=== PATIENT | female | born 1945 | race Caucasian/White ===

== ENCOUNTER 2018-11-07 10:12 | Inpatient (IN) | payer MEDICARE, OTHER ==
[2018-11-07] VITALS (15 sets, daily range): BP systolic 116–142; BP diastolic 62–87; PULSE 75–100; RESP 11–18; Ht 172.7 cm; Wt 95.1 kg
[~2018-11-07] VITALS: Ht 172.7 cm; Wt 95.1 kg
[2018-11-07] MEDS ORDERED: ALBU2SYR3 PO (17:18)
[2018-11-07] MEDS ORDERED: MONT10TA21 PO (17:18)
[2018-11-07] MEDS ORDERED: FLUT1BLS INHALATION (17:18)
[2018-11-07] MEDS ORDERED: LOSA25TA2 PO (17:18)
[2018-11-07] MEDS ORDERED: UDLOM GTB (17:18)
[2018-11-07] MEDS ORDERED: LYR75 PO (17:18)
[2018-11-07] MEDS ORDERED: MAGN400T28 PO (17:18)
[2018-11-07] MEDS ORDERED: ASPI-903 PO (17:18)
[2018-11-07] MEDS ORDERED: ALBU18HF INHALATION (17:18)
[2018-11-07] MEDS ORDERED: OMEP20CA16 PO (17:18)
[2018-11-07] MEDS ORDERED: FER325 PO (17:18)
[2018-11-07] MEDS ORDERED: LEVO125T7 PO (17:18)
[2018-11-07] MEDS ORDERED: AMLO-218 PO (17:18)
[2018-11-07] MEDS ORDERED: ACET1TAB40 PO (17:18)
[2018-11-07] MEDS ORDERED: CHOL100062 PO (17:18)
--- NOTE | 2018-11-07 17:39 | PREAC ---
Date/Time of Note Date/Time of Note DATE: 11/07/18 TIME: 17:37 Anesthesia Eval and Record Evaluation Time Pre-Procedure Interview DATE: 11/07/18 TIME: 17:37 Age 73 Sex female NPO: 8 hrs Preoperative diagnosis PVD osteomyelitis right leg Planned procedure right BKA Past Medical History Past Medical History: Includes Cardio: HTN, Other (Afib) Pulm: COPD GI: GERD Surgery & Anesthesia Issues No known issue Meds Anticoagulation: No Beta Judi within 24 hr: No Reason Beta Judi not given: Pt. not on B-Judi Reported Medications Albuterol Sulfate* (Ventolin HFA*) 18 Gm Hfa.aer.ad, 2 PUFF INHALATION Q6H, #1 INHALER 11/07/18 Diphenoxylate Hcl-Atropine* (Lomotil*) 5 Ml Soln, 5 ML GTB Q6H PRN for DIARRHEA, ML 11/07/18 Albuterol Sulfate* (Albuterol Sulfate* Liq) 2 Mg/5 Ml Syrup, 2 MG PO TID, #240 ML 11/07/18 Acetaminophen with Codeine (Acetaminophen-Cod #3 Tablet) 1 Each Tablet, 1 TAB PO Q6H, #7 TAB 11/07/18 Pregabalin* (Lyrica*) 75 Mg Capsule, 75 MG PO DAILY, CAP 11/07/18 Fluticasone/Vilanterol (Breo Ellipta 200-25 Mcg INH) 1 Each Blst.w.dev, 1 PUFF INHALATION DAILY, #1 INHALER 11/07/18 Ferrous Sulfate* (Ferrous Sulfate*) 325 Mg Tabec, 65 MG PO DAILY, TAB 11/07/18 Magnesium Oxide* (Magnesium Oxide*) 400 Mg Tablet, 400 MG PO DAILY, TAB 11/07/18 Cholecalciferol* (Vitamin D3*) 1,000 Unit Tablet, 2000 UNIT PO DAILY, TAB 11/07/18 Montelukast Sodium* (Singulair*) 10 Mg Tablet, 10 MG PO QHS, #30 TAB 11/07/18 Aspirin* (Aspirin* Chew) 81 Mg Tab.chew, 81 MG PO DAILY, TAB.CHEW 11/07/18 Omeprazole* (Omeprazole*) 20 Mg Capsule.dr, 20 MG PO DAILY, #30 CAP 11/07/18 Amlodipine Besylate* (Norvasc*) 10 Mg Tablet, 10 MG PO DAILY, TAB 11/07/18 Levothyroxine Sodium* (Levothyroxine Sodium*) 125 Mcg Tablet, 125 MCG PO BEFORE BREAKFAST, #30 TAB 11/07/18 Losartan Potassium* (Cozaar*) 25 Mg Tablet, 25 MG PO DAILY, #30 TAB 11/07/18 Meds reviewed: Yes Allergies Coded Allergies: Iodine and Iodide Containing Produc (Verified Allergy, Severe, RASH, ANAPHYLAXIS, 11/07/18) amoxicillin (Verified Allergy, Severe, RASH, 11/07/18) ciprofloxacin (Verified Allergy, Severe, RASH, 11/07/18) clavulanic acid (Verified Allergy, Severe, RASH, 11/07/18) hydromorphone (Verified Allergy, Severe, ANAPHYLAXIS, 11/07/18) ibuprofen (Verified Allergy, Severe, ANAPHYLAXIS, 11/07/18) aztreonam (Verified Allergy, Unknown, 11/07/18) cefepime (Verified Allergy, Unknown, 11/07/18) vancomycin (Verified Allergy, Unknown, 11/07/18) meperidine (Verified Adverse Reaction, Severe, N/V, 11/07/18) morphine (Verified Adverse Reaction, Severe, n/v, 11/07/18) Allergies Reviewed: Yes Labs/Studies Labs Reviewed: Reviewed by anesthesiologist test: N/A Studies: ECG (AF), CXR (nl) Pre-procedure Exam Last vitals Vital Signs Date Temp Pulse Resp B/P (MAP) Pulse Ox O2 O2 Flow FiO2 Time Delivery Rate 11/07/18 98.2 81 18 131/80 97 Room Air 16:48 (97) Airway: Adequate mouth opening Mallampati: Mallampati I Teeth: Normal Lung: Normal Heart: Normal ASA Physical Status ASA physical status: 2 Emergency: None Planned Anesthetic General/MAC: LMA Neuraxial: Spinal Nerve block: Femoral (right), Sciatic (right) Planned Pain Management Single shot nerve block, Parenteral pain med Pre-operative Attestations Prior to commencing anesthesia and surgery, the patient was re-evaluated, there was verification of: *The patient's identity *The results of appropriate recent lab work and preoperative vital signs *The above evaluation not changing prior to induction *Anesthetic plan, risk benefits, alternative and complications discussed with patient/family; questions answered; patient/family understands, accepts and wishes to proceed. BILLY GRANT MD Nov 07, 2018 17:39
[2018-11-07] MEDS ORDERED: ROPIVACAINE 0.2% 20 ML VIAL ONE (17:43)
[2018-11-07] MEDS ORDERED: ONDANSETRON 4 MG INJ ONE (17:43)
[2018-11-07] MEDS ORDERED: MIDAZOLAM 1 MG/ML 2 ML INJ ONE ×2 (17:43→18:12)
[2018-11-07] MEDS ORDERED: PROPOFOL 20 ML ONE (17:43)
[2018-11-07] MEDS ORDERED: ROPIVACAINE 0.5 % 30 ML VIAL ONE (17:43)
[2018-11-07] MEDS ORDERED: METOCLOPRAMIDE 10 MG INJ ONE (17:44)
[2018-11-07] MEDS ORDERED: HYDROmorphONE 1 MG/5 ML IV SYRINGE IV PRN ×3 (18:00)
[2018-11-07] MEDS ORDERED: DIPHENHYDRAMINE 50 MG INJ IV PRN (18:00)
[2018-11-07] MEDS ORDERED: ONDANSETRON 4 MG INJ IV PRN (18:00)
[2018-11-07] MEDS ORDERED: MEPERIDINE 25 MG INJ IV PRN (18:00)
--- NOTE | 2018-11-07 18:15 | HPN ---
Date/Time of Note Date/Time of Note DATE: 11/07/18 TIME: 18:15 Interval H&P Admission Note Pt. seen H&P reviewed: No system changes NICOLE DILLARD MD Nov 07, 2018 18:15
[2018-11-07] MEDS ORDERED: FENTAnyl 50 MCG/ML VIAL ONE (18:27)
--- NOTE | 2018-11-07 18:30 | HPN ---
Date/Time of Note Date/Time of Note DATE: 11/07/18 TIME: 18:29 Interval H&P Admission Note Pt. seen H&P reviewed: No system changes SAE BETH MD Nov 07, 2018 18:30
[2018-11-07] MEDS ORDERED: PIPER-TAZO 3.375 GM IV (PMX) 100 ML ONE (18:36)
[2018-11-07] MEDS ORDERED: CEFAZOLIN 1 GM INJ ONE (18:53)
[2018-11-07] MEDS ORDERED: DIPHENHYDRAMINE 25 MG CAP PO PRN (19:00)
[2018-11-07] MEDS ORDERED: CEFAZOLIN 1 GM INJ IV SCH (19:00)
[2018-11-07] MEDS ORDERED: BACITRACIN/POLYMYXIN 28.35 GM OINT TOP ONE (20:24)
[2018-11-07] MEDS ORDERED: KETOROLAC 30 MG INJ ONE (20:24)
--- NOTE | 2018-11-07 20:36 | NUR ---
RECEIVED ASLEEP WITH OXYGEN MASK ON AND ORAL AIRWAY IN PLACE. BREATHING WITH EASE. DRESSING ON RIGHT LEG IN PLACE WITH LEG IMMOBILIZER ON. OA REMOVED SOON SHE WOKE UP.
--- NOTE | 2018-11-07 20:46 | SIPON ---
Date/Time of Note Date/Time of Note DATE: 11/07/18 TIME: 20:43 Operative Report Preoperative Diagnosis RLE EXTREMITY ATHEROSCLEROSIS AND NONHEALING ULCER, OSTEOMYELITIS AND CHARCOT Postoperative Diagnosis SAME Operation/Procedure Performed RIGHT BKA RIGHT MUSCULOCUTANEOUS FLAP CLOSURE Surgeon DR. NICOLE BETH activity assistant NONE Anesthesia: MAC, moderate sedation, other (BLOCK) Estimated blood loss: 100 - 150 ml's Transfusion Required none Specimen BONE MARROW CULTURE Grafts/Implants none Complications none SAE BETH MD Nov 07, 2018 20:45
--- NOTE | 2018-11-07 20:48 | OPR ---
Date/Time of Note Date/Time of Note DATE: 11/07/18 TIME: 20:46 Operative Report Preoperative Diagnosis RLE EXTREMITY ATHEROSCLEROSIS AND NONHEALING ULCER, OSTEOMYELITIS AND CHARCOT Postoperative Diagnosis SAME Operation/Procedure Performed RIGHT Below KNEE AMPUTATION RIGHT MUSCULOCUTANEOUS FLAP CLOSURE Surgeon SURGEONS: CO-DR. SAE BETH CO-DR. NICOLE GRIFFIN Tariff Compiler none Anesthesia Type: moderate sedation, other (block) Estimated Blood Loss: 100 - 150 ml's Transfusion none Specimen NECROTIC FOOT, BONE MARROW CULTURE Grafts/Implants none Complications none Pt Condition Post Procedure: stable Disposition: PACU Procedure Description DATE OF OPERATION: 11/07/2018 SURGEON: Sae Beth MD CO-SURGEON: Dr. Nicole Griffin MD PREOPERATIVE DIAGNOSIS: Right Lower Extremity atherosclerosis & nonhealing ulcer, osteomyelitis and Charcot POSTOPERATIVE DIAGNOSIS: same ANESTHESIA: general BLOOD LOSS: 150 COMPLICATIONS: None. PROCEDURE: 1. Left below knee amputation 2. Right myocutaneous flap closure Indications: The patient is a 73-year-old female with chronic nonhealing foot wound and osteomyelitis for four years with non-reconstructible ankle and foot. She has become nonambulatory and uses a scooter device for transport and ambulation. This has completely limited her life and she would like to move forward as there is no other intervention that can be provided from orthopedic standpoint. She has also undergone arterial studies that identified adequate perfusion to the infrapopliteal segment.The risks of surgical intervention were discussed with the patient. Risks including but not limited to bleeding, myocardial infarction, , infection, and patient has agreed to proceed. Description of procedure: The patient was placed supine. The lower extremity was prepped and draped in the usual sterile fashion. The preoperative antibiotics were given. General anesthesia was induced and patient tolerated well. An occlusive dressing was applied to the foot up to the level of the ankle. Anterior and posterior skin incisions were outlined with a marking pen. The anterior skin incision was made 12 cm below the tibial tuberosity and extended medially and laterally toward the edges of the gastrocnemius muscle. The skin incision was then extended distally on either side parallel to the tibia for 12 15 cm, creating a posterior flap. The skin and subcutaneous tissues were incised down to the fascia. The greater and short saphenous veins on the medial and posterior aspects of the leg, respectively, were ligated and divided. The fascia and the muscles were then divided with the electrocautery at the same level of the anterior skin incision. The muscles in the anterior and lateral compartment were divided, exposing the anterior tibial vessels, which were ligated and divided. The interosseous membrane was then incised. The tibial periosteum was incised circumferentially with the electrocautery at the same level of the skin and muscle division. Using a periosteal elevator, the tibial periosteum was stripped proximally for 2 cm. The tibia was then transected with an electric saw 2 cm proximal to the skin incision with an anterior bevel. The fibula was then exposed, dissected circumferentially, and transected with a bone cutter 2 cm proximal to the tibial division. The amputation was then completed with an amputation knife, transecting the soleus muscle obliquely and the gastrocnemius muscle at the same level as the posterior flap. Bleeding soleal veins and posterior tibial and peroneal vessels were clamped and oversewn with 2-0 silk sutures. Sharp bony edges were then filed, eliminating any bony prominences over the anterior aspect of the tibia. At this point on the medial and lateral aspect of the tibia we drilled anchoring points in order to create a musculocutaneous flap to cover the tibia as the patient would like to be very ambulatory with her prosthesis. The fascia of the anterior and posterior muscle flaps were then approximated with interrupted absorbable sutures 1-0 and 2-0 in two layers. This was performed in order to have the rotated flap from the proximal calf to close the defect that would have been there given the limited muscle that would've been available. The dermal layer was approximated with interrupted 3-0 Vicryl sutures and skin stephanie were applied. The stump was dressed with 4 4 gauze, Kerlix, and an Nilo bandage. The patient tolerated the procedure well and was taken to the postanesthesia care unit in stable condition. All instruments, sponges, and needles were correct x 2. SAE BETH MD Nov 07, 2018 20:48
[2018-11-07] MEDS ORDERED: FENTAnyl 50 MCG/ML VIAL IV PRN ×6 (21:00→21:30)
--- NOTE | 2018-11-07 21:08 | QN ---
Documentation Job number: [id number] NICOLE DILLARD MD Nov 07, 2018 21:08
--- NOTE | 2018-11-07 21:11 | SIPON ---
Date/Time of Note Date/Time of Note DATE: 11/07/18 TIME: 21:08 Operative Report Preoperative Diagnosis Right foot osteomyelitis, Charcot foot, arthrosclerosis Postoperative Diagnosis Right foot osteomyelitis, Charcot foot, arthrosclerosis Operation/Procedure Performed Right leg below knee amputation Surgeon CO-SURGEON: NICOLE DILLARD MD CO-SURGEON: SAE BETH MD miller head assistant wet process none Anesthesia: general, other (sciatic and femoral) Estimated blood loss: 100 - 150 ml's Transfusion Required none Specimen right BKA, cultures from post amp soft tissue and tibial canal Grafts/Implants none Complications none NICOLE DILLARD MD Nov 07, 2018 21:11
--- NOTE | 2018-11-07 21:13 | PAC ---
Date/Time of Note Date/Time of Note DATE: 11/07/18 TIME: 21:13 Post-Anesthesia Notes Post-Anesthesia Note Last documented vital signs Vital Signs Date Temp Pulse Resp B/P (MAP) Pulse Ox O2 O2 Flow FiO2 Time Delivery Rate 11/07/18 98.2 100 17 134/74 94 Mask 8.0 20:47 (94) 11/07/18 98.2 20:36 Activity: WNL Respiratory function: WNL Cardiovascular function: WNL Mental status: Baseline Pain reasonably controlled: Yes Hydration appropriate: Yes Nausea/Vomiting absent: No BILLY GRANT MD Nov 07, 2018 21:13
--- NOTE | 2018-11-07 21:14 | NUR ---
DR DILLARD SPOKE TO HOSPITALIST DR CHRISTOPHER GRISSOM FOR CONSULT. AWAKE AND ALERT.
--- NOTE | 2018-11-07 21:24 | NUR ---
LEFT MESSAGE WITH DR SAMPSON'S EXCHANGE FOR CONSULT. ENDORSED TO GAGAN RIVERA RN.
--- NOTE | 2018-11-07 21:47 | NUR ---
PACU: Transferred patient back to the room via gurney AAOX4 vss breathing with ease w/ 3LNC HOB @ 45 deg. denies pain, dressing dry & intact, yung intact , scd on the left leg, report given to JESSICA French
[2018-11-07] MEDS ORDERED: PIPER-TAZO 2.25 GM (PMX) 50 ML IVPB SCH (22:00)
[2018-11-07] MEDS: oxyCODONE (CR) 10 MG TAB [oxyCONTIN] PO SCH (23:08)
[2018-11-07] MEDS: GABAPENTIN 300 MG CAP PO SCH (23:08)
[2018-11-08] VITALS (14 sets, daily range): BP systolic 126–139; BP diastolic 61–76; PULSE 38–96; RESP 17–20
[2018-11-08] MEDS: PANTOPRAZOLE (EC) 40 MG TAB PO SCH (06:18)
[2018-11-08] MEDS: PIPER-TAZO 2.25 GM (PMX) 50 ML IVPB SCH ×3 (06:18→21:37)
[2018-11-08] MEDS: LEVOTHYROXINE 125 MCG TAB PO SCH (06:18)
--- NOTE | 2018-11-08 07:38 | CONS ---
Date/Time of Note Date/Time of Note DATE: 11/08/18 TIME: 07:37 Assessment/Plan Assessment/Plan Assessment/Plan Post op med consult dictated. Pt with known chronic a fib, copd, gerd, without DM or known coronary artery disease, meds and allergies rev, will follow. Result Diagram: 11/08/18 0503 11/08/18 0503 Results 24hrs Laboratory Tests Test 11/07/18 21:29 11/08/18 05:03 Hemoglobin 11.6 L 11.1 L Hematocrit 36.1 L 35.8 L White Blood Count 8.9 Red Blood Count 3.98 L Mean Corpuscular Volume 89.9 Mean Corpuscular Hemoglobin 27.9 L Mean Corpuscular Hemoglobin Concent 31.0 L Red Cell Distribution Width 14.5 Platelet Count 220 Mean Platelet Volume 10.3 Immature Granulocytes % 0.300 Neutrophils % 75.5 Lymphocytes % 13.9 L Monocytes % 8.5 Eosinophils % 1.2 Basophils % 0.6 Nucleated Red Blood Cells % 0.0 Immature Granulocytes # 0.030 Neutrophils # 6.7 Lymphocytes # 1.2 Monocytes # 0.8 Eosinophils # 0.1 Basophils # 0.1 Nucleated Red Blood Cells # 0.0 Sodium Level 141 Potassium Level 4.6 Chloride Level 103 Carbon Dioxide Level 29 Anion Gap 9 Blood Urea Nitrogen 16 Creatinine 0.65 Est Glomerular Filtrat Rate mL/min Glucose Level 105 Calcium Level 8.9 Phosphorus Level 5.3 H Magnesium Level 2.2 Consultation Date/Type/Reason Admit Date/Time Nov 07, 2018 at 15:37 Past Medical History Medications Current Medications Ondansetron HCl (Zofran Inj) 4 mg Q4H PRN IV NAUSEA AND/OR VOMITING; Start 11/07/18 at 19:00 Diphenhydramine HCl (Benadryl) 25 mg Q4H PRN PO ITCHING; Start 11/07/18 at 19:00 Rivaroxaban (Xarelto) 10 mg WITH DINNER PO ; Start 11/08/18 at 18:00 Gabapentin (Neurontin) 300 mg TID PO Last administered on 11/07/18at 23:08; Admin Dose 300 MG; Start 11/07/18 at 21:00 Oxycodone HCl (Oxycontin) 5 mg BID PO Last administered on 11/07/18at 23:08; Admin Dose 5 MG; Start 11/07/18 at 21:00 Oxycodone HCl (Roxicodone) 5 mg Q4H PRN PO MODERATE PAIN LEVEL 4-6; Start 11/07/18 at 19:00 Multivitamins Therapeutic (Theragran) 1 tab DAILY PO ; Start 11/08/18 at 09:00 Amlodipine Besylate (Norvasc) 10 mg DAILY PO ; Start 11/08/18 at 09:00 Cholecalciferol (Vitamin D) 2,000 unit DAILY PO ; Start 11/08/18 at 09:00 Fluticasone/ Vilanterol (Breo Ellipta 200-25 Mcg Inh) 1 inh DAILY INH ; Start 11/08/18 at 09:00 Levothyroxine Sodium (Synthroid) 125 mcg BEFORE BREAKFAST PO Last administered on 11/08/18at 06:18; Admin Dose 125 MCG; Start 11/08/18 at 07:00 Losartan Potassium (Cozaar) 25 mg DAILY PO ; Start 11/08/18 at 09:00 Magnesium Oxide (Mag-Ox 400) 400 mg DAILY PO ; Start 11/08/18 at 09:00 Montelukast Sodium (Singulair) 10 mg QHS PO ; Start 11/08/18 at 21:00 Pregabalin (Lyrica) 75 mg DAILY PO ; Start 11/08/18 at 09:00 Pantoprazole (Protonix Tab) 40 mg DAILY@06 PO Last administered on 11/08/18at 06:18; Admin Dose 40 MG; Start 11/08/18 at 06:00 Piperacillin Sod/ Tazobactam Sod 50 ml @ 100 mls/hr Q8 IVPB Last administered on 11/08/18at 06:18; Admin Dose 100 MLS/HR; Start 11/08/18 at 06:00; Stop 11/08/18 at 22:29 Allergies: Coded Allergies: Iodine and Iodide Containing Produc (Verified Allergy, Severe, RASH, ANAPHYLAXIS, 11/07/18) amoxicillin (Verified Allergy, Severe, RASH, 11/07/18) ciprofloxacin (Verified Allergy, Severe, RASH, 11/07/18) clavulanic acid (Verified Allergy, Severe, RASH, 11/07/18) hydromorphone (Verified Allergy, Severe, ANAPHYLAXIS, 11/07/18) ibuprofen (Verified Allergy, Severe, ANAPHYLAXIS, 11/07/18) aztreonam (Verified Allergy, Unknown, 11/07/18) cefepime (Verified Allergy, Unknown, 11/07/18) vancomycin (Verified Allergy, Unknown, 11/07/18) meperidine (Verified Adverse Reaction, Severe, N/V, 11/07/18) morphine (Verified Adverse Reaction, Severe, n/v, 11/07/18) Social History Smoking Status: Former smoker Exam/Review of Systems Vital Signs Vitals Vital Signs Date Temp Pulse Resp B/P (MAP) Pulse Ox O2 O2 Flow FiO2 Time Delivery Rate 11/08/18 97.6 76 20 135/71 98 07:29 (92) 11/08/18 Nasal 04:09 Cannula 11/08/18 2.0 28 02:28 Intake and Output 11/07/18 11/07/18 11/08/18 1515:00 23:00 07:00 IntakeIntake Total 1400 ml 50 ml OutputOutput Total 150 ml BalanceBalance 1250 ml 50 ml Medications Medications Current Medications Ondansetron HCl (Zofran Inj) 4 mg Q4H PRN IV NAUSEA AND/OR VOMITING; Start 11/07/18 at 19:00 Diphenhydramine HCl (Benadryl) 25 mg Q4H PRN PO ITCHING; Start 11/07/18 at 19:00 Rivaroxaban (Xarelto) 10 mg WITH DINNER PO ; Start 11/08/18 at 18:00 Gabapentin (Neurontin) 300 mg TID PO Last administered on 11/07/18at 23:08; Admin Dose 300 MG; Start 11/07/18 at 21:00 Oxycodone HCl (Oxycontin) 5 mg BID PO Last administered on 11/07/18at 23:08; Ad min Dose 5 MG; Start 11/07/18 at 21:00 Oxycodone HCl (Roxicodone) 5 mg Q4H PRN PO MODERATE PAIN LEVEL 4-6; Start 11/07/18 at 19:00 Multivitamins Therapeutic (Theragran) 1 tab DAILY PO ; Start 11/08/18 at 09:00 Amlodipine Besylate (Norvasc) 10 mg DAILY PO ; Start 11/08/18 at 09:00 Cholecalciferol (Vitamin D) 2,000 unit DAILY PO ; Start 11/08/18 at 09:00 Fluticasone/ Vilanterol (Breo Ellipta 200-25 Mcg Inh) 1 inh DAILY INH ; Start 11/08/18 at 09:00 Levothyroxine Sodium (Synthroid) 125 mcg BEFORE BREAKFAST PO Last administered on 11/08/18at 06:18; Admin Dose 125 MCG; Start 11/08/18 at 07:00 Losartan Potassium (Cozaar) 25 mg DAILY PO ; Start 11/08/18 at 09:00 Magnesium Oxide (Mag-Ox 400) 400 mg DAILY PO ; Start 11/08/18 at 09:00 Montelukast Sodium (Singulair) 10 mg QHS PO ; Start 11/08/18 at 21:00 Pregabalin (Lyrica) 75 mg DAILY PO ; Start 11/08/18 at 09:00 Pantoprazole (Protonix Tab) 40 mg DAILY@06 PO Last administered on 11/08/18at 06:18; Admin Dose 40 MG; Start 11/08/18 at 06:00 Piperacillin Sod/ Tazobactam Sod 50 ml @ 100 mls/hr Q8 IVPB Last administered on 11/08/18at 06:18; Admin Dose 100 MLS/HR; Start 11/08/18 at 06:00; Stop 11/08/18 at 22:29 ELISE SAMPSON MD Nov 08, 2018 07:38
--- NOTE | 2018-11-08 07:40 | NUR ---
end of shift: patient is alert and oriented, atrial fib controlled, s/p right BKA, SCD on the left leg; overhead trapeze in place; needs attended, will endorse to dayshift nurse
--- NOTE | 2018-11-08 08:10 | CONS ---
DATE OF ADMISSION: 11/07/2018 DATE OF CONSULTATION: TYPE OF CONSULTATION: POST-OP MEDICAL CONSULTATIVE NOTE Dr. Nicole Dillard: Thank you very much for allowing me to evaluate this 73-year-old female who underwent right lower ext remity amputation for nonhealing ulcer yesterday. Medical consultation requested to manage her known hypertension, chronic obstructive pulmonary disease as well as atrial fibrillation. HISTORICAL EVENTS: The above patient has had a longstanding history of a nonhealing ulcer of the rig ht lower extremity. She had seen both vascular as well as infectious disease physicians in the past and despite aggressive search for a remedy, resulted in a continued drainage, bleeding and osteomyeli tis and it was felt amputation appropriate. Postoperatively, she is comfortable without cough, wheez ing, shortness of breath, nausea, vomiting, abdominal or chest pain. PAST MEDICAL HISTORY: 1. Chronic atrial fibrillation, having been only treated with anticoagulants for a short time, this resulted in bleeding from the right lower extremity and this was discontinued having to remain on asp irin alone. 2. By history undergoing a treadmill test in excess of 5 years ago and she states this was normal [facility] history of coronary artery disease. 3. History of hypertension. 4. History of anemia having remained on iron and having undergone both upper GI endoscopy and colono scopy as well as a capsule study without finding a "bleeding site." 5. Chronic obstructive pulmonary disease, having smoked in the past. 6. No history of diabetes. Prior cholecystectomy. ALLERGIES OR INTOLERANCES: Include: 1. MORPHINE. 2. DEMEROL. 3. DILAUDID. 4. IBUPROFEN. 5. IODINE. 6. VANCOMYCIN. 7. CIPRO. 8. AUGMENTIN. 9. CEFEPIME. 10. AZTREONAM. SOCIAL HISTORY: . Worked in the medical profession as an aide. MEDICATIONS: 1. Cozaar 25 mg. 2. Synthroid 125 mcg per day. 3. Norvasc 10 mg. 4. Prilosec 20 mg. 5. Singulair 10 mg. 6. Vitamin D3 2000 mg per day. 7. Magnesium 400 mg per day. 8. Iron 65 mg per day. 9. Breo. 10. Lyrica 75 mg p.r.n. 11. Albuterol nebulizer. 12. Tylenol with Codeine. PHYSICAL EXAMINATION: GENERAL: [place] female in no acute distress. VITAL SIGNS: BP 126/78, pulse 72, respirations were 18. She was afebrile. EYES: Extraocular muscles were full. NOSE, MOUTH, AND THROAT: Normal. NECK: Supple. There was no jugular venous distention, thyroid enlargement or adenopathy. Carotids 2+. LUNGS: Clear. HEART: Rhythm irregularly irregular. No murmur. No third sound. ABDOMEN: Liver and spleen not palpable. No tenderness. EXTREMITIES the right lower extremity was amputated, bandage was in place. Left lower extremity, no calf tenderness and no edema. NEUROLOGIC: No lateralizing motor weakness. IMPRESSION: 1. Postop right below the knee amputation for treatment of a nonhealing ulcer/osteo. 2. History of hypertension. Will monitor BP and continue BP meds. 3. Vitamin D deficiency. Continue Vitamin D3. 4. History of gastroesophageal reflux disease. Proton pump inhibitor will be continued. We will f devinlow with you. Dictated By: ELISE PEÑALOZA/MAGDI Conf#: [id number] DID#: [id number] CC: NICOLE DILLARD MD;*EndCC*
[2018-11-08] MEDS: AMLODIPINE 10 MG TAB PO SCH (08:41)
[2018-11-08] MEDS: FLUTICASONE/VILANTEROL 200-25 INH DEVICE INH SCH (08:41)
[2018-11-08] MEDS: MAGNESIUM OXIDE 400 MG TAB PO SCH (08:41)
[2018-11-08] MEDS: CHOLECALCIFEROL 2,000 UNIT CAP PO SCH (08:41)
[2018-11-08] MEDS: oxyCODONE 5 MG TAB PO PRN ×3 (08:42→21:03)
[2018-11-08] MEDS: MULTIVITAMINS THERAPEUTIC TAB PO SCH (08:42)
[2018-11-08] MEDS: LOSARTAN 25 MG TAB PO SCH (08:42)
[2018-11-08] MEDS: GABAPENTIN 300 MG CAP PO SCH ×3 (08:42→20:15)
[2018-11-08] MEDS ORDERED: PREGABALIN 75 MG CAP PO SCH (09:00)
[2018-11-08] MEDS: oxyCODONE (CR) 10 MG TAB [oxyCONTIN] PO SCH ×2 (09:16→20:15)
--- NOTE | 2018-11-08 09:30 | NUR ---
PT evaluation Therapy day number 1 Evaluation Start Time 09:30 Evaluation End Time 10:30 Evaluation Total Time 60 min Subjective Current complaint of pain Pain Scale NUMERIC Pain Intensity 7 (0-10) Patient Stated Goal for Pain Relief 0 (0-10) Pain Level Comment patient premedicated, states "much better than previously" Pre Treatment Vital Signs Stable Yes Transfer Training Start Time 10:30 Supine to Sit Minimum Assist Transfer Sit to Stand Ability Moderate Assist Bed Mobility Sit to Supine Minimum Assist Bed Transfer Ability Minimum Assist Chair Transfer Ability Minimum Assist Additional Mobility Comments transfer with use of FWW SPT, limited by nausea Transfer Training End Time 11:00 Total Transfer Training Time 30 min (8-127) Gait Assist Levels Minimum Assist Assistive Devices Front Wheel Walker Additional Gait Comments hopping in place with tricep dips for UE strengthening Weight Bearing Assessment Label Right Lower Extremity Weight Bearing Status Non Weight Bearing Static Sitting Balance Good Dynamic Sitting Balance Good Standing Static Balance Fair Dynamic Standing Balance Fair Additional Balance Assessments Comments with use of FWW Safety Judgement Fair Activity Tolerance Fair Equipment Present A pump Donis Catheter IV pump Post Treatment Pain Intensity 7 0-10 Quality Indicators Dizziness Additional Post Treatment Comment See note Total Treament Time 30 min (8-127) Total Minutes 90 Total Units 6 PT Technical Record Comment 73 yo female presents s/p RLE BKA secondary to nonhealing ulcer on 11/07/18. PMH: chronic a fib, copd, gerd, without DM or known coronary artery disease Precautions: fall risk, NWB RLE PLOF: patient lives in [facility] with 1 step to enter, patient previous used knee scooter mod I. Owns tub bench, has Home health services. S: Pt in bed, agreeable to PT evaluation. pt cleared for activity per RN. Daughter (Masha) present at bedside. O: PT evaluation completed, pt returned back to bed following therapy intervention with call light within reach and bed alarm activated. Spoke to RN regarding pt response to activity and PT plan of care. Vitals stable throughout however pt reported nausea and dizziness with change in position. knee immobilizer on patient at all times. Spoke to CM regarding PT recommendations. Educated patient and family at length regarding recovery and potential PT discharge recommendations A: Patient presents with fair mobility throughout limited secondary to nausea and dizziness. Patient strongly receptive to physical therapy and motivated to participate in care. Patient presents with good safety awareness and has good LE strength and trunk control to assist with weight shifting. Patient fatigues quickly dues to UE endurance but overall continually striving for increasing mobility and functional independence. Additionally pt could benefit from OT evaluation for recommendations to assist in ADLs and management. Patient could benefit from skilled inpatient PT to improve endurance, strength, and functional mobility P: Provide HEP and promote improved functional mobility Recommendation: Recommend FWW for transfers and short ambulation, may benefit from wc for distance. Patient could benefit from OT evaluation, recommend ARU for continued high intensity therapy prior to discharge home when medically cleared by
--- NOTE | 2018-11-08 11:29 | NUR ---
Nutrition consult Recent amputation - Will be sending Jaylon BID for faster healing. Pt requested for soft food that are easier to chew and digest. Thank you
[2018-11-08] MEDS: ONDANSETRON 4 MG INJ IV PRN (11:51)
--- NOTE | 2018-11-08 13:15 | NUR ---
PT note Therapy day number 1 Subjective Denies pain Pain Scale NUMERIC Pain Intensity 6 (0-10) Patient Stated Goal for Pain Relief 0 (0-10) Pain Level Comment pt agreeable to PT Pre Treatment Vital Signs Stable Yes Exercise Assessment Label Bilat Lower Extremity Exercise Type Active ROM Additional Exercise Comments provided HEP, SL briding, hip abd, SLR, isometric glutes, w/ stretching Exercise Start Time 13:15 Exercise End Time 14:00 Total Exercise Time 45 min (8-127) Equipment Present A pump Donis Catheter IV pump Post Treatment Pain Intensity 6 0-10 Additional Post Treatment Comment See note Total Treament Time 45 min (8-127) Total Minutes 45 Total Units 3 PT Technical Record Comment S: Pt in bed, agreeable to PT intervention, reports continued dizziness and nausea. Patient cleared for activity per RN O: PT intervention completed, performed ther-ex and provided HEP. Patient performed ther-ex indicated and performed hamstring, soleus, and gastoc stretching of LLE. Pt back in bed, all needs met, spoke to RN regarding pt response to activity and PT plan of care. A: Patient receptive to PT education and demonstrates good strength in BLE. Patient understanding of movement limitations, concernsed with previous L THR precautions due to multiple prior dislocations. Patient reports THR was 2009 with no recent dislocations. Patient continued to be motivated to participate in therapy and understanding of progression of mobility. P: Progress OOB tolerance, transfers and FWW management with mobility
--- NOTE | 2018-11-08 16:48 | NUR ---
CM NOTE ORDER RECEIVED FOR SNF PLACEMENT, CM MET WITH PT AND DAUGHTER, THEY WOULD LIKE TO FOLLOW THE RECOMMENDATION OF PHYSICAL THERAPY FOR ARU, AND DAUGHTER STATED THAT SHE DISCUSSED ARU WITH MD DILLARD, CM ALSO SENT [facility] [employer] [phone] FAXED AND WILL FOLLOW UP LATER, INFORMATION TO [facility] PROVIDED TO THE DAUGHTER WELL, CM WILL CONTINUE TO FOLLOW UP.
[2018-11-08] MEDS: RIVAROXABAN 10 MG TABLET PO SCH (17:58)
--- NOTE | 2018-11-08 18:34 | NUR ---
pt able to turn and move self in bed with trapeze family at bedside pt med prn with po oxycodone with good relief per pt pt afib on tele , o2 increased to 5lt nc as pt desats when sleeping r dressing cdi, in imobilizer,
[2018-11-08] MEDS: MONTELUKAST 10 MG TAB PO SCH (20:15)
--- NOTE | 2018-11-08 20:43 | PN ---
Date/Time of Note Date/Time of Note DATE: 11/08/18 TIME: 20:38 Assessment/Plan Lines/Catheters IV Catheter Type (from Nrsg): Mid Line Assessment/Plan Chief Complaint/Hosp Course -Right LE atherosclerosis, osteomyelitis, nonhealing chronic ulcer & Charcot: S/P Right BKA-with musculocutaneous flap -LLE: no current ulcers . will continue with our vascular surveillance -Pain control -PT/OT OOB to chair and FWB of the LLE, RLE with knee immobilizer and fall precautions -Incentive spirometer -DVT ppx -Will plan to remove dressing on Tuesday -Keep RLE elevate on two pillows Subjective 24 Hr Interval Summary no new vascular events overnight Exam/Review of Systems Vital Signs Vitals Vital Signs Date Temp Pulse Resp B/P (MAP) Pulse Ox O2 O2 Flow FiO2 Time Delivery Rate 11/09/18 98.1 89 18 122/69 95 07:59 (86) 11/09/18 Simple 6.0 01:28 Mask 11/08/18 28 02:28 Intake and Output 11/08/18 11/08/18 11/09/18 1414:59 22:59 06:59 IntakeIntake Total 400 ml 600 ml 600 ml OutputOutput Total 600 ml 1200 ml 1250 ml BalanceBalance -200 ml -600 ml -650 ml Exam Free Text/Dictation A&Ox3 CTAB S1S2 soft NTND BS+, truncal obesity RLE: Palpable femoral pulse, motor/sensory intact, BKA-stump with dressing intact LLE: Palpable femoral pulse, faint pedal pulse motor/sensory intact, cap refill 3 seconds, no ulcers Results Result Diagram: 11/09/18 0536 11/09/18 0536 SAE BETH MD Nov 08, 2018 20:43
[2018-11-09] VITALS (10 sets, daily range): BP systolic 122–144; BP diastolic 65–75; PULSE 72–94; RESP 18–20
[2018-11-09] MEDS: oxyCODONE 5 MG TAB PO PRN ×5 (00:36→22:51)
--- NOTE | 2018-11-09 01:18 | NUR ---
patient on O2 5L/NC, had desaturation 80s when sleeping, noted patient breathing through the mouth, instructed on IS when awake; RT notified, patient shifted to simple mask 6L O2 while sleeping, O2 sat 96%; will continue to monitor patient
[2018-11-09] MEDS: GABAPENTIN 300 MG CAP PO SCH ×3 (06:13→20:39)
[2018-11-09] MEDS: PANTOPRAZOLE (EC) 40 MG TAB PO SCH (06:14)
[2018-11-09] MEDS: LEVOTHYROXINE 125 MCG TAB PO SCH (06:14)
--- NOTE | 2018-11-09 06:42 | NUR ---
end of shift: patient is alert and oriented, atrial fibrillation controlled on monitor; continues to experience pain on the right leg, given pain medication with partial relief; seen by Dr. Singleton during the night, with instruction to move the right LE up and down and elevate on pillow; notified [facility] (tel [phone]) for the request for [facility] - will endorse to follow-up in AM; patient had desaturation to 80s despite 5L O2 support while asleep, shifted to simple mask while asleep and was placed back to nasal cannula in AM; needs attended; will endorse to dayshift nurse
[2018-11-09] MEDS: ONDANSETRON 4 MG INJ IV PRN (06:44)
--- NOTE | 2018-11-09 07:56 | PN ---
Date/Time of Note Date/Time of Note DATE: 11/09/18 TIME: 07:54 Assessment/Plan Lines/Catheters IV Catheter Type (from Nrsg): Mid Line Assessment/Plan Chief Complaint/Hosp Course -Right LE atherosclerosis, osteomyelitis, nonhealing chronic ulcer & Charcot: S/P Right BKA-with musculocutaneous flap -Pain control -PT/OT OOB to chair and FWB of the LLE, RLE with knee immobilizer and fall precautions -Incentive spirometer -Some phantom pain - Continue with Neurontin -DVT ppx -Will plan to remove dressing on Tuesday -Keep RLE elevate on two pillows -Will remove Donis tomorrow in order to avoid any contamination to the dressings -Thank you for allowing us to partake in the care of your patients, please call with any questions Subjective 24 Hr Interval Summary no new vascular events overnight Exam/Review of Systems Vital Signs Vitals Vital Signs Date Temp Pulse Resp B/P (MAP) Pulse Ox O2 O2 Flow FiO2 Time Delivery Rate 11/09/18 87 04:00 11/09/18 Simple 6.0 01:28 Mask 11/09/18 97.4 20 133/75 95 00:37 (94) 11/08/18 28 02:28 Intake and Output 11/08/18 11/08/18 11/09/18 1515:00 23:00 07:00 IntakeIntake Total 400 ml 600 ml 600 ml OutputOutput Total 600 ml 1200 ml 1250 ml BalanceBalance -200 ml -600 ml -650 ml Exam Free Text/Dictation A&Ox3 CTAB S1S2 soft NTND BS+, truncal obesity RLE: Palpable femoral pulse, motor/sensory, BKA-stump with dressing intact Results Result Diagram: 11/09/18 0536 11/09/18 0536 SAE BETH MD Nov 09, 2018 07:56
--- NOTE | 2018-11-09 08:39 | PN ---
Date/Time of Note Date/Time of Note DATE: 11/09/18 TIME: 08:37 Assessment/Plan VTE Prophylaxis Risk score (from Ns)>0 risk: 6 SCD applied (from Ns): Yes Pharmacological prophylaxis: rivaroxaban Lines/Catheters IV Catheter Type (from [facility]): Mid Line Assessment/Plan Assessment/Plan 1. Post op right leg amputation 2. Hyponatremia, w/u in progress, fluid restrict, Adelaida ordered, and isotonic fluids 3. Atrial fib, now on xarelto Result Diagram: 11/09/18 0536 11/09/18 0536 Results 24hrs Laboratory Tests Test 11/09/18 05:36 White Blood Count 14.2 #H Red Blood Count 3.82 L Hemoglobin 10.9 L Hematocrit 32.8 L Mean Corpuscular Volume 85.9 Mean Corpuscular Hemoglobin 28.5 L Mean Corpuscular Hemoglobin Concent 33.2 Red Cell Distribution Width 14.2 Platelet Count 198 Mean Platelet Volume 10.7 H Immature Granulocytes % 0.300 Neutrophils % 85.6 H Lymphocytes % 4.7 L Monocytes % 9.0 Eosinophils % 0.1 Basophils % 0.3 Nucleated Red Blood Cells % 0.0 Immature Granulocytes # 0.040 H Neutrophils # 12.1 H Lymphocytes # 0.7 L Monocytes # 1.3 H Eosinophils # 0.0 Basophils # 0.0 Nucleated Red Blood Cells # 0.0 Sodium Level 125 #L Potassium Level 4.3 Chloride Level 88 #L Carbon Dioxide Level 28 Anion Gap 9 Blood Urea Nitrogen 11 Creatinine 0.54 Est Glomerular Filtrat Rate mL/min Glucose Level 157 Calcium Level 8.5 Phosphorus Level 3.8 Magnesium Level 1.9 Subjective 24 Hr Interval Summary Cardiovascular: No chest pain, No lightheadedness Gastrointestinal: no complaints Genitourinary: no complaints, other (yung in place) Neurologic: other (discomfort right lower extrem) Exam/Review of Systems Vital Signs Vitals Vital Signs Date Temp Pulse Resp B/P (MAP) Pulse Ox O2 O2 Flow FiO2 Time Delivery Rate 11/09/18 98.1 89 18 122/69 95 07:59 (86) 11/09/18 Simple 6.0 01:28 Mask 11/08/18 28 02:28 Intake and Output 11/08/18 11/08/18 11/09/18 1515:00 23:00 07:00 IntakeIntake Total 400 ml 600 ml 600 ml OutputOutput Total 600 ml 1200 ml 1250 ml BalanceBalance -200 ml -600 ml -650 ml Exam Neck: No jvd Respiratory: clear to auscultation Cardiovascular: regular rate and rhythm; No irregular rhythm Gastrointestinal: soft Extremities: No edema Medications Medications Current Medications Ondansetron HCl (Zofran Inj) 4 mg Q4H PRN IV NAUSEA AND/OR VOMITING Last administered on 11/09/18 06:44; Admin Dose 4 MG; Start 11/07/18 at 19:00 Diphenhydramine HCl (Benadryl) 25 mg Q4H PRN PO ITCHING; Start 11/07/18 at 19:00 Rivaroxaban (Xarelto) 10 mg WITH DINNER PO Last administered on 11/08/18 17:58; Admin Dose 10 MG; Start 11/08/18 at 18:00 Gabapentin (Neurontin) 300 mg TID PO Last administered on 11/09/18 06:13; Admin Dose 300 MG; Start 11/07/18 at 21:00 Oxycodone HCl (Oxycontin) 5 mg BID PO Last administered on 11/08/18at 20:15; Admin Dose 5 MG; Start 11/07/18 at 21:00 Oxycodone HCl (Roxicodone) 5 mg Q4H PRN PO MODERATE PAIN LEVEL 4-6 Last administered on 11/09/18 04:59; Admin Dose 5 MG; Start 11/07/18 at 19:00 Multivitamins Therapeutic (Theragran) 1 tab DAILY PO Last administered on 11/08/18 08:42; Admin Dose 1 TAB; Start 11/08/18 at 09:00 Amlodipine Besylate (Norvasc) 10 mg DAILY PO Last administered on 11/08/18 08:41; Admin Dose 10 MG; Start 11/08/18 at 09:00 Cholecalciferol (Vitamin D) 2,000 unit DAILY PO Last administered on 11/08/18 08:41; Admin Dose 2,000 UNIT; Start 11/08/18 at 09:00 Fluticasone/ Vilanterol (Breo Ellipta 200-25 Mcg Inh) 1 inh DAILY INH Last administered on 11/08/18 08:41; Admin Dose 1 INH; Start 1/16/19 at 09:00 Levothyroxine Sodium (Synthroid) 125 mcg BEFORE BREAKFAST PO Last administered on 11/09/18 06:14; Admin Dose 125 MCG; Start 11/08/18 at 07:00 Losartan Potassium (Cozaar) 25 mg DAILY PO Last administered on 11/08/18 08:42; Admin Dose 25 MG; Start 11/08/18 at 09:00 Magnesium Oxide (Mag-Ox 400) 400 mg DAILY PO Last administered on 11/08/18 08:41; Admin Dose 400 MG; Start 11/08/18 at 09:00 Montelukast Sodium (Singulair) 10 mg QHS PO Last administered on 11/08/18 20:15; Admin Dose 10 MG; Start 11/08/18 at 21:00 Pregabalin (Lyrica) 75 mg DAILY PO Last administered on 11/08/18 08:42; Admin Dose 75 MG; Start 11/08/18 at 09:00; Status Hold Pantoprazole (Protonix Tab) 40 mg DAILY@06 PO Last administered on 11/09/18 06:14; Admin Dose 40 MG; Start 11/08/18 at 06:00 ELISE SAMPSON MD Nov 09, 2018 08:39
--- NOTE | 2018-11-09 09:09 | CONS ---
Date/Time of Note Date/Time of Note DATE: 11/09/18 TIME: 09:05 Assessment/Plan Assessment/Plan Assessment/Plan 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 Patient currently somnolent History of chronic atrial fibrillation Treatment per Dr. Noel COPD patient is not a smoker any longer Status post cholecystectomy Suggest continue current pain control medications no change at this time. She is somnolent she does not be having pain out of control and high risk of devel oping aspiration by increasing her opioid pain control medications. I have assured patient's daughter that we will control her pain in the event that she has severe breakthrough on current pain control medications but we will be careful and conservative. Both patient and her daughter agree with current treatment plan. Result Diagram: 11/09/18 0536 11/09/18 0536 Results 24hrs Laboratory Tests Test 11/09/18 05:36 White Blood Count 14.2 #H Red Blood Count 3.82 L Hemoglobin 10.9 L Hematocrit 32.8 L Mean Corpuscular Volume 85.9 Mean Corpuscular Hemoglobin 28.5 L Mean Corpuscular Hemoglobin Concent 33.2 Red Cell Distribution Width 14.2 Platelet Count 198 Mean Platelet Volume 10.7 H Immature Granulocytes % 0.300 Neutrophils % 85.6 H Lymphocytes % 4.7 L Monocytes % 9.0 Eosinophils % 0.1 Basophils % 0.3 Nucleated Red Blood Cells % 0.0 Immature Granulocytes # 0.040 H Neutrophils # 12.1 H Lymphocytes # 0.7 L Monocytes # 1.3 H Eosinophils # 0.0 Basophils # 0.0 Nucleated Red Blood Cells # 0.0 Sodium Level 125 #L Potassium Level 4.3 Chloride Level 88 #L Carbon Dioxide Level 28 Anion Gap 9 Blood Urea Nitrogen 11 Creatinine 0.54 Est Glomerular Filtrat Rate mL/min Glucose Level 157 Calcium Level 8.5 Phosphorus Level 3.8 Magnesium Level 1.9 Consultation Date/Type/Reason Admit Date/Time Nov 07, 2018 at 15:37 Asked to see this 73-year-old very pleasant female in pain management consultation. Information is taken from patient's medical records daughter at the bedside and lastly from patient who is very sleepy at this time after having recently been medicated for pain control. According to formation ascertained from chart and patient's daughter she has a long-standing history of 10 years of nonhealing ulcer of her left lower extremity. According medical record she is been seen by multiple different consultants in the past and is undergoing just conservative treatment. There has not been a definitive diagnosis for the etiology of her left lower extremity pathology. According to daughter patient's open ulcer required another consultation after appropriate studies were done and she was told that there was no procedure was can save her left lower extremity and she was recommended to have a an amputation. Other comorbid medical problems include a history of COPD atrial fibrillation on and off anticoagulated in the past and history of hypertension moderate obesity. There is no diagnosed history of vascular connective tissue or factious etiology for her presenting complaints. Postoperatively patient is sleepy at this time and cannot give me good story herself. However her daughter tells me she is been taken Tylenol with codeine as an outpatient which seemed to have controlled her pain over the stent appeared time prior to this hospitalization. At this time with proceeding very low-dose of OxyContin and OxyIR patient is awake arousable but sleepy. States that she is nauseous but she is always been also this when she every she takes any pain control medication. This symptom is not new. Currently denies abdominal discomfort chest pain shortness of breath cough dizziness diplopia disorientation pruritus constipation. She states all pain control medications have an untoward side effect of lethargy and somnolence even in low dose. P atient exhibits no sign of drug seeking behavior. She in fact prefers not to take opioids if at all possible. There is no history to indicate the patient is using pain control medication response to situational stressors she is a non drinker. Patient is status post BKA November 07, 2018 Constitutional: no complaints, improved Eyes: no complaints ENT: no complaints Respiratory: no complaints Cardiovascular: no complaints, other (History of atrial fibrillation on and off anticoagulated not anticoagulated when patient was actively bleeding in the left lower extreme) Gastrointestinal: no complaints Musculoskeletal: other (Refer to history of present illness) Neurologic: no complaints Psychological: no complaints, nl mood/affect Immunologic: no complaints Past Medical History Medical History: GERD, high cholesterol, hypertension, pancreatitis Medications Current Medications Ondansetron HCl (Zofran Inj) 4 mg Q4H PRN IV NAUSEA AND/OR VOMITING Last administered on 11/09/18 06:44; Admin Dose 4 MG; Start 11/07/18 at 19:00 Diphenhydramine HCl (Benadryl) 25 mg Q4H PRN PO ITCHING; Start 11/07/18 at 19:00 Rivaroxaban (Xarelto) 10 mg WITH DINNER PO Last administered on 11/08/18 17:58; Admin Dose 10 MG; Start 11/08/18 at 18:00 Gabapentin (Neurontin) 300 mg TID PO Last administered on 11/09/18 06:13; Admin Dose 300 MG; Start 11/07/18 at 21:00 Oxycodone HCl (Oxycontin) 5 mg BID PO Last administered on 11/08/18 20:15; Admin Dose 5 MG; Start 11/07/18 at 21:00 Oxycodone HCl (Roxicodone) 5 mg Q4H PRN PO MODERATE PAIN LEVEL 4-6 Last administered on 11/09/18 04:59; Admin Dose 5 MG; Start 11/07/18 at 19:00 Multivitamins Therapeutic (Theragran) 1 tab DAILY PO Last administered on 08:42; Admin Dose 1 TAB; Start 11/08/18 at 09:00 Amlodipine Besylate (Norvasc) 10 mg DAILY PO Last administered on 11/08/18 08:41; Admin Dose 10 MG; Start 11/08/18 at 09:00 Cholecalciferol (Vitamin D) 2,000 unit DAILY PO Last administered on 11/08/18 08:41; Admin Dose 2,000 UNIT; Start 11/08/18 at 09:00 Fluticasone/ Vilanterol (Breo Ellipta 200-25 Mcg Inh) 1 inh DAILY INH Last administered on 11/08/18 08:41; Admin Dose 1 INH; Start 11/08/18 at 09:00 Levothyroxine Sodium (Synthroid) 125 mcg BEFORE BREAKFAST PO Last administered on 11/09/18 06:14; Admin Dose 125 MCG; Start 11/08/18 at 07:00 Losartan Potassium (Cozaar) 25 mg DAILY PO Last administered on 11/08/18at 08:42; Admin Dose 25 MG; Start 11/08/18 at 09:00 Magnesium Oxide (Mag-Ox 400) 400 mg DAILY PO Last administered on 11/08/18at 08:41; Admin Dose 400 MG; Start 11/08/18 at 09:00 Montelukast Sodium (Singulair) 10 mg QHS PO Last administered on 11/08/18at 20:15; Admin Dose 10 MG; Start 11/08/18 at 21:00 Pantoprazole (Protonix Tab) 40 mg DAILY@06 PO Last administered on 11/09/18at 06:14; Admin Dose 40 MG; Start 11/08/18 at 06:00 Sodium Chloride 1,000 ml @ 75 mls/hr [id number] IV ; Start 11/09/18 at 09:00 Allergies: Coded Allergies: Iodine and Iodide Containing Produc (Verified Allergy, Severe, RASH, ANAPHYLAXIS, 11/07/18) amoxicillin (Verified Allergy, Severe, RASH, 11/07/18) ciprofloxacin (Verified Allergy, Severe, RASH, 11/07/18) clavulanic acid (Verified Allergy, Severe, RASH, 11/07/18) hydromorphone (Verified Allergy, Severe, ANAPHYLAXIS, 11/07/18) ibuprofen (Verified Allergy, Severe, ANAPHYLAXIS, 11/07/18) aztreonam (Verified Allergy, Unknown, 11/07/18) cefepime (Verified Allergy, Unknown, 11/07/18) vancomycin (Verified Allergy, Unknown, 11/07/18) meperidine (Verified Adverse Reaction, Severe, N/V, 11/07/18) morphine (Verified Adverse Reaction, Severe, n/v, 11/07/18) Past Surgical History Past Surgical Hx: other (Sphincterotomy, multiple surgical procedures left hip last 10 years ago for left hip repair) Family History Significant Family History: COPD, hypertension Social History Alcohol Use: none Smoking Status: Former smoker Drug Use: none Exam/Review of Systems Vital Signs Vitals Vital Signs Date Temp Pulse Resp B/P (MAP) Pulse Ox O2 O2 Flow FiO2 Time Delivery Rate 11/09/18 98.1 89 18 122/69 95 07:59 (86) 11/09/18 Simple 6.0 01:28 Mask 11/08/18 28 02:28 Intake and Output 11/08/18 11/08/18 11/09/18 1515:00 23:00 07:00 IntakeIntake Total 400 ml 600 ml 600 ml OutputOutput Total 600 ml 1200 ml 1250 ml BalanceBalance -200 ml -600 ml -650 ml Exam Constitutional: alert, oriented, well developed Psych: no complaints, nl mood/affect Head: normocephalic, atraumatic ENMT: nl external ears & nose, nl lips & teeth, nl nasal mucosa & septum Respiratory: clear to auscultation, normal air movement Cardiovascular: regular rate and rhythm, nl pulses Gastrointestinal: soft, nl liver, spleen, non-tender Musculoskeletal: other (Left lower extremity bandaged below the knee) Neurological: [employer]IPLE VALVE [employer]CH[employer]IC II-XII intact, nl mental status, nl speech, nl strength Medications Medications Current Medications Ondansetron HCl (Zofran Inj) 4 mg Q4H PRN IV NAUSEA AND/OR VOMITING Last administered on 11/09/18 06:44; Admin Dose 4 MG; Start 11/07/18 at 19:00 Diphenhydramine HCl (Benadryl) 25 mg Q4H PRN PO ITCHING; Start 11/07/18 at 19:00 Rivaroxaban (Xarelto) 10 mg WITH DINNER PO Last administered on 11/08/18at 17:58; Admin Dose 10 MG; Start 11/08/18 at 18:00 Gabapentin (Neurontin) 300 mg TID PO Last administered on 11/09/18 06:13; Admin Dose 300 MG; Start 11/07/18 at 21:00 Oxycodone HCl (Oxycontin) 5 mg BID PO Last administered on 11/08/18at 20:15; Admin Dose 5 MG; Start 11/07/18 at 21:00 Oxycodone HCl (Roxicodone) 5 mg Q4H PRN PO MODERATE PAIN LEVEL 4-6 Last administered on 11/09/18 04:59; Admin Dose 5 MG; Start 11/07/18 at 19:00 Multivitamins Therapeutic (Theragran) 1 tab DAILY PO Last administered on 11/08/18 08:42; Admin Dose 1 TAB; Start 11/08/18 at 09:00 Amlodipine Besylate (Norvasc) 10 mg DAILY PO Last administered on 11/08/18 08:41; Admin Dose 10 MG; Start 11/08/18 at 09:00 Cholecalciferol (Vitamin D) 2,000 unit DAILY PO Last administered on 11/08/18 08:41; Admin Dose 2,000 UNIT; Start 11/08/18 at 09:00 Fluticasone/ Vilanterol (Breo Ellipta 200-25 Mcg Inh) 1 inh DAILY INH Last administered on 11/08/18 08:41; Admin Dose 1 INH; Start 11/08/18 at 09:00 Levothyroxine Sodium (Synthroid) 125 mcg BEFORE BREAKFAST PO Last administered on 11/09/18 06:14; Admin Dose 125 MCG; Start 11/08/18 at 07:00 Losartan Potassium (Cozaar) 25 mg DAILY PO Last administered on 11/08/18 08:42; Admin Dose 25 MG; Start 11/08/18 at 09:00 Magnesium Oxide (Mag-Ox 400) 400 mg DAILY PO Last administered on 11/08/18 08:41; Admin Dose 400 MG; Start 11/08/18 at 09:00 Montelukast Sodium (Singulair) 10 mg QHS PO Last administered on 11/08/18 20:15; Admin Dose 10 MG; Start 11/08/18 at 21:00 Pantoprazole (Protonix Tab) 40 mg DAILY@06 PO Last administered on 11/09/18 06:14; Admin Dose 40 MG; Start 11/08/18 at 06:00 Sodium Chloride 1,000 ml @ 75 mls/hr [id number] IV ; Start 11/09/18 at 09:00 EMMA MACDONALD Nov 09, 2018 09:09
[2018-11-09] MEDS: SOD CHLORIDE 0.9% 1,000 ML IV SCH ×2 (09:17→22:20)
[2018-11-09] MEDS: MULTIVITAMINS THERAPEUTIC TAB PO SCH (09:18)
[2018-11-09] MEDS: CHOLECALCIFEROL 2,000 UNIT CAP PO SCH (09:18)
[2018-11-09] MEDS: oxyCODONE (CR) 10 MG TAB [oxyCONTIN] PO SCH ×2 (09:18→20:40)
[2018-11-09] MEDS: MAGNESIUM OXIDE 400 MG TAB PO SCH (09:18)
[2018-11-09] MEDS: LOSARTAN 25 MG TAB PO SCH (09:19)
[2018-11-09] MEDS: AMLODIPINE 10 MG TAB PO SCH (09:19)
[2018-11-09] MEDS: FLUTICASONE/VILANTEROL 200-25 INH DEVICE INH SCH (11:00)
--- NOTE | 2018-11-09 11:15 | NUR ---
PT NOTE [facility] Patient: Karla Chavarria : 1945 Age/Sex: 73/F Unit#: [id number] Room/Bed: 9/A User: Genevieve Khan PTA Date: 11/09/18 10:45 Type: PT Technical Record Therapy day number 2 Subjective Current complaint of pain Pain Scale NUMERIC Pain Intensity 7 (0-10) Patient Stated Goal for Pain Relief 0 (0-10) Pain Level Comment R LE; premedicated Pre Treatment Vital Signs Stable Yes - 119/66 mmHg, 81 bpm, 95% O2 sat on 4L/min Exercise Assessment Label Bilat Lower Extremity Exercise Type Active ROM Additional Exercise Comments seated L LE HRs, SAQs; supine B SLR, hip abd/add Exercise Start Time 11:01 Exercise End Time 11:15 Total Exercise Time 14 min (8-127) Transfer Training Start Time 10:45 Supine to Sit Minimum Assist Bed Mobility Sit to Supine Minimum Assist Additional Mobility Comments 2PA for safety; unable to perform STS d/t continuous dizziness Transfer Training End Time 11:00 Total Transfer Training Time 15 min (8-127) Weight Bearing Assessment Label Right Lower Extremity Weight Bearing Status Non Weight Bearing Static Sitting Balance Good Dynamic Sitting Balance Fair plus Safety Judgement Fair Activity Tolerance Fair Equipment Present A pump Donis Catheter IV pump Additional Equipment Present 4L/min via NC Post Treatment Pain Intensity 7 0-10 Quality Indicators Dizziness Additional Post Treatment Comment see PT note Total Treament Time 29 min (8-127) Total Minutes 29 Total Units 2 PT Technical Record Comment PT NOTE S: "I'm feeling a little loopy but I'll do what I can." Agreed to skilled PT. Cleared and premedicated by JESSICA Whitman. O: Received awake in supine with son at bedside. Pre tx vitals: 119/66 mmHg, 81 bpm, 95% O2 sat on 4L/min via NC. See tech record for assist levles. VCs on hand placement and sequencing to EOB; utilized trapeze. B UE assist for static sitting. Pt reported dizziness upon sitting; VCs on deep breathgin technique emphasizing breathing through nose. Sitting vitals: 117/56 mmHg, 94 bpm, 94%. No change in dizziness. Performed L LE seated therex with VCs on deep breathing. Noted desat to 88%. Pt reported no improvement in dizziness and c/o nausea; pt requested to return to supine. Min VCs on hand/foot placement and sequencing to reposition to HOB; pt demo'd good understanding/return. Positioned in semi-jones. Performed supine B LE therex. Continuous dizziness. Post tx vitals: 133/75 mmHg, 92 bpm, 96% O2 sat. SCDs on, call light and all necessities within reach, family at bedside. Informed RN. A: Pt felicity tx fairly. 4L/min via NC throughout tx. Monitored vitals: O2 desat during therex but stable during transfers. Pt requires VCs to breath through nose vs mouth. Pt pleasant throughout. Dizziness and min/mod nausea. P: Continue with POC.
--- NOTE | 2018-11-09 11:47 | PN ---
Date/Time of Note Date/Time of Note DATE: 11/08/18 TIME: 21:44 Assessment/Plan Lines/Catheters IV Catheter Type (from Nrsg): midline Assessment/Plan Assessment/Plan POD#1 s/p Right LE BKA - NWB to the RLE - PT to GT - Prosthesis to fit patient with ambushield - to Acute Rehab - appreciate medical co follow and recs - xarelto for dvt prophx Maggy Dillard MD 11/08/18 Subjective 24 Hr Interval Summary Doing well. Pain is still quite high Pain Control: mild Exam/Review of Systems Vital Signs Vitals Vital Signs Date Temp Pulse Resp B/P (MAP) Pulse Ox O2 O2 Flow FiO2 Time Delivery Rate 11/09/18 98.3 83 19 144/71 92 11:38 (95) 11/09/18 Nasal 2.0 07:55 Cannula 11/08/18 28 02:28 Intake and Output 11/08/18 11/08/18 11/09/18 1515:00 23:00 07:00 IntakeIntake Total 400 ml 600 ml 600 ml OutputOutput Total 600 ml 1200 ml 1250 ml BalanceBalance -200 ml -600 ml -650 ml Exam Extremities: other (RLE/ Dressing at stump c/d/i) Results Result Diagram: 11/09/18 0536 11/09/18 0536 NICOLE DILLARD MD Nov 09, 2018 11:47
--- NOTE | 2018-11-09 15:45 | NUR ---
PT NOTE [facility] Patient: Karla Chavarria : 1945 Age/Sex: 73/F Unit#: [id number] Room/Bed: 629/A User: Genevieve Khan PTA Date: 11/09/18 15:20 Type: PT Technical Record Therapy day number 2 Subjective Current complaint of pain Pain Scale NUMERIC Pain Intensity 10 (0-10) Patient Stated Goal for Pain Relief 0 (0-10) Pain Level Comment R LE; phantom limb pain; premedicated Transfer Training Start Time 15:20 Supine to Sit Minimum Assist Transfer Sit to Stand Ability Moderate Assist Bed Mobility Sit to Supine Contact Guard Assist Additional Mobility Comments STS x1 with 2PA for safety; used trapeze Transfer Training End Time 15:45 Total Transfer Training Time 25 min (8-127) Weight Bearing Assessment Label Right Lower Extremity Weight Bearing Status Non Weight Bearing Static Sitting Balance Good Dynamic Sitting Balance Fair plus Standing Static Balance Fair Additional Balance Assessments Comments static/dynamic sitting balance Safety Judgement Good Activity Tolerance Fair Equipment Present A pump Donis Catheter IV pump Additional Equipment Present 4L/min via NC; R LE orthotic Post Treatment Pain Intensity 10 0-10 Quality Indicators Dizziness Additional Post Treatment Comment see PT note Total Treament Time 25 min (8-127) Total Minutes 25 Total Units 2 PT Technical Record Comment PT NOTE S: "My R leg hurts a lot but I will try my best." Agreed to skilled PT. Cleared by JESSICA Whitman. RN aware of high pain level. O: Received awake in supine with R LE orthotic donned, family at bedside. See tech record for assist levels. VCs on hand placement and sequencing. EOB sitting. Pt reported dizziness. Deep breathing exercises; no reports of improvement but verbalized desire to continue. Performed static sitting balance without UE support; no lat/ant/post swaying noted. Dynamic sitting balance; no LOB. Pt verbalized increased dizziness with visual changes (looking up or down) but denied changes in dizziness with neutral gaze and dynamic reaching. STS with FWW and 2PA for safety. VCs on hand placement and sequencing. No lat/ant/post swaying during static standing although pt verbalized continuous dizziness. Pt requested to return back to bed as a result of L LE fatigue. Returned to EOB with control. Returned to supine per pt request. Positioned in supine, SCD on, call light and all necessities within reach, family at bedside. Informed RN. A: Pt felicity tx well but continues to be limited in transfer training as a result of dizziness. Increased dizziness with visual changes but tolerated dynamic sitting balance well. 2PA for safety. P: Continue with POC as appropriate.
--- NOTE | 2018-11-09 16:45 | NUR ---
CM NOTE ACCEPTED AT [facility] AND PLAN FOR DISCHARGE IS FOR TUESDAY PER MD BETH.
[2018-11-09] MEDS: RIVAROXABAN 10 MG TABLET PO SCH (17:41)
--- NOTE | 2018-11-09 19:00 | NUR ---
EOSS: Pt is stable, VS are stable, pain management is under control. family is at the bedside. will endorse the care to nightman nurse.
[2018-11-09] MEDS: MONTELUKAST 10 MG TAB PO SCH (20:39)
[2018-11-10] VITALS (11 sets, daily range): BP systolic 98–135; BP diastolic 55–73; PULSE 75–102; RESP 17–20
[2018-11-10] MEDS ORDERED: LORAZEPAM 2 MG INJ IV PRN
[2018-11-10] MEDS: LEVOTHYROXINE 125 MCG TAB PO SCH (06:28)
[2018-11-10] MEDS: PANTOPRAZOLE (EC) 40 MG TAB PO SCH (06:28)
--- NOTE | 2018-11-10 06:50 | NUR ---
EOSS: Pt on tele monitor. Hourly rounding completed, call light within reach, daughter at bedside. Pt. complained of severe pain during my shift, I notified and called Dr. Anderson, per Dr. we don't have many options for pain medications for pts pain due to her allergies. Pt given 0.5mg Ativan. Pt. turned Q2H. Skin kept clean, dry, and intact. Will endorse continuity of care to day shift.
--- NOTE | 2018-11-10 07:21 | PN ---
Date/Time of Note Date/Time of Note DATE: 11/10/18 TIME: 07:19 Assessment/Plan Lines/Catheters IV Catheter Type (from Nrsg): Mid Line Assessment/Plan Chief Complaint/Hosp Course -Right LE atherosclerosis, osteomyelitis, nonhealing chronic ulcer & Charcot: S/P Right BKA-with musculocutaneous flap -LLE: no current ulcers . will continue with our vascular surveillance -Pain control -PT/OT OOB to chair and FWB of the LLE, RLE with ambushield and fall precautions -Incentive spirometer -DVT ppx -D/C Donis -Changed dressing with betadine paint to staple line, gauze, kerlex and attila wrap followed by director of patient financial services. To be changed daily -Keep RLE elevate on two pillows Subjective 24 Hr Interval Summary no new vascular events overnight, some pain reported Constitutional: no complaints Exam/Review of Systems Vital Signs Vitals Vital Signs Date Temp Pulse Resp B/P (MAP) Pulse Ox O2 O2 Flow FiO2 Time Delivery Rate 11/10/18 98.0 88 20 135/70 96 04:00 (91) 11/09/18 3.0 23:46 11/09/18 Nasal 20:00 Cannula 11/08/18 28 02:28 Intake and Output 11/09/18 11/09/18 11/10/18 1515:00 23:00 07:00 IntakeIntake Total 600 ml OutputOutput Total 1000 ml BalanceBalance -400 ml Exam Free Text/Dictation A&Ox3 CTAB S1S2 soft NTND BS+, truncal obesity RLE: Palpable femoral pulse, motor/sensory, BKA-stump with dressing intact - removed, stephanie intact and clean, incisional tenderness LLE: palpable femoral pulse, faint pedal pulse, motor/sensory intact, cap refill 3 seconds, no ulcers Results Result Diagram: 11/10/1851711/10/1818 SAE BETH MD Nov 10, 2018 07:21
[2018-11-10] MEDS: GABAPENTIN 300 MG CAP PO SCH ×3 (08:14→20:20)
[2018-11-10] MEDS: CHOLECALCIFEROL 2,000 UNIT CAP PO SCH (08:14)
[2018-11-10] MEDS: MULTIVITAMINS THERAPEUTIC TAB PO SCH (08:14)
[2018-11-10] MEDS: MAGNESIUM OXIDE 400 MG TAB PO SCH (08:14)
[2018-11-10] MEDS: oxyCODONE (CR) 10 MG TAB [oxyCONTIN] PO SCH ×2 (08:15→09:00)
[2018-11-10] MEDS: AMLODIPINE 10 MG TAB PO SCH (08:16)
[2018-11-10] MEDS: LOSARTAN 25 MG TAB PO SCH (08:16)
[2018-11-10] MEDS: FLUTICASONE/VILANTEROL 200-25 INH DEVICE INH SCH (08:17)
[2018-11-10] MEDS ORDERED: NACL 3% 500 ML IV SCH ×2 (09:00→10:30)
--- NOTE | 2018-11-10 09:06 | CONS ---
Date/Time of Note Date/Time of Note DATE: 11/10/18 TIME: 09:03 Assessment/Plan Assessment/Plan Assessment/Plan 1. Hyponatremia persists sec to siadh (pain), iv changed to 3% saline, to cont fluid restriction and will recheck Na this pm 2. Hypothyroidism-Euthyroid 3. Post op right leg amputation for osteo 4. Confusion and agitation, per family, inc with Ativan which I stopped and await follow up rec from pain management. Result Diagram: 11/10/1818 11/10/1818 Results 24hrs Laboratory Tests Test 11/09/18 09:40 11/10/18 05:07 11/10/18 05:18 Urine Random Sodium 192 H Thyroid Stimulating Hormone (TSH) 1.520 White Blood Count 11.5 H Red Blood Count 3.88 L Hemoglobin 11.0 L Hematocrit 32.3 L Mean Corpuscular Volume 83.2 Mean Corpuscular Hemoglobin 28.4 L Mean Corpuscular Hemoglobin Concent 34.1 Red Cell Distribution Width 13.9 Platelet Count 197 Mean Platelet Volume 10.9 H Immature Granulocytes % 0.300 Neutrophils % 80.8 H Lymphocytes % 6.7 L Monocytes % 11.4 H Eosinophils % 0.5 Basophils % 0.3 Nucleated Red Blood Cells % 0.0 Immature Granulocytes # 0.040 H Neutrophils # 9.3 H Lymphocytes # 0.8 Monocytes # 1.3 H Eosinophils # 0.1 Basophils # 0.0 Nucleated Red Blood Cells # 0.0 Sodium Level 125 L Potassium Level 4.3 Chloride Level 85 L Carbon Dioxide Level 31 Anion Gap 9 Blood Urea Nitrogen 9 Creatinine 0.52 Est Glomerular Filtrat Rate mL/min Glucose Level 104 # Calcium Level 8.7 Phosphorus Level 3.4 Magnesium Level 1.9 Consultation Date/Type/Reason Admit Date/Time Nov 07, 2018 at 15:37 Initial Consult Date Detailed Summary Respiratory: No cough, No shortness of breath Cardiovascular: No chest pain Gastrointestinal: no complaints Genitourinary: no complaints Musculoskeletal: other (right leg pain) Exam/Review of Systems Vital Signs Vitals Vital Signs Date Temp Pulse Resp B/P (MAP) Pulse Ox O2 O2 Flow FiO2 Time Delivery Rate 11/10/18 98.2 78 17 134/71 98 08:05 (92) 11/10/18 Nasal 4.0 07:52 Cannula 11/08/18 28 02:28 Intake and Output 11/09/18 11/09/18 11/10/18 1515:00 23:00 07:00 IntakeIntake Total 600 ml OutputOutput Total 1000 ml BalanceBalance -400 ml Exam Neck: No jvd Respiratory: clear to auscultation Cardiovascular: regular rate and rhythm Gastrointestinal: soft Extremities: No edema Medications Medications Current Medications Ondansetron HCl (Zofran Inj) 4 mg Q4H PRN IV NAUSEA AND/OR VOMITING Last administered on 11/09/18 06:44; Admin Dose 4 MG; Start 11/07/18 at 19:00 Diphenhydramine HCl (Benadryl) 25 mg Q4H PRN PO ITCHING; Start 11/07/18 at 19:00 Rivaroxaban (Xarelto) 10 mg WITH DINNER PO Last administered on 11/09/18at 17 :41; Admin Dose 10 MG; Start 11/08/18 at 18:00 Gabapentin (Neurontin) 300 mg TID PO Last administered on 11/10/18at 08:14; Admin Dose 300 MG; Start 11/07/18 at 21:00 Oxycodone HCl (Oxycontin) 5 mg BID PO Last administered on 11/09/18at 20:40; Admin Dose 5 MG; Start 11/07/18 at 21:00 Oxycodone HCl (Roxicodone) 5 mg Q4H PRN PO MODERATE PAIN LEVEL 4-6 Last administered on 11/09/18at 22:51; Admin Dose 5 MG; Start 11/07/18 at 19:00 Multivitamins Therapeutic (Theragran) 1 tab DAILY PO Last administered on 11/10/18at 08:14; Admin Dose 1 TAB; Start 11/08/18 at 09:00 Amlodipine Besylate (Norvasc) 10 mg DAILY PO Last administered on 11/10/18 08:16; Admin Dose 10 MG; Start 11/08/18 at 09:00 Cholecalciferol (Vitamin D) 2,000 unit DAILY PO Last administered on 11/10/18at 08:14; Admin Dose 2,000 UNIT; Start 11/08/18 at 09:00 Fluticasone/ Vilanterol (Breo Ellipta 200-25 Mcg Inh) 1 inh DAILY INH Last administered on 11/10/18 08:17; Admin Dose 1 INH; Start 11/08/18 at 09:00 Levothyroxine Sodium (Synthroid) 125 mcg BEFORE BREAKFAST PO Last administered on 11/10/18 06:28; Admin Dose 125 MCG; Start 11/08/18 at 07:00 Losartan Potassium (Cozaar) 25 mg DAILY PO Last administered on 11/10/18 08:1 6; Admin Dose 25 MG; Start 11/08/18 at 09:00 Magnesium Oxide (Mag-Ox 400) 400 mg DAILY PO Last administered on 11/10/18 08:14; Admin Dose 400 MG; Start 11/08/18 at 09:00 Montelukast Sodium (Singulair) 10 mg QHS PO Last administered on 11/09/18 20:39; Admin Dose 10 MG; Start 11/08/18 at 21:00 Pantoprazole (Protonix Tab) 40 mg DAILY@06 PO Last administered on 11/10/18 06:28; Admin Dose 40 MG; Start 11/08/18 at 06:00 Sodium Chloride 1,000 ml @ 75 mls/hr [id number] IV Last administered on 11/09/18 22:20; Admin Dose 75 MLS/HR; Start 11/09/18 at 09:00 Lorazepam (Ativan) 0.5 mg Q6H PRN IV PAIN Last administered on 11/10/18 00:27; Admin Dose 0.5 MG; Start 11/10/18 at 00:00 ELISE SAMPSON MD Nov 10, 2018 09:06
--- NOTE | 2018-11-10 12:06 | NUR ---
PT NOTE [facility] Patient: Karla Chavarria : 1945 Age/Sex: 73/F Unit#: [id number] Room/Bed: 9/A User: Mary Sainz PTA Date: 11/10/18 12:06 Type: PT Technical Record Therapy day number 3 Subjective Current complaint of pain Pain Scale NUMERIC Pain Intensity 2 (0-10) Patient Stated Goal for Pain Relief 0 (0-10) Pain Level Comment RLE; phantom limb pain Exercise Assessment Label Bilat Lower Extremity Exercise Type Active ROM Additional Exercise Comments LLE; APs, LAQ Transfer Training Start Time 11:24 Supine to Sit Contact Guard Assist Transfer Sit to Stand Ability Moderate Assist Bed Mobility Sit to Supine Minimum Assist Bed Transfer Ability Moderate Assist Chair Transfer Ability Moderate Assist Additional Mobility Comments STS x2; squat pivot transfer Transfer Training End Time 12:06 Total Transfer Training Time 42 min (8-127) Weight Bearing Assessment Label Right Lower Extremity Weight Bearing Status Non Weight Bearing Static Sitting Balance Good Dynamic Sitting Balance Good Standing Static Balance Fair Dynamic Standing Balance Fair Additional Balance Assessments Comments FWW Safety Judgement Fair Activity Tolerance Fair Equipment Present A pump Donis Catheter IV pump Additional Equipment Present 4L O2 via NC Post Treatment Pain Intensity 2 0-10 Quality Indicators Dizziness Total Treament Time 42 min (8-127) Total Minutes 42 Total Units 3 PT Technical Record Comment S: RN Antonette cleared pt for PT. Pt c/o RLE phantom limb pain. Agreeable to tx O: Received pt in bed w/ HOB elevated and daughter present in room. Pretx VS; 105/60 86bpm 96% on 4L O2 via NC. See above for assist levels. Performed STS x2; standing tolerance ~15 secs. Returned pt back to EOB d/t pain. Performed squat pivot transfer EOB to/from bedside chair w/ VC/TC for hand placement and sequencing. While sitting on bedside chair pt c/o dizziness; BP 94/50. Returned pt back to bed. Positioned pt to comfort in semifowler. Call light/phone within reach. Bed alarm on. RLE elevated on pillow. Needs met. Left pt w/ daughter and RN present in room A: Fair tolerance to tx. ModA for transfers. P: Continue w/ POC and progress as tolerated
--- NOTE | 2018-11-10 12:36 | NUR ---
PT worked with the pt and confirmed that pt is not stable to use the bedside commode at this time. Pt is dizzy to stand up and slightly confused. Dr Noel was paged, and communicated the information, per the yung cath should not be removed till pt is stable to stand up with assist. will monitor.
[2018-11-10] MEDS ORDERED: LACTULOSE 30ML CUP PO ONE (13:00)
[2018-11-10] MEDS: DOCUSATE SODIUM 100 MG CAP PO SCH (13:10)
--- NOTE | 2018-11-10 13:30 | CONS ---
Date/Time of Note Date/Time of Note DATE: 11/10/18 TIME: 13:21 Assessment/Plan Assessment/Plan Assessment/Plan That is post left [id number] amputation Postop delirium Discontinue long-acting opioids though I agree with initial use at this time may cause more neurological side effects. Encourage use of short acting roxicodone Result Diagram: 11/10/18 0518 11/10/18 0518 Results 24hrs Laboratory Tests Test 11/10/18 05:07 11/10/18 05:18 Thyroid Stimulating Hormone (TSH) 1.520 White Blood Count 11.5 H Red Blood Count 3.88 L Hemoglobin 11.0 L Hematocrit 32.3 L Mean Corpuscular Volume 83.2 Mean Corpuscular Hemoglobin 28.4 L Mean Corpuscular Hemoglobin Concent 34.1 Red Cell Distribution Width 13.9 Platelet Count 197 Mean Platelet Volume 10.9 H Immature Granulocytes % 0.300 Neutrophils % 80.8 H Lymphocytes % 6.7 L Monocytes % 11.4 H Eosinophils % 0.5 Basophils % 0.3 Nucleated Red Blood Cells % 0.0 Immature Granulocytes # 0.040 H Neutrophils # 9.3 H Lymphocytes # 0.8 Monocytes # 1.3 H Eosinophils # 0.1 Basophils # 0.0 Nucleated Red Blood Cells # 0.0 Sodium Level 125 L Potassium Level 4.3 Chloride Level 85 L Carbon Dioxide Level 31 Anion Gap 9 Blood Urea Nitrogen 9 Creatinine 0.52 Est Glomerular Filtrat Rate mL/min Glucose Level 104 # Calcium Level 8.7 Phosphorus Level 3.4 Magnesium Level 1.9 Consultation Date/Type/Reason Admit Date/Time Nov 07, 2018 at 15:37 Hx of Present Illness 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 Patient currently somnolent History of chronic atrial fibrillation Treatment per Dr. Noel COPD patient is not a smoker any longer Status post cholecystectomy She is confused but does not appear to be in any acute distress, she is refusing OxyContin and Roxicodone. Patient is unable to take Dilaudid, meperidine, morphine The only other options are to know which cannot be used on a medical floor and methadone which would have potential of exacerbating her diffusional state. Seizure medications and neuroleptics may cause neurological side effects also. The asked the daughter to encourage patient to use at least the Roxicodone when her pain is out of control we will discontinue the OxyContin as patient may have deteriorating cognitive status with long-acting opioids even though there highly indicated at this point. The other alternatives would be selective blocks optimally if pain is out of control or TENS unit which would probably not be adequate for her degree of pain. Past Medical History Medical History: GERD, high cholesterol, hypertension, pancreatitis Medications Current Medications Ondansetron HCl (Zofran Inj) 4 mg Q4H PRN IV NAUSEA AND/OR VOMITING Last administered on 11/09/18at 06:44; Admin Dose 4 MG; Start 11/07/18 at 19:00 Diphenhydramine HCl (Benadryl) 25 mg Q4H PRN PO ITCHING; Start 11/07/18 at 19:00 Rivaroxaban (Xarelto) 10 mg WITH DINNER PO Last administered on 11/09/18at 17:41; Admin Dose 10 MG; Start 11/08/18 at 18:00 Gabapentin (Neurontin) 300 mg TID PO Last administered on 11/10/18at 08:14; Admin Dose 300 MG; Start 11/07/18 at 21:00 Oxycodone HCl (Oxycontin) 5 mg BID PO Last administered on 11/09/18at 20:40; Admin Dose 5 MG; Start 11/07/18 at 21:00 Oxycodone HCl (Roxicodone) 5 mg Q4H PRN PO MODERATE PAIN LEVEL 4-6 Last administered on 11/09/18at 22:51; Admin Dose 5 MG; Start 11/07/18 at 19:00 Multivitamins Therapeutic (Theragran) 1 tab DAILY PO Last administered on 11/10/18at 08:14; Admin Dose 1 TAB; Start 11/08/18 at 09:00 Amlodipine Besylate (Norvasc) 10 mg DAILY PO Last administered on 11/10/18at 08:16; Admin Dose 10 MG; Start 11/08/18 at 09:00 Cholecalciferol (Vitamin D) 2,000 unit DAILY PO Last administered on 11/10/18 08:14; Admin Dose 2,000 UNIT; Start 11/08/18 at 09:00 Fluticasone/ Vilanterol (Breo Ellipta 200-25 Mcg Inh) 1 inh DAILY INH Last administered on 11/10/18 08:17; Admin Dose 1 INH; Start 11/08/18 at 09:00 Levothyroxine Sodium (Synthroid) 125 mcg BEFORE BREAKFAST PO Last administered on 11/10/18 06:28; Admin Dose 125 MCG; Start 11/08/18 at 07:00 Losartan Potassium (Cozaar) 25 mg DAILY PO Last administered on 11/10/18 08:16; Admin Dose 25 MG; Start 11/08/18 at 09:00 Magnesium Oxide (Mag-Ox 400) 400 mg DAILY PO Last administered on 11/10/18 08:14; Admin Dose 400 MG; Start 11/08/18 at 09:00 Montelukast Sodium (Singulair) 10 mg QHS PO Last administered on 11/09/18 20:39; Admin Dose 10 MG; Start 11/08/18 at 21:00 Pantoprazole (Protonix Tab) 40 mg DAILY@06 PO Last administered on 11/10/18 06:28; Admin Dose 40 MG; Start 11/08/18 at 06:00 Sodium Chloride 500 ml @ 15 mls/hr Q24H IV Last administered on 11/10/18at 10:39; Admin Dose 15 MLS/HR; Start 11/10/18 at 10:30 Docusate Sodium (Colace) 200 mg DAILY PO ; Start 11/10/18 at 13:00 Allergies: Coded Allergies: Iodine and Iodide Containing Produc (Verified Allergy, Severe, RASH, ANAPHYLAXIS, 11/07/18) amoxicillin (Verified Allergy, Severe, RASH, 11/07/18) ciprofloxacin (Verified Allergy, Severe, RASH, 11/07/18) clavulanic acid (Verified Allergy, Severe, RASH, 11/07/18) hydromorphone (Verified Allergy, Severe, ANAPHYLAXIS, 11/07/18) ibuprofen (Verified Allergy, Severe, ANAPHYLAXIS, 11/07/18) aztreonam (Verified Allergy, Unknown, 11/07/18) cefepime (Verified Allergy, Unknown, 11/07/18) vancomycin (Verified Allergy, Unknown, 11/07/18) meperidine (Verified Adverse Reaction, Severe, N/V, 11/07/18) morphine (Verified Adverse Reaction, Severe, n/v, 11/07/18) Past Surgical History Past Surgical Hx: other (Sphincterotomy, multiple surgical procedures left hip last 10 years ago for left hip repair) Social History Alcohol Use: none Smoking Status: Former smoker Drug Use: none Exam/Review of Systems Vital Signs Vitals Vital Signs Date Temp Pulse Resp B/P (MAP) Pulse Ox O2 O2 Flow FiO2 Time Delivery Rate 11/10/18 78 12:00 11/10/18 98.6 17 132/73 98 11:35 (92) 11/10/18 4.0 08:50 11/10/18 Nasal 07:52 Cannula 11/08/18 28 02:28 Intake and Output 11/09/18 11/09/18 11/10/18 1515:00 23:00 07:00 IntakeIntake Total 600 ml OutputOutput Total 1000 ml BalanceBalance -400 ml Exam Neurological: INSPECTOR HOT FORGINGS II-XII intact, nl mental status, nl speech, nl strength, other (Oriented with encouragement, motor sensory findings grossly intact) Medications Medications Current Medications Ondansetron HCl (Zofran Inj) 4 mg Q4H PRN IV NAUSEA AND/OR VOMITING Last administered on 11/09/18at 06:44; Admin Dose 4 MG; Start 11/07/18 at 19:00 Diphenhydramine HCl (Benadryl) 25 mg Q4H PRN PO ITCHING; Start 11/07/18 at 1 9:00 Rivaroxaban (Xarelto) 10 mg WITH DINNER PO Last administered on 11/09/18at 17:41; Admin Dose 10 MG; Start 11/08/18 at 18:00 Gabapentin (Neurontin) 300 mg TID PO Last administered on 11/10/18at 08:14; Admin Dose 300 MG; Start 11/07/18 at 21:00 Oxycodone HCl (Oxycontin) 5 mg BID PO Last administered on 11/09/18at 20:40; Admin Dose 5 MG; Start 11/07/18 at 21:00 Oxycodone HCl (Roxicodone) 5 mg Q4H PRN PO MODERATE PAIN LEVEL 4-6 Last administered on 11/09/18 22:51; Admin Dose 5 MG; Start 11/07/18 at 19:00 Multivitamins Therapeutic (Theragran) 1 tab DAILY PO Last administered on 11/10/18 08:14; Admin Dose 1 TAB; Start 11/08/18 at 09:00 Amlodipine Besylate (Norvasc) 10 mg DAILY PO Last administered on 11/10/18 08:16; Admin Dose 10 MG; Start 11/08/18 at 09:00 Cholecalciferol (Vitamin D) 2,000 unit DAILY PO Last administered on 11/10/18 08:14; Admin Dose 2,000 UNIT; Start 11/08/18 at 09:00 Fluticasone/ Vilanterol (Breo Ellipta 200-25 Mcg Inh) 1 inh DAILY INH Last administered on 11/10/18 08:17; Admin Dose 1 INH; Start 11/08/18 at 09:00 Levothyroxine Sodium (Synthroid) 125 mcg BEFORE BREAKFAST PO Last administered on 11/10/18 06:28; Admin Dose 125 MCG; Start 11/08/18 at 07:00 Losartan Potassium (Cozaar) 25 mg DAILY PO Last administered on 11/10/18 08:16; Admin Dose 25 MG; Start 11/08/18 at 09:00 Magnesium Oxide (Mag-Ox 400) 400 mg DAILY PO Last administered on 11/10/18 08:14; Admin Dose 400 MG; Start 11/08/18 at 09:00 Montelukast Sodium (Singulair) 10 mg QHS PO Last administered on 11/09/18 20:39; Admin Dose 10 MG; Start 11/08/18 at 21:00 Pantoprazole (Protonix Tab) 40 mg DAILY@06 PO Last administered on 11/10/18 06:28; Admin Dose 40 MG; Start 11/08/18 at 06:00 Sodium Chloride 500 ml @ 15 mls/hr Q24H IV Last administered on 11/10/18 10:39; Admin Dose 15 MLS/HR; Start 11/10/18 at 10:30 Docusate Sodium (Colace) 200 mg DAILY PO ; Start 11/10/18 at 13:00 EMMA MACDONALD Nov 10, 2018 13:30
[2018-11-10] MEDS: oxyCODONE 5 MG TAB PO PRN ×2 (15:39→23:32)
--- NOTE | 2018-11-10 15:40 | NUR ---
PT NOTE [facility] Patient: Karla Chavarria : 1945 Age/Sex: 73/F Unit#: [id number] Room/Bed: 9/A User: Mary Sainz PTA Date: 11/10/18 15:40 Type: PT Technical Record Therapy day number 3 Subjective Current complaint of pain Pain Scale NUMERIC Pain Intensity 7 (0-10) Patient Stated Goal for Pain Relief 0 (0-10) Pain Level Comment RLE; phantom limb pain Transfer Training Start Time 14:57 Supine to Sit Contact Guard Assist Transfer Sit to Stand Ability Moderate Assist Bed Mobility Sit to Supine Minimum Assist Bed Transfer Ability Moderate Assist Chair Transfer Ability Moderate Assist Additional Mobility Comments STS x3 Transfer Training End Time 15:30 Total Transfer Training Time 33 min (8-127) Gait Training Start Time 15:30 Gait Assist Levels Moderate Assist Assistive Devices Front Wheel Walker Additional Gait Comments hopping in place and 2 hops forward Gait Training End Time 15:40 Total Gait Training Treatment Time 10 min (8-127) Weight Bearing Assessment Label Right Lower Extremity Weight Bearing Status Non Weight Bearing Static Sitting Balance Good Dynamic Sitting Balance Good Standing Static Balance Fair Dynamic Standing Balance Fair Additional Balance Assessments Comments FWW Safety Judgement Fair Activity Tolerance Fair Equipment Present A pump Donis Catheter IV pump Additional Equipment Present 4LO2 via NC Post Treatment Pain Intensity 5 0-10 Quality Indicators Dizziness Total Treament Time 43 min (8-127) Total Minutes 43 Total Units 3 PT Technical Record Comment S: RN Antonette cleared pt for PT. Pt c/o 7/10 RLE phantom limb pain, however agreeable to tx O: Received pt in bed w/ HOB elevated and daughter present in room. See above for assist levels. Gait training x hopping in place and 2 hops forward. Pt began to feel fatigued and assisted to bedside chair. Attempted to return pt back to bed via stand pivot transfer w/ FWW however pt unable to hop d/t fatigue. Returned pt back to bed via squat pivot transfer. Positioned pt to comfort in semifowler. RLE elevated on pillow. Call light/phone within reach. Bed alarm on. Needs met. Left pt w/ RN and daughter present in room A: Fair tolerance to tx. Pt able to hop however fatigues easily. 2PA for OOB. Pt NOT cleared for bedside commode w/ nursing staff. P: Continue w/ POC and progress as tolerated. Practice transfers.
[2018-11-10] MEDS: RIVAROXABAN 10 MG TABLET PO SCH (17:44)
--- NOTE | 2018-11-10 18:39 | NUR ---
EOSS: Pt is stable, VS are WNL. pain management is successful, Pt is comfortable, in the bed. Pt was slightly confused, and disoriented since morning, however is getting alert now. Pt worked with PT 2x today. per PT pt is not cleared to get out of the bed with assist for now. Donis cath is not removed Per Dr Noel order. Hypertonic NS will be Discontinued at 11Pm, will endorse it to occupational therapist home based nurse. Family is at the bedside all the time. will endorse the caer to occupational therapist home based nures. care to occupational therapist home based nurse.
[2018-11-10] MEDS: MONTELUKAST 10 MG TAB PO SCH (20:20)
[2018-11-11] VITALS (12 sets, daily range): BP systolic 92–116; BP diastolic 54–59; PULSE 55–99; RESP 17–20
[2018-11-11] MEDS: oxyCODONE 5 MG TAB PO PRN ×3 (05:06→13:49)
[2018-11-11] MEDS: PANTOPRAZOLE (EC) 40 MG TAB PO SCH (06:05)
[2018-11-11] MEDS: LEVOTHYROXINE 125 MCG TAB PO SCH (06:05)
--- NOTE | 2018-11-11 06:22 | NUR ---
EOSS: Pt. a/o x3. All vital signs WNL. Pain medication given, with pain goal met. Pt turned Q2H. Bed in lowest position, call light within reach, son at bedside. Pt. pending to be transferred to [facility]. Will endorse continuity of care to day shift.
--- NOTE | 2018-11-11 09:00 | NUR ---
PT note Therapy day number 4 Subjective Current complaint of pain Pain Scale NUMERIC Pain Intensity 10 (0-10) Patient Stated Goal for Pain Relief 0 (0-10) Pain Level Comment RLE pain, R low back, patient premedicated Transfer Training Start Time 09:00 Supine to Sit Minimum Assist Bed Mobility Sit to Supine Minimum Assist Additional Mobility Comments min A for scooting, not transfer to chair performed Transfer Training End Time 09:40 Total Transfer Training Time 40 min (8-127) Weight Bearing Assessment Label Right Lower Extremity Weight Bearing Status Non Weight Bearing Static Sitting Balance Fair Dynamic Sitting Balance Fair Additional Balance Assessments Comments no standing performed at this time Safety Judgement Fair Activity Tolerance Fair Equipment Present A pump Donis Catheter IV pump Additional Equipment Present 4L O2 Post Treatment Pain Intensity 10 0-10 Quality Indicators Dizziness Additional Post Treatment Comment See note Total Treament Time 40 min (8-127) Total Minutes 40 Total Units 3 PT Technical Record Comment S: Patient in bed, appears more confused than initial evaluation. Son present at bedside, pt agreeable to PT intervention, pt cleared for activity per RN O: PT intervention completed, pt returned back to bed following therapy intervention with call light within reach and bed alarm activated. Spoke to RN regarding patient response to activity and PT plan of care. Reports of pain throughout, dizziness with change in position, vitals stable, no shortness of breath. RN and son present for duration of PT intervention A: Patient presents with limited mobility secondary to mentation and dizziness, Patient understanding of limitations for therapy but receptive to plan of care. patient activity tolerance guarded, but improves quickly and despite reported pain, demonstrates good strength in R hip to assist with bed mobility P: Progress chair transfer, Squat pivot
[2018-11-11] MEDS: DOCUSATE SODIUM 100 MG CAP PO SCH (09:10)
[2018-11-11] MEDS: GABAPENTIN 300 MG CAP PO SCH ×3 (09:11→21:18)
[2018-11-11] MEDS: MULTIVITAMINS THERAPEUTIC TAB PO SCH (09:11)
[2018-11-11] MEDS: LOSARTAN 25 MG TAB PO SCH (09:11)
[2018-11-11] MEDS: AMLODIPINE 10 MG TAB PO SCH (09:11)
[2018-11-11] MEDS: MAGNESIUM OXIDE 400 MG TAB PO SCH (09:12)
[2018-11-11] MEDS: FLUTICASONE/VILANTEROL 200-25 INH DEVICE INH SCH (09:12)
[2018-11-11] MEDS: CHOLECALCIFEROL 2,000 UNIT CAP PO SCH (09:18)
--- NOTE | 2018-11-11 13:30 | NUR ---
PT note Therapy day number 4 Subjective Current complaint of pain Pain Scale NUMERIC Pain Intensity 7 (0-10) Patient Stated Goal for Pain Relief 0 (0-10) Pain Level Comment RLE pain, pt premedicated per RN Pre Treatment Vital Signs Stable Yes Transfer Training Start Time 13:30 Supine to Sit Stand by Assist Transfer Sit to Stand Ability Moderate Assist Bed Mobility Sit to Supine Stand by Assist Bed Transfer Ability Moderate Assist Chair Transfer Ability Moderate Assist Sitting Tolerance 45 min Additional Mobility Comments stand pivot transfer BUSINESS LEADER Transfer Training End Time 14:30 Total Transfer Training Time 60 min (8-127) Wheelchair Propulsion Ability Minimum Assist Wheelchair Propulsion Distance 25 feet Weight Bearing Assessment Label Right Lower Extremity Weight Bearing Status Non Weight Bearing Static Sitting Balance Good Dynamic Sitting Balance Good Standing Static Balance Fair Dynamic Standing Balance Poor Additional Balance Assessments Comments requires cues for transfer, limited somatosensory input Safety Judgement Good Activity Tolerance Fair Equipment Present A pump Donis Catheter IV pump Additional Equipment Present 4L O2 Post Treatment Pain Intensity 7 0-10 Additional Post Treatment Comment See note Total Treament Time 60 min (8-127) Total Minutes 60 Total Units 4 PT Technical Record Comment S: Pt in bed, agreeable to PT intervention. pt cleared for activity per RN. Family present at bedside O: PT intervention completed, performed in 2 bouts, [id number] and [id number]. Patient returned back to bed following therapy intervention with call light within reach and bed alarm activated with family at bedside and RN to follow up. No reports of increased pain, or onset of dizziness or shortness of breath with activity. Spoke to RN regarding pt response to activity and PT plan of care. Family present to assist as needed. A: Pt presents with improved mentation this PM compared to AM however had difficulty staying alert. Patient receptive to PT education but required cues for transfering for hand placement likely secondary to limited somatosensory input which affects balance. Patient able to use UE to assist in wc propulsion and tolerated activity well without increased symptoms. Continue to recommend ARU post hospitalization prior to discharge home once medically cleared. Additionally requesting OT evaluation to follow up on ADLs and recommendations. P: Progress wc mobility and OOB tolerance
--- NOTE | 2018-11-11 16:23 | PN ---
Date/Time of Note Date/Time of Note DATE: 11/11/18 TIME: 16:23 Assessment/Plan Lines/Catheters IV Catheter Type (from Nrsg): Mid Line Assessment/Plan Assessment/Plan POD#4 s/p Right LE BKA - NWB to the RLE - PT to GT - Prosthesis to fit patient with ambushield - to Acute Rehab vs SNF - appreciate medical co follow and recs - xarelto for dvt prophx - minimize narcotics to [place] PRN and gabapentin and to continue Mirror Therapy for phantom limb pain - DC yung tomorrow if possible - per Railroad Surveyor - Jaylon ALLISON Dillard MD Subjective 24 Hr Interval Summary Doing much better today. More lucid and pain is well controlled. Constitutional: improved Feeding: advancing diet Pain Control: well controlled Exam/Review of Systems Vital Signs Vitals Vital Signs Date Temp Pulse Resp B/P (MAP) Pulse Ox O2 O2 Flow FiO2 Time Delivery Rate 11/11/18 4.0 16:25 11/11/18 97.6 82 19 106/54 100 15:38 (71) 11/11/18 Nasal 08:00 Cannula 11/08/18 28 02:28 Intake and Output 11/10/18 11/10/18 11/11/18 1515:00 23:00 07:00 IntakeIntake Total 800 ml 480 ml 100 ml OutputOutput Total 3300 ml 800 ml 1800 ml BalanceBalance -2500 ml -320 ml -1700 ml Exam Constitutional: alert, oriented, well developed Musculoskeletal: other (RLE/ stump is clean and dry, no erythema or drainage) Results Result Diagram: 11/11/18 0512 11/11/18 0512 NICOLE DILLARD MD Nov 11, 2018 16:23
--- NOTE | 2018-11-11 18:00 | NUR ---
pt is a/o x3, forgetful at time, O2 3 L . she worked with PT 2 times today , moved to wheelchair and sat for 2 hours. dressing changed , she is able to move in bed but not reposition by herself. no complain at time, family is always at the bedside. resting in bed now.
[2018-11-11] MEDS: RIVAROXABAN 10 MG TABLET PO SCH (18:25)
--- NOTE | 2018-11-11 18:55 | CONS ---
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 S/p HTS, continue free water restriction, serial BMP. If Na stable tomorrow, clear for discharge medically presuming no change in clinical status 2. Hypothyroidism-Euthyroid 3. Post op right leg amputation for osteo - care per surgery 4. AMS improving, ativan d/c'd 5. Dispo planning Result Diagram: 11/11/18 0512 11/11/18 0512 Results 24hrs Laboratory Tests Test 11/11/18 05:12 White Blood Count 11.3 H Red Blood Count 3.92 L Hemoglobin 11.0 L Hematocrit 34.3 L Mean Corpuscular Volume 87.5 Mean Corpuscular Hemoglobin 28.1 L Mean Corpuscular Hemoglobin Concent 32.1 Red Cell Distribution Width 14.4 Platelet Count 186 Mean Platelet Volume 11.9 H Immature Granulocytes % 0.400 Neutrophils % 79.8 H Lymphocytes % 7.1 L Monocytes % 11.5 H Eosinophils % 0.8 Basophils % 0.4 Nucleated Red Blood Cells % 0.0 Immature Granulocytes # 0.050 H Neutrophils # 9.0 H Lymphocytes # 0.8 Monocytes # 1.3 H Eosinophils # 0.1 Basophils # 0.0 Nucleated Red Blood Cells # 0.0 Sodium Level 134 L Potassium Level 4.3 Chloride Level 93 L Carbon Dioxide Level 33 H Anion Gap 8 Blood Urea Nitrogen 14 Creatinine 0.58 Est Glomerular Filtrat Rate mL/min Glucose Level 105 Calcium Level 8.9 Phosphorus Level 3.6 Magnesium Level 2.3 Consultation Date/Type/Reason Admit Date/Time Nov 07, 2018 at 15:37 Initial Consult Date Type of Consult internal medicine Reason for Consultation hyponatremia Requesting Provider: NICOLE GRIFFIN MD 24 HR Interval Summary Free Text/Dictation Sodium continuing to improve with fluid restriction, correcting at appropriate (slow) rate. 134 today. Good UOP. Renal fx stable. Pain better controlled. Mental status improved. Care discussed with Dr. Griffin. Possible discharge in 1-2 days. Constitutional: no complaints Detailed Summary Respiratory: no complaints Cardiovascular: no complaints Genitourinary: no complaints Exam/Review of Systems Vital Signs Vitals Vital Signs Date Temp Pulse Resp B/P (MAP) Pulse Ox O2 O2 Flow FiO2 Time Delivery Rate 11/11/18 4.0 16:25 11/11/18 95 16:00 11/11/18 97.6 19 106/54 100 15:38 (71) 11/11/18 Nasal 08:00 Cannula 11/08/18 28 02:28 Intake and Output 11/10/18 11/10/18 11/11/18 1515:00 23:00 07:00 IntakeIntake Total 800 ml 480 ml 100 ml OutputOutput Total 3300 ml 800 ml 1800 ml BalanceBalance -2500 ml -320 ml -1700 ml Exam Constitutional: alert, oriented Head: normocephalic Respiratory: clear to auscultation Cardiovascular: regular rate and rhythm Musculoskeletal: other (s/p R BKA) Extremities: other (no edema) Neurological: other (grossly intact ) Medications Medications Current Medications Ondansetron HCl (Zofran Inj) 4 mg Q4H PRN IV NAUSEA AND/OR VOMITING Last administered on 11/09/18at 06:44; Admin Dose 4 MG; Start 11/07/18 at 19:00 Diphenhydramine HCl (Benadryl) 25 mg Q4H PRN PO ITCHING; Start 11/07/18 at 19:00 Rivaroxaban (Xarelto) 10 mg WITH DINNER PO Last administered on 11/11/18at 18:25; Admin Dose 10 MG; Start 11/08/18 at 18:00 Gabapentin (Neurontin) 300 mg TID PO Last administered on 11/11/18at 12:49; Admin Dose 300 MG; Start 11/07/18 at 21:00 Multivitamins Therapeutic (Theragran) 1 tab DAILY PO Last administered on 11/11/18 09:11; Admin Dose 1 TAB; Start 11/08/18 at 09:00 Amlodipine Besylate (Norvasc) 10 mg DAILY PO Last administered on 11/11/18 09:11; Admin Dose 10 MG; Start 11/08/18 at 09:00 Cholecalciferol (Vitamin D) 2,000 unit DAILY PO Last administered on 11/11/18 09:18; Admin Dose 2,000 UNIT; Start 11/08/18 at 09:00 Fluticasone/ Vilanterol (Breo Ellipta 200-25 Mcg Inh) 1 inh DAILY INH Last administered on 11/11/18 09:12; Admin Dose 1 INH; Start 11/08/18 at 09:00 Levothyroxine Sodium (Synthroid) 125 mcg BEFORE BREAKFAST PO Last administered on 11/11/18 06:05; Admin Dose 125 MCG; Start 11/08/18 at 07:00 Losartan Potassium (Cozaar) 25 mg DAILY PO Last administered on 11/11/18 09:11; Admin Dose 25 MG; Start 11/08/18 at 09:00 Magnesium Oxide (Mag-Ox 400) 400 mg DAILY PO Last administered on 11/11/18 09:12; Admin Dose 400 MG; Start 11/08/18 at 09:00 Montelukast Sodium (Singulair) 10 mg QHS PO Last administered on 11/10/18at 20:20; Admin Dose 10 MG; Start 11/08/18 at 21:00 Pantoprazole (Protonix Tab) 40 mg DAILY@06 PO Last administered on 11/11/18at 06:05; Admin Dose 40 MG; Start 11/08/18 at 06:00 Docusate Sodium (Colace) 200 mg DAILY PO Last administered on 11/11/18 09:10; Admin Dose 200 MG; Start 11/10/18 at 13:00 Acetaminophen/ Hydrocodone Bitart ([place] (5/325)) 1 tab Q6H PRN PO PAIN LEVEL 7-10; Start 11/11/18 at 16:30 KACY LIU MD Nov 11, 2018 18:55
[2018-11-11] MEDS: MONTELUKAST 10 MG TAB PO SCH (21:18)
[2018-11-12] VITALS (12 sets, daily range): BP systolic 98–119; BP diastolic 50–69; PULSE 67–104; RESP 18–19
[2018-11-12] MEDS: HYDROCODONE/APAP (5/325) TAB PO PRN ×3 (00:35→20:26)
[2018-11-12] MEDS: PANTOPRAZOLE (EC) 40 MG TAB PO SCH (05:25)
[2018-11-12] MEDS: LEVOTHYROXINE 125 MCG TAB PO SCH (07:01)
[2018-11-12] MEDS: MAGNESIUM OXIDE 400 MG TAB PO SCH (08:32)
[2018-11-12] MEDS: DOCUSATE SODIUM 100 MG CAP PO SCH (08:32)
[2018-11-12] MEDS: MULTIVITAMINS THERAPEUTIC TAB PO SCH (08:32)
[2018-11-12] MEDS: GABAPENTIN 300 MG CAP PO SCH ×3 (08:33→20:26)
[2018-11-12] MEDS: LOSARTAN 25 MG TAB PO SCH (08:33)
[2018-11-12] MEDS: CHOLECALCIFEROL 2,000 UNIT CAP PO SCH (08:33)
[2018-11-12] MEDS: FLUTICASONE/VILANTEROL 200-25 INH DEVICE INH SCH (08:34)
[2018-11-12] MEDS: AMLODIPINE 10 MG TAB PO SCH (08:34)
--- NOTE | 2018-11-12 11:12 | NUR ---
CM Follow up note. Write spoke with Bedside nurse Antonette, will not be discharge today per Please follow up tuesday. Addendum: 11/12/18 at 1211 by SHANTE JOSEPH RN, CM 12:00 Dilia Reyes was notified, pt will not be discharge today.
--- NOTE | 2018-11-12 12:12 | CONS ---
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 S/p HTS, continue free water restriction. If sodium improved today, can liberalize free water to 1500cc 2. Hypothyroidism-Euthyroid 3. Post op right leg amputation for osteo - care per surgery 4. AMS resolved 5. Constipation - added senna and miralax daily. Dulcolax prn 6. Nystatin to pannus 7. Dispo planning Result Diagram: 11/11/1851111/11/18511 Consultation Date/Type/Reason Admit Date/Time Nov 07, 2018 at 15:37 Initial Consult Date Type of Consult internal medicine Requesting Provider: NICOLE DILLARD MD 24 HR Interval Summary Free Text/Dictation doing well. Awaiting today's sodium. Constipated. Increasing bowel regimen. Pain controlled. Constitutional: no complaints Detailed Summary Respiratory: no complaints Cardiovascular: no complaints Gastrointestinal: constipation Exam/Review of Systems Vital Signs Vitals Vital Signs Date Temp Pulse Resp B/P (MAP) Pulse Ox O2 O2 Flow FiO2 Time Delivery Rate 11/12/18 97.5 67 18 102/50 97 11:58 (67) 11/12/18 Nasal 3.0 08:00 Cannula Intake and Output 11/11/18 11/11/18 11/12/18 1515:00 23:00 07:00 IntakeIntake Total 300 ml 300 ml OutputOutput Total 700 ml 450 ml BalanceBalance -400 ml -150 ml Exam Constitutional: alert, oriented Psych: no complaints Head: normocephalic Respiratory: clear to auscultation Cardiovascular: regular rate and rhythm Gastrointestinal: soft Musculoskeletal: other (s/p R BKE) Neurological: .NET ARCHITECT II-XII intact Medications Medications Current Medications Ondansetron HCl (Zofran Inj) 4 mg Q4H PRN IV NAUSEA AND/OR VOMITING Last administered on 11/09/18at 06:44; Admin Dose 4 MG; Start 11/07/18 at 19:00 Diphenhydramine HCl (Benadryl) 25 mg Q4H PRN PO ITCHING; Start 11/07/18 at 19:00 Rivaroxaban (Xarelto) 10 mg WITH DINNER PO Last administered on 11/11/18 18:25; Admin Dose 10 MG; Start 11/08/18 at 18:00 Gabapentin (Neurontin) 300 mg TID PO Last administered on 11/12/18 08:33; Admin Dose 300 MG; Start 11/07/18 at 21:00 Multivitamins Therapeutic (Theragran) 1 tab DAILY PO Last administered on 11/12/18 08:32; Admin Dose 1 TAB; Start 11/08/18 at 09:00 Amlodipine Besylate (Norvasc) 10 mg DAILY PO Last administered on 11/11/18 09:11; Admin Dose 10 MG; Start 11/08/18 at 09:00 Cholecalciferol (Vitamin D) 2,000 unit DAILY PO Last administered on 11/12/18 08:33; Admin Dose 2,000 UNIT; Start 11/08/18 at 09:00 Fluticasone/ Vilanterol (Breo Ellipta 200-25 Mcg Inh) 1 inh DAILY INH Last administered on 11/12/18 08:34; Admin Dose 1 INH; Start 11/08/18 at 09:00 Levothyroxine Sodium (Synthroid) 125 mcg BEFORE BREAKFAST PO Last administered on 11/12/18 07:01; Admin Dose 125 MCG; Start 11/08/18 at 07:00 Losartan Potassium (Cozaar) 25 mg DAILY PO Last administered on 11/11/18 09:11; Admin Dose 25 MG; Start 11/08/18 at 09:00 Magnesium Oxide (Mag-Ox 400) 400 mg DAILY PO Last administered on 11/12/18 08:32; Admin Dose 400 MG; Start 11/08/18 at 09:00 Montelukast Sodium (Singulair) 10 mg QHS PO Last administered on 11/11/18 21:18; Admin Dose 10 MG; Start 11/08/18 at 21:00 Pantoprazole (Protonix Tab) 40 mg DAILY@06 PO Last administered on 11/12/18 05:25; Admin Dose 40 MG; Start 11/08/18 at 06:00 Docusate Sodium (Colace) 200 mg DAILY PO Last administered on 11/12/18 08:32; Admin Dose 200 MG; Start 11/10/18 at 13:00 Acetaminophen/ Hydrocodone Bitart ([place] (5/325)) 1 tab Q6H PRN PO PAIN LEVEL 7-10 Last administered on 11/12/18at 00:35; Admin Dose 1 TAB; Start 11/11/18 at 16:30 Senna (Senokot) 1 tab DAILY PO ; Start 11/12/18 at 12:30; Status UNV Polyethylene Glycol (Miralax) 17 gm DAILY GTB ; Start 11/12/18 at 12:30; Status UNV Bisacodyl (Dulcolax Supp) 10 mg DAILY PRN IN CONSTIPATION; Start 11/12/18 at 12:30; Status UNV Nystatin (Nystatin Powder) 1 applic BID TOP ; Start 11/12/18 at 12:30; Status UNV KACY LIU MD Nov 12, 2018 12:12
[2018-11-12] MEDS ORDERED: BISACODYL 10 MG SUPP PR PRN (12:30)
[2018-11-12] MEDS: SENNA TAB PO SCH (12:52)
[2018-11-12] MEDS: NYSTATIN 30 GM POWDER BTL TOP SCH ×2 (12:52→20:26)
[2018-11-12] MEDS: POLYETHYLENE GLYCOL 17 GM PACKET GTB SCH (12:55)
--- NOTE | 2018-11-12 14:23 | NUR ---
PT NOTE [facility] Patient: Karla Chavarria : 1945 Age/Sex: 73/F Unit#: [id number] Room/Bed: 9/A User: Nahun Marshall PT Date: 11/12/18 13:30 Type: PT Technical Record Therapy day number 5 Subjective Current complaint of pain Pain Scale NUMERIC Pain Intensity 5 (0-10) Patient Stated Goal for Pain Relief 0 (0-10) Pain Level Comment R MIRA Pre Treatment Vital Signs Stable Yes Exercise Assessment Label Bilat Lower Extremity Exercise Type Active ROM Additional Exercise Comments LLE SLR, heel slides, glute sets; R LE quad sets Exercise Start Time 13:30 Exercise End Time 13:40 Total Exercise Time 10 min (8-127) Transfer Training Start Time 13:40 Supine to Sit Supervised Transfer Sit to Stand Ability Moderate Assist Bed Mobility Sit to Supine Supervised Bed Transfer Ability Contact Guard Assist Chair Transfer Ability Contact Guard Assist Sitting Tolerance 35 min Additional Mobility Comments stand pivot transfer x 1, squat pivot transfer x 3 Transfer Training End Time 14:23 Total Transfer Training Time 43 min (8-127) Wheelchair Propulsion Ability Supervised Wheelchair Propulsion Distance 55 feet Weight Bearing Assessment Label Right Lower Extremity Weight Bearing Status Non Weight Bearing Static Sitting Balance Good Dynamic Sitting Balance Good Standing Static Balance Fair Dynamic Standing Balance Fair Additional Balance Assessments Comments with FWW Safety Judgement Good Activity Tolerance Fair Equipment Present A pump Additional Equipment Present R LE brace, 3LO2 via NC Post Treatment Pain Intensity 8 0-10 Additional Post Treatment Comment SEE NOTE Total Treament Time 53 min (8-127) Total Minutes 53 Total Units 4 PT Technical Record Comment S: Pt agreeable to PT, stated she is feeling better today O: JESSICA Whitman cleared pt for PT session. Pt received semi-supine in bed on 3LO2, O2 sats assessed at 92%, dtr at bedside. Pt educated in therapeutic exercise, performed with good return. Pt participated in interventions above including squat pivot transfer x 3, stand pivot transfer x 1, and wheelchair mobility propelling w/c 55' with SPV, VC for wheelchair use. Pt returned to bed, all needs in reach, no signs of distress, R knee immobilizer reapplied, bed alarm activated. RN notified of pt's status. A: Pt continues to demonstrate increasing independence with bed mobility and transfer tasks. Greater ease in performing squat pivot transfer than with stand pivot transfer due to decreased balance when in standing. Improved mentation today able to follow commands for safety. Continue to recommend ARU post hospitalization prior to discharge home once medically cleared. P: COntinue c PT POC; continue transfer training and wheelchair training
--- NOTE | 2018-11-12 14:26 | NUR ---
ARU CONSULT: Order received and verified . Spoke with Patient with daughter and son present regarding ARU. Patient and family are agreeable and fully understand regarding transfer to ARU. Patient's case reviewed with Preflight Mechanic. Patient would be a good candidate for ARU. Will speak with CM tomorrow, Tuesday11/13/2018 regarding transfer to ARU.
[2018-11-12] MEDS: RIVAROXABAN 10 MG TABLET PO SCH (17:02)
--- NOTE | 2018-11-12 17:33 | NUR ---
PT got out of the bed with PT today, used wheelchair, per CO pt will be able to transport herself from the bed to bedside commode. Per MD order Donis was removed, pt tolerated the procedure well. will monitor.
--- NOTE | 2018-11-12 17:38 | PN ---
Date/Time of Note Date/Time of Note DATE: 11/12/18 TIME: 17:38 Assessment/Plan Lines/Catheters IV Catheter Type (from Nrsg): Mid Line Assessment/Plan Assessment/Plan POD#5 s/p Right LE BKA - NWB to the RLE - PT to GT - Prosthesis to fit patient with ambushield - to Acute Rehab vs SNF - appreciate medical co follow and recs - xarelto for dvt prophx - minimize narcotics to [place] PRN and gabapentin and to continue Mirror Therapy for phantom limb pain - DC dilshad alexandra - per Drop Wire Operator - Jaylon COOPER - Maggy Dillard MD Subjective 24 Hr Interval Summary Doing much better. Pain is better controlled. Exam/Review of Systems Vital Signs Vitals Vital Signs Date Temp Pulse Resp B/P (MAP) Pulse Ox O2 O2 Flow FiO2 Time Delivery Rate 11/13/18 89 12:00 11/13/18 98.1 20 123/68 98 11:34 (86) 11/13/18 Nasal 3.0 07:50 Cannula Intake and Output 11/12/18 11/12/18 11/13/18 1515:00 23:00 07:00 IntakeIntake Total 600 ml 200 ml OutputOutput Total 800 ml BalanceBalance -200 ml 200 ml Exam Constitutional: alert, oriented, well developed Musculoskeletal: other (RLE/ Stump c/d/i) Results Result Diagram: 11/11/18 0512 11/13/18 0534 NICOLE DILLARD MD Nov 12, 2018 17:38
[2018-11-12] MEDS: ASCORBIC ACID 500 MG TAB PO SCH (18:08)
--- NOTE | 2018-11-12 18:18 | NUR ---
EOSS: Pt is stable, VS are WNL. Pt worked with PT today, transferred from bed to wheelchair with assist, used wheelchair. Pain management is successful. Wound care was done, wound looked clean, dry NO s/s of infection noted. Donis cath was out. educated the pt to call for assistant pressman if needs to urinate. family is at the bedside all the time. Will endorse the care to shift production associate nurse.
[2018-11-12] MEDS: MONTELUKAST 10 MG TAB PO SCH (20:26)
[2018-11-13] VITALS (12 sets, daily range): BP systolic 100–129; BP diastolic 57–76; PULSE 70–98; RESP 18–20
[2018-11-13] MEDS: PANTOPRAZOLE (EC) 40 MG TAB PO SCH (06:21)
[2018-11-13] MEDS: LEVOTHYROXINE 125 MCG TAB PO SCH (06:21)
--- NOTE | 2018-11-13 06:53 | NUR ---
Pt a/a/ox2, with episode confusion. Vs stable , afebrile, denied pain, appeared comfortable no sign distress noted. Continue care plan.
--- NOTE | 2018-11-13 07:40 | PN ---
Date/Time of Note Date/Time of Note DATE: 11/13/18 TIME: 07:40 Assessment/Plan Lines/Catheters IV Catheter Type (from Nrsg): Mid Line Assessment/Plan Assessment/Plan POD#6 s/p Right LE BKA - NWB to the RLE - PT to GT - Prosthesis fit patient with ambushield - to Acute Rehab at [facility] tonight when clear with Primary Med Team - appreciate medical co follow and recs - xarelto for dvt prophx - minimize narcotics to [place] PRN and gabapentin and to continue Mirror Therapy for phantom limb pain - per Emergency Preparedness Manager - Jaylon Dillard MD Subjective 24 Hr Interval Summary Patient feeling much better and eating well. In good spirits Feeding: advancing diet Pain Control: well controlled Exam/Review of Systems Vital Signs Vitals Vital Signs Date Temp Pulse Resp B/P (MAP) Pulse Ox O2 O2 Flow FiO2 Time Delivery Rate 11/13/18 89 12:00 11/13/18 98.1 20 123/68 98 11:34 (86) 11/13/18 Nasal 3.0 07:50 Cannula Intake and Output 11/12/18 11/12/18 11/13/18 1515:00 23:00 07:00 IntakeIntake Total 600 ml 200 ml OutputOutput Total 800 ml BalanceBalance -200 ml 200 ml Exam Constitutional: alert, oriented, well developed Musculoskeletal: other (RLE/ Stump c/d/i with ambushield in place) Results Result Diagram: 11/11/18 0512 11/13/18 0534 NICOLE DILLARD MD Nov 13, 2018 07:40
--- NOTE | 2018-11-13 08:03 | OPR ---
DATE OF OPERATION: 11/07/2018 PREOPERATIVE DIAGNOSES: Right foot and ankle osteomyelitis, Charcot foot with a nonhealing ulcer and right lower extremity atherosclerosis. POSTOPERATIVE DIAGNOSES: Right foot and ankle osteomyelitis, Charcot foot with a nonhealing ulcer and right lower extremity atherosclerosis. OPERATION PERFORMED: Right below knee amputation. SURGEON: Nicole Griffin MD CO-SURGEON: Sae Beth MD, vascular surgery. ANESTHESIA: General with a femoral and sciatic block. ANESTHESIOLOGIST: Stella Covington MD TOURNIQUET TIME: None. ESTIMATED BLOOD LOSS: 150 mL TRANSFUSION: None. SPECIMENS: Right below knee amputation as well as culture taken from the right tibia, intramedullary canal, status post amputation. IMPLANTS: None. TUBES: None. DRAINS: None. COMPLICATIONS: None. CONDITION UPON PROCEDURE: Stable to PACU. INDICATIONS: Ms. Chavarria is a 73-year-old female with greater than 5 years of a right foot nonhealing ulcer with significant osteomyelitis of her right mid foot that has been resistant to multiple wound care treatments and multiple rounds of IV antibiotics. Given her ongoing pathology and lack of improvement with increasing creeping cellulitis as well as concurrent atherosclerosis, the patient was indicated for right below knee amputation. The patient did wish to proceed with the surgery after great consultation with the patient's family and patient given that she would be better off with a below knee amputation prosthesis going forward. Thus, the patient wished to proceed with surgery. Risk Note: Patient was explained the risks and benefits of surgery and the patient's viejas language including not limited to infection, bleeding, injury to blood vessels, nerves, ligaments or tendons. Risks of anesthesia, deep vein thrombosis and need for reduce future surgery. Patient acknowledged these risk by signing the surgical consent form. DESCRIPTION OF PROCEDURE: The patient was met in the preoperative holding area, and the correct operative extremity was marked and confirmed with both patient and consent. The patient was brought to the operative theater, placed supine on the operative table, and given preoperative Ancef and Zosyn. The patient was then prepped and draped in normal sterile fashion. Time-out was taken. All parties in the room agreed it was the correct patient, extremity and procedure. The flaps were then drawn out appropriately with the skin cut approximately 1 cm distal to the bone cut and then the lateral medial cuts marked out. The skin incision was then made, continue all the way through, going through fascia and the muscle with care to maintain hemostasis throughout. The neurovascular bundles were identified and tied off and bovied, and then the nerve, both the peroneal nerve, deep and superficial were identified and tied off and pulled to its great length, and then had been sutured into the adventitia and the surrounding musculature. The fibula was then identified. Periosteum was identified proximally and elevated proximal to the tibia and the fibula. The fibula was then cut with the saw followed by the tibia cut with the saw after the periosteum was carefully elevated. The tibia was then further cleaned off and rasped to create a nice slope at the top of the anterior portion of the tibia, and then the fibula was then further removed proximally with a bone cutter. Once the bone hook was then placed into the fibula and the tibia, the guillotine knife was then used to cut the gastroc and soleus along the posterior portion downward. The Bovie was then used to cut any extraperitoneal musculature. The popliteal artery was found and then tied off. The saphenous was then identified and then tied off as well. The wound was then irrigated thoroughly with approximately 3 liters of polymyxin, bacitracin mixed with saline, and then the tibia was then chamfered down with a power rasp to have a smooth anterior and medial and lateral portion of the tibia. The wound was further irrigated. The closure was then tested. Cultures were then taken with the final wound in both the soft tissue in the medullary canal, and then 2 drill holes were then made into the tibia to perform the myodesis portion, which was led by Dr. Sae Beth. This was performed with a 0 suture and a #1 suture in a [id number] like fashion from outside to outside, fascia to fascia, then outside to inside, fascia to periosteum. This was followed by a 0 suture followed by 2-0 suture followed by skin closure with a 2-0 Vicryl, followed by stephanie for the skin. A bulky dressing was then placed with a compression Nilo wrap dressing and then into a knee immobilizer to maintain knee extension. At the end of the case, all sponge and needle counts were correct, and the patient was brought to PACU in stable condition. Dictated By: NICOLE GARCIA/MAGDI Conf#: [id number] [facility]#: [id number] CC: SAE BETH MD;*EndCC* MTDD
[2018-11-13] MEDS: FLUTICASONE/VILANTEROL 200-25 INH DEVICE INH SCH (08:50)
[2018-11-13] MEDS: DOCUSATE SODIUM 100 MG CAP PO SCH (08:50)
[2018-11-13] MEDS: POLYETHYLENE GLYCOL 17 GM PACKET GTB SCH (08:50)
[2018-11-13] MEDS: LOSARTAN 25 MG TAB PO SCH (08:51)
[2018-11-13] MEDS: GABAPENTIN 300 MG CAP PO SCH ×3 (08:51→19:59)
[2018-11-13] MEDS: ASCORBIC ACID 500 MG TAB PO SCH (08:51)
[2018-11-13] MEDS: MULTIVITAMINS THERAPEUTIC TAB PO SCH (08:51)
[2018-11-13] MEDS: AMLODIPINE 10 MG TAB PO SCH (08:51)
[2018-11-13] MEDS: SENNA TAB PO SCH (08:51)
[2018-11-13] MEDS: MAGNESIUM OXIDE 400 MG TAB PO SCH (08:51)
[2018-11-13] MEDS: NYSTATIN 30 GM POWDER BTL TOP SCH ×2 (08:52→19:59)
[2018-11-13] MEDS: CHOLECALCIFEROL 2,000 UNIT CAP PO SCH (08:52)
--- NOTE | 2018-11-13 11:45 | NUR ---
PT [facility] Patient: Karla Chavarria : 1945 Age/Sex: 73/F Unit#: [id number] Room/Bed: 629/A User: Mary Sainz PTA Date: 11/13/18 11:45 Type: PT Technical Record Therapy day number 6 Subjective Current complaint of pain Pain Scale NUMERIC Pain Intensity 2 (0-10) Patient Stated Goal for Pain Relief 0 (0-10) Pain Level Comment RLE Transfer Training Start Time 11:02 Supine to Sit Independent Transfer Sit to Stand Ability Minimum Assist Bed Mobility Sit to Supine Independent Bed Transfer Ability Minimum Assist Chair Transfer Ability Minimum Assist Toileting Ability Stand by Assist Additional Mobility Comments squat pivot transfer x 4 Transfer Training End Time 11:45 Total Transfer Training Time 43 min (8-127) Wheelchair Propulsion Ability Supervised Wheelchair Propulsion Distance 80 feet Weight Bearing Assessment Label Right Lower Extremity Weight Bearing Status Non Weight Bearing Static Sitting Balance Good Dynamic Sitting Balance Good Standing Static Balance Fair Dynamic Standing Balance Fair Additional Balance Assessments Comments FWW Safety Judgement Good Activity Tolerance Good Equipment Present A pump Additional Equipment Present RLE brace, 3LO2 Post Treatment Pain Intensity 2 0-10 Total Treament Time 43 min (8-127) Total Minutes 43 Total Units 3 PT Technical Record Comment S: JESSICA Doherty cleared pt for PT. Pt c/o 2/10 RLE pain, however agreeable to tx O: Received pt in semifowler w/ daughter present in room. See above for assist levels. Transferred to bedside commode/wheelchair via squat pivot transfer and required VC/TC for hand placement and sequencing. Assisted w/ pt hygiene after use of bedside commode. Supervised wheelchair mobility x 80'. Required instruction on propel sequencing. Returned pt back to room/bed. Positioned pt to comfort in semifowler. Call light/phone within reach. Bed alarm on. Needs met. RN informed of pt status and PT activities A: Good tolerance to tx. Sherrie for transfers and made significant improvement for mobility. P: Continue w/ POC and progress as tolerated.
--- NOTE | 2018-11-13 16:44 | CONS ---
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 S/p HTS, can liberalize free water restriction to 1500cc now eunatremic 2. Hypothyroidism-Euthyroid 3. Post op right leg amputation for osteo - care per surgery 4. AMS resolved 5. Constipation - senna and miralax daily. Dulcolax prn 6. Nystatin to pannus 7. Discharge to ARU, discussed with RN and surgery Result Diagram: 11/11/18 0512 11/13/18 0534 Results 24hrs Laboratory Tests Test 11/13/18 05:34 Sodium Level 137 Potassium Level 4.3 Chloride Level 96 L Carbon Dioxide Level 34 H Anion Gap 7 Blood Urea Nitrogen 29 H Creatinine 0.55 Est Glomerular Filtrat Rate mL/min Glucose Level 111 Calcium Level 9.2 Consultation Date/Type/Reason Admit Date/Time Nov 07, 2018 at 15:37 Initial Consult Date Type of Consult internal medicine Requesting Provider: NICOLE GRIFFIN MD 24 HR Interval Summary Free Text/Dictation Sodium normalized. Dr. Griffin has cleared pt to ARU. Medically cleared from my perspective. I have reconciled medications with assistance of RN. Pt aware of transfer/discharge plan. No new issues. Constitutional: no complaints Detailed Summary Respiratory: no complaints Cardiovascular: no complaints Musculoskeletal: no complaints Exam/Review of Systems Vital Signs Vitals Vital Signs Date Temp Pulse Resp B/P (MAP) Pulse Ox O2 O2 Flow FiO2 Time Delivery Rate 11/13/18 98.5 86 19 109/57 97 15:20 (74) 11/13/18 Nasal 3.0 07:50 Cannula Intake and Output 11/12/18 11/12/18 11/13/18 1515:00 23:00 07:00 IntakeIntake Total 600 ml 200 ml OutputOutput Total 800 ml BalanceBalance -200 ml 200 ml Exam Constitutional: alert, oriented Head: normocephalic Respiratory: clear to auscultation Cardiovascular: regular rate and rhythm Gastrointestinal: soft Extremities: other (s/p R BKA) Medications Medications Current Medications Ondansetron HCl (Zofran Inj) 4 mg Q4H PRN IV NAUSEA AND/OR VOMITING Last administered on 11/09/18 06:44; Admin Dose 4 MG; Start 11/07/18 at 19:00 Diphenhydramine HCl (Benadryl) 25 mg Q4H PRN PO ITCHING; Start 11/07/18 at 19:00 Rivaroxaban (Xarelto) 10 mg WITH DINNER PO Last administered on 11/12/18 17:02; Admin Dose 10 MG; Start 11/08/18 at 18:00 Gabapentin (Neurontin) 300 mg TID PO Last administered on 11/13/18 13:06; Admin Dose 300 MG; Start 11/07/18 at 21:00 Multivitamins Therapeutic (Theragran) 1 tab DAILY PO Last administered on 11/13/18 08:51; Admin Dose 1 TAB; Start 11/08/18 at 09:00 Amlodipine Besylate (Norvasc) 10 mg DAILY PO Last administered on 11/13/18 08:51; Admin Dose 10 MG; Start 11/08/18 at 09:00 Cholecalciferol (Vitamin D) 2,000 unit DAILY PO Last administered on 11/13/18 08:52; Admin Dose 2,000 UNIT; Start 11/08/18 at 09:00 Fluticasone/ Vilanterol (Breo Ellipta 200-25 Mcg Inh) 1 inh DAILY INH Last ad ministered on 11/13/18 08:50; Admin Dose 1 INH; Start 11/08/18 at 09:00 Levothyroxine Sodium (Synthroid) 125 mcg BEFORE BREAKFAST PO Last administered on 11/13/18 06:21; Admin Dose 125 MCG; Start 11/08/18 at 07:00 Losartan Potassium (Cozaar) 25 mg DAILY PO Last administered on 11/13/18 08:51; Admin Dose 25 MG; Start 11/08/18 at 09:00 Magnesium Oxide (Mag-Ox 400) 400 mg DAILY PO Last administered on 11/13/18 08:51; Admin Dose 400 MG; Start 11/08/18 at 09:00 Montelukast Sodium (Singulair) 10 mg QHS PO Last administered on 11/12/18 20:26; Admin Dose 10 MG; Start 11/08/18 at 21:00 Pantoprazole (Protonix Tab) 40 mg DAILY@06 PO Last administered on 11/13/18 06:21; Admin Dose 40 MG; Start 11/08/18 at 06:00 Docusate Sodium (Colace) 200 mg DAILY PO Last administered on 11/13/18 08:50; Admin Dose 200 MG; Start 11/10/18 at 13:00 Acetaminophen/ Hydrocodone Bitart ([place] (5/325)) 1 tab Q6H PRN PO PAIN LEVEL 7-10 Last administered on 11/12/18 20:26; Admin Dose 1 TAB; Start 11/11/18 at 16:30 Senna (Senokot) 1 tab DAILY PO Last administered on 11/13/18 08:51; Admin Dose 1 TAB; Start 11/12/18 at 12:30 Polyethylene Glycol (Miralax) 17 gm DAILY GTB Last administered on 11/13/18 08 :50; Admin Dose 17 GM; Start 11/12/18 at 12:30 Bisacodyl (Dulcolax Supp) 10 mg DAILY PRN [place] CONSTIPATION Last administered on 11/12/18 17:02; Admin Dose 10 MG; Start 11/12/18 at 12:30 Nystatin (Nystatin Powder) 1 applic BID TOP Last administered on 11/13/18 08:52; Admin Dose 1 APPLIC; Start 11/12/18 at 12:30 Ascorbic Acid (Vitamin C) 1,000 mg DAILY PO Last administered on 11/13/18 08:51; Admin Dose 1,000 MG; Start 11/12/18 at 18:00 KACY LIU MD Nov 13, 2018 16:44
--- NOTE | 2018-11-13 16:55 | NUR ---
PT [facility] Patient: Karla Chavarria : 1945 Age/Sex: 73/F Unit#: [id number] Room/Bed: 629/A User: Mary Sainz PTA Date: 11/13/18 16:55 Type: PT Technical Record Therapy day number 6 Subjective Denies pain Pain Scale NUMERIC Pain Intensity 0 (0-10) Patient Stated Goal for Pain Relief 0 (0-10) Pain Level Comment denied pain Transfer Training Start Time 16:00 Supine to Sit Independent Transfer Sit to Stand Ability Minimum Assist Bed Mobility Sit to Supine Independent Bed Transfer Ability Minimum Assist Chair Transfer Ability Minimum Assist Toileting Ability Supervised Additional Mobility Comments squat pivot transfer x4 Transfer Training End Time 16:55 Total Transfer Training Time 55 min (8-127) Wheelchair Propulsion Ability Modified Independent Wheelchair Propulsion Distance 100 feet Weight Bearing Assessment Label Right Lower Extremity Weight Bearing Status Non Weight Bearing Static Sitting Balance Good Dynamic Sitting Balance Good Standing Static Balance Fair Dynamic Standing Balance Fair Additional Balance Assessments Comments squat pivot transfer Safety Judgement Good Activity Tolerance Good Equipment Present A pump Additional Equipment Present RLE brace Post Treatment Pain Intensity 0 0-10 Total Treament Time 55 min (8-127) Total Minutes 55 Total Units 4 PT Technical Record Comment S: JESSICA Doherty cleared pt for PT. Pt denied pain and agreeable to tx O: Received pt in semifowler w/ RN, daughter, and son present in room. See above for assist level. Transferred pt EOB from/to bed side commode/wheelchair via squat pivot transfer x4. Assisted RN w/ pt hygiene after toilet use. Pt able to proper w/c x 100' and once fatigued, this therapist assisted pt back to room. Positioned pt to comfort in semifowler. RLE elevated on pillow. Call light/phone within reach. Needs met. Left pt w/ daughter present in room. RN informed of pt status and PT activities. Per RN, pt will be going to ARU at end of shift A: Good tolerance to tx. Min/CGA for transfers. Independent bed mobility P: Continue w/ POC and progress as tolerated
[2018-11-13] MEDS: RIVAROXABAN 10 MG TABLET PO SCH (17:54)
[2018-11-13] MEDS: HYDROCODONE/APAP (5/325) TAB PO PRN (18:47)
[2018-11-13] MEDS: MONTELUKAST 10 MG TAB PO SCH (19:59)
--- NOTE | 2018-11-13 20:01 | NUR ---
DISCHARGE- Pt going to Acute rehab room 4420, Called and gave report to Caitlyn LOPEZ. Pt A/Ox4, on RA, no distress noted. Family bedside, son and daughter. 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
--- NOTE | 2018-11-13 21:21 | NUR ---
0H Pt discharged to ARU by bed accompanied by the transporter and family. Report given by NARGIS Doherty to Caitlyn LOPEZ. All belongings accounted for and given to the family.
--- NOTE | 2018-11-30 09:19 | DS ---
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 S/p HTS, can liberalize free water restriction to 1500cc now eunatremic 2. Hypothyroidism-Euthyroid 3. Post op right leg amputation for osteo - care per surgery 4. AMS resolved 5. Constipation - senna and miralax daily. Dulcolax prn 6. Nystatin to pannus 7. Discharge to ARU, discussed with RN and surgery Home Meds Reported Medications Albuterol Sulfate* (Ventolin HFA*) 18 Gm Hfa.aer.ad, 2 PUFF INHALATION Q6H, #1 INHALER 11/07/18 Diphenoxylate Hcl-Atropine* (Lomotil*) 5 Ml Soln, 5 ML GTB Q6H PRN for DIARRHEA, ML 11/07/18 Albuterol Sulfate* (Albuterol Sulfate* Liq) 2 Mg/5 Ml Syrup, 2 MG PO TID, #240 ML 11/07/18 Acetaminophen with Codeine (Acetaminophen-Cod #3 Tablet) 1 Each Tablet, 1 TAB PO Q6H, #7 TAB 11/07/18 Pregabalin* (Lyrica*) 75 Mg Capsule, 75 MG PO DAILY, CAP 11/07/18 Fluticasone/Vilanterol (Breo Ellipta 200-25 Mcg INH) 1 Each Blst.w.dev, 1 PUFF INHALATION DAILY, #1 INHALER 11/07/18 Ferrous Sulfate* (Ferrous Sulfate*) 325 Mg Tabec, 65 MG PO DAILY, TAB 11/07/18 Magnesium Oxide* (Magnesium Oxide*) 400 Mg Tablet, 400 MG PO DAILY, TAB 11/07/18 Cholecalciferol* (Vitamin D3*) 1,000 Unit Tablet, 2000 UNIT PO DAILY, TAB 11/07/18 Montelukast Sodium* (Singulair*) 10 Mg Tablet, 10 MG PO QHS, #30 TAB 11/07/18 Aspirin* (Aspirin* Chew) 81 Mg Tab.chew, 81 MG PO DAILY, TAB.CHEW 11/07/18 Omeprazole* (Omeprazole*) 20 Mg Capsule.dr, 20 MG PO DAILY, #30 CAP 11/07/18 Amlodipine Besylate* (Norvasc*) 10 Mg Tablet, 10 MG PO DAILY, TAB 11/07/18 Levothyroxine Sodium* (Levothyroxine Sodium*) 125 Mcg Tablet, 125 MCG PO BEFORE BREAKFAST, #30 TAB 11/07/18 Losartan Potassium* (Cozaar*) 25 Mg Tablet, 25 MG PO DAILY, #30 TAB 11/07/18 Primary Care Provider Not On Staff Doctor Time spent on discharge: > 30 minutes KACY LIU MD Nov 30, 2018 09:18
== END 2018-11-13 21:10 | DRG 240 ==
LOC: REC 15:37 → EDSTATUS 17:30 → 6WM 21:50
PROVIDERS: ADMIT Orthopaedic Surgery; ATTEND Orthopaedic Surgery
PROC: 0Y6H0Z1 Detachment at Right Lower Leg, High, Open Approach (ICD-10-PCS; principal; 2018-11-07 17:30)
DX: I70.235 Atherosclerosis of native arteries of right leg with ulceration of other part of foot (principal); M86.671 Other chronic osteomyelitis, right ankle and foot; E22.2 Syndrome of inappropriate secretion of antidiuretic hormone; F05 Delirium due to known physiological condition; L97.519 Non-pressure chronic ulcer of other part of right foot with unspecified severity; E55.9 Vitamin D deficiency, unspecified; J44.9 Chronic obstructive pulmonary disease, unspecified; K21.9 Gastro-esophageal reflux disease without esophagitis; I10 Essential (primary) hypertension; I48.2 Chronic atrial fibrillation; E03.9 Hypothyroidism, unspecified; M14.671 Charcot's joint, right ankle and foot; K59.00 Constipation, unspecified; R40.0 Somnolence; G89.29 Other chronic pain; E78.00 Pure hypercholesterolemia, unspecified; Z98.1 Arthrodesis status; Z96.642 Presence of left artificial hip joint; Z90.49 Acquired absence of other specified parts of digestive tract; Z87.891 Personal history of nicotine dependence; Z79.82 Long term (current) use of aspirin
CPT/HCPCS: 80048; 82306; 83735; 84100; 84295; 84300; 84443; 85014; 85018; 85025; 87070; 87075; 87086; 87102; 87116; 88307; 88311; 97110; 97116; 97162; 97530; J0690; J1885; J2060; J2250; J2405; J2543; J2765; J2795; J3010; J7030; L5400; L5684; L5690; L5910; L8400; L8440

== ENCOUNTER 2018-11-13 17:23 | Inpatient (IN) | payer MEDICARE, OTHER ==
[~2018-11-13] VITALS: Ht 172.7 cm; Wt 92.0 kg
[~2018-11-13 17:23] MED LIST: ACET1TAB40 PO; ALBU18HF INHALATION; ALBU2SYR3 PO; AMLO-218 PO; ASPI-903 PO; CHOL100062 PO; FER325 PO; FLUT1BLS INHALATION; LEVO125T7 PO; LOSA25TA2 PO; LYR75 PO; MAGN400T28 PO; MONT10TA21 PO; OMEP20CA16 PO; UDLOM GTB
[2018-11-13 21:30] VITALS: BP 124/58; PULSE 85; RESP 18; Ht 172.7 cm; Wt 92.0 kg
[2018-11-13] MEDS ORDERED: BISACODYL 10 MG SUPP PR PRN (22:53)
[2018-11-13] MEDS ORDERED: ONDANSETRON 4 MG INJ IV PRN (23:18)
[2018-11-14] MEDS ORDERED: PENDING SANTYL ORDER FOR WOUND CARE XX PRN (00:30)
[2018-11-14 01:52] VITALS: BP 116/68; PULSE 86; RESP 18
[2018-11-14] MEDS: LEVOTHYROXINE 125 MCG TAB PO SCH (06:09)
[2018-11-14] MEDS: PANTOPRAZOLE (EC) 40 MG TAB PO SCH (06:09)
[2018-11-14 07:30] VITALS: BP 112/69; PULSE 98; RESP 18
[2018-11-14] MEDS: FLUTICASONE/VILANTEROL 200-25 INH DEVICE INH SCH (08:12)
[2018-11-14] MEDS: POLYETHYLENE GLYCOL 17 GM PACKET GTB SCH (08:12)
[2018-11-14] MEDS: NYSTATIN 30 GM POWDER BTL TOP SCH ×2 (08:12→21:37)
[2018-11-14] MEDS: DOCUSATE SODIUM 100 MG CAP PO SCH (08:13)
[2018-11-14] MEDS: ASCORBIC ACID 500 MG TAB PO SCH (08:13)
[2018-11-14] MEDS: MAGNESIUM OXIDE 400 MG TAB PO SCH (08:13)
[2018-11-14] MEDS: MULTIVITAMINS THERAPEUTIC TAB PO SCH (08:13)
[2018-11-14] MEDS: GABAPENTIN 300 MG CAP PO SCH ×3 (08:13→20:37)
[2018-11-14] MEDS: LOSARTAN 25 MG TAB PO SCH (08:14)
[2018-11-14] MEDS: AMLODIPINE 10 MG TAB PO SCH (08:15)
[2018-11-14] MEDS: CHOLECALCIFEROL 2,000 UNIT CAP PO SCH (08:16)
[2018-11-14] MEDS: SENNA TAB PO SCH (08:16)
--- NOTE | 2018-11-14 08:48 | CONS ---
Date/Time of Note Date/Time of Note DATE: 11/14/18 TIME: 08:45 Assessment/Plan Assessment/Plan Assessment/Plan 1. S/P amputation right lower extrem sec to osteo 2. HBP, controlled 3. Hx sleep apnea, having not tolerated cpap, will allow oxygen as needed 4. COPD, stable 5. Hx atrial fibrillation, now on xarelto 6. Prior cholecystectomy 7. Confusion resolved 8. Labs ordered for the am Results 24hrs Laboratory Tests Test 11/13/18 22:40 Urine Color YELLOW Urine Clarity CLEAR Urine pH 6.0 Urine Specific [place] 1.019 Urine Ketones NEGATIVE Urine Nitrite NEGATIVE Urine Bilirubin NEGATIVE Urine Urobilinogen NEGATIVE Urine Leukocyte Esterase 2+ H Urine Microscopic RBC 1 Urine Microscopic WBC 12 H Urine Squamous Epithelial Cells FEW Urine Bacteria FEW A Urine Hemoglobin NEGATIVE Urine Glucose NEGATIVE Urine Total Protein NEGATIVE Consultation Date/Type/Reason Admit Date/Time Nov 13, 2018 at 21:15 Initial Consult Date Detailed Summary Respiratory: No cough, No shortness of breath Cardiovascular: No chest pain Gastrointestinal: no complaints Genitourinary: no complaints Neurologic: No headache Exam/Review of Systems Vital Signs Vitals Vital Signs Date Temp Pulse Resp B/P (MAP) Pulse Ox O2 O2 Flow FiO2 Time Delivery Rate 11/14/18 97.8 86 18 116/68 97 Nasal 2.0 01:52 (84) Cannula Intake and Output 11/13/18 11/13/18 11/14/18 1515:00 23:00 07:00 IntakeIntake Total 200 ml OutputOutput Total 350 ml BalanceBalance -150 ml Exam Neck: No jvd Respiratory: clear to auscultation Cardiovascular: regular rate and rhythm Gastrointestinal: soft Musculoskeletal: other (right lower extrem amputation) Medications Medications Current Medications Diphenhydramine HCl (Benadryl) 25 mg Q4H PRN PO ITCHING; Start 11/13/18 at 22:53 Rivaroxaban (Xarelto) 10 mg WITH DINNER PO ; Start 11/13/18 at 22:53 Gabapentin (Neurontin) 300 mg TID PO Last administered on 11/14/18at 08:13; Admin Dose 300 MG; Start 11/13/18 at 22:53 Amlodipine Besylate (Norvasc) 10 mg DAILY PO Last administered on 11/14/18at 08:15; Admin Dose 10 MG; Start 11/13/18 at 22:53 Cholecalciferol (Vitamin D) 2,000 unit DAILY PO Last administered on 11/14/18 08:16; Admin Dose 2,000 UNIT; Start 11/13/18 at 22:53 Fluticasone/ Vilanterol (Breo Ellipta 200-25 Mcg Inh) 1 inh DAILY INH Last administered on 11/14/18 08:12; Admin Dose 1 INH; Start 11/13/18 at 22:53 Docusate Sodium (Colace) 200 mg DAILY PO Last administered on 11/14/18 08:13; Admin Dose 200 MG; Start 11/13/18 at 22:53 Acetaminophen/ Hydrocodone Bitart ([place] (5/325)) 1 tab Q6H PRN PO PAIN LEVEL 7-10; Start 11/13/18 at 22:53 Polyethylene Glycol (Miralax) 17 gm DAILY GTB Last administered on 11/14/18 08:12; Admin Dose 17 GM; Start 11/13/18 at 22:53 Bisacodyl (Dulcolax Supp) 10 mg DAILY PRN [place] CONSTIPATION; Start 11/13/18 at 22:53 Ascorbic Acid (Vitamin C) 1,000 mg DAILY PO Last administered on 11/14/18 08:13; Admin Dose 1,000 MG; Start 11/13/18 at 22:53 Ondansetron HCl (Zofran Inj) 4 mg Q4H PRN IV NAUSEA AND/OR VOMITING; Start 11/13/18 at 23:18 Multivitamins Therapeutic (Theragran) 1 tab DAILY PO Last administered on 11/14/18 08:13; Admin Dose 1 TAB; Start 11/13/18 at 23:18 Levothyroxine Sodium (Synthroid) 125 mcg BEFORE BREAKFAST PO Last administered on 11/14/18 06:09; Admin Dose 125 MCG; Start 11/13/18 at 23:18 Losartan Potassium (Cozaar) 25 mg DAILY PO Last administered on 11/14/18 08:14; Admin Dose 25 MG; Start 11/13/18 at 23:18 Magnesium Oxide (Mag-Ox 400) 400 mg DAILY PO Last administered on 11/14/18 08:13; Admin Dose 400 MG; Start 11/13/18 at 23:18 Montelukast Sodium (Singulair) 10 mg QHS PO ; Start 11/13/18 at 23:18 Pantoprazole (Protonix Tab) 40 mg DAILY@06 PO Last administered on 11/14/18at 06:09; Admin Dose 40 MG; Start 11/13/18 at 23:18 Senna (Senokot) 1 tab DAILY PO Last administered on 11/14/18at 08:16; Admin Dose 1 TAB; Start 11/13/18 at 23:18 Nystatin (Nystatin Powder) 1 applic BID TOP Last administered on 11/14/18at 08:12; Admin Dose 1 APPLIC; Start 11/13/18 at 23:18 Miscellaneous Information (Pending [facility] Order For Wound Care) This patient carter... PRN PRN XX NOTE; Start 11/14/18 at 00:30 ELISE SAMPSNO MD Nov 14, 2018 08:48
[2018-11-14 14:00] VITALS: BP 106/68; PULSE 98; RESP 18
--- NOTE | 2018-11-14 14:36 | CONS ---
DATE OF ADMISSION: 11/13/2018 DATE OF CONSULTATION: 11/14/2018 TYPE OF CONSULTATION: Rehabilitation post-admission physician evaluation. REHABILITATION IMPAIRMENT CATEGORY: 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 ACTIVE COMORBIDITIES: 1. Toxic metabolic encephalopathy. 2. Chronic atrial fibrillation. 3. Gastroesophageal reflux disease. 4. COPD. 5. Acute and neuropathic pain. 6. Hypothyroidism. 7. Impairments in self-care, mobility and cognition. 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 Her hospital course has been notable for significant pain, postoperative confusion and significant impairments in self-care and mobility as compared to baseline. The patient has been cleared to transfer to the rehabilitation unit for comprehensive interdisciplinary rehab care. FUNCTIONAL HISTORY: Prior to recent events, she was independent in self-care tasks and mobility. Currently, she requires maximal assist for self-care and mobility tasks. I have reviewed the preadmission screen and patient's current functional status is consistent with the preadmission screen. FAMILY AND SOCIAL HISTORY: The patient reportedly lives at home. She has very supportive family who reports they will be able to assist her upon discharge. PAST MEDICAL HISTORY: 1. Right lower extremity ulceration and chronic refractory osteomyelitis. 2. Hypothyroidism. 3. Hypertension. 4. COPD. 5. Chronic atrial fibrillation. CURRENT MEDICATIONS: 1. Norvasc 10 mg p.o. daily. 2. Vitamin C 1000 mg p.o. daily. 3. Vitamin D 2000 mg p.o. daily. 4. Colace 200 mg p.o. daily. 5. Breo Ellipta inhaler daily. 6. Neurontin 300 mg p.o. t.i.d. 7. Effie 1 tab p.o. q.6 hours p.r.n. 8. Synthroid 125 mcg p.o. q.a.m. 9. Cozaar 25 mg p.o. daily. 10. Magnesium oxide 400 mg p.o. daily. 11. Singulair 10 mg p.o. daily. 12. Theragran 1 tab p.o. daily. 13. Protonix 40 mg p.o. daily. 14. Xarelto 10 mg p.o. at bedtime. ALLERGIES: 1. IODINE. 2. IBUPROFEN. 3. AZTREONAM. 4. AUGMENTIN. 5. CIPRO. 6. AMOXICILLIN. 7. HYDROMORPHONE. 8. VANCOMYCIN. 9. CEFEPIME. PHYSICAL EXAMINATION: VITAL SIGNS: The patient is currently afebrile with stable vital signs. HEENT: Extraocular motions are intact. Oropharynx is clear. NECK: Supple. LUNGS: Clear anterior. ABDOMEN: Soft, nontender, positive bowel sounds. NEUROLOGIC: She is awake and alert. She will follow simple 1-step commands. She has impaired short-term memory. She demonstrates antigravity strength in bilateral upper extremity and left lower extremity and good hip flexor strength. The incision is with stephanie in place, currently no drainage. PLAN: The patient has been admitted for comprehensive interdisciplinary acute rehab and is anticipated to tolerate 3 hours of daily therapy in divided doses for at least 5/7 days a week. The treatment plan will include: 1. Physical therapy to focus on bed mobility, transfers, wheelchair mobility and assisted ambulation with the goal of having the patient reach a standby assist at the wheelchair level and then to standby with the use of a front-wheel walker. 2. Occupational therapy to focus on hygiene, grooming, dressing, bathing and toileting activities with goal of having patient reach a standby assist level. 3. The patient would benefit from full cognitive interdisciplinary treatment with the goal of having the patient return to baseline cognition. Physical therapy and occupational therapy will focus on functional carryover of cognition. Neuro-psychologist will oversee cognitive activities and perform full cognitive evaluation. Speech therapy if available for cognitive and dysphagia evaluation, as she was noted to have confusion in addition to being on a soft diet. ESTIMATED LENGTH OF STAY: 14 days. DISPOSITION GOAL: Home. REHABILITATION BARRIER: Pain. INTERVENTION FOR BARRIER: Interdisciplinary approach. I acknowledge that I performed a full physical examination on this patient within 24 hours of admission to the rehabilitation unit. I believe the patient is a good candidate for comprehensive interdisciplinary rehab care and is anticipated to make reasonable goals in a reasonable period of time as outlined above. Dictated By: NISHI HUTCHINSON/NTS Conf#: [id number] DID#: [id number] CC: NICOLE DILLARD MD;*EndCC* MTDD
[2018-11-14] MEDS: RIVAROXABAN 10 MG TABLET PO SCH (17:48)
[2018-11-14] MEDS: HYDROCODONE/APAP (5/325) TAB PO PRN ×2 (17:48→23:51)
[2018-11-14 20:30] VITALS: BP 97/56; PULSE 79; RESP 18
[2018-11-14] MEDS: MONTELUKAST 10 MG TAB PO SCH (20:36)
[2018-11-14] MEDS: BACLOFEN 10 MG TAB PO SCH (20:37)
[2018-11-15] MEDS: DIPHENHYDRAMINE 25 MG CAP PO PRN (01:27)
[2018-11-15] MEDS ORDERED: morphine 4 MG/ML VIAL IV PRN (01:30)
[2018-11-15 02:07] VITALS: BP 127/65; PULSE 86; RESP 18
[2018-11-15] MEDS: PANTOPRAZOLE (EC) 40 MG TAB PO SCH (06:19)
[2018-11-15] MEDS: HYDROCODONE/APAP (5/325) TAB PO PRN (06:19)
[2018-11-15] MEDS: LEVOTHYROXINE 125 MCG TAB PO SCH (06:19)
[2018-11-15 07:00] VITALS: BP 122/59; PULSE 84; RESP 18
--- NOTE | 2018-11-15 08:23 | CONS ---
Assessment/Plan Assessment/Plan Assessment/Plan 1. Post op right leg amputation 2. HBP, controlled 3. + Urine cult 2 organisms, will repeat 4. Labs rev 5. Confusion has resolved Result Diagram: 11/15/18 0615 11/15/18 0615 Results 24hrs Laboratory Tests Test 11/15/18 06:15 White Blood Count 9.8 Red Blood Count 4.29 Hemoglobin 11.9 L Hematocrit 37.5 Mean Corpuscular Volume 87.4 Mean Corpuscular Hemoglobin 27.7 L Mean Corpuscular Hemoglobin Concent 31.7 L Red Cell Distribution Width 14.6 H Platelet Count 301 # Mean Platelet Volume 10.1 Immature Granulocytes % 0.300 Neutrophils % 69.7 Lymphocytes % 16.1 Monocytes % 9.0 Eosinophils % 4.1 Basophils % 0.8 Nucleated Red Blood Cells % 0.0 Immature Granulocytes # 0.030 Neutrophils # 6.8 Lymphocytes # 1.6 Monocytes # 0.9 Eosinophils # 0.4 Basophils # 0.1 Nucleated Red Blood Cells # 0.0 Sodium Level 138 Potassium Level 4.3 Chloride Level 100 Carbon Dioxide Level 29 Anion Gap 9 Blood Urea Nitrogen 25 H Creatinine 0.68 Est Glomerular Filtrat Rate mL/min Glucose Level 103 Calcium Level 9.2 Phosphorus Level 4.8 Magnesium Level 2.3 Total Bilirubin 0.0 L Direct Bilirubin 0.00 Indirect Bilirubin 0.0 Aspartate Amino Transf (AST/SGOT) 34 Alanine Aminotransferase (ALT/SGPT) 26 Alkaline Phosphatase 102 Total Protein 7.5 Albumin 3.7 Globulin 3.80 H Albumin/Globulin Ratio 0.97 Consultation Date/Type/Reason Admit Date/Time Nov 13, 2018 at 21:15 Initial Consult Date Detailed Summary Respiratory: No pleuritic pain, No shortness of breath Cardiovascular: No chest pain Gastrointestinal: no complaints Genitourinary: No hematuria Neurologic: other (intermittent right lower extrem pain) Exam/Review of Systems Vital Signs Vitals Vital Signs Date Temp Pulse Resp B/P (MAP) Pulse Ox O2 O2 Flow FiO2 Time Delivery Rate 11/15/18 97.9 86 18 127/65 96 Room Air 02:07 (85) 11/14/18 2.0 01:52 Intake and Output 11/14/18 11/14/18 11/15/18 1515:00 23:00 07:00 IntakeIntake Total 2120 ml 50 ml BalanceBalance 2120 ml 50 ml Exam Neck: No jvd Respiratory: clear to auscultation Cardiovascular: regular rate and rhythm; No irregular rhythm Gastrointestinal: soft Extremities: No edema Medications Medications Current Medications Diphenhydramine HCl (Benadryl) 25 mg Q4H PRN PO ITCHING Last administered on 11/15/18 01:27; Admin Dose 25 MG; Start 11/13/18 at 22:53 Rivaroxaban (Xarelto) 10 mg WITH DINNER PO Last administered on 11/14/18 17:48; Admin Dose 10 MG; Start 11/13/18 at 22:53 Gabapentin (Neurontin) 300 mg TID PO Last administered on 11/14/18 20:37; Admin Dose 300 MG; Start 11/13/18 at 22:53 Amlodipine Besylate (Norvasc) 10 mg DAILY PO Last administered on 11/14/18 08:15; Admin Dose 10 MG; Start 11/13/18 at 22:53 Cholecalciferol (Vitamin D) 2,000 unit DAILY PO Last administered on 11/14/18 08:16; Admin Dose 2,000 UNIT; Start 11/13/18 at 22:53 Fluticasone/ Vilanterol (Breo Ellipta 200-25 Mcg Inh) 1 inh DAILY INH Last administered on 11/14/18 08:12; Admin Dose 1 INH; Start 11/13/18 at 22:53 Docusate Sodium (Colace) 200 mg DAILY PO Last administered on 11/14/18 08:13; Admin Dose 200 MG; Start 11/13/18 at 22:53 Acetaminophen/ Hydrocodone Bitart ([place] (5/325)) 1 tab Q6H PRN PO PAIN LEVEL 7-10 Last administered on 11/15/18 06:19; Admin Dose 1 TAB; Start 11/13/18 at 22:53 Polyethylene Glycol (Miralax) 17 gm DAILY GTB Last administered on 11/14/18 08:12; Admin Dose 17 GM; Start 11/13/18 at 22:53 Bisacodyl (Dulcolax Supp) 10 mg DAILY PRN [place] CONSTIPATION; Start 11/13/18 at 22:53 Ascorbic Acid (Vitamin C) 1,000 mg DAILY PO Last administered on 11/14/18 08:13; Admin Dose 1,000 MG; Start 11/13/18 at 22:53 Ondansetron HCl (Zofran Inj) 4 mg Q4H PRN IV NAUSEA AND/OR VOMITING; Start at 23:18 Multivitamins Therapeutic (Theragran) 1 tab DAILY PO Last administered on 11/14/18 08:13; Admin Dose 1 TAB; Start 11/13/18 at 23:18 Levothyroxine Sodium (Synthroid) 125 mcg BEFORE BREAKFAST PO Last administered on 11/15/18 06:19; Admin Dose 125 MCG; Start 11/13/18 at 23:18 Losartan Potassium (Cozaar) 25 mg DAILY PO Last administered on 11/14/18 08:14; Admin Dose 25 MG; Start 11/13/18 at 23:18 Magnesium Oxide (Mag-Ox 400) 400 mg DAILY PO Last administered on 11/14/18 08:13; Admin Dose 400 MG; Start 11/13/18 at 23:18 Montelukast Sodium (Singulair) 10 mg QHS PO Last administered on 11/14/18 20:36; Admin Dose 10 MG; Start 11/13/18 at 23:18 Pantoprazole (Protonix Tab) 40 mg DAILY@06 PO Last administered on 11/15/18 06:19; Admin Dose 40 MG; Start 11/13/18 at 23:18 Senna (Senokot) 1 tab DAILY PO Last administered on 11/14/18 08:16; Admin Dose 1 TAB; Start 11/13/18 at 23:18 Nystatin (Nystatin Powder) 1 applic BID TOP Last administered on 11/14/18at 21:37; Admin Dose 1 APPLIC; Start 11/13/18 at 23:18 Miscellaneous Information ([facility]ending [facility] Order For [facility]ound Care) This patient carter... PRN PRN XX NOTE; Start 11/14/18 at 00:30 Baclofen (Lioresal) 10 mg HS PO Last administered on 11/14/18at 20:37; Admin Dose 10 MG; Start 11/14/18 at 21:00 Morphine Sulfate (morphine) 3 mg Q2 PRN IV SEVERE PAIN LEVEL 7-10; Start 11/15/18 at 01:30 Acetaminophen (Tylenol Tab) 650 mg Q6H PRN PO MILD PAIN(1-3)OR ELEVATED TEMP; Start 11/15/18 at 02:00 Date/Time of Note Date/Time of Note DATE: 11/15/18 TIME: 08:21 ELISE SAMPSON MD Nov 15, 2018 08:23
[2018-11-15] MEDS: NYSTATIN 30 GM POWDER BTL TOP SCH ×2 (08:37→20:21)
[2018-11-15] MEDS: FLUTICASONE/VILANTEROL 200-25 INH DEVICE INH SCH (08:37)
[2018-11-15] MEDS: MAGNESIUM OXIDE 400 MG TAB PO SCH (08:37)
[2018-11-15] MEDS: POLYETHYLENE GLYCOL 17 GM PACKET GTB SCH (08:37)
[2018-11-15] MEDS: SENNA TAB PO SCH (08:38)
[2018-11-15] MEDS: ASCORBIC ACID 500 MG TAB PO SCH (08:38)
[2018-11-15] MEDS: GABAPENTIN 300 MG CAP PO SCH ×3 (08:38→20:21)
[2018-11-15] MEDS: DOCUSATE SODIUM 100 MG CAP PO SCH (08:38)
[2018-11-15] MEDS: MULTIVITAMINS THERAPEUTIC TAB PO SCH (08:38)
[2018-11-15] MEDS: CHOLECALCIFEROL 2,000 UNIT CAP PO SCH (08:38)
[2018-11-15] MEDS: LOSARTAN 25 MG TAB PO SCH (08:38)
[2018-11-15] MEDS: AMLODIPINE 10 MG TAB PO SCH (08:38)
--- NOTE | 2018-11-15 13:08 | PN ---
Date/Time of Note Date/Time of Note DATE: 11/15/18 TIME: 13:06 Subjective Reports pain slightly improved Objective Vital Signs Date Temp Pulse Resp B/P (MAP) Pulse Ox O2 O2 Flow FiO2 Time Delivery Rate 11/15/18 97.7 84 18 122/59 94 Room Air 07:00 (80) 11/14/18 2.0 01:52 Intake and Output 11/14/18 11/14/18 11/15/18 1414:59 22:59 06:59 IntakeIntake Total 2120 ml 50 ml BalanceBalance 2120 ml 50 ml Exam pulm-cta abd-soft max assist Results/Medications Result Diagram: 11/15/18 0615 11/15/18 0615 Results 24 hrs Laboratory Tests Test 11/15/18 06:15 White Blood Count 9.8 Red Blood Count 4.29 Hemoglobin 11.9 L Hematocrit 37.5 Mean Corpuscular Volume 87.4 Mean Corpuscular Hemoglobin 27.7 L Mean Corpuscular Hemoglobin Concent 31.7 L Red Cell Distribution Width 14.6 H Platelet Count 301 # Mean Platelet Volume 10.1 Immature Granulocytes % 0.300 Neutrophils % 69.7 Lymphocytes % 16.1 Monocytes % 9.0 Eosinophils % 4.1 Basophils % 0.8 Nucleated Red Blood Cells % 0.0 Immature Granulocytes # 0.030 Neutrophils # 6.8 Lymphocytes # 1.6 Monocytes # 0.9 Eosinophils # 0.4 Basophils # 0.1 Nucleated Red Blood Cells # 0.0 Sodium Level 138 Potassium Level 4.3 Chloride Level 100 Carbon Dioxide Level 29 Anion Gap 9 Blood Urea Nitrogen 25 H Creatinine 0.68 Est Glomerular Filtrat Rate mL/min Glucose Level 103 Calcium Level 9.2 Phosphorus Level 4.8 Magnesium Level 2.3 Total Bilirubin 0.0 L Direct Bilirubin 0.00 Indirect Bilirubin 0.0 Aspartate Amino Transf (AST/SGOT) 34 Alanine Aminotransferase (ALT/SGPT) 26 Alkaline Phosphatase 102 Total Protein 7.5 Albumin 3.7 Globulin 3.80 H Albumin/Globulin Ratio 0.97 Medications Current Medications Diphenhydramine HCl (Benadryl) 25 mg Q4H PRN PO ITCHING Last administered on 11/15/18at 01:27; Admin Dose 25 MG; Start 11/13/18 at 22:53 Rivaroxaban (Xarelto) 10 mg WITH DINNER PO Last administered on 11/14/18 17: 48; Admin Dose 10 MG; Start 11/13/18 at 22:53 Gabapentin (Neurontin) 300 mg TID PO Last administered on 11/15/18 12:21; Admin Dose 300 MG; Start 11/13/18 at 22:53 Amlodipine Besylate (Norvasc) 10 mg DAILY PO Last administered on 11/15/18 08:38; Admin Dose 10 MG; Start 11/13/18 at 22:53 Cholecalciferol (Vitamin D) 2,000 unit DAILY PO Last administered on 11/15/18 08:38; Admin Dose 2,000 UNIT; Start 11/13/18 at 22:53 Fluticasone/ Vilanterol (Breo Ellipta 200-25 Mcg Inh) 1 inh DAILY INH Last administered on 11/15/18 08:37; Admin Dose 1 INH; Start 11/13/18 at 22:53 Docusate Sodium (Colace) 200 mg DAILY PO Last administered on 11/15/18 08:38; Admin Dose 200 MG; Start 11/13/18 at 22:53 Acetaminophen/ Hydrocodone Bitart ([place] (5/325)) 1 tab Q6H PRN PO PAIN LEVEL 7-10 Last administered on 11/15/18 06:19; Admin Dose 1 TAB; Start 11/13/18 at 22:53 Polyethylene Glycol (Miralax) 17 gm DAILY GTB Last administered on 11/15/18 08:37; Admin Dose 17 GM; Start 11/13/18 at 22:53 Bisacodyl (Dulcolax Supp) 10 mg DAILY PRN [place] CONSTIPATION; Start 11/13/18 at 22:53 Ascorbic Acid (Vitamin C) 1,000 mg DAILY PO Last administered on 11/15/18 08:38; Admin Dose 1,000 MG; Start 11/13/18 at 22:53 Ondansetron HCl (Zofran Inj) 4 mg Q4H PRN IV NAUSEA AND/OR VOMITING; Start 11/13/18 at 23:18 Multivitamins Therapeutic (Theragran) 1 tab DAILY PO Last administered on 11/15/18 08:38; Admin Dose 1 TAB; Start 11/13/18 at 23:18 Levothyroxine Sodium (Synthroid) 125 mcg BEFORE BREAKFAST PO Last administered on 11/15/18 06:19; Admin Dose 125 MCG; Start 11/13/18 at 23:18 Losartan Potassium (Cozaar) 25 mg DAILY PO Last administered on 11/15/18 08:38; Admin Dose 25 MG; Start 11/13/18 at 23:18 Magnesium Oxide (Mag-Ox 400) 400 mg DAILY PO Last administered on 11/15/18 08:37; Admin Dose 400 MG; Start 11/13/18 at 23:18 Montelukast Sodium (Singulair) 10 mg QHS PO Last administered on 11/14/18 20:36; Admin Dose 10 MG; Start 11/13/18 at 23:18 Pantoprazole (Protonix Tab) 40 mg DAILY@06 PO Last administered on 11/15/18 06:19; Admin Dose 40 MG; Start 11/13/18 at 23:18 Senna (Senokot) 1 tab DAILY PO Last administered on 11/15/18 08:38; Admin Dose 1 TAB; Start 11/13/18 at 23:18 Nystatin (Nystatin Powder) 1 applic BID TOP Last administered on 11/15/18 08:37; Admin Dose 1 APPLIC; Start 11/13/18 at 23:18 Miscellaneous Information (Pending [facility] Order For Wound Care) This patient carter... PRN PRN XX NOTE; Start 11/14/18 at 00:30 Baclofen (Lioresal) 10 mg HS PO Last administered on 11/14/18 20:37; Admin Dose 10 MG; Start 11/14/18 at 21:00 Morphine Sulfate (morphine) 3 mg Q2 PRN IV SEVERE PAIN LEVEL 7-10; Start 11/15/18 at 01:30 Acetaminophen (Tylenol Tab) 650 mg Q6H PRN PO MILD PAIN(1-3)OR ELEVATED TEMP; Start 11/15/18 at 02:00 Assessment/Plan Additional Assessment/Plan Rehab- 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 Tolerating rehab program Toxic metabolic encephalopathy-improved. Did well with speech testing Chronic atrial fibrillation. Gastroesophageal reflux disease. COPD. Acute and neuropathic pain. Hypothyroidism. NISHI MOLINA MD Nov 15, 2018 13:08
[2018-11-15 14:00] VITALS: BP 120/60; PULSE 80; RESP 18
[2018-11-15] MEDS: RIVAROXABAN 10 MG TABLET PO SCH (17:30)
--- NOTE | 2018-11-15 18:30 | CONS ---
DATE OF ADMISSION: 11/13/2018 DATE OF CONSULTATION: 11/15/2018 TYPE OF CONSULTATION: Psychological. REFERRING PHYSICIAN: Nishi Cline MD CONSULTING PSYCHOLOGIST: Lia Ratliff, PhD REASON FOR CONSULTATION: This consultation was requested by Dr. Navi Cline in order to evaluate t he cognitive and emotional functioning of this patient related to her present medical condition. HISTORY OF PRESENT ILLNESS: The patient is a 73-year-old female. 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 The patient has been fighting this for almo st 10 years. The patient's condition finally became the point where the patient did have to have a r ight below the knee amputation. The patient feels finally relieved actually after having knee amputa tion as she has been fighting it for a long time. The patient is motivated to get better. The patie nt does want to return to her previous level of functioning. The patient is prepared to do what she needs to do to improve and eventually get a prosthesis. The patient does describe phantom limb pain. The patient did have some dark thoughts at night and some visual hallucinations after taking pain m eds and some Ativan. The patient is trying her hardest to do as well as she so that she can increase her level of functioning. FAMILY AND SOCIAL HISTORY: The patient lives in a home in [place] by herself. The patient does carter ve a home health care person there at 105 hours per month. The patient probably will need more care after she returns home. MEDICATIONS: The patient is currently not taking any psychotropic medications. She did take some At jayce 1 time and some Benadryl and that seemed to confuse her. SUBSTANCE USE: The patient reports that she does not drink or use other drugs. The patient reports that she does not smoke. The patient did smoke many years ago, but has stopped for almost 20 years. MENTAL STATUS EXAMINATION: APPEARANCE: The patient was seen in her wheelchair. She appears of average height and weight. The patient is right-handed and wears glasses. BEHAVIOR: The patient was cooperative during the consultation. The patient did attempt to answer al l questions presented to her by the interviewer. MOOD AND AFFECT: The patient's mood appears to be somewhat depressed. Affect does appear to be slig htly anxious. The patient does report that she is a little anxious in dealing with all the issues th at she has but does feel relieved and finally being able to deal with this problem with her leg. PERCEPTION: The patient does report that she had some hallucinations one night. The patient was thi nking that people were coming after her. The patient does not have them any longer. It may have bee n due to some reaction to medication. The patient reports no delusion. The patient was alert to per son, place, situation and time. MEMORY AND COGNITION: The patient's memory and cognition appear to be intact. She was able to remem susan recent and remote events. The patient was able to say the name of the hospital. The patient was able to say the month and the year. The patient was able to state the name of the President of [facility]. She was able to say the past governor of the [facility] and she was able to name the mayor [facility]. The patient was able to spell "world" backwards. The patient was able to d o 1 serial 7 subtraction from 100 and then she said it gets her confused right now. Overall, the estela paul's cognitions appear to be adequate at the present time. INTELLIGENCE: Intelligence appears to fall in the average to above-average range. INSIGHT: Good. JUDGMENT: Good. THOUGHT CONTENT: The patient is concerned about her present medical condition. The patient is motiv ated to get better and do as well as she so that she can function outside the hospital. The patient will need some help and is aware of this. DISCUSSION: The patient can likely benefit from some cognitive/behavioral psychotherapy while she is on the unit. This psychotherapy would focus on her underlying level of frustration about medical pr oblems and some of her anxiety about what is going to happen next. 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 Thank you very much, Dr. Navi Cline, for referring this individual. Please do not hesitate to martínez fuller if you have additional questions. Dictated By: LIA RATLIFF PHD RK/MAGDI Conf#: [id number] DID#: [id number] CC: NICOLE DILLARD MD; NISHI CLINE MD;*EndCC*
[2018-11-15 20:04] VITALS: BP 107/65; PULSE 84; RESP 18
[2018-11-15] MEDS: BACLOFEN 10 MG TAB PO SCH (20:21)
[2018-11-15] MEDS: MONTELUKAST 10 MG TAB PO SCH (20:21)
[2018-11-16] MEDS: HYDROCODONE/APAP (5/325) TAB PO PRN ×2 (00:46→10:20)
[2018-11-16 02:00] VITALS: BP 132/79; PULSE 86; RESP 18
[2018-11-16] MEDS: LEVOTHYROXINE 125 MCG TAB PO SCH (06:04)
[2018-11-16] MEDS: PANTOPRAZOLE (EC) 40 MG TAB PO SCH (06:04)
[2018-11-16 07:55] VITALS: BP 96/65; PULSE 90; RESP 18
--- NOTE | 2018-11-16 08:12 | CONS ---
Assessment/Plan Assessment/Plan Assessment/Plan 1. Doing very well post op right lower extem amputation with less pain. 2. BP is a bit low, will reduce amlodipine. 3. Await repeat urine cult, she remains asx 4. Labs rev from yesterday Result Diagram: 11/15/18 0615 11/15/18 0615 Results 24hrs Laboratory Tests Test 11/15/18 19:50 Urine Color YELLOW Urine Clarity SLIGHTLY CLOUDY A Urine pH 5.0 Urine Specific [place] 1.014 Urine Ketones NEGATIVE Urine Nitrite NEGATIVE Urine Bilirubin NEGATIVE Urine Urobilinogen NEGATIVE Urine Leukocyte Esterase 2+ H Urine Microscopic RBC 2 Urine Microscopic WBC 16 H Urine Squamous Epithelial Cells FEW Urine Bacteria FEW A Urine Hemoglobin NEGATIVE Urine Glucose NEGATIVE Urine Total Protein NEGATIVE Consultation Date/Type/Reason Admit Date/Time Nov 13, 2018 at 21:15 Initial Consult Date Detailed Summary Respiratory: No cough, No shortness of breath Cardiovascular: no complaints Gastrointestinal: no complaints Genitourinary: no complaints Exam/Review of Systems Vital Signs Vitals Vital Signs Date Temp Pulse Resp B/P (MAP) Pulse Ox O2 O2 Flow FiO2 Time Delivery Rate 11/16/18 98.2 90 18 96/65 (75) 94 07:55 11/16/18 Room Air 02:00 11/14/18 2.0 01:52 Intake and Output 11/15/18 11/15/18 11/16/18 1515:00 23:00 07:00 IntakeIntake Total 2320 ml 550 ml OutputOutput Total 1000 ml BalanceBalance 1320 ml 550 ml Exam Neck: No jvd Respiratory: clear to auscultation Cardiovascular: No irregular rhythm Gastrointestinal: soft Extremities: No edema Medications Medications Current Medications Diphenhydramine HCl (Benadryl) 25 mg Q4H PRN PO ITCHING Last administered on 11/15/18at 01:27; Admin Dose 25 MG; Start 11/13/18 at 22:53 Rivaroxaban (Xarelto) 10 mg WITH DINNER PO Last administered on 11/15/18at 17:30; Admin Dose 10 MG; Start 11/13/18 at 22:53 Gabapentin (Neurontin) 300 mg TID PO Last administered on 11/15/18at 20:21; Admin Dose 300 MG; Start 11/13/18 at 22:53 Amlodipine Besylate (Norvasc) 10 mg DAILY PO Last administered on 11/15/18 08:38; Admin Dose 10 MG; Start 11/13/18 at 22:53 Cholecalciferol (Vitamin D) 2,000 unit DAILY PO Last administered on 11/15/18 08:38; Admin Dose 2,000 UNIT; Start 11/13/18 at 22:53 Fluticasone/ Vilanterol (Breo Ellipta 200-25 Mcg Inh) 1 inh DAILY INH Last administered on 11/15/18 08:37; Admin Dose 1 INH; Start 11/13/18 at 22:53 Docusate Sodium (Colace) 200 mg DAILY PO Last administered on 11/15/18 08:38; Admin Dose 200 MG; Start 11/13/18 at 22:53 Acetaminophen/ Hydrocodone Bitart ([place] (5/325)) 1 tab Q6H PRN PO PAIN LEVEL 7-10 Last administered on 11/16/18 00:46; Admin Dose 1 TAB; Start 11/13/18 at 22:53 Polyethylene Glycol (Miralax) 17 gm DAILY GTB Last administered on 11/15/18 08:37; Admin Dose 17 GM; Start 11/13/18 at 22:53 Bisacodyl (Dulcolax Supp) 10 mg DAILY PRN [place] CONSTIPATION Last administered on 11/15/18 22:12; Admin Dose 10 MG; Start 11/13/18 at 22:53 Ascorbic Acid (Vitamin C) 1,000 mg DAILY PO Last administered on 11/15/18 08:38; Admin Dose 1,000 MG; Start 11/13/18 at 22:53 Ondansetron HCl (Zofran Inj) 4 mg Q4H PRN IV NAUSEA AND/OR VOMITING; Start 11/13/18 at 23:18 Multivitamins Therapeutic (Theragran) 1 tab DAILY PO Last administered on 11/15/18 08:38; Admin Dose 1 TAB; Start 11/13/18 at 23:18 Levothyroxine Sodium (Synthroid) 125 mcg BEFORE BREAKFAST PO Last administered on 11/16/18 06:04; Admin Dose 125 MCG; Start 11/13/18 at 23:18 Losartan Potassium (Cozaar) 25 mg DAILY PO Last administered on 11/15/18 08:38; Admin Dose 25 MG; Start 11/13/18 at 23:18 Magnesium Oxide (Mag-Ox 400) 400 mg DAILY PO Last administered on 11/15/18at 08:37; Admin Dose 400 MG; Start 11/13/18 at 23:18 Montelukast Sodium (Singulair) 10 mg QHS PO Last administered on 11/15/18at 20:21; Admin Dose 10 MG; Start 11/13/18 at 23:18 Pantoprazole (Protonix Tab) 40 mg DAILY@06 PO Last administered on 11/16/18at 06:04; Admin Dose 40 MG; Start 11/13/18 at 23:18 Senna (Senokot) 1 tab DAILY PO Last administered on 11/15/18 08:38; Admin Dose 1 TAB; Start 11/13/18 at 23:18 Nystatin (Nystatin Powder) 1 applic BID TOP Last administered on 11/15/18at 20:21; Admin Dose 1 APPLIC; Start 11/13/18 at 23:18 Miscellaneous Information (Pending [facility] Order For Wound Care) This patient carter... PRN PRN XX NOTE; Start 11/14/18 at 00:30 Baclofen (Lioresal) 10 mg HS PO Last administered on 11/15/18at 20:21; Admin Dose 10 MG; Start 11/14/18 at 21:00 Morphine Sulfate (morphine) 3 mg Q2 PRN IV SEVERE PAIN LEVEL 7-10; Start 11/15/18 at 01:30 Acetaminophen (Tylenol Tab) 650 mg Q6H PRN PO MILD PAIN(1-3)OR ELEVATED TEMP; Start 11/15/18 at 02:00 Date/Time of Note Date/Time of Note DATE: 11/16/18 TIME: 08:10 ELISE SAMPSON MD Nov 16, 2018 08:12
[2018-11-16] MEDS: NYSTATIN 30 GM POWDER BTL TOP SCH ×2 (09:00→21:00)
[2018-11-16] MEDS: SENNA TAB PO SCH (09:00)
[2018-11-16] MEDS: POLYETHYLENE GLYCOL 17 GM PACKET GTB SCH (09:00)
[2018-11-16] MEDS: DOCUSATE SODIUM 100 MG CAP PO SCH (09:00)
--- NOTE | 2018-11-16 09:28 | PN ---
Date/Time of Note Date/Time of Note DATE: 11/16/18 TIME: 09:27 Assessment/Plan Lines/Catheters IV Catheter Type (from Nrsg): Mid Line Donis in Place (from Nrsg): No Assessment/Plan Chief Complaint/Hosp Course -Right LE atherosclerosis, osteomyelitis, nonhealing chronic ulcer & Charcot: S/P Right BKA-with musculocutaneous flap -LLE: no current ulcers . will continue with our vascular surveillance -Pain control -PT/OT OOB to chair and FWB of the LLE, RLE with ambushield and fall precautions -Incentive spirometer -DVT ppx -Changed dressing with betadine paint to staple line, gauze, kerlex and attila wrap followed by acute care assistant. To be changed daily -Keep RLE elevate on two pillows at rest Subjective 24 Hr Interval Summary no new vascular events overnight Exam/Review of Systems Vital Signs Vitals Vital Signs Date Temp Pulse Resp B/P (MAP) Pulse Ox O2 O2 Flow FiO2 Time Delivery Rate 11/16/18 98.2 90 18 96/65 (75) 94 07:55 11/16/18 Room Air 02:00 11/14/18 2.0 01:52 Intake and Output 11/15/18 11/15/18 11/16/18 1515:00 23:00 07:00 IntakeIntake Total 2320 ml 550 ml OutputOutput Total 1000 ml BalanceBalance 1320 ml 550 ml Exam Free Text/Dictation A&Ox3 CTAB S1S2 soft NTND BS+, truncal obesity RLE: Palpable femoral pulse, motor/sensory, BKA-stump with dressing intact - re moved, stephanie intact and clean, incisional tenderness LLE: palpable femoral pulse, faint pedal pulse, motor/sensory intact, cap refill 3 seconds, no ulcers Results Result Diagram: 11/15/1815 11/15/1815 SEA BETH MD Nov 16, 2018 09:28
[2018-11-16 10:02] VITALS: BP 132/75; PULSE 73; RESP 18
[2018-11-16] MEDS: ASCORBIC ACID 500 MG TAB PO SCH (10:18)
[2018-11-16] MEDS: CHOLECALCIFEROL 2,000 UNIT CAP PO SCH (10:18)
[2018-11-16] MEDS: MAGNESIUM OXIDE 400 MG TAB PO SCH (10:19)
[2018-11-16] MEDS: GABAPENTIN 300 MG CAP PO SCH ×3 (10:19→21:50)
[2018-11-16] MEDS: MULTIVITAMINS THERAPEUTIC TAB PO SCH (10:19)
--- NOTE | 2018-11-16 10:21 | PN ---
Date/Time of Note Date/Time of Note DATE: 11/16/18 TIME: 10:21 Assessment/Plan Lines/Catheters IV C[facility] Type (from [facility] Mid Line Donis in Place (from [facility]): No Exam/Review of Systems Vital Signs Vitals Vital Signs Date Temp Pulse Resp B/P (MAP) Pulse Ox O2 O2 Flow FiO2 Time Delivery Rate 11/16/18 73 18 132/75 95 Room Air 10:02 (94) 11/16/18 98.2 07:55 11/14/18 2.0 01:52 Intake and Output 11/15/18 11/15/18 11/16/18 1515:00 23:00 07:00 IntakeIntake Total 2320 ml 550 ml OutputOutput Total 1000 ml BalanceBalance 1320 ml 550 ml Results Result Diagram: 11/15/18 0615 11/15/18 0615 NICOLE DILLARD MD Nov 16, 2018 10:21
[2018-11-16] MEDS: LOSARTAN 25 MG TAB PO SCH (10:31)
[2018-11-16] MEDS: AMLODIPINE 5 MG TAB PO SCH (10:32)
[2018-11-16] MEDS: FLUTICASONE/VILANTEROL 200-25 INH DEVICE INH SCH (10:32)
--- NOTE | 2018-11-16 12:15 | PN ---
Date/Time of Note Date/Time of Note DATE: 11/16/18 TIME: 12:14 Subjective Pain under good control. Patient motivated Objective Vital Signs Date Temp Pulse Resp B/P (MAP) Pulse Ox O2 O2 Flow FiO2 Time Delivery Rate 11/16/18 73 18 132/75 95 Room Air 10:02 (94) 11/16/18 98.2 07:55 11/14/18 2.0 01:52 Intake and Output 11/15/18 11/15/18 11/16/18 1414:59 22:59 06:59 IntakeIntake Total 2320 ml 550 ml OutputOutput Total 1000 ml BalanceBalance 1320 ml 550 ml Exam pulm-cta abd-soft mod transfer Results/Medications Result Diagram: 11/15/1861411/15/1815 Results 24 hrs Laboratory Tests Test 11/15/18 19:50 Urine Color YELLOW Urine Clarity SLIGHTLY CLOUDY A Urine pH 5.0 Urine Specific [place] 1.014 Urine Ketones NEGATIVE Urine Nitrite NEGATIVE Urine Bilirubin NEGATIVE Urine Urobilinogen NEGATIVE Urine Leukocyte Esterase 2+ H Urine Microscopic RBC 2 Urine Microscopic WBC 16 H Urine Squamous Epithelial Cells FEW Urine Bacteria FEW A Urine Hemoglobin NEGATIVE Urine Glucose NEGATIVE Urine Total Protein NEGATIVE Medications Current Medications Diphenhydramine HCl (Benadryl) 25 mg Q4H PRN PO ITCHING Last administered on 11/15/18at 01:27; Admin Dose 25 MG; Start 11/13/18 at 22:53 Rivaroxaban (Xarelto) 10 mg WITH DINNER PO Last administered on 11/15/18at 17:30; Admin Dose 10 MG; Start 11/13/18 at 22:53 Gabapentin (Neurontin) 300 mg TID PO Last administered on 11/16/18at 10:19; Admin Dose 300 MG; Start 11/13/18 at 22:53 Cholecalciferol (Vitamin D) 2,000 unit DAILY PO Last administered on 11/16/18 10:18; Admin Dose 2,000 UNIT; Start 11/13/18 at 22:53 Fluticasone/ Vilanterol (Breo Ellipta 200-25 Mcg Inh) 1 inh DAILY INH Last administered on 11/16/18at 10:32; Admin Dose 1 INH; Start 11/13/18 at 22:53 Docusate Sodium (Colace) 200 mg DAILY PO Last administered on 11/15/18 08:38; Admin Dose 200 MG; Start 11/13/18 at 22:53 Acetaminophen/ Hydrocodone Bitart ([place] (5/325)) 1 tab Q6H PRN PO PAIN LEVEL 7-10 Last administered on 11/16/18 10:20; Admin Dose 1 TAB; Start 11/13/18 at 22:53 Polyethylene Glycol (Miralax) 17 gm DAILY GTB Last administered on 11/15/18 08:37; Admin Dose 17 GM; Start 11/13/18 at 22:53 Bisacodyl (Dulcolax Supp) 10 mg DAILY PRN [place] CONSTIPATION Last administered on 11/15/18 22:12; Admin Dose 10 MG; Start 11/13/18 at 22:53 Ascorbic Acid (Vitamin C) 1,000 mg DAILY PO Last administered on 11/16/18 10:18; Admin Dose 1,000 MG; Start 11/13/18 at 22:53 Ondansetron HCl (Zofran Inj) 4 mg Q4H PRN IV NAUSEA AND/OR VOMITING; Start 11/13/18 at 23:18 Multivitamins Therapeutic (Theragran) 1 tab DAILY PO Last administered on 11/16/18 10:19; Admin Dose 1 TAB; Start 11/13/18 at 23:18 Levothyroxine Sodium (Synthroid) 125 mcg BEFORE BREAKFAST PO Last administered on 11/16/18 06:04; Admin Dose 125 MCG; Start 11/13/18 at 23:18 Losartan Potassium (Cozaar) 25 mg DAILY PO Last administered on 11/16/18 10:31; Admin Dose 25 MG; Start 11/13/18 at 23:18 Magnesium Oxide (Mag-Ox 400) 400 mg DAILY PO Last administered on 11/16/18 10:19; Admin Dose 400 MG; Start 11/13/18 at 23:18 Montelukast Sodium (Singulair) 10 mg QHS PO Last administered on 11/15/18 20:21; Admin Dose 10 MG; Start 11/13/18 at 23:18 Pantoprazole (Protonix Tab) 40 mg DAILY@06 PO Last administered on 11/16/18 06:04; Admin Dose 40 MG; Start 11/13/18 at 23:18 Senna (Senokot) 1 tab DAILY PO Last administered on 11/15/18at 08:38; Admin Dose 1 TAB; Start 11/13/18 at 23:18 Nystatin (Nystatin Powder) 1 applic BID TOP Last administered on 11/16/18at 09 :00; Admin Dose 1 APPLIC; Start 11/13/18 at 23:18 Miscellaneous Information (Pending [facility] Order For Wound Care) This patient carter... PRN PRN XX NOTE; Start 11/14/18 at 00:30 Baclofen (Lioresal) 10 mg HS PO Last administered on 11/15/18at 20:21; Admin Dose 10 MG; Start 11/14/18 at 21:00 Morphine Sulfate (morphine) 3 mg Q2 PRN IV SEVERE PAIN LEVEL 7-10; Start 11/15/18 at 01:30 Acetaminophen (Tylenol Tab) 650 mg Q6H PRN PO MILD PAIN(1-3)OR ELEVATED TEMP; Start 11/15/18 at 02:00 Amlodipine Besylate (Norvasc) 5 mg DAILY PO Last administered on 11/16/18at 10:32; Admin Dose 5 MG; Start 11/16/18 at 09:00 Assessment/Plan Additional Assessment/Plan Rehab- 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 Great progress with rehab program Toxic metabolic encephalopathy- resolved Chronic atrial fibrillation. Gastroesophageal reflux disease. COPD. Acute and neuropathic pain. Hypothyroidism. NISHI MOLINA MD Nov 16, 2018 12:15
[2018-11-16 14:34] VITALS: BP 107/68; PULSE 89; RESP 18
[2018-11-16] MEDS: RIVAROXABAN 10 MG TABLET PO SCH (18:42)
[2018-11-16 19:13] VITALS: BP 125/62; PULSE 77; RESP 18
[2018-11-16] MEDS: MONTELUKAST 10 MG TAB PO SCH (21:50)
[2018-11-16] MEDS: BACLOFEN 10 MG TAB PO SCH (21:50)
[2018-11-17 02:00] VITALS: BP 118/65; PULSE 85; RESP 18
[2018-11-17] MEDS: PANTOPRAZOLE (EC) 40 MG TAB PO SCH (06:55)
[2018-11-17] MEDS: LEVOTHYROXINE 125 MCG TAB PO SCH (06:55)
[2018-11-17 07:00] VITALS: BP 126/60; PULSE 77; RESP 18
--- NOTE | 2018-11-17 07:37 | PN ---
Date/Time of Note Date/Time of Note DATE: 11/17/18 TIME: 07:36 Assessment/Plan Lines/Catheters IV Catheter Type (from Nrsg): Mid Line Donis in Place (from Nrsg): No Assessment/Plan Chief Complaint/Hosp Course -Right LE atherosclerosis, osteomyelitis, nonhealing chronic ulcer & Charcot: S/P Right BKA-with musculocutaneous flap -LLE: no current ulcers . will continue with our vascular surveillance -Pain control -PT/OT OOB to chair and FWB of the LLE, RLE with ambushield and fall precautions -Incentive spirometer -Patient can shower, no need to cover the incision -DVT ppx -Changed dressing with betadine paint to staple line, gauze, kerlex and attila wrap followed by engineering lecturer. To be changed daily -Keep RLE elevate on two pillows at rest Subjective 24 Hr Interval Summary no new vascular events overnight Exam/Review of Systems Vital Signs Vitals Vital Signs Date Temp Pulse Resp B/P (MAP) Pulse Ox O2 O2 Flow FiO2 Time Delivery Rate 11/17/18 98.0 85 18 118/65 95 Room Air 02:00 (82) 11/14/18 2.0 01:52 Intake and Output 11/16/18 11/16/18 11/17/18 1515:00 23:00 07:00 IntakeIntake Total 980 ml 1050 ml OutputOutput Total 650 ml BalanceBalance 980 ml 400 ml Exam Free Text/Dictation A&Ox3 CTAB S1S2 soft NTND BS+, truncal obesity RLE: Palpable femoral pulse, motor/sensory, BKA-stump with dressing intact - removed, stephanie intact and clean, incisional tenderness LLE: palpable femoral pulse, faint pedal pulse, motor/sensory intact, cap refill 3 seconds, no ulcers Results Result Diagram: 11/15/1815 11/15/18 0615 SAE BETH MD Nov 17, 2018 07:37
[2018-11-17] MEDS: NYSTATIN 30 GM POWDER BTL TOP SCH ×2 (09:00→21:00)
[2018-11-17] MEDS: MAGNESIUM OXIDE 400 MG TAB PO SCH (10:17)
[2018-11-17] MEDS: ASCORBIC ACID 500 MG TAB PO SCH (10:17)
[2018-11-17] MEDS: GABAPENTIN 300 MG CAP PO SCH ×3 (10:17→21:29)
[2018-11-17] MEDS: SENNA TAB PO SCH (10:17)
[2018-11-17] MEDS: CHOLECALCIFEROL 2,000 UNIT CAP PO SCH (10:17)
[2018-11-17] MEDS: POLYETHYLENE GLYCOL 17 GM PACKET GTB SCH (10:17)
[2018-11-17] MEDS: DOCUSATE SODIUM 100 MG CAP PO SCH (10:17)
[2018-11-17] MEDS: MULTIVITAMINS THERAPEUTIC TAB PO SCH (10:17)
[2018-11-17] MEDS: LOSARTAN 25 MG TAB PO SCH (10:18)
[2018-11-17] MEDS: AMLODIPINE 5 MG TAB PO SCH (10:18)
[2018-11-17] MEDS: FLUTICASONE/VILANTEROL 200-25 INH DEVICE INH SCH (10:25)
--- NOTE | 2018-11-17 10:27 | CONS ---
Assessment/Plan Assessment/Plan Assessment/Plan (Daily) 1. Doing well post op right lower extrem amputation 2. BP well controlled 3. Prior noted confusion has resolved Consultation Date/Type/Reason Admit Date/Time Nov 13, 2018 at 21:15 Initial Consult Date Date/Time of Note DATE: 11/17/18 TIME: 10:26 Detailed Summary Respiratory: No cough, No shortness of breath Cardiovascular: No chest pain Gastrointestinal: no complaints Genitourinary: no complaints Musculoskeletal: bone/joint pain (mild discomfort right thigh) Exam/Review of Systems Exam Vitals Vital Signs Date Temp Pulse Resp B/P (MAP) Pulse Ox O2 O2 Flow FiO2 Time Delivery Rate 11/17/18 97.9 77 18 126/60 91 Room Air 07:00 (82) 11/14/18 2.0 01:52 Intake and Output 11/16/18 11/16/18 11/17/18 1414:59 22:59 06:59 IntakeIntake Total 980 ml 1050 ml OutputOutput Total 650 ml BalanceBalance 980 ml 400 ml Neck: No jvd Respiratory: clear to auscultation Cardiovascular: regular rate and rhythm Gastrointestinal: soft Extremities: No edema Results Result Diagram: 11/15/18 0615 11/15/18 0615 ELISE SAMPSON MD Nov 17, 2018 10:27
--- NOTE | 2018-11-17 10:53 | PN ---
Date/Time of Note Date/Time of Note DATE: 11/17/18 TIME: 10:53 Subjective Comfortable Objective Vital Signs Date Temp Pulse Resp B/P (MAP) Pulse Ox O2 O2 Flow FiO2 Time Delivery Rate 11/17/18 97.9 77 18 126/60 91 Room Air 07:00 (82) 11/14/18 2.0 01:52 Intake and Output 11/16/18 11/16/18 11/17/18 1515:00 23:00 07:00 IntakeIntake Total 980 ml 1050 ml OutputOutput Total 650 ml BalanceBalance 980 ml 400 ml Exam pulm-cta bd-soft mod transfer Results/Medications Result Diagram: 11/15/1861411/15/18614 Medications Current Medications Diphenhydramine HCl (Benadryl) 25 mg Q4H PRN PO ITCHING Last administered on 11/15/18 01:27; Admin Dose 25 MG; Start 11/13/18 at 22:53 Rivaroxaban (Xarelto) 10 mg WITH DINNER PO Last administered on 11/16/18at 18:42; Admin Dose 10 MG; Start 11/13/18 at 22:53 Gabapentin (Neurontin) 300 mg TID PO Last administered on 11/17/18 10:17; Ad min Dose 300 MG; Start 11/13/18 at 22:53 Cholecalciferol (Vitamin D) 2,000 unit DAILY PO Last administered on 11/17/18 10:17; Admin Dose 2,000 UNIT; Start 11/13/18 at 22:53 Fluticasone/ Vilanterol (Breo Ellipta 200-25 Mcg Inh) 1 inh DAILY INH Last administered on 11/17/18 10:25; Admin Dose 1 INH; Start 11/13/18 at 22:53 Docusate Sodium (Colace) 200 mg DAILY PO Last administered on 11/17/18 10:17; Admin Dose 200 MG; Start 11/13/18 at 22:53 Polyethylene Glycol (Miralax) 17 gm DAILY GTB Last administered on 11/17/18 10:17; Admin Dose 17 GM; Start 11/13/18 at 22:53 Bisacodyl (Dulcolax Supp) 10 mg DAILY PRN [place] CONSTIPATION Last administered on 11/15/18 22:12; Admin Dose 10 MG; Start 11/13/18 at 22:53 Ascorbic Acid (Vitamin C) 1,000 mg DAILY PO Last administered on 11/17/18 10:17; Admin Dose 1,000 MG; Start 11/13/18 at 22:53 Ondansetron HCl (Zofran Inj) 4 mg Q4H PRN IV NAUSEA AND/OR VOMITING; Start 11/13/18 at 23:18 Multivitamins Therapeutic (Theragran) 1 tab DAILY PO Last administered on 11/17/18 10:17; Admin Dose 1 TAB; Start 11/13/18 at 23:18 Levothyroxine Sodium (Synthroid) 125 mcg BEFORE BREAKFAST PO Last administered on 11/17/18 06:55; Admin Dose 125 MCG; Start 11/13/18 at 23:18 Losartan Potassium (Cozaar) 25 mg DAILY PO Last administered on 11/17/18 10:18; Admin Dose 25 MG; Start 11/13/18 at 23:18 Magnesium Oxide (Mag-Ox 400) 400 mg DAILY PO Last administered on 11/17/18 10:17; Admin Dose 400 MG; Start 11/13/18 at 23:18 Montelukast Sodium (Singulair) 10 mg QHS PO Last administered on 11/16/18 21:50; Admin Dose 10 MG; Start 11/13/18 at 23:18 Pantoprazole (Protonix Tab) 40 mg DAILY@06 PO Last administered on 11/17/18 06:55; Admin Dose 40 MG; Start 11/13/18 at 23:18 Senna (Senokot) 1 tab DAILY PO Last administered on 11/17/18 10:17; Admin Dose 1 TAB; Start 11/13/18 at 23:18 Nystatin (Nystatin Powder) 1 applic BID TOP Last administered on 11/16/18 09:00; Admin Dose 1 APPLIC; Start 11/13/18 at 23:18 Miscellaneous Information (Pending [facility] Order For Wound Care) This patient carter... PRN PRN XX NOTE; Start 11/14/18 at 00:30 Baclofen (Lioresal) 10 mg HS PO Last administered on 11/16/18 21:50; Admin Dose 10 MG; Start 11/14/18 at 21:00 Morphine Sulfate (morphine) 3 mg Q2 PRN IV SEVERE PAIN LEVEL 7-10; Start 11/15/18 at 01:30 Acetaminophen (Tylenol Tab) 650 mg Q6H PRN PO MILD PAIN(1-3)OR ELEVATED TEMP; Start 11/15/18 at 02:00 Amlodipine Besylate (Norvasc) 5 mg DAILY PO Last administered on 11/17/18at 10:18; Admin Dose 5 MG; Start 11/16/18 at 09:00 Acetaminophen/ Hydrocodone Bitart ([place] (5/325)) 1 tab Q4H PRN PO PAIN LEVEL 7-10; Start 11/16/18 at 13:00 Assessment/Plan Additional Assessment/Plan Rehab- 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 Continue rehab program Toxic metabolic encephalopathy- resolved Chronic atrial fibrillation. Gastroesophageal reflux disease. COPD. Acute and neuropathic pain. Hypothyroidism. NISHI MOLINA MD Nov 17, 2018 10:53
[2018-11-17 14:00] VITALS: BP 133/60; PULSE 61; RESP 18
[2018-11-17] MEDS: ACETAMINOPHEN 325 MG TAB PO PRN (14:49)
[2018-11-17] MEDS: RIVAROXABAN 10 MG TABLET PO SCH (18:16)
[2018-11-17 19:28] VITALS: BP 114/63; PULSE 74; RESP 18
[2018-11-17] MEDS: BACLOFEN 10 MG TAB PO SCH (21:29)
[2018-11-17] MEDS: MONTELUKAST 10 MG TAB PO SCH (21:29)
[2018-11-18 02:00] VITALS: BP 128/68; PULSE 82; RESP 18
[2018-11-18] MEDS: LEVOTHYROXINE 125 MCG TAB PO SCH (06:47)
[2018-11-18] MEDS: PANTOPRAZOLE (EC) 40 MG TAB PO SCH (06:47)
[2018-11-18 07:00] VITALS: BP 106/56; PULSE 86; RESP 17
[2018-11-18] MEDS: FLUTICASONE/VILANTEROL 200-25 INH DEVICE INH SCH (08:32)
[2018-11-18] MEDS: GABAPENTIN 300 MG CAP PO SCH ×3 (08:32→21:36)
[2018-11-18] MEDS: CHOLECALCIFEROL 2,000 UNIT CAP PO SCH (08:33)
[2018-11-18] MEDS: MAGNESIUM OXIDE 400 MG TAB PO SCH (08:33)
[2018-11-18] MEDS: MULTIVITAMINS THERAPEUTIC TAB PO SCH (08:33)
[2018-11-18] MEDS: SENNA TAB PO SCH (08:33)
[2018-11-18] MEDS: ASCORBIC ACID 500 MG TAB PO SCH (08:33)
[2018-11-18] MEDS: LOSARTAN 25 MG TAB PO SCH (08:33)
[2018-11-18] MEDS: AMLODIPINE 5 MG TAB PO SCH (08:34)
[2018-11-18] MEDS: NYSTATIN 30 GM POWDER BTL TOP SCH ×2 (08:35→21:00)
[2018-11-18] MEDS: POLYETHYLENE GLYCOL 17 GM PACKET GTB SCH (08:36)
[2018-11-18] MEDS: DOCUSATE SODIUM 100 MG CAP PO SCH (08:40)
--- NOTE | 2018-11-18 10:42 | PN ---
Date/Time of Note Date/Time of Note DATE: 11/18/18 TIME: 10:41 Subjective Pain under excellent control, bowels functioning well Objective Vital Signs Date Temp Pulse Resp B/P (MAP) Pulse Ox O2 O2 Flow FiO2 Time Delivery Rate 11/18/18 97.9 86 17 106/56 97 Room Air 07:00 (73) Intake and Output 11/17/18 11/17/18 11/18/18 1515:00 23:00 07:00 IntakeIntake Total 1200 ml 1150 ml OutputOutput Total 800 ml 650 ml BalanceBalance 400 ml 500 ml Exam pulm-cta bd-soft min transfer Results/Medications Result Diagram: 11/18/18 0618 11/18/18 0618 Results 24 hrs Laboratory Tests Test 11/18/18 06:18 White Blood Count 7.8 # Red Blood Count 4.17 L Hemoglobin 11.6 L Hematocrit 36.5 L Mean Corpuscular Volume 87.5 Mean Corpuscular Hemoglobin 27.8 L Mean Corpuscular Hemoglobin Concent 31.8 L Red Cell Distribution Width 14.7 H Platelet Count 340 Mean Platelet Volume 9.7 Immature Granulocytes % 0.500 H Neutrophils % 64.8 Lymphocytes % 19.2 Monocytes % 8.9 Eosinophils % 5.7 Basophils % 0.9 Nucleated Red Blood Cells % 0.0 Immature Granulocytes # 0.040 H Neutrophils # 5.0 Lymphocytes # 1.5 Monocytes # 0.7 Eosinophils # 0.4 Basophils # 0.1 Nucleated Red Blood Cells # 0.0 Sodium Level 144 Potassium Level 4.3 Chloride Level 101 Carbon Dioxide Level 30 Anion Gap 13 Blood Urea Nitrogen 27 H Creatinine 0.69 Est Glomerular Filtrat Rate mL/min Glucose Level 114 Calcium Level 9.4 Phosphorus Level 5.0 H Magnesium Level 2.4 Medications Current Medications Diphenhydramine HCl (Benadryl) 25 mg Q4H PRN PO ITCHING Last administered on 11/15/18at 01:27; Admin Dose 25 MG; Start 11/13/18 at 22:53 Rivaroxaban (Xarelto) 10 mg WITH DINNER PO Last administered on 11/17/18at 18:16; Admin Dose 10 MG; Start 11/13/18 at 22:53 Gabapentin (Neurontin) 300 mg TID PO Last administered on 11/18/18at 08:32; Admin Dose 300 MG; Start 11/13/18 at 22:53 Cholecalciferol (Vitamin D) 2,000 unit DAILY PO Last administered on 11/18/18 08:33; Admin Dose 2,000 UNIT; Start 11/13/18 at 22:53 Fluticasone/ Vilanterol (Breo Ellipta 200-25 Mcg Inh) 1 inh DAILY INH Last administered on 11/18/18 08:32; Admin Dose 1 INH; Start 11/13/18 at 22:53 Docusate Sodium (Colace) 200 mg DAILY PO Last administered on 11/17/18 10:17; Admin Dose 200 MG; Start 11/13/18 at 22:53 Polyethylene Glycol (Miralax) 17 gm DAILY GTB Last administered on 11/17/18 10:17; Admin Dose 17 GM; Start 11/13/18 at 22:53 Bisacodyl (Dulcolax Supp) 10 mg DAILY PRN [place] CONSTIPATION Last administered on 11/15/18 22:12; Admin Dose 10 MG; Start 11/13/18 at 22:53 Ascorbic Acid (Vitamin C) 1,000 mg DAILY PO Last administered on 11/18/18 08:33; Admin Dose 1,000 MG; Start 11/13/18 at 22:53 Ondansetron HCl (Zofran Inj) 4 mg Q4H PRN IV NAUSEA AND/OR VOMITING; Start 11/13/18 at 23:18 Multivitamins Therapeutic (Theragran) 1 tab DAILY PO Last administered on 11/18/18 08:33; Admin Dose 1 TAB; Start 11/13/18 at 23:18 Levothyroxine Sodium (Synthroid) 125 mcg BEFORE BREAKFAST PO Last administered on 11/18/18 06:47; Admin Dose 125 MCG; Start 11/13/18 at 23:18 Losartan Potassium (Cozaar) 25 mg DAILY PO Last administered on 11/17/18 10:18; Admin Dose 25 MG; Start 11/13/18 at 23:18 Magnesium Oxide (Mag-Ox 400) 400 mg DAILY PO Last administered on 11/18/18 08:33; Admin Dose 400 MG; Start 11/13/18 at 23:18 Montelukast Sodium (Singulair) 10 mg QHS PO Last administered on 11/17/18 21:29; Admin Dose 10 MG; Start 11/13/18 at 23:18 Pantoprazole (Protonix Tab) 40 mg DAILY@06 PO Last administered on 11/18/18at 06:47; Admin Dose 40 MG; Start 11/13/18 at 23:18 Senna (Senokot) 1 tab DAILY PO Last administered on 11/18/18 08:33; Admin Dose 1 TAB; Start 11/13/18 at 23:18 Nystatin (Nystatin Powder) 1 applic BID TOP Last administered on 11/18/18at 08:35; Admin Dose 1 APPLIC; Start 11/13/18 at 23:18 Miscellaneous Information (Pending Santyl Order For Wound Care) This patient carter... PRN PRN XX NOTE; Start 11/14/18 at 00:30 Baclofen (Lioresal) 10 mg HS PO Last administered on 11/17/18at 21:29; Admin Dose 10 MG; Start 11/14/18 at 21:00 Morphine Sulfate (morphine) 3 mg Q2 PRN IV SEVERE PAIN LEVEL 7-10; Start 11/15/18 at 01:30 Acetaminophen (Tylenol Tab) 650 mg Q6H PRN PO MILD PAIN(1-3)OR ELEVATED TEMP Last administered on 11/17/18at 14:49; Admin Dose 650 MG; Start 11/15/18 at 02:00 Amlodipine Besylate (Norvasc) 5 mg DAILY PO Last administered on 11/17/18at 10:18; Admin Dose 5 MG; Start 11/16/18 at 09:00 Acetaminophen/ Hydrocodone Bitart ([place] (5/325)) 1 tab Q4H PRN PO PAIN LEVEL 7-10; Start 11/16/18 at 13:00 Assessment/Plan Additional Assessment/Plan Rehab- 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 Great progress with rehab program. Patient remains motivated for activities Toxic metabolic encephalopathy- resolved Chronic atrial fibrillation. Gastroesophageal reflux disease. COPD. Acute and neuropathic pain. Hypothyroidism. NISHI MOLINA MD Nov 18, 2018 10:42
--- NOTE | 2018-11-18 13:12 | CONS ---
Consult Date/Type/Reason Admit Date/Time Nov 13, 2018 at 21:15 Initial Consult Date 11/13/2018 Type of Consultation: Medicine Reason for Consultation HTN, afib, hypothyroidism, GERD, COPD Requesting Provider: NISHI MOLINA MD Date/Time of Note DATE: 11/18/18 TIME: 13:08 Subjective Patient is doing well today. No overnight events. Pain is adequately controlled. Denies fevers, chills, nausea, vomiting, diarrhea, constipation, chest pain, sob, abdominal pain, cough. Objective Vitals Vital Signs Date Temp Pulse Resp B/P (MAP) Pulse Ox O2 O2 Flow FiO2 Time Delivery Rate 11/18/18 97.9 86 17 106/56 97 Room Air 07:00 (73) Intake and Output 11/17/18 11/17/18 11/18/18 1515:00 23:00 07:00 IntakeIntake Total 1200 ml 1150 ml OutputOutput Total 800 ml 650 ml BalanceBalance 400 ml 500 ml Exam Gen-NAD HEENT-op clear CV-rrr, nml s1,s2 no m/r/g abd-soft, nt/nd, +BS Ext-no c/c/e Results/Medications Result Diagram: 11/18/18 0618 11/18/18 0618 Results 24 hrs Laboratory Tests Test 11/18/18 06:18 White Blood Count 7.8 # Red Blood Count 4.17 L Hemoglobin 11.6 L Hematocrit 36.5 L Mean Corpuscular Volume 87.5 Mean Corpuscular Hemoglobin 27.8 L Mean Corpuscular Hemoglobin Concent 31.8 L Red Cell Distribution Width 14.7 H Platelet Count 340 Mean Platelet Volume 9.7 Immature Granulocytes % 0.500 H Neutrophils % 64.8 Lymphocytes % 19.2 Monocytes % 8.9 Eosinophils % 5.7 Basophils % 0.9 Nucleated Red Blood Cells % 0.0 Immature Granulocytes # 0.040 H Neutrophils # 5.0 Lymphocytes # 1.5 Monocytes # 0.7 Eosinophils # 0.4 Basophils # 0.1 Nucleated Red Blood Cells # 0.0 Sodium Level 144 Potassium Level 4.3 Chloride Level 101 Carbon Dioxide Level 30 Anion Gap 13 Blood Urea Nitrogen 27 H Creatinine 0.69 Est Glomerular Filtrat Rate mL/min Glucose Level 114 Calcium Level 9.4 Phosphorus Level 5.0 H Magnesium Level 2.4 Home Meds Reported Medications Albuterol Sulfate* (Ventolin HFA*) 18 Gm Hfa.aer.ad, 2 PUFF INHALATION Q6H, #1 INHALER 11/07/18 Diphenoxylate Hcl-Atropine* (Lomotil*) 5 Ml Soln, 5 ML GTB Q6H PRN for DIARRHEA, ML 11/07/18 Albuterol Sulfate* (Albuterol Sulfate* Liq) 2 Mg/5 Ml Syrup, 2 MG PO TID, #240 ML 11/07/18 Acetaminophen with Codeine (Acetaminophen-Cod #3 Tablet) 1 Each Tablet, 1 TAB PO Q6H, #7 TAB 11/07/18 Pregabalin* (Lyrica*) 75 Mg Capsule, 75 MG PO DAILY, CAP 11/07/18 Fluticasone/Vilanterol (Breo Ellipta 200-25 Mcg INH) 1 Each Blst.w.dev, 1 PUFF INHALATION DAILY, #1 INHALER 11/07/18 Ferrous Sulfate* (Ferrous Sulfate*) 325 Mg Tabec, 65 MG PO DAILY, TAB 11/07/18 Magnesium Oxide* (Magnesium Oxide*) 400 Mg Tablet, 400 MG PO DAILY, TAB 11/07/18 Cholecalciferol* (Vitamin D3*) 1,000 Unit Tablet, 2000 UNIT PO DAILY, TAB 11/07/18 Montelukast Sodium* (Singulair*) 10 Mg Tablet, 10 MG PO QHS, #30 TAB 11/07/18 Aspirin* (Aspirin* Chew) 81 Mg Tab.chew, 81 MG PO DAILY, TAB.CHEW 11/07/18 Omeprazole* (Omeprazole*) 20 Mg Capsule.dr, 20 MG PO DAILY, #30 CAP 11/07/18 Amlodipine Besylate* (Norvasc*) 10 Mg Tablet, 10 MG PO DAILY, TAB 11/07/18 Levothyroxine Sodium* (Levothyroxine Sodium*) 125 Mcg Tablet, 125 MCG PO BEFORE BREAKFAST, #30 TAB 11/07/18 Losartan Potassium* (Cozaar*) 25 Mg Tablet, 25 MG PO DAILY, #30 TAB 11/07/18 Medications Current Medications Diphenhydramine HCl (Benadryl) 25 mg Q4H PRN PO ITCHING Last administered on 11/15/18at 01:27; Admin Dose 25 MG; Start 11/13/18 at 22:53 Rivaroxaban (Xarelto) 10 mg WITH DINNER PO Last administered on 11/17/18 18:16; Admin Dose 10 MG; Start 11/13/18 at 22:53 Gabapentin (Neurontin) 300 mg TID PO Last administered on 11/18/18 12:48; Admin Dose 300 MG; Start 11/13/18 at 22:53 Cholecalciferol (Vitamin D) 2,000 unit DAILY PO Last administered on 11/18/18 08:33; Admin Dose 2,000 UNIT; Start 11/13/18 at 22:53 Fluticasone/ Vilanterol (Breo Ellipta 200-25 Mcg Inh) 1 inh DAILY INH Last administered on 11/18/18 08:32; Admin Dose 1 INH; Start 11/13/18 at 22:53 Docusate Sodium (Colace) 200 mg DAILY PO Last administered on 11/17/18 10:17; Admin Dose 200 MG; Start 11/13/18 at 22:53 Polyethylene Glycol (Miralax) 17 gm DAILY GTB Last administered on 11/17/18 10:17; Admin Dose 17 GM; Start 11/13/18 at 22:53 Bisacodyl (Dulcolax Supp) 10 mg DAILY PRN [place] CONSTIPATION Last administered on 11/15/18 22:12; Admin Dose 10 MG; Start 11/13/18 at 22:53 Ascorbic Acid (Vitamin C) 1,000 mg DAILY PO Last administered on 11/18/18 08:33; Admin Dose 1,000 MG; Start 11/13/18 at 22:53 Ondansetron HCl (Zofran Inj) 4 mg Q4H PRN IV NAUSEA AND/OR VOMITING; Start 11/13/18 at 23:18 Multivitamins Therapeutic (Theragran) 1 tab DAILY PO Last administered on 11/18/18 08:33; Admin Dose 1 TAB; Start 11/13/18 at 23:18 Levothyroxine Sodium (Synthroid) 125 mcg BEFORE BREAKFAST PO Last administered on 11/18/18 06:47; Admin Dose 125 MCG; Start 11/13/18 at 23:18 Losartan Potassium (Cozaar) 25 mg DAILY PO Last administered on 11/17/18 10:18; Admin Dose 25 MG; Start 11/13/18 at 23:18 Magnesium Oxide (Mag-Ox 400) 400 mg DAILY PO Last administered on 11/18/18 08:33; Admin Dose 400 MG; Start 11/13/18 at 23:18 Montelukast Sodium (Singulair) 10 mg QHS PO Last administered on 11/17/18 21:29; Admin Dose 10 MG; Start 11/13/18 at 23:18 Pantoprazole (Protonix Tab) 40 mg DAILY@06 PO Last administered on 11/18/18 06:47; Admin Dose 40 MG; Start 11/13/18 at 23:18 Senna (Senokot) 1 tab DAILY PO Last administered on 11/18/18 08:33; Admin Dose 1 TAB; Start 11/13/18 at 23:18 Nystatin (Nystatin Powder) 1 applic BID TOP Last administered on 11/18/18 08:35; Admin Dose 1 APPLIC; Start 11/13/18 at 23:18 Miscellaneous Information ([facility]ending [facility]) This patient carter... PRN PRN XX NOTE; Start 11/14/18 at 00:30 Baclofen (Lioresal) 10 mg HS PO Last administered on 11/17/18 21:29; Admin Dose 10 MG; Start 11/14/18 at 21:00 Morphine Sulfate (morphine) 3 mg Q2 PRN IV SEVERE PAIN LEVEL 7-10; Start 11/15/18 at 01:30 Acetaminophen (Tylenol Tab) 650 mg Q6H PRN PO MILD PAIN(1-3)OR ELEVATED TEMP Last administered on 11/17/18 14:49; Admin Dose 650 MG; Start 11/15/18 at 02:00 Amlodipine Besylate (Norvasc) 5 mg DAILY PO Last administered on 11/17/18 10:18; Admin Dose 5 MG; Start 11/16/18 at 09:00 Acetaminophen/ Hydrocodone Bitart ([place] (5/325)) 1 tab Q4H PRN PO PAIN LEVEL 7-10; Start 11/16/18 at 13:00 Assessment/Plan Hospital Course (Demo Recall) 73 y/o female pmh osteomyelitis s/p R BKA, undergoing PT at rehab. Also has pmh HTN, afib, hypothyroidism, GERD, COPD. Assessment/Plan (Daily) #osteomyelitis s/p R BKA -PT -judicious pain management #Hypothyroidism -continue home dose of thyroid replacement #HTN-adequately controlled for now -losartan, amlodipine #afib-rate controlled continue xarelto #gerd -continue PPI #COPD continue arnold branch nebs prMICHAEL Wilson MD Nov 18, 2018 13:12
[2018-11-18 14:00] VITALS: BP 95/67; PULSE 79; RESP 16
[2018-11-18] MEDS ORDERED: morphine LIQ (10 MG/5 ML) CUP PO PRN (15:30)
[2018-11-18] MEDS: RIVAROXABAN 10 MG TABLET PO SCH (17:52)
[2018-11-18] MEDS: MONTELUKAST 10 MG TAB PO SCH (21:36)
[2018-11-18] MEDS: BACLOFEN 10 MG TAB PO SCH (21:36)
[2018-11-19 02:00] VITALS: BP 135/81; PULSE 81; RESP 18
[2018-11-19] MEDS: LEVOTHYROXINE 125 MCG TAB PO SCH (06:55)
[2018-11-19] MEDS: PANTOPRAZOLE (EC) 40 MG TAB PO SCH (06:55)
[2018-11-19 07:00] VITALS: BP 138/82; PULSE 84; RESP 18
[2018-11-19] MEDS: SENNA TAB PO SCH (09:00)
[2018-11-19] MEDS: POLYETHYLENE GLYCOL 17 GM PACKET GTB SCH (09:00)
[2018-11-19] MEDS: NYSTATIN 30 GM POWDER BTL TOP SCH ×2 (09:00→20:42)
[2018-11-19] MEDS: MAGNESIUM OXIDE 400 MG TAB PO SCH (09:25)
[2018-11-19] MEDS: GABAPENTIN 300 MG CAP PO SCH ×3 (09:25→20:42)
[2018-11-19] MEDS: MULTIVITAMINS THERAPEUTIC TAB PO SCH (09:25)
[2018-11-19] MEDS: ASCORBIC ACID 500 MG TAB PO SCH (09:25)
[2018-11-19] MEDS: FLUTICASONE/VILANTEROL 200-25 INH DEVICE INH SCH (09:25)
[2018-11-19] MEDS: DOCUSATE SODIUM 100 MG CAP PO SCH (09:25)
[2018-11-19] MEDS: AMLODIPINE 5 MG TAB PO SCH (09:26)
[2018-11-19] MEDS: LOSARTAN 25 MG TAB PO SCH (09:26)
[2018-11-19] MEDS: CHOLECALCIFEROL 2,000 UNIT CAP PO SCH (09:26)
--- NOTE | 2018-11-19 13:11 | CONS ---
Consult Date/Type/Reason Admit Date/Time Nov 13, 2018 at 21:15 Initial Consult Date 11/13/2018 Type of Consultation: Medicine Requesting Provider: NISHI MOLINA MD Date/Time of Note DATE: 11/19/18 TIME: 13:10 Subjective Patient is doing well today. No overnight events. Pain is adequately controlled. Denies fevers, chills, nausea, vomiting, diarrhea, constipation, chest pain, sob, abdominal pain, cough. Objective Vitals Vital Signs Date Temp Pulse Resp B/P (MAP) Pulse Ox O2 O2 Flow FiO2 Time Delivery Rate 11/19/18 98.1 84 18 138/82 94 Room Air 07:00 (100) Intake and Output 11/18/18 11/18/18 11/19/18 1515:00 23:00 07:00 IntakeIntake Total 1100 ml OutputOutput Total 700 ml BalanceBalance 400 ml Exam Gen-NAD HEENT-op clear CV-rrr, nml s1,s2 no m/r/g abd-soft, nt/nd, +BS Ext-no c/c/e Results/Medications Result Diagram: 11/18/1861711/18/18617 Home Meds Reported Medications Albuterol Sulfate* (Ventolin HFA*) 18 Gm Hfa.aer.ad, 2 PUFF INHALATION Q6H, #1 INHALER 11/07/18 Diphenoxylate Hcl-Atropine* (Lomotil*) 5 Ml Soln, 5 ML GTB Q6H PRN for DIARRHEA, ML 11/07/18 Albuterol Sulfate* (Albuterol Sulfate* Liq) 2 Mg/5 Ml Syrup, 2 MG PO TID, #240 ML 11/07/18 Acetaminophen with Codeine (Acetaminophen-Cod #3 Tablet) 1 Each Tablet, 1 TAB PO Q6H, #7 TAB 11/07/18 Pregabalin* (Lyrica*) 75 Mg Capsule, 75 MG PO DAILY, CAP 11/07/18 Fluticasone/Vilanterol (Breo Ellipta 200-25 Mcg INH) 1 Each Blst.w.dev, 1 PUFF INHALATION DAILY, #1 INHALER 11/07/18 Ferrous Sulfate* (Ferrous Sulfate*) 325 Mg Tabec, 65 MG PO DAILY, TAB 11/07/18 Magnesium Oxide* (Magnesium Oxide*) 400 Mg Tablet, 400 MG PO DAILY, TAB 11/07/18 Cholecalciferol* (Vitamin D3*) 1,000 Unit Tablet, 2000 UNIT PO DAILY, TAB 11/07/18 Montelukast Sodium* (Singulair*) 10 Mg Tablet, 10 MG PO QHS, #30 TAB 11/07/18 Aspirin* (Aspirin* Chew) 81 Mg Tab.chew, 81 MG PO DAILY, TAB.CHEW 11/07/18 Omeprazole* (Omeprazole*) 20 Mg Capsule.dr, 20 MG PO DAILY, #30 CAP 11/07/18 Amlodipine Besylate* (Norvasc*) 10 Mg Tablet, 10 MG PO DAILY, TAB 11/07/18 Levothyroxine Sodium* (Levothyroxine Sodium*) 125 Mcg Tablet, 125 MCG PO BEFORE BREAKFAST, #30 TAB 11/07/18 Losartan Potassium* (Cozaar*) 25 Mg Tablet, 25 MG PO DAILY, #30 TAB 11/07/18 Medications Current Medications Diphenhydramine HCl (Benadryl) 25 mg Q4H PRN PO ITCHING Last administered on 11/15/18at 01:27; Admin Dose 25 MG; Start 11/13/18 at 22:53 Rivaroxaban (Xarelto) 10 mg WITH DINNER PO Last administered on 11/18/18at 17:52; Admin Dose 10 MG; Start 11/13/18 at 22:53 Gabapentin (Neurontin) 300 mg TID PO Last administered on 11/19/18at 12:35; Admin Dose 300 MG; Start 11/13/18 at 22:53 Cholecalciferol (Vitamin D) 2,000 unit DAILY PO Last administered on 11/19/18at 09:26; Admin Dose 2,000 UNIT; Start 11/13/18 at 22:53 Fluticasone/ Vilanterol (Breo Ellipta 200-25 Mcg Inh) 1 inh DAILY INH Last administered on 11/19/18 09:25; Admin Dose 1 INH; Start 11/13/18 at 22:53 Docusate Sodium (Colace) 200 mg DAILY PO Last administered on 11/19/18at 09:25; Admin Dose 200 MG; Start 11/13/18 at 22:53 Polyethylene Glycol (Miralax) 17 gm DAILY GTB Last administered on 11/17/18 10:17; Admin Dose 17 GM; Start 11/13/18 at 22:53 Bisacodyl (Dulcolax Supp) 10 mg DAILY PRN [place] CONSTIPATION Last administered on 11/15/18 22:12; Admin Dose 10 MG; Start 11/13/18 at 22:53 Ascorbic Acid (Vitamin C) 1,000 mg DAILY PO Last administered on 11/19/18 09:25; Admin Dose 1,000 MG; Start 11/13/18 at 22:53 Ondansetron HCl (Zofran Inj) 4 mg Q4H PRN IV NAUSEA AND/OR VOMITING; Start 11/13/18 at 23:18 Multivitamins Therapeutic (Theragran) 1 tab DAILY PO Last administered on 10/25 09:25; Admin Dose 1 TAB; Start 11/13/18 at 23:18 Levothyroxine Sodium (Synthroid) 125 mcg BEFORE BREAKFAST PO Last administered on 11/19/18 06:55; Admin Dose 125 MCG; Start 11/13/18 at 23:18 Losartan Potassium (Cozaar) 25 mg DAILY PO Last administered on 11/19/18 09:26; Admin Dose 25 MG; Start 11/13/18 at 23:18 Magnesium Oxide (Mag-Ox 400) 400 mg DAILY PO Last administered on 11/19/18 09:25; Admin Dose 400 MG; Start 11/13/18 at 23:18 Montelukast Sodium (Singulair) 10 mg QHS PO Last administered on 11/18/18 21:36; Admin Dose 10 MG; Start 11/13/18 at 23:18 Pantoprazole (Protonix Tab) 40 mg DAILY@06 PO Last administered on 11/19/18 06:55; Admin Dose 40 MG; Start 11/13/18 at 23:18 Senna (Senokot) 1 tab DAILY PO Last administered on 11/18/18 08:33; Admin Dose 1 TAB; Start 11/13/18 at 23:18 Nystatin (Nystatin Powder) 1 applic BID TOP Last administered on 11/18/18 08:35; Admin Dose 1 APPLIC; Start 11/13/18 at 23:18 Miscellaneous Information (Pending [facility] Order For Wound Care) This patient carter... PRN PRN XX NOTE; Start 11/14/18 at 00:30 Baclofen (Lioresal) 10 mg HS PO Last administered on 11/18/18at 21:36; Admin Dose 10 MG; Start 11/14/18 at 21:00 Acetaminophen (Tylenol Tab) 650 mg Q6H PRN PO MILD PAIN(1-3)OR ELEVATED TEMP Last administered on 11/17/18at 14:49; Admin Dose 650 MG; Start 11/15/18 at 02:00 Amlodipine Besylate (Norvasc) 5 mg DAILY PO Last administered on 11/19/18at 09:26; Admin Dose 5 MG; Start 11/16/18 at 09:00 Acetaminophen/ Hydrocodone Bitart ([place] (5/325)) 1 tab Q4H PRN PO PAIN LEVEL 7-10; Start 11/16/18 at 13:00 Morphine Sulfate (morphine) 9 mg Q2H PRN PO SEVERE PAIN LEVEL 7-10; Start 11/18/18 at 15:30 Assessment/Plan Hospital Course (Demo Recall) 73 y/o female pmh osteomyelitis s/p R BKA, undergoing PT at rehab. Also has pmh HTN, afib, hypothyroidism, GERD, COPD. Assessment/Plan (Daily) #osteomyelitis s/p R BKA -PT -judicious pain management #Hypothyroidism -continue home dose of thyroid replacement #HTN-adequately controlled for now -losartan, amlodipine #afib-rate controlled continue xarelto #gerd -continue PPI #COPD continue sarina, arnold, hung prn MICHAEL ZHAO MD Nov 19, 2018 13:11
[2018-11-19 14:00] VITALS: BP 106/67; PULSE 100; RESP 18
[2018-11-19] MEDS: RIVAROXABAN 10 MG TABLET PO SCH (17:33)
[2018-11-19 20:00] VITALS: BP 102/60; PULSE 87; RESP 18
[2018-11-19] MEDS: BACLOFEN 10 MG TAB PO SCH (20:42)
[2018-11-19] MEDS: MONTELUKAST 10 MG TAB PO SCH (20:42)
[2018-11-20] MEDS: HYDROCODONE/APAP (5/325) TAB PO PRN ×2 (00:13→16:08)
[2018-11-20] MEDS: DIPHENHYDRAMINE 25 MG CAP PO PRN (00:13)
[2018-11-20 02:00] VITALS: BP 128/72; PULSE 79; RESP 18
[2018-11-20] MEDS: LEVOTHYROXINE 125 MCG TAB PO SCH (06:43)
[2018-11-20] MEDS: PANTOPRAZOLE (EC) 40 MG TAB PO SCH (06:43)
[2018-11-20 08:00] VITALS: BP 132/68; PULSE 70; RESP 18
[2018-11-20] MEDS: NYSTATIN 30 GM POWDER BTL TOP SCH ×2 (09:00→21:43)
[2018-11-20] MEDS: SENNA TAB PO SCH (09:00)
[2018-11-20] MEDS: POLYETHYLENE GLYCOL 17 GM PACKET GTB SCH (09:00)
--- NOTE | 2018-11-20 09:06 | CONS ---
Assessment/Plan Assessment/Plan Assessment/Plan (Daily) 1. Patient continues to do well post op r extrem amputation 2. BP well controlled 3. Labs rev Consultation Date/Type/Reason Admit Date/Time Nov 13, 2018 at 21:15 Initial Consult Date Requesting Provider: NISHI MOLINA MD Date/Time of Note DATE: 11/20/18 TIME: 09:05 Detailed Summary Respiratory: No cough, No shortness of breath Cardiovascular: No chest pain Gastrointestinal: no complaints Genitourinary: no complaints Exam/Review of Systems Exam Vitals Vital Signs Date Temp Pulse Resp B/P (MAP) Pulse Ox O2 O2 Flow FiO2 Time Delivery Rate 11/20/18 97.9 79 18 128/72 95 Room Air 02:00 (90) Intake and Output 11/19/18 11/19/18 11/20/18 1515:00 23:00 07:00 IntakeIntake Total 1200 ml 200 ml 100 ml BalanceBalance 1200 ml 200 ml 100 ml Neck: No jvd Respiratory: clear to auscultation Cardiovascular: regular rate and rhythm Gastrointestinal: soft Extremities: No edema Results Result Diagram: 11/18/1861711/18/1818 Medications Medication Current Medications Diphenhydramine HCl (Benadryl) 25 mg Q4H PRN PO ITCHING Last administered on 11/20/18at 00:13; Admin Dose 25 MG; Start 11/13/18 at 22:53 Rivaroxaban (Xarelto) 10 mg WITH DINNER PO Last administered on 11/19/18at 17:33; Admin Dose 10 MG; Start 11/13/18 at 22:53 Gabapentin (Neurontin) 300 mg TID PO Last administered on 11/19/18at 20:42; Admin Dose 300 MG; Start 11/13/18 at 22:53 Cholecalciferol (Vitamin D) 2,000 unit DAILY PO Last administered on 11/19/18 09:26; Admin Dose 2,000 UNIT; Start 11/13/18 at 22:53 Fluticasone/ Vilanterol (Breo Ellipta 200-25 Mcg Inh) 1 inh DAILY INH Last administered on 11/19/18 09:25; Admin Dose 1 INH; Start 11/13/18 at 22:53 Docusate Sodium (Colace) 200 mg DAILY PO Last administered on 11/19/18 09:25; Admin Dose 200 MG; Start 11/13/18 at 22:53 Polyethylene Glycol (Miralax) 17 gm DAILY GTB Last administered on 11/17/18 10:17; Admin Dose 17 GM; Start 11/13/18 at 22:53 Bisacodyl (Dulcolax Supp) 10 mg DAILY PRN [place] CONSTIPATION Last administered on 11/15/18 22:12; Admin Dose 10 MG; Start 11/13/18 at 22:53 Ascorbic Acid (Vitamin C) 1,000 mg DAILY PO Last administered on 11/19/18 09:25; Admin Dose 1,000 MG; Start 11/13/18 at 22:53 Ondansetron HCl (Zofran Inj) 4 mg Q4H PRN IV NAUSEA AND/OR VOMITING; Start 11/13/18 at 23:18 Multivitamins Therapeutic (Theragran) 1 tab DAILY PO Last administered on 09:25; Admin Dose 1 TAB; Start 11/13/18 at 23:18 Levothyroxine Sodium (Synthroid) 125 mcg BEFORE BREAKFAST PO Last administered on 11/20/18 06:43; Admin Dose 125 MCG; Start 11/13/18 at 23:18 Losartan Potassium (Cozaar) 25 mg DAILY PO Last administered on 11/19/18 09:26; Admin Dose 25 MG; Start 11/13/18 at 23:18 Magnesium Oxide (Mag-Ox 400) 400 mg DAILY PO Last administered on 11/19/18 09:25; Admin Dose 400 MG; Start 11/13/18 at 23:18 Montelukast Sodium (Singulair) 10 mg QHS PO Last administered on 11/19/18 20:42; Admin Dose 10 MG; Start 11/13/18 at 23:18 Pantoprazole (Protonix Tab) 40 mg DAILY@06 PO Last administered on 11/20/18 06:43; Admin Dose 40 MG; Start 11/13/18 at 23:18 Senna (Senokot) 1 tab DAILY PO Last administered on 11/18/18 08:33; Admin Dose 1 TAB; Start 11/13/18 at 23:18 Nystatin (Nystatin Powder) 1 applic BID TOP Last administered on 11/19/18 20:42; Admin Dose 1 APPLIC; Start 11/13/18 at 23:18 Miscellaneous Information (Pending Santyl Order For Wound Care) This patient carter... PRN PRN XX NOTE; Start 11/14/18 at 00:30 Baclofen (Lioresal) 10 mg HS PO Last administered on 11/19/18at 20:42; Admin Dose 10 MG; Start 11/14/18 at 21:00 Acetaminophen (Tylenol Tab) 650 mg Q6H PRN PO MILD PAIN(1-3)OR ELEVATED TEMP Last administered on 11/17/18at 14:49; Admin Dose 650 MG; Start 11/15/18 at 02:00 Amlodipine Besylate (Norvasc) 5 mg DAILY PO Last administered on 11/19/18at 09:26; Admin Dose 5 MG; Start 11/16/18 at 09:00 Acetaminophen/ Hydrocodone Bitart ([place] (5/325)) 1 tab Q4H PRN PO PAIN LEVEL 7-10 Last administered on 11/20/18at 00:13; Admin Dose 1 TAB; Start 11/16/18 at 13:00 Morphine Sulfate (morphine) 9 mg Q2H PRN PO SEVERE PAIN LEVEL 7-10; Start 11/18/18 at 15:30 ELISE SAMPSON MD Nov 20, 2018 09:06
[2018-11-20] MEDS: DOCUSATE SODIUM 100 MG CAP PO SCH (09:55)
[2018-11-20] MEDS: GABAPENTIN 300 MG CAP PO SCH ×3 (09:55→21:43)
[2018-11-20] MEDS: ASCORBIC ACID 500 MG TAB PO SCH (09:55)
[2018-11-20] MEDS: MAGNESIUM OXIDE 400 MG TAB PO SCH (09:55)
[2018-11-20] MEDS: MULTIVITAMINS THERAPEUTIC TAB PO SCH (09:55)
[2018-11-20] MEDS: AMLODIPINE 5 MG TAB PO SCH (09:56)
[2018-11-20] MEDS: LOSARTAN 25 MG TAB PO SCH (09:56)
[2018-11-20] MEDS: FLUTICASONE/VILANTEROL 200-25 INH DEVICE INH SCH (09:57)
[2018-11-20] MEDS: CHOLECALCIFEROL 2,000 UNIT CAP PO SCH (10:44)
[2018-11-20] MEDS: BACLOFEN 10 MG TAB PO SCH ×2 (12:04→21:43)
--- NOTE | 2018-11-20 12:24 | PN ---
Date/Time of Note Date/Time of Note DATE: 11/20/18 TIME: 12:24 Objective Vital Signs Date Temp Pulse Resp B/P (MAP) Pulse Ox O2 O2 Flow FiO2 Time Delivery Rate 11/20/18 97.8 70 18 132/68 97 Room Air 08:00 (89) Intake and Output 11/19/18 11/19/18 11/20/18 1414:59 22:59 06:59 IntakeIntake Total 1200 ml 200 ml 100 ml BalanceBalance 1200 ml 200 ml 100 ml Exam INTERDISCIPLINARY TEAM CONFERENCE Physical Exam: Pulm-cta Abd-soft BOWEL- Cont BLADDER-Cont SKIN- healing OT- DRESSING-min BATHING-min/mod TOILETING-min PT- BED MOBILITY-cga TRANSFERS-cga WHEELCHAIR- SBA SPEECH- COGNITION- back to baseline A/P- Interdisciplinary team conference held today. Please see interdisciplinary sheet. Working toward d.c. on 11/27 with post discharge follow up of physical therapy, occupational therapy. Results/Medications Result Diagram: 11/18/1861711/18/1818 Medications Current Medications Diphenhydramine HCl (Benadryl) 25 mg Q4H PRN PO ITCHING Last administered on 11/20/18at 00:13; Admin Dose 25 MG; Start 11/13/18 at 22:53 Rivaroxaban (Xarelto) 10 mg WITH DINNER PO Last administered on 11/19/18at 17:33; Admin Dose 10 MG; Start 11/13/18 at 22:53 Gabapentin (Neurontin) 300 mg TID PO Last administered on 11/20/18at 09:55; Admin Dose 300 MG; Start 11/13/18 at 22:53 Cholecalciferol (Vitamin D) 2,000 unit DAILY PO Last administered on 11/20/18at 10:44; Admin Dose 2,000 UNIT; Start 11/13/18 at 22:53 Fluticasone/ Vilanterol (Breo Ellipta 200-25 Mcg Inh) 1 inh DAILY INH Last administered on 11/20/18at 09:57; Admin Dose 1 INH; Start 11/13/18 at 22:53 Docusate Sodium (Colace) 200 mg DAILY PO Last administered on 11/20/18at 09:55; Admin Dose 200 MG; Start 11/13/18 at 22:53 Polyethylene Glycol (Miralax) 17 gm DAILY GTB Last administered on 11/17/18 10:17; Admin Dose 17 GM; Start 11/13/18 at 22:53 Bisacodyl (Dulcolax Supp) 10 mg DAILY PRN [place] CONSTIPATION Last administered on 11/15/18 22:12; Admin Dose 10 MG; Start 11/13/18 at 22:53 Ascorbic Acid (Vitamin C) 1,000 mg DAILY PO Last administered on 11/20/18 09:55; Admin Dose 1,000 MG; Start 11/13/18 at 22:53 Ondansetron HCl (Zofran Inj) 4 mg Q4H PRN IV NAUSEA AND/OR VOMITING; Start 11/13/18 at 23:18 Multivitamins Therapeutic (Theragran) 1 tab DAILY PO Last administered on 11/20/18 09:55; Admin Dose 1 TAB; Start 11/13/18 at 23:18 Levothyroxine Sodium (Synthroid) 125 mcg BEFORE BREAKFAST PO Last administered on 11/20/18 06:43; Admin Dose 125 MCG; Start 11/13/18 at 23:18 Losartan Potassium (Cozaar) 25 mg DAILY PO Last administered on 11/20/18 09:56; Admin Dose 25 MG; Start 11/13/18 at 23:18 Magnesium Oxide (Mag-Ox 400) 400 mg DAILY PO Last administered on 11/20/18 09:55; Admin Dose 400 MG; Start 11/13/18 at 23:18 Montelukast Sodium (Singulair) 10 mg QHS PO Last administered on 11/19/18 20:42; Admin Dose 10 MG; Start 11/13/18 at 23:18 Pantoprazole (Protonix Tab) 40 mg DAILY@06 PO Last administered on 11/20/18 06:43; Admin Dose 40 MG; Start 11/13/18 at 23:18 Senna (Senokot) 1 tab DAILY PO Last administered on 11/18/18 08:33; Admin Dose 1 TAB; Start 11/13/18 at 23:18 Nystatin (Nystatin Powder) 1 applic BID TOP Last administered on 11/19/18 20:42; Admin Dose 1 APPLIC; Start 11/13/18 at 23:18 Miscellaneous Information (Pending [facility] Order For Wound Care) This patient carter... PRN PRN XX NOTE; Start 11/14/18 at 00:30 Acetaminophen (Tylenol Tab) 650 mg Q6H PRN PO MILD PAIN(1-3)OR ELEVATED TEMP Last administered on 11/17/18at 14:49; Admin Dose 650 MG; Start 11/15/18 at 02:00 Amlodipine Besylate (Norvasc) 5 mg DAILY PO Last administered on 11/20/18at 09:56; Admin Dose 5 MG; Start 11/16/18 at 09:00 Acetaminophen/ Hydrocodone Bitart ([place] (5/325)) 1 tab Q4H PRN PO PAIN LEVEL 7-10 Last administered on 11/20/18at 00:13; Admin Dose 1 TAB; Start 11/16/18 at 13:00 Morphine Sulfate (morphine) 9 mg Q2H PRN PO SEVERE PAIN LEVEL 7-10; Start 11/18/18 at 15:30 Baclofen (Lioresal) 10 mg TID PO Last administered on 11/20/18at 12:04; Admin Dose 10 MG; Start 11/20/18 at 13:00 NISHI MOLINA MD Nov 20, 2018 12:24
[2018-11-20 14:00] VITALS: BP 129/60; PULSE 109; RESP 18
--- NOTE | 2018-11-20 17:38 | PN ---
Date/Time of Note Date/Time of Note DATE: 11/20/18 TIME: 17:37 Assessment/Plan Lines/Catheters IV Catheter Type (from Nrsg): Mid Line Donis in Place (from Nrsg): No Assessment/Plan Chief Complaint/Hosp Course -Right LE atherosclerosis, osteomyelitis, nonhealing chronic ulcer & Charcot: S/P Right BKA-with musculocutaneous flap -LLE atherosclerosis: no current ulcers . will continue with our vascular surveillance -Pain control -PT/OT OOB to chair and FWB of the LLE, RLE with ambushield and fall precautions -Incentive spirometer -Patient can shower, no need to cover the incision -DVT ppx -Changed dressing with betadine paint to staple line, gauze, kerlex and attila wrap followed by distribution center administrator. To be changed daily -Keep RLE elevate on two pillows at rest Subjective 24 Hr Interval Summary no new vascular events overnights Exam/Review of Systems Vital Signs Vitals Vital Signs Date Temp Pulse Resp B/P (MAP) Pulse Ox O2 O2 Flow FiO2 Time Delivery Rate 11/20/18 97.9 109 18 129/60 92 Room Air 14:00 (83) Intake and Output 11/19/18 11/19/18 11/20/18 1515:00 23:00 07:00 IntakeIntake Total 1200 ml 200 ml 100 ml BalanceBalance 1200 ml 200 ml 100 ml Exam Free Text/Dictation A&Ox3 CTAB S1S2 soft NTND BS+, truncal obesity RLE: Palpable femoral pulse, motor/sensory, BKA-stump with dressing intact - removed, stephanie intact and clean, incisional tenderness LLE: palpable femoral pulse, faint pedal pulse, motor/sensory intact, cap refill 3 seconds, no ulcers Results Result Diagram: 11/18/1818 11/18/1818 SAE BETH MD Nov 20, 2018 17:38
[2018-11-20] MEDS: RIVAROXABAN 10 MG TABLET PO SCH (17:49)
[2018-11-20 20:00] VITALS: BP 113/65; PULSE 87; RESP 18
[2018-11-20] MEDS: MONTELUKAST 10 MG TAB PO SCH (21:58)
[2018-11-21 02:00] VITALS: BP 118/69; PULSE 68; RESP 18
[2018-11-21] MEDS: LEVOTHYROXINE 125 MCG TAB PO SCH (06:33)
[2018-11-21] MEDS: PANTOPRAZOLE (EC) 40 MG TAB PO SCH (06:33)
[2018-11-21 07:30] VITALS: BP 120/82; PULSE 78; RESP 18
--- NOTE | 2018-11-21 08:20 | CONS ---
Assessment/Plan Assessment/Plan Assessment/Plan (Daily) 1. Doing well post op leg amputation, will need to check to see when stephanie are to be removed 2. Recurrent bacteruria, albeit asx, there are wbc in the urine and bacteria, will rx with bactrim and check post void bladder residual 3. Atrial fib with well controlled ventric response, on anticoagulants 4. BP well controlled. Consultation Date/Type/Reason Admit Date/Time Nov 13, 2018 at 21:15 Initial Consult Date Requesting Provider: NISHI MOLINA MD Date/Time of Note DATE: 11/21/18 TIME: 08:18 Detailed Summary Respiratory: No cough, No shortness of breath Cardiovascular: No chest pain Genitourinary: no complaints Exam/Review of Systems Exam Vitals Vital Signs Date Temp Pulse Resp B/P (MAP) Pulse Ox O2 O2 Flow FiO2 Time Delivery Rate 11/21/18 98.2 68 18 118/69 99 Room Air 02:00 (85) Intake and Output 11/20/18 11/20/18 11/21/18 1515:00 23:00 07:00 IntakeIntake Total 1650 ml 200 ml OutputOutput Total 800 ml BalanceBalance 850 ml 200 ml Neck: No jvd Respiratory: clear to auscultation Cardiovascular: regular rate and rhythm Gastrointestinal: soft Extremities: No edema Results Result Diagram: 11/18/1861711/18/18617 Medications Medication Current Medications Diphenhydramine HCl (Benadryl) 25 mg Q4H PRN PO ITCHING Last administered on 11/20/18at 00:13; Admin Dose 25 MG; Start 11/13/18 at 22:53 Rivaroxaban (Xarelto) 10 mg WITH DINNER PO Last administered on 11/20/18at 17:49; Admin Dose 10 MG; Start 11/13/18 at 22:53 Gabapentin (Neurontin) 300 mg TID PO Last administered on 11/20/18at 21:43; Admin Dose 300 MG; Start 11/13/18 at 22:53 Cholecalciferol (Vitamin D) 2,000 unit DAILY PO Last administered on 11/20/18at 10:44; Admin Dose 2,000 UNIT; Start 11/13/18 at 22:53 Fluticasone/ Vilanterol (Breo Ellipta 200-25 Mcg Inh) 1 inh DAILY INH Last administered on 11/20/18 09:57; Admin Dose 1 INH; Start 11/13/18 at 22:53 Docusate Sodium (Colace) 200 mg DAILY PO Last administered on 11/20/18 09:55; Admin Dose 200 MG; Start 11/13/18 at 22:53 Polyethylene Glycol (Miralax) 17 gm DAILY GTB Last administered on 11/17/18 10:17; Admin Dose 17 GM; Start 11/13/18 at 22:53 Bisacodyl (Dulcolax Supp) 10 mg DAILY PRN [place] CONSTIPATION Last administered on 11/15/18 22:12; Admin Dose 10 MG; Start 11/13/18 at 22:53 Ascorbic Acid (Vitamin C) 1,000 mg DAILY PO Last administered on 11/20/18 09:55; Admin Dose 1,000 MG; Start 11/13/18 at 22:53 Ondansetron HCl (Zofran Inj) 4 mg Q4H PRN IV NAUSEA AND/OR VOMITING; Start 11/13/18 at 23:18 Multivitamins Therapeutic (Theragran) 1 tab DAILY PO Last administered on 11/20/18 09:55; Admin Dose 1 TAB; Start 11/13/18 at 23:18 Levothyroxine Sodium (Synthroid) 125 mcg BEFORE BREAKFAST PO Last administered on 11/21/18 06:33; Admin Dose 125 MCG; Start 11/13/18 at 23:18 Losartan Potassium (Cozaar) 25 mg DAILY PO Last administered on 11/20/18 09:56; Admin Dose 25 MG; Start 11/13/18 at 23:18 Magnesium Oxide (Mag-Ox 400) 400 mg DAILY PO Last administered on 11/20/18 09:55; Admin Dose 400 MG; Start 11/13/18 at 23:18 Montelukast Sodium (Singulair) 10 mg QHS PO Last administered on 11/20/18 21:58; Admin Dose 10 MG; Start 11/13/18 at 23:18 Pantoprazole (Protonix Tab) 40 mg DAILY@06 PO Last administered on 11/21/18 06:33; Admin Dose 40 MG; Start 11/13/18 at 23:18 Senna (Senokot) 1 tab DAILY PO Last administered on 11/18/18 08:33; Admin Dose 1 TAB; Start 11/13/18 at 23:18 Nystatin (Nystatin Powder) 1 applic BID TOP Last administered on 11/20/18 21:43; Admin Dose 1 APPLIC; Start 11/13/18 at 23:18 Miscellaneous Information (Pending Santyl Order For Wound Care) This patient carter... PRN PRN XX NOTE; Start 11/14/18 at 00:30 Acetaminophen (Tylenol Tab) 650 mg Q6H PRN PO MILD PAIN(1-3)OR ELEVATED TEMP Last administered on 11/17/18 14:49; Admin Dose 650 MG; Start 11/15/18 at 02:00 Amlodipine Besylate (Norvasc) 5 mg DAILY PO Last administered on 11/20/18 09:56; Admin Dose 5 MG; Start 11/16/18 at 09:00 Acetaminophen/ Hydrocodone Bitart ([place] (5/325)) 1 tab Q4H PRN PO PAIN LEVEL 7-10 Last administered on 11/20/18 16:08; Admin Dose 1 TAB; Start 11/16/18 at 13:00 Morphine Sulfate (morphine) 9 mg Q2H PRN PO SEVERE PAIN LEVEL 7-10; Start 11/18/18 at 15:30 Baclofen (Lioresal) 10 mg TID PO Last administered on 11/20/18 21:43; Admin Dose 10 MG; Start 11/20/18 at 13:00 ELISE SAMPSON MD Nov 21, 2018 08:20
[2018-11-21] MEDS: AMLODIPINE 5 MG TAB PO SCH (09:06)
[2018-11-21] MEDS: MAGNESIUM OXIDE 400 MG TAB PO SCH (09:06)
[2018-11-21] MEDS: FLUTICASONE/VILANTEROL 200-25 INH DEVICE INH SCH (09:06)
[2018-11-21] MEDS: ASCORBIC ACID 500 MG TAB PO SCH (09:06)
[2018-11-21] MEDS: TRIMETHOPRIM/SULFAMETHOX (DS) TAB PO SCH ×2 (09:07→22:14)
[2018-11-21] MEDS: MULTIVITAMINS THERAPEUTIC TAB PO SCH (09:07)
[2018-11-21] MEDS: DOCUSATE SODIUM 100 MG CAP PO SCH (09:07)
[2018-11-21] MEDS: SENNA TAB PO SCH (09:07)
[2018-11-21] MEDS: GABAPENTIN 300 MG CAP PO SCH ×3 (09:07→22:14)
[2018-11-21] MEDS: LOSARTAN 25 MG TAB PO SCH (09:07)
[2018-11-21] MEDS: CHOLECALCIFEROL 2,000 UNIT CAP PO SCH (09:07)
[2018-11-21] MEDS: POLYETHYLENE GLYCOL 17 GM PACKET GTB SCH (09:08)
[2018-11-21] MEDS: NYSTATIN 30 GM POWDER BTL TOP SCH ×2 (09:08→22:00)
[2018-11-21] MEDS: BACLOFEN 10 MG TAB PO SCH (10:07)
--- NOTE | 2018-11-21 12:51 | PN ---
Date/Time of Note Date/Time of Note DATE: 11/21/18 TIME: 12:50 Subjective Comfortable Objective Vital Signs Date Temp Pulse Resp B/P (MAP) Pulse Ox O2 O2 Flow FiO2 Time Delivery Rate 11/21/18 98.2 68 18 118/69 99 Room Air 02:00 (85) Intake and Output 11/20/18 11/20/18 11/21/18 1515:00 23:00 07:00 IntakeIntake Total 1650 ml 200 ml OutputOutput Total 800 ml BalanceBalance 850 ml 200 ml Exam pulm-cta cga transfer Results/Medications Result Diagram: 11/18/1861711/18/18617 Medications Current Medications Diphenhydramine HCl (Benadryl) 25 mg Q4H PRN PO ITCHING Last administered on 11/20/18 00:13; Admin Dose 25 MG; Start 11/13/18 at 22:53 Rivaroxaban (Xarelto) 10 mg WITH DINNER PO Last administered on 11/20/18 17:49; Admin Dose 10 MG; Start 11/13/18 at 22:53 Gabapentin (Neurontin) 300 mg TID PO Last administered on 11/21/18 09:07; Admin Dose 300 MG; Start 11/13/18 at 22:53 Cholecalciferol (Vitamin D) 2,000 unit DAILY PO Last administered on 11/21/18 09:07; Admin Dose 2,000 UNIT; Start 11/13/18 at 22:53 Fluticasone/ Vilanterol (Breo Ellipta 200-25 Mcg Inh) 1 inh DAILY INH Last administered on 11/21/18 09:06; Admin Dose 1 INH; Start 11/13/18 at 22:53 Docusate Sodium (Colace) 200 mg DAILY PO Last administered on 11/21/18 09:07; Admin Dose 200 MG; Start 11/13/18 at 22:53 Polyethylene Glycol (Miralax) 17 gm DAILY GTB Last administered on 11/21/18 09:08; Admin Dose 17 GM; Start 11/13/18 at 22:53 Bisacodyl (Dulcolax Supp) 10 mg DAILY PRN [place] CONSTIPATION Last administered on 11/15/18 22:12; Admin Dose 10 MG; Start 11/13/18 at 22:53 Ascorbic Acid (Vitamin C) 1,000 mg DAILY PO Last administered on 11/21/18 09:06; Admin Dose 1,000 MG; Start 11/13/18 at 22:53 Ondansetron HCl (Zofran Inj) 4 mg Q4H PRN IV NAUSEA AND/OR VOMITING; Start 11/13/18 at 23:18 Multivitamins Therapeutic (Theragran) 1 tab DAILY PO Last administered on 11/21/18 09:07; Admin Dose 1 TAB; Start 11/13/18 at 23:18 Levothyroxine Sodium (Synthroid) 125 mcg BEFORE BREAKFAST PO Last administered on 11/21/18 06:33; Admin Dose 125 MCG; Start 11/13/18 at 23:18 Losartan Potassium (Cozaar) 25 mg DAILY PO Last administered on 11/21/18 09:07; Admin Dose 25 MG; Start 11/13/18 at 23:18 Magnesium Oxide (Mag-Ox 400) 400 mg DAILY PO Last administered on 11/21/18 09:06; Admin Dose 400 MG; Start 11/13/18 at 23:18 Montelukast Sodium (Singulair) 10 mg QHS PO Last administered on 11/20/18 21:58; Admin Dose 10 MG; Start 11/13/18 at 23:18 Pantoprazole (Protonix Tab) 40 mg DAILY@06 PO Last administered on 11/21/18 06:33; Admin Dose 40 MG; Start 11/13/18 at 23:18 Senna (Senokot) 1 tab DAILY PO Last administered on 11/21/18 09:07; Admin Dose 1 TAB; Start 11/13/18 at 23:18 Nystatin (Nystatin Powder) 1 applic BID TOP Last administered on 11/21/18 09:08; Admin Dose 1 APPLIC; Start 11/13/18 at 23:18 Miscellaneous Information (Pending [facility] Order For Wound Care) This patient carter... PRN PRN XX NOTE; Start 11/14/18 at 00:30 Acetaminophen (Tylenol Tab) 650 mg Q6H PRN PO MILD PAIN(1-3)OR ELEVATED TEMP Last administered on 11/17/18 14:49; Admin Dose 650 MG; Start 11/15/18 at 02:00 Amlodipine Besylate (Norvasc) 5 mg DAILY PO Last administered on 11/21/18at 09:06; Admin Dose 5 MG; Start 11/16/18 at 09:00 Acetaminophen/ Hydrocodone Bitart ([place] (5/325)) 1 tab Q4H PRN PO PAIN LEVEL 7-10 Last administered on 11/20/18at 16:08; Admin Dose 1 TAB; Start 11/16/18 at 13:00 Morphine Sulfate (morphine) 9 mg Q2H PRN PO SEVERE PAIN LEVEL 7-10; Start 11/18/18 at 15:30 Trimethoprim/ Sulfamethoxazole (Bactrim (Ds)) 1 tab BID PO Last administered on 11/21/18at 09:07; Admin Dose 1 TAB; Start 11/21/18 at 09:00 Baclofen (Lioresal) 10 mg TID PRN PO muscle spasm; Start 11/21/18 at 13:00 Assessment/Plan Additional Assessment/Plan Rehab- 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 Overall excellent progress. Continue rehab Toxic metabolic encephalopathy- resolved Chronic atrial fibrillation. Gastroesophageal reflux disease. COPD. Acute and neuropathic pain- improved Hypothyroidism. NISHI MOLINA MD Nov 21, 2018 12:51
[2018-11-21 14:00] VITALS: BP 115/68; PULSE 99; RESP 18
[2018-11-21] MEDS: RIVAROXABAN 10 MG TABLET PO SCH (18:02)
[2018-11-21 20:00] VITALS: BP 107/62; PULSE 98; RESP 18
[2018-11-21 20:03] VITALS: BP 107/62; PULSE 100; RESP 18
--- NOTE | 2018-11-21 20:17 | PN ---
Date/Time of Note Date/Time of Note DATE: 11/21/18 TIME: 20:17 Assessment/Plan Lines/Catheters IV Catheter Type (from [facility]): Mid Line Donis in Place (from [facility]): No Exam/Review of Systems Vital Signs Vitals Vital Signs Date Temp Pulse Resp B/P (MAP) Pulse Ox O2 O2 Flow FiO2 Time Delivery Rate 11/21/18 98.0 100 18 107/62 94 Room Air 20:03 (77) Intake and Output 11/20/18 11/20/18 11/21/18 1515:00 23:00 07:00 IntakeIntake Total 1650 ml 200 ml OutputOutput Total 800 ml BalanceBalance 850 ml 200 ml Results Result Diagram: 11/18/1818 11/18/18 0618 NICOLE DILLARD MD Nov 21, 2018 20:17
[2018-11-21] MEDS: MONTELUKAST 10 MG TAB PO SCH (22:14)
[2018-11-21] MEDS: BACLOFEN 10 MG TAB PO PRN (22:15)
[2018-11-22] MEDS: HYDROCODONE/APAP (5/325) TAB PO PRN (00:36)
[2018-11-22 02:00] VITALS: BP 112/60; PULSE 82; RESP 18
[2018-11-22] MEDS: PANTOPRAZOLE (EC) 40 MG TAB PO SCH (06:52)
[2018-11-22] MEDS: LEVOTHYROXINE 125 MCG TAB PO SCH (06:52)
[2018-11-22 07:30] VITALS: BP 127/66; PULSE 70; RESP 18
--- NOTE | 2018-11-22 08:10 | CONS ---
Assessment/Plan Assessment/Plan Assessment/Plan (Daily) 1. Stable post op right lower extrem amputation 2. BP well controlled 3. Being rx'd for bacteruria, asx Consultation Date/Type/Reason Admit Date/Time Nov 13, 2018 at 21:15 Initial Consult Date Requesting Provider: NISHI MOLINA MD Date/Time of Note DATE: 11/22/18 TIME: 08:09 Detailed Summary Respiratory: No cough Cardiovascular: No chest pain, No lightheadedness Gastrointestinal: no complaints Genitourinary: no complaints Musculoskeletal: no complaints Exam/Review of Systems Exam Vitals Vital Signs Date Temp Pulse Resp B/P (MAP) Pulse Ox O2 O2 Flow FiO2 Time Delivery Rate 11/22/18 97.4 82 18 112/60 96 Room Air 02:00 (77) Intake and Output 11/21/18 11/21/18 11/22/18 1515:00 23:00 07:00 IntakeIntake Total 860 ml 1500 ml OutputOutput Total 48 ml 650 ml BalanceBalance -48 ml 860 ml 850 ml Neck: No jvd Respiratory: clear to auscultation Cardiovascular: regular rate and rhythm Gastrointestinal: soft Extremities: No edema Results Result Diagram: 11/18/1861711/18/1818 Medications Medication Current Medications Diphenhydramine HCl (Benadryl) 25 mg Q4H PRN PO ITCHING Last administered on 11/20/18at 00:13; Admin Dose 25 MG; Start 11/13/18 at 22:53 Rivaroxaban (Xarelto) 10 mg WITH DINNER PO Last administered on 11/21/18 18:02; Admin Dose 10 MG; Start 11/13/18 at 22:53 Gabapentin (Neurontin) 300 mg TID PO Last administered on 11/21/18 22:14; Admin Dose 300 MG; Start 11/13/18 at 22:53 Cholecalciferol (Vitamin D) 2,000 unit DAILY PO Last administered on 11/21/18 09:07; Admin Dose 2,000 UNIT; Start 11/13/18 at 22:53 Fluticasone/ Vilanterol (Breo Ellipta 200-25 Mcg Inh) 1 inh DAILY INH Last administered on 11/21/18 09:06; Admin Dose 1 INH; Start 11/13/18 at 22:53 Docusate Sodium (Colace) 200 mg DAILY PO Last administered on 11/21/18 09:07; Admin Dose 200 MG; Start 11/13/18 at 22:53 Polyethylene Glycol (Miralax) 17 gm DAILY GTB Last administered on 11/21/18 09:08; Admin Dose 17 GM; Start 11/13/18 at 22:53 Bisacodyl (Dulcolax Supp) 10 mg DAILY PRN [place] CONSTIPATION Last administered on 11/15/18 22:12; Admin Dose 10 MG; Start 11/13/18 at 22:53 Ascorbic Acid (Vitamin C) 1,000 mg DAILY PO Last administered on 11/21/18 09:06; Admin Dose 1,000 MG; Start 11/13/18 at 22:53 Ondansetron HCl (Zofran Inj) 4 mg Q4H PRN IV NAUSEA AND/OR VOMITING; Start 11/13/18 at 23:18 Multivitamins Therapeutic (Theragran) 1 tab DAILY PO Last administered on 11/21/18 09:07; Admin Dose 1 TAB; Start 11/13/18 at 23:18 Levothyroxine Sodium (Synthroid) 125 mcg BEFORE BREAKFAST PO Last administered on 11/22/18 06:52; Admin Dose 125 MCG; Start 11/13/18 at 23:18 Losartan Potassium (Cozaar) 25 mg DAILY PO Last administered on 11/21/18 09:07; Admin Dose 25 MG; Start 11/13/18 at 23:18 Magnesium Oxide (Mag-Ox 400) 400 mg DAILY PO Last administered on 11/21/18 09:06; Admin Dose 400 MG; Start 11/13/18 at 23:18 Montelukast Sodium (Singulair) 10 mg QHS PO Last administered on 11/21/18 22:14; Admin Dose 10 MG; Start 11/13/18 at 23:18 Pantoprazole (Protonix Tab) 40 mg DAILY@06 PO Last administered on 11/22/18 06:52; Admin Dose 40 MG; Start 11/13/18 at 23:18 Senna (Senokot) 1 tab DAILY PO Last administered on 11/21/18 09:07; Admin Dose 1 TAB; Start 11/13/18 at 23:18 Nystatin (Nystatin Powder) 1 applic BID TOP Last administered on 11/21/18 09:08; Admin Dose 1 APPLIC; Start 11/13/18 at 23:18 Miscellaneous Information (Pending Santyl Order For Wound Care) This patient carter... PRN PRN XX NOTE; Start 11/14/18 at 00:30 Acetaminophen (Tylenol Tab) 650 mg Q6H PRN PO MILD PAIN(1-3)OR ELEVATED TEMP Last administered on 11/17/18 14:49; Admin Dose 650 MG; Start 11/15/18 at 02:00 Amlodipine Besylate (Norvasc) 5 mg DAILY PO Last administered on 11/21/18 09:06; Admin Dose 5 MG; Start 11/16/18 at 09:00 Acetaminophen/ Hydrocodone Bitart ([place] (5/325)) 1 tab Q4H PRN PO PAIN LEVEL 7-10 Last administered on 11/22/18 00:36; Admin Dose 1 TAB; Start 11/16/18 at 13:00 Morphine Sulfate (morphine) 9 mg Q2H PRN PO SEVERE PAIN LEVEL 7-10; Start 11/18/18 at 15:30 Trimethoprim/ Sulfamethoxazole (Bactrim (Ds)) 1 tab BID PO Last administered on 11/21/18 22:14; Admin Dose 1 TAB; Start 11/21/18 at 09:00 Baclofen (Lioresal) 10 mg TID PRN PO muscle spasm Last administered on 11/21/18 22:15; Admin Dose 10 MG; Start 11/21/18 at 13:00 ELISE SAMPSON MD Nov 22, 2018 08:10
[2018-11-22] MEDS: POLYETHYLENE GLYCOL 17 GM PACKET GTB SCH (09:43)
[2018-11-22] MEDS: FLUTICASONE/VILANTEROL 200-25 INH DEVICE INH SCH (09:43)
[2018-11-22] MEDS: MAGNESIUM OXIDE 400 MG TAB PO SCH (09:43)
[2018-11-22] MEDS: ASCORBIC ACID 500 MG TAB PO SCH (09:44)
[2018-11-22] MEDS: SENNA TAB PO SCH (09:44)
[2018-11-22] MEDS: DOCUSATE SODIUM 100 MG CAP PO SCH (09:44)
[2018-11-22] MEDS: MULTIVITAMINS THERAPEUTIC TAB PO SCH (09:44)
[2018-11-22] MEDS: LOSARTAN 25 MG TAB PO SCH (09:44)
[2018-11-22] MEDS: GABAPENTIN 300 MG CAP PO SCH ×3 (09:44→20:28)
[2018-11-22] MEDS: CHOLECALCIFEROL 2,000 UNIT CAP PO SCH (09:44)
[2018-11-22] MEDS: NYSTATIN 30 GM POWDER BTL TOP SCH ×2 (09:45→21:00)
[2018-11-22] MEDS: TRIMETHOPRIM/SULFAMETHOX (DS) TAB PO SCH ×2 (09:45→20:28)
[2018-11-22] MEDS: AMLODIPINE 2.5 MG TAB PO SCH (12:27)
--- NOTE | 2018-11-22 13:20 | PN ---
Date/Time of Note Date/Time of Note DATE: 11/22/18 TIME: 13:20 Subjective Motivated Objective Vital Signs Date Temp Pulse Resp B/P (MAP) Pulse Ox O2 O2 Flow FiO2 Time Delivery Rate 11/22/18 97.6 70 18 127/66 96 Room Air 07:30 (86) Intake and Output 11/21/18 11/21/18 11/22/18 1414:59 22:59 06:59 IntakeIntake Total 860 ml 1500 ml OutputOutput Total 48 ml 650 ml BalanceBalance -48 ml 860 ml 850 ml Exam pulm-cta sba transfer Results/Medications Result Diagram: 11/18/18 0618 11/22/18 0921 Results 24 hrs Laboratory Tests Test 11/22/18 06:46 11/22/18 09:21 Blood Urea Nitrogen 34 H 31 H Creatinine 0.69 0.74 Sodium Level 144 Potassium Level 4.3 Chloride Level 102 Carbon Dioxide Level 26 Anion Gap 16 H Est Glomerular Filtrat Rate mL/min Glucose Level 99 Calcium Level 9.9 Medications Current Medications Diphenhydramine HCl (Benadryl) 25 mg Q4H PRN PO ITCHING Last administered on 11/20/18 00:13; Admin Dose 25 MG; Start 11/13/18 at 22:53 Rivaroxaban (Xarelto) 10 mg WITH DINNER PO Last administered on 11/21/18 18:02; Admin Dose 10 MG; Start 11/13/18 at 22:53 Gabapentin (Neurontin) 300 mg TID PO Last administered on 11/22/18 12:27; Admin Dose 300 MG; Start 11/13/18 at 22:53 Cholecalciferol (Vitamin D) 2,000 unit DAILY PO Last administered on 11/22/18 09:44; Admin Dose 2,000 UNIT; Start 11/13/18 at 22:53 Fluticasone/ Vilanterol (Breo Ellipta 200-25 Mcg Inh) 1 inh DAILY INH Last administered on 11/22/18 09:43; Admin Dose 1 INH; Start 11/13/18 at 22:53 Docusate Sodium (Colace) 200 mg DAILY PO Last administered on 11/22/18 09:44; Admin Dose 200 MG; Start 11/13/18 at 22:53 Polyethylene Glycol (Miralax) 17 gm DAILY GTB Last administered on 11/22/18 09:43; Admin Dose 17 GM; Start 11/13/18 at 22:53 Bisacodyl (Dulcolax Supp) 10 mg DAILY PRN [place] CONSTIPATION Last administered on 11/15/18 22:12; Admin Dose 10 MG; Start 11/13/18 at 22:53 Ascorbic Acid (Vitamin C) 1,000 mg DAILY PO Last administered on 11/22/18 09:44; Admin Dose 1,000 MG; Start 11/13/18 at 22:53 Ondansetron HCl (Zofran Inj) 4 mg Q4H PRN IV NAUSEA AND/OR VOMITING; Start 11/13/18 at 23:18 Multivitamins Therapeutic (Theragran) 1 tab DAILY PO Last administered on 11/22/18 09:44; Admin Dose 1 TAB; Start 11/13/18 at 23:18 Levothyroxine Sodium (Synthroid) 125 mcg BEFORE BREAKFAST PO Last administered on 11/22/18 06:52; Admin Dose 125 MCG; Start 11/13/18 at 23:18 Losartan Potassium (Cozaar) 25 mg DAILY PO Last administered on 11/22/18 09:44; Admin Dose 25 MG; Start 11/13/18 at 23:18 Magnesium Oxide (Mag-Ox 400) 400 mg DAILY PO Last administered on 11/22/18 09:43; Admin Dose 400 MG; Start 11/13/18 at 23:18 Montelukast Sodium (Singulair) 10 mg QHS PO Last administered on 11/21/18 22 :14; Admin Dose 10 MG; Start 11/13/18 at 23:18 Pantoprazole (Protonix Tab) 40 mg DAILY@06 PO Last administered on 11/22/18 06:52; Admin Dose 40 MG; Start 11/13/18 at 23:18 Senna (Senokot) 1 tab DAILY PO Last administered on 11/22/18 09:44; Admin Dose 1 TAB; Start 11/13/18 at 23:18 Nystatin (Nystatin Powder) 1 applic BID TOP Last administered on 11/22/18 09:45; Admin Dose 1 APPLIC; Start 11/13/18 at 23:18 Miscellaneous Information (Pending [facility] Order For Wound Care) This patient carter... PRN PRN XX NOTE; Start 11/14/18 at 00:30 Acetaminophen (Tylenol Tab) 650 mg Q6H PRN PO MILD PAIN(1-3)OR ELEVATED TEMP Last administered on 11/17/18 14:49; Admin Dose 650 MG; Start 11/15/18 at 02:00 Acetaminophen/ Hydrocodone Bitart ([place] (5/325)) 1 tab Q4H PRN PO PAIN LEVEL 7-10 Last administered on 11/22/18 00:36; Admin Dose 1 TAB; Start 11/16/18 at 13:00 Morphine Sulfate (morphine) 9 mg Q2H PRN PO SEVERE PAIN LEVEL 7-10; Start 11/18/18 at 15:30 Trimethoprim/ Sulfamethoxazole (Bactrim (Ds)) 1 tab BID PO Last administered on 11/22/18 09:45; Admin Dose 1 TAB; Start 11/21/18 at 09:00 Baclofen (Lioresal) 10 mg TID PRN PO muscle spasm Last administered on 11/21/18 22:15; Admin Dose 10 MG; Start 11/21/18 at 13:00 Amlodipine Besylate (Norvasc) 2.5 mg DAILY PO Last administered on 11/22/18 12:27; Admin Dose 2.5 MG; Start 11/22/18 at 09:00 Assessment/Plan Additional Assessment/Plan Rehab- 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 Excellent progress. Casw reviewed with Dr. Faust, patient making great progress and would benefit from extension of stay with goal of ME for self care and mobility and good wound healing. Toxic metabolic encephalopathy- resolved Chronic atrial fibrillation. Gastroesophageal reflux disease. COPD. Acute and neuropathic pain- improved Hypothyroidism. NISHI MOLINA MD Nov 22, 2018 13:20
[2018-11-22 14:00] VITALS: BP 91/63; PULSE 88; RESP 18
[2018-11-22] MEDS: RIVAROXABAN 10 MG TABLET PO SCH (17:30)
--- NOTE | 2018-11-22 18:18 | PN ---
DATE: 11/22/2018 PSYCHOLOGY - INDIVIDUAL SESSION - [id number] This is a followup on a patient who was seen last week. The patient was seen in bed. The patient's mood is extremely positive. The patient feels like she has made progress and is preparing to leave [facility] on 11/27/[facility]. The patient is motivated to try to continue to help herself to get better . The patient feels like she finally is able to try and work on her overall health now that she had the amputation and can go on from there rather than try to fight the constant infections she was havi ng. The patient feels that this has been a positive experience overall even though she did not want to lose her leg, that this was necessary for her to be able to regain her health. Dictated By: LIA STARR PHD RK/NTS Conf#: [id number] DID#: [id number] CC: NISHI MOLINA MD; ELISE SAMPSON MD;*End*
[2018-11-22 19:53] VITALS: BP 118/65; PULSE 92; RESP 18
[2018-11-22] MEDS: MONTELUKAST 10 MG TAB PO SCH (20:28)
[2018-11-22] MEDS: BACLOFEN 10 MG TAB PO PRN (20:30)
--- NOTE | 2018-11-22 22:21 | PN ---
Date/Time of Note Date/Time of Note DATE: 11/22/18 TIME: 22:19 Assessment/Plan Lines/Catheters IV Catheter Type (from Nrsg): Mid Line Donis in Place (from Nrsg): No Assessment/Plan Chief Complaint/Hosp Course -Right LE atherosclerosis, osteomyelitis, nonhealing chronic ulcer & Charcot: S/P Right BKA-with musculocutaneous flap -LLE atherosclerosis: no current ulcers . will continue with our vascular surveillance -Pain control -PT/OT OOB to chair and FWB of the LLE, RLE with ambushield and fall precautions -Patient is at risk for possible wound dehiscence/infection given her extended (4years) of recurrent infections of the lower leg. Recommend close observation and further rehab to avoid any falls and or wound complications -Incentive spirometer -Patient can shower, no need to cover the incision -DVT ppxin the postoperative period -Changed dressing with Betadine paint to staple line, gauze, kerlex and attila wrap followed by refrigeration system installer. To be changed daily -Keep RLE elevate on two pillows at rest Subjective 24 Hr Interval Summary Constitutional: no complaints Exam/Review of Systems Vital Signs Vitals Vital Signs Date Temp Pulse Resp B/P (MAP) Pulse Ox O2 O2 Flow FiO2 Time Delivery Rate 11/22/18 98.2 92 18 118/65 96 Room Air 19:53 (82) Intake and Output 11/21/18 11/21/18 11/22/18 1515:00 23:00 07:00 IntakeIntake Total 860 ml 1500 ml OutputOutput Total 48 ml 650 ml BalanceBalance -48 ml 860 ml 850 ml Exam Free Text/Dictation A&Ox3 CTAB S1S2 soft NTND BS+, truncal obesity RLE: Palpable femoral pulse, motor/sensory, BKA-stump with dressing intact - removed, stephanie intact and clean, incisional tenderness LLE: palpable femoral pulse, faint pedal pulse, motor/sensory intact, cap refill 3 seconds, no ulcers Results Result Diagram: 11/18/18 0618 11/22/18 0921 SAE BETH MD Nov 22, 2018 22:21
[2018-11-23 02:00] VITALS: BP 126/62; PULSE 85; RESP 18
[2018-11-23] MEDS: LEVOTHYROXINE 125 MCG TAB PO SCH (06:23)
[2018-11-23] MEDS: PANTOPRAZOLE (EC) 40 MG TAB PO SCH (06:23)
[2018-11-23 07:00] VITALS: BP 113/56; PULSE 95; RESP 18
--- NOTE | 2018-11-23 08:19 | CONS ---
Assessment/Plan Assessment/Plan Assessment/Plan (Daily) 1. Doing well post op right lower extremity amputation 2. BP well controlled 3. On abx for persistent bacteruria (asx), will repeat u.a and cult Consultation Date/Type/Reason Admit Date/Time Nov 13, 2018 at 21:15 Initial Consult Date Requesting Provider: NISHI MOLINA MD Date/Time of Note DATE: 11/23/18 TIME: 08:17 Detailed Summary Respiratory: No cough, No shortness of breath Cardiovascular: No chest pain Gastrointestinal: no complaints Genitourinary: no complaints Exam/Review of Systems Exam Vitals Vital Signs Date Temp Pulse Resp B/P (MAP) Pulse Ox O2 O2 Flow FiO2 Time Delivery Rate 11/23/18 98.0 85 18 126/62 95 02:00 (83) 11/22/18 Room Air 19:53 Intake and Output 11/22/18 11/22/18 11/23/18 1515:00 23:00 07:00 IntakeIntake Total 1240 ml 1000 ml BalanceBalance 1240 ml 1000 ml Neck: No jvd Respiratory: clear to auscultation Cardiovascular: irregular rhythm Gastrointestinal: soft Extremities: No edema Results Result Diagram: 11/22/18 0921 Results 24hrs Laboratory Tests Test 11/22/18 09:21 Sodium Level 144 Potassium Level 4.3 Chloride Level 102 Carbon Dioxide Level 26 Anion Gap 16 H Blood Urea Nitrogen 31 H Creatinine 0.74 Est Glomerular Filtrat Rate mL/min Glucose Level 99 Calcium Level 9.9 Medications Medication Current Medications Diphenhydramine HCl (Benadryl) 25 mg Q4H PRN PO ITCHING Last administered on 11/20/18at 00:13; Admin Dose 25 MG; Start 11/13/18 at 22:53 Rivaroxaban (Xarelto) 10 mg WITH DINNER PO Last administered on 11/22/18at 17:30; Admin Dose 10 MG; Start 11/13/18 at 22:53 Gabapentin (Neurontin) 300 mg TID PO Last administered on 11/22/18at 20:28; Admi n Dose 300 MG; Start 11/13/18 at 22:53 Cholecalciferol (Vitamin D) 2,000 unit DAILY PO Last administered on 11/22/18at 09:44; Admin Dose 2,000 UNIT; Start 11/13/18 at 22:53 Fluticasone/ Vilanterol (Breo Ellipta 200-25 Mcg Inh) 1 inh DAILY INH Last administered on 11/22/18 09:43; Admin Dose 1 INH; Start 11/13/18 at 22:53 Docusate Sodium (Colace) 200 mg DAILY PO Last administered on 11/22/18 09:44; Admin Dose 200 MG; Start 11/13/18 at 22:53 Polyethylene Glycol (Miralax) 17 gm DAILY GTB Last administered on 11/22/18 09:43; Admin Dose 17 GM; Start 11/13/18 at 22:53 Bisacodyl (Dulcolax Supp) 10 mg DAILY PRN [place] CONSTIPATION Last administered on 11/15/18 22:12; Admin Dose 10 MG; Start 11/13/18 at 22:53 Ascorbic Acid (Vitamin C) 1,000 mg DAILY PO Last administered on 11/22/18 09:44; Admin Dose 1,000 MG; Start 11/13/18 at 22:53 Ondansetron HCl (Zofran Inj) 4 mg Q4H PRN IV NAUSEA AND/OR VOMITING; Start 11/13/18 at 23:18 Multivitamins Therapeutic (Theragran) 1 tab DAILY PO Last administered on 11/22/18 09:44; Admin Dose 1 TAB; Start 11/13/18 at 23:18 Levothyroxine Sodium (Synthroid) 125 mcg BEFORE BREAKFAST PO Last administered on 11/23/18 06:23; Admin Dose 125 MCG; Start 11/13/18 at 23:18 Losartan Potassium (Cozaar) 25 mg DAILY PO Last administered on 11/22/18 09:44; Admin Dose 25 MG; Start 11/13/18 at 23:18 Magnesium Oxide (Mag-Ox 400) 400 mg DAILY PO Last administered on 11/22/18 09:43; Admin Dose 400 MG; Start 11/13/18 at 23:18 Montelukast Sodium (Singulair) 10 mg QHS PO Last administered on 11/22/18 20:28; Admin Dose 10 MG; Start 11/13/18 at 23:18 Pantoprazole (Protonix Tab) 40 mg DAILY@06 PO Last administered on 11/23/18 06:23; Admin Dose 40 MG; Start 11/13/18 at 23:18 Senna (Senokot) 1 tab DAILY PO Last administered on 11/22/18 09:44; Admin Dose 1 TAB; Start 11/13/18 at 23:18 Nystatin (Nystatin Powder) 1 applic BID TOP Last administered on 11/22/18 09:45; Admin Dose 1 APPLIC; Start 11/13/18 at 23:18 Miscellaneous Information (Pending Santyl Order For Wound Care) This patient carter... PRN PRN XX NOTE; Start 11/14/18 at 00:30 Acetaminophen (Tylenol Tab) 650 mg Q6H PRN PO MILD PAIN(1-3)OR ELEVATED TEMP Last administered on 11/17/18 14:49; Admin Dose 650 MG; Start 11/15/18 at 02:00 Acetaminophen/ Hydrocodone Bitart ([place] (5/325)) 1 tab Q4H PRN PO PAIN LEVEL 7-10 Last administered on 11/22/18 00:36; Admin Dose 1 TAB; Start 11/16/18 at 1 3:00 Morphine Sulfate (morphine) 9 mg Q2H PRN PO SEVERE PAIN LEVEL 7-10; Start 11/18/18 at 15:30 Trimethoprim/ Sulfamethoxazole (Bactrim (Ds)) 1 tab BID PO Last administered on 11/22/18 20:28; Admin Dose 1 TAB; Start 11/21/18 at 09:00 Baclofen (Lioresal) 10 mg TID PRN PO muscle spasm Last administered on 11/22/18 20:30; Admin Dose 10 MG; Start 11/21/18 at 13:00 Amlodipine Besylate (Norvasc) 2.5 mg DAILY PO Last administered on 11/22/18 12:27; Admin Dose 2.5 MG; Start 11/22/18 at 09:00 ELISE SAMPSON MD Nov 23, 2018 08:19
[2018-11-23] MEDS: NYSTATIN 30 GM POWDER BTL TOP SCH ×2 (09:00→21:00)
[2018-11-23] MEDS: DOCUSATE SODIUM 100 MG CAP PO SCH (09:00)
[2018-11-23] MEDS: SENNA TAB PO SCH (09:00)
[2018-11-23] MEDS: LOSARTAN 25 MG TAB PO SCH (09:00)
[2018-11-23] MEDS: POLYETHYLENE GLYCOL 17 GM PACKET GTB SCH (09:00)
[2018-11-23] MEDS: CHOLECALCIFEROL 2,000 UNIT CAP PO SCH (10:50)
[2018-11-23] MEDS: FLUTICASONE/VILANTEROL 200-25 INH DEVICE INH SCH (10:50)
[2018-11-23] MEDS: MULTIVITAMINS THERAPEUTIC TAB PO SCH (10:51)
[2018-11-23] MEDS: MAGNESIUM OXIDE 400 MG TAB PO SCH (10:51)
[2018-11-23] MEDS: GABAPENTIN 300 MG CAP PO SCH ×3 (10:51→20:39)
[2018-11-23] MEDS: AMLODIPINE 2.5 MG TAB PO SCH (10:52)
[2018-11-23] MEDS: ASCORBIC ACID 500 MG TAB PO SCH (10:53)
[2018-11-23] MEDS: TRIMETHOPRIM/SULFAMETHOX (DS) TAB PO SCH ×2 (11:19→20:39)
--- NOTE | 2018-11-23 13:29 | PN ---
Date/Time of Note Date/Time of Note DATE: 11/23/18 TIME: 13:28 Subjective Patietn with daughter at bedside. Current levels and goal levels reviewed, and they are agreeable with current plan Objective Vital Signs Date Temp Pulse Resp B/P (MAP) Pulse Ox O2 O2 Flow FiO2 Time Delivery Rate 11/23/18 98.0 95 18 113/56 98 Room Air 07:00 (75) Intake and Output 11/22/18 11/22/18 11/23/18 1515:00 23:00 07:00 IntakeIntake Total 1240 ml 1000 ml BalanceBalance 1240 ml 1000 ml Exam pulm-cta abd-soft sba transfer Results/Medications Result Diagram: 11/22/18920 Medications Current Medications Diphenhydramine HCl (Benadryl) 25 mg Q4H PRN PO ITCHING Last administered on 11/20/18at 00:13; Admin Dose 25 MG; Start 11/13/18 at 22:53 Rivaroxaban (Xarelto) 10 mg WITH DINNER PO Last administered on 11/22/18at 17:30; Admin Dose 10 MG; Start 11/13/18 at 22:53 Gabapentin (Neurontin) 300 mg TID PO Last administered on 11/23/18 10:51; Admin Dose 300 MG; Start 11/13/18 at 22:53 Cholecalciferol (Vitamin D) 2,000 unit DAILY PO Last administered on 11/23/18at 10:50; Admin Dose 2,000 UNIT; Start 11/13/18 at 22:53 Fluticasone/ Vilanterol (Breo Ellipta 200-25 Mcg Inh) 1 inh DAILY INH Last administered on 11/23/18at 10:50; Admin Dose 1 INH; Start 11/13/18 at 22:53 Docusate Sodium (Colace) 200 mg DAILY PO Last administered on 11/22/18 09:44; Admin Dose 200 MG; Start 11/13/18 at 22:53 Polyethylene Glycol (Miralax) 17 gm DAILY GTB Last administered on 11/22/18 09:43; Admin Dose 17 GM; Start 11/13/18 at 22:53 Bisacodyl (Dulcolax Supp) 10 mg DAILY PRN [place] CONSTIPATION Last administered on 11/15/18 22:12; Admin Dose 10 MG; Start 11/13/18 at 22:53 Ascorbic Acid (Vitamin C) 1,000 mg DAILY PO Last administered on 11/23/18 10:53; Admin Dose 1,000 MG; Start 11/13/18 at 22:53 Ondansetron HCl (Zofran Inj) 4 mg Q4H PRN IV NAUSEA AND/OR VOMITING; Start 11/13/18 at 23:18 Multivitamins Therapeutic (Theragran) 1 tab DAILY PO Last administered on 11/23/18 10:51; Admin Dose 1 TAB; Start 11/13/18 at 23:18 Levothyroxine Sodium (Synthroid) 125 mcg BEFORE BREAKFAST PO Last administered on 11/23/18 06:23; Admin Dose 125 MCG; Start 11/13/18 at 23:18 Losartan Potassium (Cozaar) 25 mg DAILY PO Last administered on 11/23/18 09:00; Admin Dose 25 MG; Start 11/13/18 at 23:18 Magnesium Oxide (Mag-Ox 400) 400 mg DAILY PO Last administered on 11/23/18 10:51; Admin Dose 400 MG; Start 11/13/18 at 23:18 Montelukast Sodium (Singulair) 10 mg QHS PO Last administered on 11/22/18 20:28; Admin Dose 10 MG; Start 11/13/18 at 23:18 Pantoprazole (Protonix Tab) 40 mg DAILY@06 PO Last administered on 11/23/18 06:23; Admin Dose 40 MG; Start 11/13/18 at 23:18 Senna (Senokot) 1 tab DAILY PO Last administered on 11/22/18 09:44; Admin Dose 1 TAB; Start 11/13/18 at 23:18 Nystatin (Nystatin Powder) 1 applic BID TOP Last administered on 11/22/18 09:45; Admin Dose 1 APPLIC; Start 11/13/18 at 23:18 Miscellaneous Information (Pending [facility] Order For Wound Care) This patient carter... PRN PRN XX NOTE; Start 11/14/18 at 00:30 Acetaminophen (Tylenol Tab) 650 mg Q6H PRN PO MILD PAIN(1-3)OR ELEVATED TEMP Last administered on 11/17/18 14:49; Admin Dose 650 MG; Start 11/15/18 at 02:00 Acetaminophen/ Hydrocodone Bitart ([place] (5/325)) 1 tab Q4H PRN PO PAIN LEVEL 7-10 Last administered on 11/22/18at 00:36; Admin Dose 1 TAB; Start 11/16/18 at 13:00 Morphine Sulfate (morphine) 9 mg Q2H PRN PO SEVERE PAIN LEVEL 7-10; Start 11/18/18 at 15:30 Trimethoprim/ Sulfamethoxazole (Bactrim (Ds)) 1 tab BID PO Last administered on 11/23/18at 11:19; Admin Dose 1 TAB; Start 11/21/18 at 09:00 Baclofen (Lioresal) 10 mg TID PRN PO muscle spasm Last administered on 11/22/18at 20:30; Admin Dose 10 MG; Start 11/21/18 at 13:00 Amlodipine Besylate (Norvasc) 2.5 mg DAILY PO Last administered on 11/23/18at 10:52; Admin Dose 2.5 MG; Start 11/22/18 at 09:00 Assessment/Plan Additional Assessment/Plan Rehab- 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 Continue rehab, patient and family motivated for plan. Toxic metabolic encephalopathy- resolved Chronic atrial fibrillation. Gastroesophageal reflux disease. COPD. Acute and neuropathic pain- improved Hypothyroidism. NISHI MOLINA MD Nov 23, 2018 13:29
[2018-11-23 14:00] VITALS: BP 141/79; PULSE 94; RESP 18
[2018-11-23] MEDS: RIVAROXABAN 10 MG TABLET PO SCH (19:12)
[2018-11-23 19:41] VITALS: BP 100/64; PULSE 92; RESP 18
[2018-11-23] MEDS: MONTELUKAST 10 MG TAB PO SCH (20:39)
[2018-11-23] MEDS: BACLOFEN 10 MG TAB PO PRN (20:40)
[2018-11-24] MEDS: PANTOPRAZOLE (EC) 40 MG TAB PO SCH (06:50)
[2018-11-24] MEDS: LEVOTHYROXINE 125 MCG TAB PO SCH (06:50)
[2018-11-24 07:30] VITALS: BP 111/69; PULSE 95; RESP 18
[2018-11-24] MEDS ORDERED: DOCUSATE SODIUM 100 MG CAP PO PRN (08:00)
--- NOTE | 2018-11-24 08:47 | CONS ---
Assessment/Plan Assessment/Plan Assessment/Plan (Daily) 1. Doing well post op right leg amputation 2. Bacteruria, asx with repeat u/a-neg-->will dc abx 3. Blood pressure well controlled 4. Sore thorat->>lozenges ordered Consultation Date/Type/Reason Admit Date/Time Nov 13, 2018 at 21:15 Initial Consult Date Requesting Provider: NISHI MOLINA MD Date/Time of Note DATE: 11/24/18 TIME: 08:42 Detailed Summary ENT: sore throat Respiratory: No shortness of breath Cardiovascular: No chest pain, No lightheadedness Gastrointestinal: no complaints Genitourinary: no complaints Musculoskeletal: no complaints Exam/Review of Systems Exam Vitals Vital Signs Date Temp Pulse Resp B/P (MAP) Pulse Ox O2 O2 Flow FiO2 Time Delivery Rate 11/23/18 97.5 92 18 100/64 93 Room Air 19:41 (76) Intake and Output 11/23/18 11/23/18 11/24/18 1515:00 23:00 07:00 IntakeIntake Total 1600 ml 550 ml OutputOutput Total 800 ml BalanceBalance 800 ml 550 ml ENMT: other (throat is nl) Neck: No jvd Respiratory: clear to auscultation Cardiovascular: regular rate and rhythm Gastrointestinal: soft Extremities: No edema (left leg) Results Result Diagram: 11/22/18920 Results 24hrs Laboratory Tests Test 11/23/18 22:00 Urine Color YELLOW Urine Clarity SLIGHTLY CLOUDY A Urine pH 5.0 Urine Specific [place] 1.020 Urine Ketones NEGATIVE Urine Nitrite NEGATIVE Urine Bilirubin NEGATIVE Urine Urobilinogen NEGATIVE Urine Leukocyte Esterase NEGATIVE Urine Microscopic RBC 0 Urine Microscopic WBC 1 Urine Squamous Epithelial Cells FEW Urine Hemoglobin NEGATIVE Urine Glucose NEGATIVE Urine Total Protein NEGATIVE Medications Medication Current Medications Diphenhydramine HCl (Benadryl) 25 mg Q4H PRN PO ITCHING Last administered on 11/20/18at 00:13; Admin Dose 25 MG; Start 11/13/18 at 22:53 Rivaroxaban (Xarelto) 10 mg WITH DINNER PO Last administered on 11/23/18at 19:12; Admin Dose 10 MG; Start 11/13/18 at 22:53 Gabapentin (Neurontin) 300 mg TID PO Last administered on 11/23/18at 20:39; Admin Dose 300 MG; Start 11/13/18 at 22:53 Cholecalciferol (Vitamin D) 2,000 unit DAILY PO Last administered on 11/23/18 10:50; Admin Dose 2,000 UNIT; Start 11/13/18 at 22:53 Fluticasone/ Vilanterol (Breo Ellipta 200-25 Mcg Inh) 1 inh DAILY INH Last administered on 11/23/18 10:50; Admin Dose 1 INH; Start 11/13/18 at 22:53 Polyethylene Glycol (Miralax) 17 gm DAILY GTB Last administered on 11/22/18 09:43; Admin Dose 17 GM; Start 11/13/18 at 22:53 Bisacodyl (Dulcolax Supp) 10 mg DAILY PRN [place] CONSTIPATION Last administered on 11/15/18 22:12; Admin Dose 10 MG; Start 11/13/18 at 22:53 Ascorbic Acid (Vitamin C) 1,000 mg DAILY PO Last administered on 11/23/18 10:53; Admin Dose 1,000 MG; Start 11/13/18 at 22:53 Ondansetron HCl (Zofran Inj) 4 mg Q4H PRN IV NAUSEA AND/OR VOMITING; Start 11/13/18 at 23:18 Multivitamins Therapeutic (Theragran) 1 tab DAILY PO Last administered on 11/23/18 10:51; Admin Dose 1 TAB; Start 11/13/18 at 23:18 Levothyroxine Sodium (Synthroid) 125 mcg BEFORE BREAKFAST PO Last administered on 11/24/18 06:50; Admin Dose 125 MCG; Start 11/13/18 at 23:18 Losartan Potassium (Cozaar) 25 mg DAILY PO Last administered on 11/23/18 09:00; Admin Dose 25 MG; Start 11/13/18 at 23:18 Magnesium Oxide (Mag-Ox 400) 400 mg DAILY PO Last administered on 11/23/18 10:51; Admin Dose 400 MG; Start 11/13/18 at 23:18 Montelukast Sodium (Singulair) 10 mg QHS PO Last administered on 11/23/18 20:39; Admin Dose 10 MG; Start 11/13/18 at 23:18 Pantoprazole (Protonix Tab) 40 mg DAILY@06 PO Last administered on 2/1/19at 06:50; Admin Dose 40 MG; Start 11/13/18 at 23:18 Senna (Senokot) 1 tab DAILY PO Last administered on 11/22/18 09:44; Admin Dose 1 TAB; Start 11/13/18 at 23:18 Nystatin (Nystatin Powder) 1 applic BID TOP Last administered on 11/22/18 09:45; Admin Dose 1 APPLIC; Start 11/13/18 at 23:18 Miscellaneous Information (Pending [facility] Order For Wound Care) This patient carter... PRN PRN XX NOTE; Start 11/14/18 at 00:30 Acetaminophen (Tylenol Tab) 650 mg Q6H PRN PO MILD PAIN(1-3)OR ELEVATED TEMP Last administered on 11/17/18at 14:49; Admin Dose 650 MG; Start 11/15/18 at 02:00 Acetaminophen/ Hydrocodone Bitart ([place] (5/325)) 1 tab Q4H PRN PO PAIN LEVEL 7-10 Last administered on 11/22/18at 00:36; Admin Dose 1 TAB; Start 11/16/18 at 13:00 Morphine Sulfate (morphine) 9 mg Q2H PRN PO SEVERE PAIN LEVEL 7-10; Start 11/18/18 at 15:30 Trimethoprim/ Sulfamethoxazole (Bactrim (Ds)) 1 tab BID PO Last administered on 11/23/18at 20:39; Admin Dose 1 TAB; Start 11/21/18 at 09:00 Baclofen (Lioresal) 10 mg TID PRN PO muscle spasm Last administered on 11/23/18 20:40; Admin Dose 10 MG; Start 11/21/18 at 13:00 Amlodipine Besylate (Norvasc) 2.5 mg DAILY PO Last administered on 11/23/18at 10:52; Admin Dose 2.5 MG; Start 11/22/18 at 09:00 Docusate Sodium (Colace) 200 mg DAILY PRN PO CONSTIPATION; Start 11/24/18 at 08:00 Phenol (Cepastat Lozenge) 1 lozenge Q1H PRN [place] SORE THROAT; Start 11/24/18 at 08:00 ELISE SAMPSON MD Nov 24, 2018 08:47
[2018-11-24] MEDS: LOSARTAN 25 MG TAB PO SCH (09:12)
[2018-11-24] MEDS: TRIMETHOPRIM/SULFAMETHOX (DS) TAB PO SCH ×2 (09:12→20:33)
[2018-11-24] MEDS: FLUTICASONE/VILANTEROL 200-25 INH DEVICE INH SCH (09:12)
[2018-11-24] MEDS: GABAPENTIN 300 MG CAP PO SCH ×3 (09:13→20:33)
[2018-11-24] MEDS: NYSTATIN 30 GM POWDER BTL TOP SCH ×2 (09:13→20:33)
[2018-11-24] MEDS: AMLODIPINE 2.5 MG TAB PO SCH (09:13)
[2018-11-24] MEDS: MULTIVITAMINS THERAPEUTIC TAB PO SCH (09:13)
[2018-11-24] MEDS: MAGNESIUM OXIDE 400 MG TAB PO SCH (09:13)
[2018-11-24] MEDS: CEPASTAT LOZENGE MT PRN (09:13)
[2018-11-24] MEDS: ASCORBIC ACID 500 MG TAB PO SCH (09:13)
[2018-11-24] MEDS: CHOLECALCIFEROL 2,000 UNIT CAP PO SCH (09:13)
[2018-11-24] MEDS ORDERED: SENNA TAB PO PRN (09:30)
[2018-11-24] MEDS ORDERED: POLYETHYLENE GLYCOL 17 GM PACKET GTB PRN (09:30)
--- NOTE | 2018-11-24 12:41 | PN ---
Date/Time of Note Date/Time of Note DATE: 11/24/18 TIME: 12:41 Assessment/Plan Lines/Catheters IV Catheter Type (from [facility]): Mid Line Donis in Place (from [facility]): No Exam/Review of Systems Vital Signs Vitals Vital Signs Date Temp Pulse Resp B/P (MAP) Pulse Ox O2 O2 Flow FiO2 Time Delivery Rate 11/24/18 98.7 95 18 111/69 93 Room Air 07:30 (83) Intake and Output 11/23/18 11/23/18 11/24/18 1515:00 23:00 07:00 IntakeIntake Total 1600 ml 550 ml OutputOutput Total 800 ml BalanceBalance 800 ml 550 ml Results Result Diagram: 11/22/18 0921 NICOLE DILLARD MD Nov 24, 2018 12:41
--- NOTE | 2018-11-24 13:20 | PN ---
Date/Time of Note Date/Time of Note DATE: 11/24/18 TIME: 13:19 Subjective In great sprits Objective Vital Signs Date Temp Pulse Resp B/P (MAP) Pulse Ox O2 O2 Flow FiO2 Time Delivery Rate 11/24/18 98.7 95 18 111/69 93 Room Air 07:30 (83) Intake and Output 11/23/18 11/23/18 11/24/18 1515:00 23:00 07:00 IntakeIntake Total 1600 ml 550 ml OutputOutput Total 800 ml BalanceBalance 800 ml 550 ml Exam pulm-cta sba transfer strong wheelchair propulsion Results/Medications Result Diagram: 11/22/18 0921 Results 24 hrs Laboratory Tests Test 11/23/18 22:00 Urine Color YELLOW Urine Clarity SLIGHTLY CLOUDY A Urine pH 5.0 Urine Specific [place] 1.020 Urine Ketones NEGATIVE Urine Nitrite NEGATIVE Urine Bilirubin NEGATIVE Urine Urobilinogen NEGATIVE Urine Leukocyte Esterase NEGATIVE Urine Microscopic RBC 0 Urine Microscopic WBC 1 Urine Squamous Epithelial Cells FEW Urine Hemoglobin NEGATIVE Urine Glucose NEGATIVE Urine Total Protein NEGATIVE Medications Current Medications Diphenhydramine HCl (Benadryl) 25 mg Q4H PRN PO ITCHING Last administered on 11/20/18at 00:13; Admin Dose 25 MG; Start 11/13/18 at 22:53 Rivaroxaban (Xarelto) 10 mg WITH DINNER PO Last administered on 11/23/18at 19:12; Admin Dose 10 MG; Start 11/13/18 at 22:53 Gabapentin (Neurontin) 300 mg TID PO Last administered on 11/24/18 12:23; Admin Dose 300 MG; Start 11/13/18 at 22:53 Cholecalciferol (Vitamin D) 2,000 unit DAILY PO Last administered on 11/24/18at 09:13; Admin Dose 2,000 UNIT; Start 11/13/18 at 22:53 Fluticasone/ Vilanterol (Breo Ellipta 200-25 Mcg Inh) 1 inh DAILY INH Last administered on 11/24/18 09:12; Admin Dose 1 INH; Start 11/13/18 at 22:53 Bisacodyl (Dulcolax Supp) 10 mg DAILY PRN [place] CONSTIPATION Last administered on 11/15/18at 22:12; Admin Dose 10 MG; Start 11/13/18 at 22:53 Ascorbic Acid (Vitamin C) 1,000 mg DAILY PO Last administered on 11/24/18 09:13; Admin Dose 1,000 MG; Start 11/13/18 at 22:53 Ondansetron HCl (Zofran Inj) 4 mg Q4H PRN IV NAUSEA AND/OR VOMITING; Start 11/13/18 at 23:18 Multivitamins Therapeutic (Theragran) 1 tab DAILY PO Last administered on 11/24/18 09:13; Admin Dose 1 TAB; Start 11/13/18 at 23:18 Levothyroxine Sodium (Synthroid) 125 mcg BEFORE BREAKFAST PO Last administered on 11/24/18 06:50; Admin Dose 125 MCG; Start 11/13/18 at 23:18 Losartan Potassium (Cozaar) 25 mg DAILY PO Last administered on 11/24/18 09:12; Admin Dose 25 MG; Start 11/13/18 at 23:18 Magnesium Oxide (Mag-Ox 400) 400 mg DAILY PO Last administered on 11/24/18 09:13; Admin Dose 400 MG; Start 11/13/18 at 23:18 Montelukast Sodium (Singulair) 10 mg QHS PO Last administered on 11/23/18 20:39; Admin Dose 10 MG; Start 11/13/18 at 23:18 Pantoprazole (Protonix Tab) 40 mg DAILY@06 PO Last administered on 11/24/18 06:50; Admin Dose 40 MG; Start 11/13/18 at 23:18 Nystatin (Nystatin Powder) 1 applic BID TOP Last administered on 11/24/18 09:13; Admin Dose 1 APPLIC; Start 11/13/18 at 23:18 Miscellaneous Information (Pending Santyl Order For Wound Care) This patient carter... PRN PRN XX NOTE; Start 11/14/18 at 00:30 Acetaminophen (Tylenol Tab) 650 mg Q6H PRN PO MILD PAIN(1-3)OR ELEVATED TEMP Last administered on 11/17/18 14:49; Admin Dose 650 MG; Start 11/15/18 at 02:00 Acetaminophen/ Hydrocodone Bitart ([place] (5/325)) 1 tab Q4H PRN PO PAIN LEVEL 7-10 Last administered on 11/22/18 00:36; Admin Dose 1 TAB; Start 11/16/18 at 13:00 Morphine Sulfate (morphine) 9 mg Q2H PRN PO SEVERE PAIN LEVEL 7-10; Start 11/18/18 at 15:30 Trimethoprim/ Sulfamethoxazole (Bactrim (Ds)) 1 tab BID PO Last administered on 11/24/18at 09:12; Admin Dose 1 TAB; Start 11/21/18 at 09:00; Stop 11/24/18 at 23:00 Baclofen (Lioresal) 10 mg TID PRN PO muscle spasm Last administered on 11/23/18at 20:40; Admin Dose 10 MG; Start 11/21/18 at 13:00 Amlodipine Besylate (Norvasc) 2.5 mg DAILY PO Last administered on 11/24/18at 09:13; Admin Dose 2.5 MG; Start 11/22/18 at 09:00 Docusate Sodium (Colace) 200 mg DAILY PRN PO CONSTIPATION; Start 11/24/18 at 08:00 Phenol (Cepastat Lozenge) 1 lozenge Q1H PRN [place] SORE THROAT Last administered on 11/24/18at 09:13; Admin Dose 1 LOZENGE; Start 11/24/18 at 08:00 Polyethylene Glycol (Miralax) 17 gm DAILY PRN GTB CONSTIPATION; Start 11/24/18 at 09:30 Senna (Senokot) 1 tab DAILY PRN PO CONSTIPATION; Start 11/24/18 at 09:30 Assessment/Plan Additional Assessment/Plan Rehab- 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 Continue rehab interdisciplinary program Chronic atrial fibrillation. Gastroesophageal reflux disease. COPD. Acute and neuropathic pain- improved Hypothyroidism. NISHI MOLINA MD Nov 24, 2018 13:20
[2018-11-24 14:00] VITALS: BP 103/65; PULSE 86; RESP 18
[2018-11-24] MEDS: RIVAROXABAN 10 MG TABLET PO SCH (17:41)
[2018-11-24 19:47] VITALS: BP 108/63; PULSE 89; RESP 18
[2018-11-24] MEDS: MONTELUKAST 10 MG TAB PO SCH (20:33)
--- NOTE | 2018-11-24 22:27 | PN ---
Date/Time of Note Date/Time of Note DATE: 11/24/18 TIME: 22:25 Assessment/Plan Lines/Catheters IV Catheter Type (from Nrsg): Mid Line Donis in Place (from Nrsg): No Assessment/Plan Chief Complaint/Hosp Course -Right LE atherosclerosis, osteomyelitis, nonhealing chronic ulcer & Charcot: S/P Right BKA-with musculocutaneous flap -LLE atherosclerosis: no current ulcers . will continue with our vascular surveillance -Pain control -PT/OT OOB to chair and FWB of the LLE, RLE with ambushield and fall precautions -Patient is at risk for possible wound dehiscence/infection given her extended (4years) of recurrent infections of the lower leg. Recommend close observation and further rehab to avoid any falls and or wound complications -Incentive spirometer -Patient can shower, no need to cover the incision -DVT ppxin the postoperative period -Changed dressing with Betadine paint to staple line, gauze, kerlex and attila wrap followed by poultry hatchery manager. To be changed daily -Keep RLE elevate on two pillows at rest Subjective 24 Hr Interval Summary Constitutional: no complaints Exam/Review of Systems Vital Signs Vitals Vital Signs Date Temp Pulse Resp B/P (MAP) Pulse Ox O2 O2 Flow FiO2 Time Delivery Rate 11/24/18 98.0 89 18 108/63 94 Room Air 19:47 (78) Intake and Output 11/23/18 11/23/18 11/24/18 1515:00 23:00 07:00 IntakeIntake Total 1600 ml 550 ml OutputOutput Total 800 ml BalanceBalance 800 ml 550 ml Exam Free Text/Dictation A&Ox3 CTAB S1S2 soft NTND BS+, truncal obesity RLE: Palpable femoral pulse, motor/sensory, BKA-stump with dressing intact - removed, stephanie intact and clean, incisional tenderness LLE: Palpable femoral pulse, motor/sensory intact, cap refill 3 seconds Results Result Diagram: 11/22/18 0921 SAE BETH MD Nov 24, 2018 22:26
[2018-11-25 02:00] VITALS: BP 119/60; PULSE 92; RESP 18
[2018-11-25] MEDS: HYDROCODONE/APAP (5/325) TAB PO PRN (04:40)
[2018-11-25] MEDS: LEVOTHYROXINE 125 MCG TAB PO SCH (06:37)
[2018-11-25] MEDS: PANTOPRAZOLE (EC) 40 MG TAB PO SCH (06:37)
[2018-11-25 07:00] VITALS: BP 95/66; PULSE 95; RESP 16
[2018-11-25] MEDS: CEPASTAT LOZENGE MT PRN (08:54)
[2018-11-25] MEDS: MAGNESIUM OXIDE 400 MG TAB PO SCH (08:54)
[2018-11-25] MEDS: CHOLECALCIFEROL 2,000 UNIT CAP PO SCH (08:54)
[2018-11-25] MEDS: FLUTICASONE/VILANTEROL 200-25 INH DEVICE INH SCH (08:54)
[2018-11-25] MEDS: MULTIVITAMINS THERAPEUTIC TAB PO SCH (08:55)
[2018-11-25] MEDS: GABAPENTIN 300 MG CAP PO SCH ×3 (08:55→20:34)
[2018-11-25] MEDS: ASCORBIC ACID 500 MG TAB PO SCH (08:55)
[2018-11-25] MEDS: ACETAMINOPHEN 325 MG TAB PO PRN (08:55)
[2018-11-25] MEDS: LOSARTAN 25 MG TAB PO SCH (08:55)
[2018-11-25] MEDS: AMLODIPINE 2.5 MG TAB PO SCH (08:56)
[2018-11-25] MEDS: NYSTATIN 30 GM POWDER BTL TOP SCH ×2 (08:57→20:33)
--- NOTE | 2018-11-25 09:37 | PN ---
Date/Time of Note Date/Time of Note DATE: 11/25/18 TIME: 09:37 Subjective Pain under good control Objective Vital Signs Date Temp Pulse Resp B/P (MAP) Pulse Ox O2 O2 Flow FiO2 Time Delivery Rate 11/25/18 98.7 95 16 95/66 (76) 96 Room Air 07:00 Intake and Output 11/24/18 11/24/18 11/25/18 1515:00 23:00 07:00 IntakeIntake Total 390 ml 1030 ml 1000 ml OutputOutput Total 150 ml BalanceBalance 240 ml 1030 ml 1000 ml Exam pulm-cta sba transfer [place] wheelchair mobility Results/Medications Result Diagram: 11/22/18 0921 Medications Current Medications Diphenhydramine HCl (Benadryl) 25 mg Q4H PRN PO ITCHING Last administered on 11/20/18 00:13; Admin Dose 25 MG; Start 11/13/18 at 22:53 Rivaroxaban (Xarelto) 10 mg WITH DINNER PO Last administered on 11/24/18 17:41; Admin Dose 10 MG; Start 11/13/18 at 22:53 Gabapentin (Neurontin) 300 mg TID PO Last administered on 11/25/18 08:55; Admin Dose 300 MG; Start 11/13/18 at 22:53 Cholecalciferol (Vitamin D) 2,000 unit DAILY PO Last administered on 11/25/18 08:54; Admin Dose 2,000 UNIT; Start 11/13/18 at 22:53 Fluticasone/ Vilanterol (Breo Ellipta 200-25 Mcg Inh) 1 inh DAILY INH Last administered on 11/25/18 08:54; Admin Dose 1 INH; Start 11/13/18 at 22:53 Bisacodyl (Dulcolax Supp) 10 mg DAILY PRN [place] CONSTIPATION Last administered on 11/15/18 22:12; Admin Dose 10 MG; Start 11/13/18 at 22:53 Ascorbic Acid (Vitamin C) 1,000 mg DAILY PO Last administered on 11/25/18 08:55; Admin Dose 1,000 MG; Start 11/13/18 at 22:53 Ondansetron HCl (Zofran Inj) 4 mg Q4H PRN IV NAUSEA AND/OR VOMITING; Start 11/13/18 at 23:18 Multivitamins Therapeutic (Theragran) 1 tab DAILY PO Last administered on 11/25/18 08:55; Admin Dose 1 TAB; Start 11/13/18 at 23:18 Levothyroxine Sodium (Synthroid) 125 mcg BEFORE BREAKFAST PO Last administered on 11/25/18 06:37; Admin Dose 125 MCG; Start 11/13/18 at 23:18 Losartan Potassium (Cozaar) 25 mg DAILY PO Last administered on 11/24/18 09:12; Admin Dose 25 MG; Start 11/13/18 at 23:18 Magnesium Oxide (Mag-Ox 400) 400 mg DAILY PO Last administered on 11/25/18 08:54; Admin Dose 400 MG; Start 11/13/18 at 23:18 Montelukast Sodium (Singulair) 10 mg QHS PO Last administered on 11/24/18 20:33; Admin Dose 10 MG; Start 11/13/18 at 23:18 Pantoprazole (Protonix Tab) 40 mg DAILY@06 PO Last administered on 11/25/18 06:37; Admin Dose 40 MG; Start 11/13/18 at 23:18 Nystatin (Nystatin Powder) 1 applic BID TOP Last administered on 11/25/18 08:57; Admin Dose 1 APPLIC; Start 11/13/18 at 23:18 Miscellaneous Information (Pending [facility] Order For Wound Care) This patient carter... PRN PRN XX NOTE; Start 11/14/18 at 00:30 Acetaminophen (Tylenol Tab) 650 mg Q6H PRN PO MILD PAIN(1-3)OR ELEVATED TEMP Last administered on 11/25/18 08:55; Admin Dose 650 MG; Start 11/15/18 at 02:00 Acetaminophen/ Hydrocodone Bitart ([place] (5/325)) 1 tab Q4H PRN PO PAIN LEVEL 7-10 Last administered on 11/25/18 04:40; Admin Dose 1 TAB; Start 11/16/18 at 13:00 Morphine Sulfate (morphine) 9 mg Q2H PRN PO SEVERE PAIN LEVEL 7-10; Start 11/18/18 at 15:30 Baclofen (Lioresal) 10 mg TID PRN PO muscle spasm Last administered on 11/23/18 20:40; Admin Dose 10 MG; Start 11/21/18 at 13:00 Amlodipine Besylate (Norvasc) 2.5 mg DAILY PO Last administered on 11/24/18at 09:13; Admin Dose 2.5 MG; Start 11/22/18 at 09:00 Docusate Sodium (Colace) 200 mg DAILY PRN PO CONSTIPATION; Start 11/24/18 at 08:00 Phenol (Cepastat Lozenge) 1 lozenge Q1H PRN [place] SORE THROAT Last administered on 11/25/18at 08:54; Admin Dose 1 LOZENGE; Start 11/24/18 at 08:00 Polyethylene Glycol (Miralax) 17 gm DAILY PRN GTB CONSTIPATION; Start 11/24/18 at 09:30 Senna (Senokot) 1 tab DAILY PRN PO CONSTIPATION; Start 11/24/18 at 09:30 Assessment/Plan Additional Assessment/Plan Rehab- 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 Continue rehab interdisciplinary program, great gains Chronic atrial fibrillation. Gastroesophageal reflux disease. COPD. Acute and neuropathic pain- improved Hypothyroidism. NISHI MOLINA MD Nov 25, 2018 09:37
[2018-11-25 14:00] VITALS: BP 118/59; PULSE 95; RESP 16
--- NOTE | 2018-11-25 15:13 | CONS ---
Assessment/Plan Assessment/Plan Hospital Course (Demo Recall) 1. She is post op a R below the knee amputation and is doing well with physical therapy . 2. Her VS are stable . Consultation Date/Type/Reason Admit Date/Time Nov 13, 2018 at 21:15 Initial Consult Date Requesting Provider: NISHI MOLINA MD Date/Time of Note DATE: 11/25/18 TIME: 14:56 24 HR Interval Summary Free Text/Dictation She is post op a R BKA . She is sitting up in a wheelchair . Constitutional: no complaints, improved Exam/Review of Systems Exam Vitals Vital Signs Date Temp Pulse Resp B/P (MAP) Pulse Ox O2 O2 Flow FiO2 Time Delivery Rate 11/25/18 98.7 95 16 95/66 (76) 96 Room Air 07:00 Intake and Output 11/24/18 11/24/18 11/25/18 1515:00 23:00 07:00 IntakeIntake Total 390 ml 1030 ml 1000 ml OutputOutput Total 150 ml BalanceBalance 240 ml 1030 ml 1000 ml Exam S/P R BKA Constitutional: alert, oriented, well developed Respiratory: clear to auscultation, normal air movement Cardiovascular: regular rate and rhythm Gastrointestinal: soft, non-tender Results Result Diagram: 11/22/18 0921 Medications Medication Current Medications Diphenhydramine HCl (Benadryl) 25 mg Q4H PRN PO ITCHING Last administered on 11/20/18 00:13; Admin Dose 25 MG; Start 11/13/18 at 22:53 Rivaroxaban (Xarelto) 10 mg WITH DINNER PO Last administered on 11/24/18at 17:41; Admin Dose 10 MG; Start 11/13/18 at 22:53 Gabapentin (Neurontin) 300 mg TID PO Last administered on 11/25/18 13:11; Admin Dose 300 MG; Start 11/13/18 at 22:53 Cholecalciferol (Vitamin D) 2,000 unit DAILY PO Last administered on 11/25/18 08:54; Admin Dose 2,000 UNIT; Start 11/13/18 at 22:53 Fluticasone/ Vilanterol (Breo Ellipta 200-25 Mcg Inh) 1 inh DAILY INH Last administered on 11/25/18 08:54; Admin Dose 1 INH; Start 11/13/18 at 22:53 Bisacodyl (Dulcolax Supp) 10 mg DAILY PRN [place] CONSTIPATION Last administered on 11/15/18 22:12; Admin Dose 10 MG; Start 11/13/18 at 22:53 Ascorbic Acid (Vitamin C) 1,000 mg DAILY PO Last administered on 11/25/18 08:55; Admin Dose 1,000 MG; Start 11/13/18 at 22:53 Ondansetron HCl (Zofran Inj) 4 mg Q4H PRN IV NAUSEA AND/OR VOMITING; Start 11/13/18 at 23:18 Multivitamins Therapeutic (Theragran) 1 tab DAILY PO Last administered on 11/25/18 08:55; Admin Dose 1 TAB; Start 11/13/18 at 23:18 Levothyroxine Sodium (Synthroid) 125 mcg BEFORE BREAKFAST PO Last administered on 11/25/18 06:37; Admin Dose 125 MCG; Start 11/13/18 at 23:18 Losartan Potassium (Cozaar) 25 mg DAILY PO Last administered on 11/24/18 09:12; Admin Dose 25 MG; Start 11/13/18 at 23:18 Magnesium Oxide (Mag-Ox 400) 400 mg DAILY PO Last administered on 11/25/18 08:54; Admin Dose 400 MG; Start 11/13/18 at 23:18 Montelukast Sodium (Singulair) 10 mg QHS PO Last administered on 11/24/18 20:33; Admin Dose 10 MG; Start 11/13/18 at 23:18 Pantoprazole (Protonix Tab) 40 mg DAILY@06 PO Last administered on 11/25/18 06:37; Admin Dose 40 MG; Start 11/13/18 at 23:18 Nystatin (Nystatin Powder) 1 applic BID TOP Last administered on 11/25/18 08:57; Admin Dose 1 APPLIC; Start 11/13/18 at 23:18 Miscellaneous Information (Pending Santyl Order For Wound Care) This patient carter... PRN PRN XX NOTE; Start 11/14/18 at 00:30 Acetaminophen (Tylenol Tab) 650 mg Q6H PRN PO MILD PAIN(1-3)OR ELEVATED TEMP Last administered on 11/25/18 08:55; Admin Dose 650 MG; Start 11/15/18 at 02:00 Acetaminophen/ Hydrocodone Bitart ([place] (5/325)) 1 tab Q4H PRN PO PAIN LEVEL 7-10 Last administered on 11/25/18at 04:40; Admin Dose 1 TAB; Start 11/16/18 at 13:00 Morphine Sulfate (morphine) 9 mg Q2H PRN PO SEVERE PAIN LEVEL 7-10; Start 11/18/18 at 15:30 Baclofen (Lioresal) 10 mg TID PRN PO muscle spasm Last administered on 11/23/18at 20:40; Admin Dose 10 MG; Start 11/21/18 at 13:00 Amlodipine Besylate (Norvasc) 2.5 mg DAILY PO Last administered on 11/24/18at 09:13; Admin Dose 2.5 MG; Start 11/22/18 at 09:00 Docusate Sodium (Colace) 200 mg DAILY PRN PO CONSTIPATION; Start 11/24/18 at 08:00 Phenol (Cepastat Lozenge) 1 lozenge Q1H PRN [place] SORE THROAT Last administered on 11/25/18at 08:54; Admin Dose 1 LOZENGE; Start 11/24/18 at 08:00 Polyethylene Glycol (Miralax) 17 gm DAILY PRN GTB CONSTIPATION; Start 11/24/18 at 09:30 Senna (Senokot) 1 tab DAILY PRN PO CONSTIPATION; Start 11/24/18 at 09:30 OZIEL ELI MD Nov 25, 2018 15:10
[2018-11-25] MEDS: RIVAROXABAN 10 MG TABLET PO SCH (17:48)
[2018-11-25 20:11] VITALS: BP 110/66; PULSE 84; RESP 18
[2018-11-25] MEDS: MONTELUKAST 10 MG TAB PO SCH (20:34)
[2018-11-26 01:47] VITALS: BP 122/68; PULSE 92; RESP 18
[2018-11-26] MEDS: LEVOTHYROXINE 125 MCG TAB PO SCH (06:06)
[2018-11-26] MEDS: PANTOPRAZOLE (EC) 40 MG TAB PO SCH (06:06)
[2018-11-26 07:00] VITALS: BP 115/75; PULSE 65; RESP 18
[2018-11-26] MEDS: GABAPENTIN 300 MG CAP PO SCH ×3 (08:44→20:46)
[2018-11-26] MEDS: FLUTICASONE/VILANTEROL 200-25 INH DEVICE INH SCH (08:44)
[2018-11-26] MEDS: LOSARTAN 25 MG TAB PO SCH (08:45)
[2018-11-26] MEDS: CHOLECALCIFEROL 2,000 UNIT CAP PO SCH (08:45)
[2018-11-26] MEDS: ASCORBIC ACID 500 MG TAB PO SCH (08:45)
[2018-11-26] MEDS: MULTIVITAMINS THERAPEUTIC TAB PO SCH (08:45)
[2018-11-26] MEDS: MAGNESIUM OXIDE 400 MG TAB PO SCH (08:45)
[2018-11-26] MEDS: HYDROCODONE/APAP (5/325) TAB PO PRN (08:47)
[2018-11-26] MEDS: AMLODIPINE 2.5 MG TAB PO SCH (08:48)
[2018-11-26] MEDS: NYSTATIN 30 GM POWDER BTL TOP SCH ×2 (09:00→20:46)
--- NOTE | 2018-11-26 12:16 | CONS ---
Assessment/Plan Assessment/Plan Hospital Course (Demo Recall) 1. She is post op a R below the knee amputation and is doing well with physical therapy . 2. Her VS are stable 3. Afib in controlled rate . . Consultation Date/Type/Reason Admit Date/Time Nov 13, 2018 at 21:15 Initial Consult Date Requesting Provider: NISHI MOLINA MD Date/Time of Note DATE: 11/26/18 TIME: 12:13 24 HR Interval Summary Free Text/Dictation Karla has no complaints . She is sitting up eating lunch . She feels like she is getting stronger . Constitutional: no complaints, improved Exam/Review of Systems Exam Vitals Vital Signs Date Temp Pulse Resp B/P (MAP) Pulse Ox O2 O2 Flow FiO2 Time Delivery Rate 11/26/18 97.5 65 18 115/75 97 Room Air 07:00 (88) Intake and Output 11/25/18 11/25/18 11/26/18 1515:00 23:00 07:00 IntakeIntake Total 150 ml 1200 ml 970 ml BalanceBalance 150 ml 1200 ml 970 ml Exam she is S/P R leg BKA Constitutional: alert, oriented, well developed Respiratory: clear to auscultation, normal air movement Cardiovascular: irregular rhythm Gastrointestinal: soft, non-tender Results Result Diagram: 11/22/18 09 Medications Medication Current Medications Diphenhydramine HCl (Benadryl) 25 mg Q4H PRN PO ITCHING Last administered on 11/20/18 00:13; Admin Dose 25 MG; Start 11/13/18 at 22:53 Rivaroxaban (Xarelto) 10 mg WITH DINNER PO Last administered on 11/25/18 17:48; Admin Dose 10 MG; Start 11/13/18 at 22:53 Gabapentin (Neurontin) 300 mg TID PO Last administered on 11/26/18 08:44; Admin Dose 300 MG; Start 11/13/18 at 22:53 Cholecalciferol (Vitamin D) 2,000 unit DAILY PO Last administered on 11/26/18 08:45; Admin Dose 2,000 UNIT; Start 11/13/18 at 22:53 Fluticasone/ Vilanterol (Breo Ellipta 200-25 Mcg Inh) 1 inh DAILY INH Last administered on 11/26/18 08:44; Admin Dose 1 INH; Start 11/13/18 at 22:53 Bisacodyl (Dulcolax Supp) 10 mg DAILY PRN [place] CONSTIPATION Last administered on 11/15/18 22:12; Admin Dose 10 MG; Start 11/13/18 at 22:53 Ascorbic Acid (Vitamin C) 1,000 mg DAILY PO Last administered on 11/26/18 08:45; Admin Dose 1,000 MG; Start 11/13/18 at 22:53 Ondansetron HCl (Zofran Inj) 4 mg Q4H PRN IV NAUSEA AND/OR VOMITING; Start 11/13/18 at 23:18 Multivitamins Therapeutic (Theragran) 1 tab DAILY PO Last administered on 11/26/18 08:45; Admin Dose 1 TAB; Start 11/13/18 at 23:18 Levothyroxine Sodium (Synthroid) 125 mcg BEFORE BREAKFAST PO Last administered on 11/26/18 06:06; Admin Dose 125 MCG; Start 11/13/18 at 23:18 Losartan Potassium (Cozaar) 25 mg DAILY PO Last administered on 11/26/18 08:45; Admin Dose 25 MG; Start 11/13/18 at 23:18 Magnesium Oxide (Mag-Ox 400) 400 mg DAILY PO Last administered on 11/26/18 08:45; Admin Dose 400 MG; Start 11/13/18 at 23:18 Montelukast Sodium (Singulair) 10 mg QHS PO Last administered on 11/25/18 20:34; Admin Dose 10 MG; Start 11/13/18 at 23:18 Pantoprazole (Protonix Tab) 40 mg DAILY@06 PO Last administered on 11/26/18 06:06; Admin Dose 40 MG; Start 11/13/18 at 23:18 Nystatin (Nystatin Powder) 1 applic BID TOP Last administered on 11/25/18 20:33; Admin Dose 1 APPLIC; Start 11/13/18 at 23:18 Miscellaneous Information (Pending Santyl Order For Wound Care) This patient carter... PRN PRN XX NOTE; Start 11/14/18 at 00:30 Acetaminophen (Tylenol Tab) 650 mg Q6H PRN PO MILD PAIN(1-3)OR ELEVATED TEMP Last administered on 2/2/19at 08:55; Admin Dose 650 MG; Start 11/15/18 at 02:00 Acetaminophen/ Hydrocodone Bitart ([place] (5/325)) 1 tab Q4H PRN PO PAIN LEVEL 7-10 Last administered on 11/26/18at 08:47; Admin Dose 1 TAB; Start 11/16/18 at 13:00 Morphine Sulfate (morphine) 9 mg Q2H PRN PO SEVERE PAIN LEVEL 7-10; Start at 15:30 Baclofen (Lioresal) 10 mg TID PRN PO muscle spasm Last administered on 11/23/18at 20:40; Admin Dose 10 MG; Start 11/21/18 at 13:00 Amlodipine Besylate (Norvasc) 2.5 mg DAILY PO Last administered on 11/24/18at 09:13; Admin Dose 2.5 MG; Start 11/22/18 at 09:00 Docusate Sodium (Colace) 200 mg DAILY PRN PO CONSTIPATION; Start 11/24/18 at 08:00 Phenol (Cepastat Lozenge) 1 lozenge Q1H PRN [place] SORE THROAT Last administered on 11/25/18at 08:54; Admin Dose 1 LOZENGE; Start 11/24/18 at 08:00 Polyethylene Glycol (Miralax) 17 gm DAILY PRN GTB CONSTIPATION; Start 11/24/18 at 09:30 Senna (Senokot) 1 tab DAILY PRN PO CONSTIPATION; Start 11/24/18 at 09:30 OZIEL ELI MD Nov 26, 2018 12:16
[2018-11-26 14:00] VITALS: BP 109/67; PULSE 83; RESP 18
[2018-11-26] MEDS: RIVAROXABAN 10 MG TABLET PO SCH (17:51)
[2018-11-26 20:00] VITALS: BP 116/71; PULSE 82; RESP 18
[2018-11-26] MEDS: MONTELUKAST 10 MG TAB PO SCH (20:46)
[2018-11-26] MEDS: BACLOFEN 10 MG TAB PO PRN (22:06)
--- NOTE | 2018-11-26 22:23 | PN ---
Date/Time of Note Date/Time of Note DATE: 11/26/18 TIME: 22:23 Assessment/Plan Lines/Catheters IV Catheter Type (from Nrsg): Mid Line Donis in Place (from Nrsg): No Assessment/Plan Chief Complaint/Hosp Course -Right LE atherosclerosis, osteomyelitis, nonhealing chronic ulcer & Charcot: S/P Right BKA-with musculocutaneous flap -LLE atherosclerosis: no current ulcers . will continue with our vascular surveillance -Pain control -PT/OT OOB to chair and FWB of the LLE, RLE with ambushield and fall precautions -Patient is at risk for possible wound dehiscence/infection given her extended (4years) of recurrent infections of the lower leg. Recommend close observation and further rehab to avoid any falls and or wound complications -Incentive spirometer -Patient can shower, no need to cover the incision -DVT ppxin the postoperative period -Changed dressing with Betadine paint to staple line, gauze, kerlex and attila wrap followed by business area manager. To be changed daily -Keep RLE elevate on two pillows at rest Subjective 24 Hr Interval Summary Constitutional: no complaints Exam/Review of Systems Vital Signs Vitals Vital Signs Date Temp Pulse Resp B/P (MAP) Pulse Ox O2 O2 Flow FiO2 Time Delivery Rate 11/27/18 97.4 85 18 128/68 96 Room Air 07:00 (88) Intake and Output 11/26/18 11/26/18 11/27/18 1515:00 23:00 07:00 IntakeIntake Total 1200 ml 300 ml OutputOutput Total 800 ml 750 ml BalanceBalance 400 ml -450 ml Exam Free Text/Dictation A&Ox3 CTAB S1S2 soft NTND BS+, truncal obesity RLE: Palpable femoral pulse, motor/sensory, BKA-stump with dressing intact - removed, stephanie intact and clean, incisional tenderness LLE: Palpable femoral pulse, motor/sensory intact, cap refill 3 seconds SAE BETH MD Nov 26, 2018 22:23
[2018-11-27 02:22] VITALS: BP 123/68; PULSE 72; RESP 18
[2018-11-27] MEDS: LEVOTHYROXINE 125 MCG TAB PO SCH (06:46)
[2018-11-27] MEDS: PANTOPRAZOLE (EC) 40 MG TAB PO SCH (06:46)
[2018-11-27 07:00] VITALS: BP 128/68; PULSE 85; RESP 18
--- NOTE | 2018-11-27 08:36 | CONS ---
Assessment/Plan Assessment/Plan Assessment/Plan (Daily) 1. Doing well post op right leg amputation 2. Atrial fibrillation, asx 3. Anemia, will follow up labs tomm 4. Doing exceptionally well with PT and OT Consultation Date/Type/Reason Admit Date/Time Nov 13, 2018 at 21:15 Initial Consult Date Requesting Provider: NISHI MOLINA MD Date/Time of Note DATE: 11/27/18 TIME: 08:35 Detailed Summary Respiratory: No shortness of breath Cardiovascular: No chest pain Gastrointestinal: no complaints Genitourinary: no complaints Musculoskeletal: no complaints Exam/Review of Systems Exam Vitals Vital Signs Date Temp Pulse Resp B/P (MAP) Pulse Ox O2 O2 Flow FiO2 Time Delivery Rate 11/27/18 98.0 72 18 123/68 99 Room Air 02:22 (86) Intake and Output 11/26/18 11/26/18 11/27/18 1515:00 23:00 07:00 IntakeIntake Total 1200 ml 300 ml OutputOutput Total 800 ml 750 ml BalanceBalance 400 ml -450 ml Neck: No jvd Respiratory: clear to auscultation Cardiovascular: regular rate and rhythm, irregular rhythm Gastrointestinal: soft Extremities: No edema Medications Medication Current Medications Diphenhydramine HCl (Benadryl) 25 mg Q4H PRN PO ITCHING Last administered on 11/20/18 00:13; Admin Dose 25 MG; Start 11/13/18 at 22:53 Rivaroxaban (Xarelto) 10 mg WITH DINNER PO Last administered on 11/26/18 17:51; Admin Dose 10 MG; Start 11/13/18 at 22:53 Gabapentin (Neurontin) 300 mg TID PO Last administered on 11/26/18 20:46; Admin Dose 300 MG; Start 11/13/18 at 22:53 Cholecalciferol (Vitamin D) 2,000 unit DAILY PO Last administered on 11/26/18 08:45; Admin Dose 2,000 UNIT; Start 11/13/18 at 22:53 Fluticasone/ Vilanterol (Breo Ellipta 200-25 Mcg Inh) 1 inh DAILY INH Last administered on 11/26/18 08:44; Admin Dose 1 INH; Start 11/13/18 at 22:53 Bisacodyl (Dulcolax Supp) 10 mg DAILY PRN [place] CONSTIPATION Last administered on 11/15/18 22:12; Admin Dose 10 MG; Start 11/13/18 at 22:53 Ascorbic Acid (Vitamin C) 1,000 mg DAILY PO Last administered on 11/26/18 08:45; Admin Dose 1,000 MG; Start 11/13/18 at 22:53 Ondansetron HCl (Zofran Inj) 4 mg Q4H PRN IV NAUSEA AND/OR VOMITING; Start 11/13/18 at 23:18 Multivitamins Therapeutic (Theragran) 1 tab DAILY PO Last administered on 11/26/18 08:45; Admin Dose 1 TAB; Start 11/13/18 at 23:18 Levothyroxine Sodium (Synthroid) 125 mcg BEFORE BREAKFAST PO Last administered on 11/27/18 06:46; Admin Dose 125 MCG; Start 11/13/18 at 23:18 Losartan Potassium (Cozaar) 25 mg DAILY PO Last administered on 11/26/18 08:45; Admin Dose 25 MG; Start 11/13/18 at 23:18 Magnesium Oxide (Mag-Ox 400) 400 mg DAILY PO Last administered on 11/26/18 08:45; Admin Dose 400 MG; Start 11/13/18 at 23:18 Montelukast Sodium (Singulair) 10 mg QHS PO Last administered on 11/26/18 20:46; Admin Dose 10 MG; Start 11/13/18 at 23:18 Pantoprazole (Protonix Tab) 40 mg DAILY@06 PO Last administered on 11/27/18 06:46; Admin Dose 40 MG; Start 11/13/18 at 23:18 Nystatin (Nystatin Powder) 1 applic BID TOP Last administered on 11/25/18 20:33; Admin Dose 1 APPLIC; Start 11/13/18 at 23:18 Miscellaneous Information (Pending [facility] Order For Wound Care) This patient carter... PRN PRN XX NOTE; Start 11/14/18 at 00:30 Acetaminophen (Tylenol Tab) 650 mg Q6H PRN PO MILD PAIN(1-3)OR ELEVATED TEMP Last administered on 11/25/18 08:55; Admin Dose 650 MG; Start 11/15/18 at 02:00 Acetaminophen/ Hydrocodone Bitart ([place] (5/325)) 1 tab Q4H PRN PO PAIN LEVEL 7-10 Last administered on 11/26/18 08:47; Admin Dose 1 TAB; Start 11/16/18 at 13:00 Morphine Sulfate (morphine) 9 mg Q2H PRN PO SEVERE PAIN LEVEL 7-10; Start 11/18/18 at 15:30 Baclofen (Lioresal) 10 mg TID PRN PO muscle spasm Last administered on 11/26/18at 22:06; Admin Dose 10 MG; Start 11/21/18 at 13:00 Amlodipine Besylate (Norvasc) 2.5 mg DAILY PO Last administered on 11/24/18at 09:13; Admin Dose 2.5 MG; Start 11/22/18 at 09:00 Docusate Sodium (Colace) 200 mg DAILY PRN PO CONSTIPATION; Start 11/24/18 at 08:00 Phenol (Cepastat Lozenge) 1 lozenge Q1H PRN [place] SORE THROAT Last administered on 11/25/18at 08:54; Admin Dose 1 LOZENGE; Start 11/24/18 at 08:00 Polyethylene Glycol (Miralax) 17 gm DAILY PRN GTB CONSTIPATION; Start 11/24/18 at 09:30 Senna (Senokot) 1 tab DAILY PRN PO CONSTIPATION; Start 11/24/18 at 09:30 ELISE ASMPSON MD Nov 27, 2018 08:36
[2018-11-27] MEDS: CHOLECALCIFEROL 2,000 UNIT CAP PO SCH (08:40)
[2018-11-27] MEDS: CEPASTAT LOZENGE MT PRN (08:40)
[2018-11-27] MEDS: ASCORBIC ACID 500 MG TAB PO SCH (08:40)
[2018-11-27] MEDS: MAGNESIUM OXIDE 400 MG TAB PO SCH (08:40)
[2018-11-27] MEDS: FLUTICASONE/VILANTEROL 200-25 INH DEVICE INH SCH (08:40)
[2018-11-27] MEDS: ACETAMINOPHEN 325 MG TAB PO PRN (08:40)
[2018-11-27] MEDS: MULTIVITAMINS THERAPEUTIC TAB PO SCH (08:40)
[2018-11-27] MEDS: LOSARTAN 25 MG TAB PO SCH (08:41)
[2018-11-27] MEDS: AMLODIPINE 2.5 MG TAB PO SCH (08:41)
[2018-11-27] MEDS: GABAPENTIN 300 MG CAP PO SCH ×3 (08:41→20:21)
[2018-11-27] MEDS: NYSTATIN 30 GM POWDER BTL TOP SCH ×2 (08:45→20:21)
--- NOTE | 2018-11-27 10:17 | PN ---
Date/Time of Note Date/Time of Note DATE: 11/27/18 TIME: 10:17 Assessment/Plan Lines/Catheters IV Catheter Type (from [facility]): Mid Line Donis in Place (from [facility]): No Exam/Review of Systems Vital Signs Vitals Vital Signs Date Temp Pulse Resp B/P (MAP) Pulse Ox O2 O2 Flow FiO2 Time Delivery Rate 11/27/18 97.4 85 18 128/68 96 Room Air 07:00 (88) Intake and Output 11/26/18 11/26/18 11/27/18 1414:59 22:59 06:59 IntakeIntake Total 1200 ml 300 ml OutputOutput Total 800 ml 750 ml BalanceBalance 400 ml -450 ml NICOLE DLILARD MD Nov 27, 2018 10:17
--- NOTE | 2018-11-27 11:38 | PN ---
Date/Time of Note Date/Time of Note DATE: 11/27/18 TIME: 11:38 Assessment/Plan Lines/Catheters IV Catheter Type (from Nrsg): Mid Line Donis in Place (from Nrsg): No Assessment/Plan Chief Complaint/Hosp Course -Right LE atherosclerosis, osteomyelitis, nonhealing chronic ulcer & Charcot: S/P Right BKA-with musculocutaneous flap -LLE atherosclerosis: no current ulcers . will continue with our vascular surveillance -Pain control -PT/OT OOB to chair and FWB of the LLE, RLE with ambushield and fall precautions -Patient is at risk for possible wound dehiscence/infection given her extended (4years) of recurrent infections of the lower leg. Recommend close observation and further rehab to avoid any falls and or wound complications -Incentive spirometer -Patient can shower, no need to cover the incision -DVT ppxin the postoperative period -Changed dressing with Betadine paint to staple line, gauze, kerlex and attila wrap followed by pharmacy technician infusion. To be changed daily -Keep RLE elevate on two pillows at rest Subjective 24 Hr Interval Summary Constitutional: no complaints Exam/Review of Systems Vital Signs Vitals Vital Signs Date Temp Pulse Resp B/P (MAP) Pulse Ox O2 O2 Flow FiO2 Time Delivery Rate 11/27/18 97.4 85 18 128/68 96 Room Air 07:00 (88) Intake and Output 11/26/18 11/26/18 11/27/18 1515:00 23:00 07:00 IntakeIntake Total 1200 ml 300 ml OutputOutput Total 800 ml 750 ml BalanceBalance 400 ml -450 ml Exam Free Text/Dictation A&Ox3 CTAB S1S2 soft NTND BS+, truncal obesity RLE: Palpable femoral pulse, motor/sensory, BKA-stump with dressing intact - removed, stephanie intact and clean, incisional tenderness LLE: Palpable femoral pulse, motor/sensory intact, cap refill 3 seconds SAE BETH MD Nov 27, 2018 11:38
--- NOTE | 2018-11-27 13:21 | PN ---
Date/Time of Note Date/Time of Note DATE: 11/27/18 TIME: 13:20 Objective Vital Signs Date Temp Pulse Resp B/P (MAP) Pulse Ox O2 O2 Flow FiO2 Time Delivery Rate 11/27/18 97.4 85 18 128/68 96 Room Air 07:00 (88) Intake and Output 11/26/18 11/26/18 11/27/18 1515:00 23:00 07:00 IntakeIntake Total 1200 ml 300 ml OutputOutput Total 800 ml 750 ml BalanceBalance 400 ml -450 ml Exam INTERDISCIPLINARY TEAM CONFERENCE Physical Exam: Pulm-cta Abd- soft BOWEL- Cont BLADDER-Cont SKIN- improving OT- DRESSING-sba/min BATHING-sba/min TOILETING-sba/min PT- BED MOBILITY-sba TRANSFERS-sba WHHELCHAIR- Supervised SPEECH- COGNITION- at baseline A/P- Interdisciplinary team conference held today. Please see interdisciplinary sheet. Working toward d.c. on 12/02 with post discharge follow up of physical therapy, occupational therapy. Results/Medications Medications Current Medications Diphenhydramine HCl (Benadryl) 25 mg Q4H PRN PO ITCHING Last administered on 11/20/18 00:13; Admin Dose 25 MG; Start 11/13/18 at 22:53 Rivaroxaban (Xarelto) 10 mg WITH DINNER PO Last administered on 11/26/18 17:51; Admin Dose 10 MG; Start 11/13/18 at 22:53 Gabapentin (Neurontin) 300 mg TID PO Last administered on 11/27/18 12:19; Admin Dose 300 MG; Start 11/13/18 at 22:53 Cholecalciferol (Vitamin D) 2,000 unit DAILY PO Last administered on 11/27/18 08:40; Admin Dose 2,000 UNIT; Start 11/13/18 at 22:53 Fluticasone/ Vilanterol (Breo Ellipta 200-25 Mcg Inh) 1 inh DAILY INH Last administered on 11/27/18 08:40; Admin Dose 1 INH; Start 11/13/18 at 22:53 Bisacodyl (Dulcolax Supp) 10 mg DAILY PRN [place] CONSTIPATION Last administered on 11/15/18 22:12; Admin Dose 10 MG; Start 11/13/18 at 22:53 Ascorbic Acid (Vitamin C) 1,000 mg DAILY PO Last administered on 11/27/18 08:40; Admin Dose 1,000 MG; Start 11/13/18 at 22:53 Ondansetron HCl (Zofran Inj) 4 mg Q4H PRN IV NAUSEA AND/OR VOMITING; Start 11/13/18 at 23:18 Multivitamins Therapeutic (Theragran) 1 tab DAILY PO Last administered on 11/27/18 08:40; Admin Dose 1 TAB; Start 11/13/18 at 23:18 Levothyroxine Sodium (Synthroid) 125 mcg BEFORE BREAKFAST PO Last administered on 11/27/18 06:46; Admin Dose 125 MCG; Start 11/13/18 at 23:18 Losartan Potassium (Cozaar) 25 mg DAILY PO Last administered on 11/27/18 08:41; Admin Dose 25 MG; Start 11/13/18 at 23:18 Magnesium Oxide (Mag-Ox 400) 400 mg DAILY PO Last administered on 11/27/18 08:40; Admin Dose 400 MG; Start 11/13/18 at 23:18 Montelukast Sodium (Singulair) 10 mg QHS PO Last administered on 11/26/18 20:46; Admin Dose 10 MG; Start 11/13/18 at 23:18 Pantoprazole (Protonix Tab) 40 mg DAILY@06 PO Last administered on 11/27/18 06:46; Admin Dose 40 MG; Start 11/13/18 at 23:18 Nystatin (Nystatin Powder) 1 applic BID TOP Last administered on 11/27/18 08:45; Admin Dose 1 APPLIC; Start 11/13/18 at 23:18 Miscellaneous Information (Pending [facility] Order For Wound Care) This patient carter... PRN PRN XX NOTE; Start 11/14/18 at 00:30 Acetaminophen (Tylenol Tab) 650 mg Q6H PRN PO MILD PAIN(1-3)OR ELEVATED TEMP Last administered on 11/27/18 08:40; Admin Dose 650 MG; Start 11/15/18 at 02:00 Acetaminophen/ Hydrocodone Bitart ([place] (5/325)) 1 tab Q4H PRN PO PAIN LEVEL 7-10 Last administered on 11/26/18 08:47; Admin Dose 1 TAB; Start 11/16/18 at 13:00 Morphine Sulfate (morphine) 9 mg Q2H PRN PO SEVERE PAIN LEVEL 7-10; Start 11/18/18 at 15:30 Baclofen (Lioresal) 10 mg TID PRN PO muscle spasm Last administered on 11/26/18at 22:06; Admin Dose 10 MG; Start 11/21/18 at 13:00 Amlodipine Besylate (Norvasc) 2.5 mg DAILY PO Last administered on 11/27/18at 08:41; Admin Dose 2.5 MG; Start 11/22/18 at 09:00 Docusate Sodium (Colace) 200 mg DAILY PRN PO CONSTIPATION; Start 11/24/18 at 08:00 Phenol (Cepastat Lozenge) 1 lozenge Q1H PRN [place] SORE THROAT Last administered on 11/27/18at 08:40; Admin Dose 1 LOZENGE; Start 11/24/18 at 08:00 Polyethylene Glycol (Miralax) 17 gm DAILY PRN GTB CONSTIPATION; Start 11/24/18 at 09:30 Senna (Senokot) 1 tab DAILY PRN PO CONSTIPATION; Start 11/24/18 at 09:30 NISHI MOLINA MD Nov 27, 2018 13:21
[2018-11-27 14:00] VITALS: BP 130/76; PULSE 81; RESP 18
[2018-11-27] MEDS: RIVAROXABAN 10 MG TABLET PO SCH (17:49)
[2018-11-27 20:00] VITALS: BP 127/68; PULSE 75; RESP 18
[2018-11-27] MEDS: MONTELUKAST 10 MG TAB PO SCH (20:21)
[2018-11-28 02:00] VITALS: BP 118/76; PULSE 79; RESP 18
[2018-11-28] MEDS: LEVOTHYROXINE 125 MCG TAB PO SCH (06:41)
[2018-11-28] MEDS: PANTOPRAZOLE (EC) 40 MG TAB PO SCH (06:41)
[2018-11-28 07:30] VITALS: BP 116/62; PULSE 91; RESP 18
--- NOTE | 2018-11-28 08:29 | CONS ---
Assessment/Plan Assessment/Plan Assessment/Plan (Daily) 1. Doing well post op leg amputation with pt and ot 2. BP is controlled 3. Elev potassium (on arb), will repeat today Consultation Date/Type/Reason Admit Date/Time Nov 13, 2018 at 21:15 Initial Consult Date Requesting Provider: NISHI MOLINA MD Date/Time of Note DATE: 11/28/18 TIME: 08:27 Detailed Summary Respiratory: No cough, No shortness of breath Cardiovascular: chest pain Gastrointestinal: no complaints Genitourinary: no complaints Musculoskeletal: no complaints Exam/Review of Systems Exam Vitals Vital Signs Date Temp Pulse Resp B/P (MAP) Pulse Ox O2 O2 Flow FiO2 Time Delivery Rate 11/28/18 98.0 79 18 118/76 96 Room Air 02:00 (90) Intake and Output 11/27/18 11/27/18 11/28/18 1515:00 23:00 07:00 IntakeIntake Total 150 ml 1200 ml OutputOutput Total 800 ml BalanceBalance 150 ml 400 ml Neck: No jvd Respiratory: clear to auscultation Cardiovascular: regular rate and rhythm Gastrointestinal: soft Extremities: No edema Results Result Diagram: 11/28/18 0608 11/28/18 0608 Results 24hrs Laboratory Tests Test 11/28/18 06:08 White Blood Count 6.7 Red Blood Count 4.27 Hemoglobin 12.0 Hematocrit 38.5 Mean Corpuscular Volume 90.2 Mean Corpuscular Hemoglobin 28.1 L Mean Corpuscular Hemoglobin Concent 31.2 L Red Cell Distribution Width 15.5 H Platelet Count 231 # Mean Platelet Volume 11.1 H Immature Granulocytes % 0.300 Neutrophils % 61.9 Lymphocytes % 24.5 Monocytes % 7.6 Eosinophils % 4.5 Basophils % 1.2 Nucleated Red Blood Cells % 0.0 Immature Granulocytes # 0.020 Neutrophils # 4.2 Lymphocytes # 1.6 Monocytes # 0.5 Eosinophils # 0.3 Basophils # 0.1 Nucleated Red Blood Cells # 0.0 Sodium Level 142 Potassium Level 5.3 H Chloride Level 111 H Carbon Dioxide Level 26 Anion Gap 5 Blood Urea Nitrogen 21 H Creatinine 0.59 Est Glomerular Filtrat Rate mL/min Glucose Level 95 Calcium Level 9.6 Phosphorus Level 5.0 H Magnesium Level 2.0 Medications Medication Current Medications Diphenhydramine HCl (Benadryl) 25 mg Q4H PRN PO ITCHING Last administered on 11/20/18 00:13; Admin Dose 25 MG; Start 11/13/18 at 22:53 Rivaroxaban (Xarelto) 10 mg WITH DINNER PO Last administered on 11/27/18 17:49; Admin Dose 10 MG; Start 11/13/18 at 22:53 Gabapentin (Neurontin) 300 mg TID PO Last administered on 11/27/18 20:21; Admin Dose 300 MG; Start 11/13/18 at 22:53 Cholecalciferol (Vitamin D) 2,000 unit DAILY PO Last administered on 11/27/18 08:40; Admin Dose 2,000 UNIT; Start 11/13/18 at 22:53 Fluticasone/ Vilanterol (Breo Ellipta 200-25 Mcg Inh) 1 inh DAILY INH Last administered on 11/27/18 08:40; Admin Dose 1 INH; Start 11/13/18 at 22:53 Bisacodyl (Dulcolax Supp) 10 mg DAILY PRN [place] CONSTIPATION Last administered on 11/15/18 22:12; Admin Dose 10 MG; Start 11/13/18 at 22:53 Ascorbic Acid (Vitamin C) 1,000 mg DAILY PO Last administered on 11/27/18 08:40; Admin Dose 1,000 MG; Start 11/13/18 at 22:53 Ondansetron HCl (Zofran Inj) 4 mg Q4H PRN IV NAUSEA AND/OR VOMITING; Start 11/13/18 at 23:18 Multivitamins Therapeutic (Theragran) 1 tab DAILY PO Last administered on 11/27/18 08:40; Admin Dose 1 TAB; Start 11/13/18 at 23:18 Levothyroxine Sodium (Synthroid) 125 mcg BEFORE BREAKFAST PO Last administered on 11/28/18 06:41; Admin Dose 125 MCG; Start 11/13/18 at 23:18 Losartan Potassium (Cozaar) 25 mg DAILY PO Last administered on 11/27/18 08:41; Admin Dose 25 MG; Start 11/13/18 at 23:18 Magnesium Oxide (Mag-Ox 400) 400 mg DAILY PO Last administered on 11/27/18 08:40; Admin Dose 400 MG; Start 11/13/18 at 23:18 Montelukast Sodium (Singulair) 10 mg QHS PO Last administered on 11/27/18 20: 21; Admin Dose 10 MG; Start 11/13/18 at 23:18 Pantoprazole (Protonix Tab) 40 mg DAILY@06 PO Last administered on 11/28/18 06:41; Admin Dose 40 MG; Start 11/13/18 at 23:18 Nystatin (Nystatin Powder) 1 applic BID TOP Last administered on 11/27/18 20:21; Admin Dose 1 APPLIC; Start 11/13/18 at 23:18 Miscellaneous Information (Pending [facility] Order For Wound Care) This patient carter... PRN PRN XX NOTE; Start 11/14/18 at 00:30 Acetaminophen (Tylenol Tab) 650 mg Q6H PRN PO MILD PAIN(1-3)OR ELEVATED TEMP Last administered on 11/27/18 08:40; Admin Dose 650 MG; Start 11/15/18 at 02:00 Acetaminophen/ Hydrocodone Bitart ([place] (5/325)) 1 tab Q4H PRN PO PAIN LEVEL 7-10 Last administered on 11/26/18 08:47; Admin Dose 1 TAB; Start 11/16/18 at 13:00 Morphine Sulfate (morphine) 9 mg Q2H PRN PO SEVERE PAIN LEVEL 7-10; Start 11/18/18 at 15:30 Baclofen (Lioresal) 10 mg TID PRN PO muscle spasm Last administered on 11/26/18 22:06; Admin Dose 10 MG; Start 11/21/18 at 13:00 Amlodipine Besylate (Norvasc) 2.5 mg DAILY PO Last administered on 11/27/18 08:41; Admin Dose 2.5 MG; Start 11/22/18 at 09:00 Docusate Sodium (Colace) 200 mg DAILY PRN PO CONSTIPATION; Start 11/24/18 at 08:00 Phenol (Cepastat Lozenge) 1 lozenge Q1H PRN [place] SORE THROAT Last administered on 11/27/18 08:40; Admin Dose 1 LOZENGE; Start 11/24/18 at 08:00 Polyethylene Glycol (Miralax) 17 gm DAILY PRN GTB CONSTIPATION; Start 11/24/18 a t 09:30 Senna (Senokot) 1 tab DAILY PRN PO CONSTIPATION; Start 11/24/18 at 09:30 ELISE SAMPSON MD Nov 28, 2018 08:29
[2018-11-28] MEDS: ASCORBIC ACID 500 MG TAB PO SCH (09:38)
[2018-11-28] MEDS: MAGNESIUM OXIDE 400 MG TAB PO SCH (09:38)
[2018-11-28] MEDS: GABAPENTIN 300 MG CAP PO SCH ×3 (09:38→20:20)
[2018-11-28] MEDS: CEPASTAT LOZENGE MT PRN (09:38)
[2018-11-28] MEDS: AMLODIPINE 2.5 MG TAB PO SCH ×2 (09:39→20:21)
[2018-11-28] MEDS: CHOLECALCIFEROL 2,000 UNIT CAP PO SCH (09:39)
[2018-11-28] MEDS: MULTIVITAMINS THERAPEUTIC TAB PO SCH (09:39)
[2018-11-28] MEDS: LOSARTAN 25 MG TAB PO SCH (09:39)
[2018-11-28] MEDS: FLUTICASONE/VILANTEROL 200-25 INH DEVICE INH SCH (09:39)
[2018-11-28] MEDS: NYSTATIN 30 GM POWDER BTL TOP SCH ×2 (09:41→20:22)
--- NOTE | 2018-11-28 12:44 | PN ---
Date/Time of Note Date/Time of Note DATE: 11/28/18 TIME: 12:40 Objective Vital Signs Date Temp Pulse Resp B/P (MAP) Pulse Ox O2 O2 Flow FiO2 Time Delivery Rate 11/28/18 97.5 91 18 116/62 98 Room Air 07:30 (80) Intake and Output 11/27/18 11/27/18 11/28/18 1515:00 23:00 07:00 IntakeIntake Total 150 ml 1200 ml OutputOutput Total 800 ml BalanceBalance 150 ml 400 ml Exam pulm-cta abd-soft sba transfer Results/Medications Result Diagram: 11/28/18 0608 11/28/18 1105 Results 24 hrs Laboratory Tests Test 11/28/18 06:08 11/28/18 11:05 White Blood Count 6.7 Red Blood Count 4.27 Hemoglobin 12.0 Hematocrit 38.5 Mean Corpuscular Volume 90.2 Mean Corpuscular Hemoglobin 28.1 L Mean Corpuscular Hemoglobin Concent 31.2 L Red Cell Distribution Width 15.5 H Platelet Count 231 # Mean Platelet Volume 11.1 H Immature Granulocytes % 0.300 Neutrophils % 61.9 Lymphocytes % 24.5 Monocytes % 7.6 Eosinophils % 4.5 Basophils % 1.2 Nucleated Red Blood Cells % 0.0 Immature Granulocytes # 0.020 Neutrophils # 4.2 Lymphocytes # 1.6 Monocytes # 0.5 Eosinophils # 0.3 Basophils # 0.1 Nucleated Red Blood Cells # 0.0 Sodium Level 142 Potassium Level 5.3 H 5.4 H Chloride Level 111 H Carbon Dioxide Level 26 Anion Gap 5 Blood Urea Nitrogen 21 H Creatinine 0.59 Est Glomerular Filtrat Rate mL/min Glucose Level 95 Calcium Level 9.6 Phosphorus Level 5.0 H Magnesium Level 2.0 Medications Current Medications Diphenhydramine HCl (Benadryl) 25 mg Q4H PRN PO ITCHING Last administered on 11/20/18at 00:13; Admin Dose 25 MG; Start 11/13/18 at 22:53 Rivaroxaban (Xarelto) 10 mg WITH DINNER PO Last administered on 11/27/18at 17:49; Admin Dose 10 MG; Start 11/13/18 at 22:53 Gabapentin (Neurontin) 300 mg TID PO Last administered on 11/28/18at 09:38; Admin Dose 300 MG; Start 11/13/18 at 22:53 Cholecalciferol (Vitamin D) 2,000 unit DAILY PO Last administered on 11/28/18 09:39; Admin Dose 2,000 UNIT; Start 11/13/18 at 22:53 Fluticasone/ Vilanterol (Breo Ellipta 200-25 Mcg Inh) 1 inh DAILY INH Last administered on 11/28/18 09:39; Admin Dose 1 INH; Start 11/13/18 at 22:53 Bisacodyl (Dulcolax Supp) 10 mg DAILY PRN [place] CONSTIPATION Last administered on 11/15/18 22:12; Admin Dose 10 MG; Start 11/13/18 at 22:53 Ascorbic Acid (Vitamin C) 1,000 mg DAILY PO Last administered on 11/28/18 09:38; Admin Dose 1,000 MG; Start 11/13/18 at 22:53 Ondansetron HCl (Zofran Inj) 4 mg Q4H PRN IV NAUSEA AND/OR VOMITING; Start 11/13/18 at 23:18 Multivitamins Therapeutic (Theragran) 1 tab DAILY PO Last administered on 11/28/18 09:39; Admin Dose 1 TAB; Start 11/13/18 at 23:18 Levothyroxine Sodium (Synthroid) 125 mcg BEFORE BREAKFAST PO Last administered on 11/28/18 06:41; Admin Dose 125 MCG; Start 11/13/18 at 23:18 Losartan Potassium (Cozaar) 25 mg DAILY PO Last administered on 11/28/18 09:39; Admin Dose 25 MG; Start 11/13/18 at 23:18 Magnesium Oxide (Mag-Ox 400) 400 mg DAILY PO Last administered on 11/28/18 09:38; Admin Dose 400 MG; Start 11/13/18 at 23:18 Montelukast Sodium (Singulair) 10 mg QHS PO Last administered on 11/27/18 20:21; Admin Dose 10 MG; Start 11/13/18 at 23:18 Pantoprazole (Protonix Tab) 40 mg DAILY@06 PO Last administered on 11/28/18 06:41; Admin Dose 40 MG; Start 11/13/18 at 23:18 Nystatin (Nystatin Powder) 1 applic BID TOP Last administered on 11/28/18 09:41; Admin Dose 1 APPLIC; Start 11/13/18 at 23:18 Miscellaneous Information (Pending [facility] Order For Wound Care) This patient carter... PRN PRN XX NOTE; Start 11/14/18 at 00:30 Acetaminophen (Tylenol Tab) 650 mg Q6H PRN PO MILD PAIN(1-3)OR ELEVATED TEMP Last administered on 11/27/18 08:40; Admin Dose 650 MG; Start 11/15/18 at 02:00 Acetaminophen/ Hydrocodone Bitart ([place] (5/325)) 1 tab Q4H PRN PO PAIN LEVEL 7-10 Last administered on 11/26/18 08:47; Admin Dose 1 TAB; Start 11/16/18 at 13:00 Morphine Sulfate (morphine) 9 mg Q2H PRN PO SEVERE PAIN LEVEL 7-10; Start 11/18/18 at 15:30 Baclofen (Lioresal) 10 mg TID PRN PO muscle spasm Last administered on 11/26/18at 22:06; Admin Dose 10 MG; Start 11/21/18 at 13:00 Amlodipine Besylate (Norvasc) 2.5 mg DAILY PO Last administered on 11/28/18at 09:39; Admin Dose 2.5 MG; Start 11/22/18 at 09:00 Docusate Sodium (Colace) 200 mg DAILY PRN PO CONSTIPATION; Start 11/24/18 at 08:00 Phenol (Cepastat Lozenge) 1 lozenge Q1H PRN [place] SORE THROAT Last administered on 11/28/18at 09:38; Admin Dose 1 LOZENGE; Start 11/24/18 at 08:00 Polyethylene Glycol (Miralax) 17 gm DAILY PRN GTB CONSTIPATION; Start 11/24/18 at 09:30 Senna (Senokot) 1 tab DAILY PRN PO CONSTIPATION; Start 11/24/18 at 09:30 Assessment/Plan Additional Assessment/Plan Rehab- 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 Steady progress. Continue treatmnet plan Chronic atrial fibrillation. Gastroesophageal reflux disease. COPD. Acute and neuropathic pain- improved Hypothyroidism. NISHI MOLINA MD Nov 28, 2018 12:44
[2018-11-28 14:00] VITALS: BP 125/77; PULSE 88; RESP 20
[2018-11-28] MEDS: RIVAROXABAN 10 MG TABLET PO SCH (18:13)
[2018-11-28 20:13] VITALS: BP 108/68; PULSE 91; RESP 18
[2018-11-28] MEDS: MONTELUKAST 10 MG TAB PO SCH (20:20)
[2018-11-29] MEDS: BACLOFEN 10 MG TAB PO PRN (01:13)
[2018-11-29 01:49] VITALS: BP 131/61; PULSE 78; RESP 18
[2018-11-29 02:00] VITALS: BP 131/61; PULSE 78; RESP 18
[2018-11-29] MEDS: LEVOTHYROXINE 125 MCG TAB PO SCH (06:17)
[2018-11-29] MEDS: PANTOPRAZOLE (EC) 40 MG TAB PO SCH (06:17)
[2018-11-29 07:30] VITALS: BP 125/81; PULSE 78; RESP 18
[2018-11-29] MEDS: FLUTICASONE/VILANTEROL 200-25 INH DEVICE INH SCH (09:07)
[2018-11-29] MEDS: CEPASTAT LOZENGE MT PRN (09:08)
[2018-11-29] MEDS: MULTIVITAMINS THERAPEUTIC TAB PO SCH (09:08)
[2018-11-29] MEDS: ASCORBIC ACID 500 MG TAB PO SCH (09:09)
[2018-11-29] MEDS: GABAPENTIN 300 MG CAP PO SCH ×3 (09:09→21:42)
[2018-11-29] MEDS: AMLODIPINE 2.5 MG TAB PO SCH ×2 (09:09→21:51)
[2018-11-29] MEDS: NYSTATIN 30 GM POWDER BTL TOP SCH ×2 (09:10→21:00)
[2018-11-29] MEDS: CHOLECALCIFEROL 2,000 UNIT CAP PO SCH (09:10)
[2018-11-29] MEDS: MAGNESIUM OXIDE 400 MG TAB PO SCH (09:10)
--- NOTE | 2018-11-29 13:27 | PN ---
Date/Time of Note Date/Time of Note DATE: 11/29/18 TIME: 13:26 Subjective Comfortable, no new complaints Objective Vital Signs Date Temp Pulse Resp B/P (MAP) Pulse Ox O2 O2 Flow FiO2 Time Delivery Rate 11/29/18 97.5 78 18 125/81 98 Room Air 07:30 (96) Intake and Output 11/28/18 11/28/18 11/29/18 1515:00 23:00 07:00 IntakeIntake Total 150 ml 980 ml 660 ml OutputOutput Total 200 ml BalanceBalance 150 ml 980 ml 460 ml Exam pulm-cta abd-soft sba transfer Results/Medications Result Diagram: 11/28/18 0608 11/29/18 0624 Results 24 hrs Laboratory Tests Test 11/29/18 06:24 Sodium Level 141 Potassium Level 4.4 Chloride Level 107 Carbon Dioxide Level 25 Anion Gap 9 Blood Urea Nitrogen 25 H Creatinine 0.57 Est Glomerular Filtrat Rate mL/min Glucose Level 105 Calcium Level 9.8 Medications Current Medications Diphenhydramine HCl (Benadryl) 25 mg Q4H PRN PO ITCHING Last administered on 11/20/18 00:13; Admin Dose 25 MG; Start 11/13/18 at 22:53 Rivaroxaban (Xarelto) 10 mg WITH DINNER PO Last administered on 11/28/18 18:13; Admin Dose 10 MG; Start 11/13/18 at 22:53 Gabapentin (Neurontin) 300 mg TID PO Last administered on 11/29/18 12:09; Admin Dose 300 MG; Start 11/13/18 at 22:53 Cholecalciferol (Vitamin D) 2,000 unit DAILY PO Last administered on 11/29/18 09:10; Admin Dose 2,000 UNIT; Start 11/13/18 at 22:53 Fluticasone/ Vilanterol (Breo Ellipta 200-25 Mcg Inh) 1 inh DAILY INH Last administered on 11/29/18 09:07; Admin Dose 1 INH; Start 11/13/18 at 22:53 Bisacodyl (Dulcolax Supp) 10 mg DAILY PRN [place] CONSTIPATION Last administered on 11/15/18 22:12; Admin Dose 10 MG; Start 11/13/18 at 22:53 Ascorbic Acid (Vitamin C) 1,000 mg DAILY PO Last administered on 11/29/18 09:09; Admin Dose 1,000 MG; Start 11/13/18 at 22:53 Ondansetron HCl (Zofran Inj) 4 mg Q4H PRN IV NAUSEA AND/OR VOMITING; Start 11/13/18 at 23:18 Multivitamins Therapeutic (Theragran) 1 tab DAILY PO Last administered on 11/29 09:08; Admin Dose 1 TAB; Start 11/13/18 at 23:18 Levothyroxine Sodium (Synthroid) 125 mcg BEFORE BREAKFAST PO Last administered on 11/29/18 06:17; Admin Dose 125 MCG; Start 11/13/18 at 23:18 Magnesium Oxide (Mag-Ox 400) 400 mg DAILY PO Last administered on 11/29/18 09:10; Admin Dose 400 MG; Start 11/13/18 at 23:18 Montelukast Sodium (Singulair) 10 mg QHS PO Last administered on 11/28/18 20:20; Admin Dose 10 MG; Start 11/13/18 at 23:18 Pantoprazole (Protonix Tab) 40 mg DAILY@06 PO Last administered on 11/29/18 06:17; Admin Dose 40 MG; Start 11/13/18 at 23:18 Nystatin (Nystatin Powder) 1 applic BID TOP Last administered on 11/29/18 09:10; Admin Dose 1 APPLIC; Start 11/13/18 at 23:18 Miscellaneous Information (Pending [facility] Order For Wound Care) This patient carter... PRN PRN XX NOTE; Start 11/14/18 at 00:30 Acetaminophen (Tylenol Tab) 650 mg Q6H PRN PO MILD PAIN(1-3)OR ELEVATED TEMP Last administered on 11/27/18 08:40; Admin Dose 650 MG; Start 11/15/18 at 02:00 Acetaminophen/ Hydrocodone Bitart ([place] (5/325)) 1 tab Q4H PRN PO PAIN LEVEL 7-10 Last administered on 11/26/18 08:47; Admin Dose 1 TAB; Start 11/16/18 at 13:00 Morphine Sulfate (morphine) 9 mg Q2H PRN PO SEVERE PAIN LEVEL 7-10; Start 11/18/18 at 15:30 Baclofen (Lioresal) 10 mg TID PRN PO muscle spasm Last administered on 11/29/18at 01:13; Admin Dose 10 MG; Start 11/21/18 at 13:00 Docusate Sodium (Colace) 200 mg DAILY PRN PO CONSTIPATION; Start 11/24/18 at 08:00 Phenol (Cepastat Lozenge) 1 lozenge Q1H PRN [place] SORE THROAT Last administered on 11/29/18at 09:08; Admin Dose 1 LOZENGE; Start 11/24/18 at 08:00 Polyethylene Glycol (Miralax) 17 gm DAILY PRN GTB CONSTIPATION; Start 11/24/18 at 09:30 Senna (Senokot) 1 tab DAILY PRN PO CONSTIPATION; Start 11/24/18 at 09:30 Amlodipine Besylate (Norvasc) 2.5 mg BID PO Last administered on 11/29/18at 09:09; Admin Dose 2.5 MG; Start 11/28/18 at 21:00 Assessment/Plan Additional Assessment/Plan Rehab- 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 Patient remains motivated with the treatment plan. Continue rehab program Chronic atrial fibrillation. Gastroesophageal reflux disease. COPD. Acute and neuropathic pain- improved Hypothyroidism. NISHI MOLINA MD Nov 29, 2018 13:27
[2018-11-29 14:00] VITALS: BP 120/59; PULSE 80; RESP 18
[2018-11-29] MEDS: RIVAROXABAN 10 MG TABLET PO SCH (17:39)
--- NOTE | 2018-11-29 19:16 | PN ---
DATE: 11/29/2018 PSYCHOLOGY - INDIVIDUAL SESSION - [id number] This is a followup on a patient who was seen last week. The patient is preparing for discharge this Tuesday. The patient has made progress while she has been in the hospital. The patient is feeling better. The patient tries to put on a very good front. During my session with her, she described th at she was feeling very positive. Some of the staff reported to me that she had been crying in the a fternoon and did seem to have some confusion in the afternoon at times. With me, the patient was luanne y clear and felt that she was coping better with her amputation and feeling positive about the fact t hat she has made a lot of progress while she has been in the program. The patient was encouraged to continue to follow up and deal with her emotional issues surrounding her amputation after discharge. Dictated By: LIA STARR PHD RK/MAGDI Conf#: [id number] DID#: [id number] CC: ELISE SAMPSON MD; NISHI MOLINA MD;*End*
--- NOTE | 2018-11-29 19:25 | CONS ---
Assessment/Plan Assessment/Plan Hospital Course (Demo Recall) 1. She is post op a R below the knee amputation and is doing well with physical therapy . Recommend that she continue current medication and treatment regimen. 2. Her VS are stable 3. Afib in controlled rate . . Consultation Date/Type/Reason Admit Date/Time Nov 13, 2018 at 21:15 Initial Consult Date Type of Consult Medicine Requesting Provider: NISHI MOLINA MD Date/Time of Note DATE: 11/29/18 TIME: 19:23 24 HR Interval Summary Free Text/Dictation Karla is being seen in medical follow-up. She is sleeping. She rouses easily to verbal stimuli and says that she is feeling okay. She has no new problems. Constitutional: no complaints, improved Exam/Review of Systems Exam Vitals Vital Signs Date Temp Pulse Resp B/P (MAP) Pulse Ox O2 O2 Flow FiO2 Time Delivery Rate 11/29/18 97.3 80 18 120/59 97 Room Air 14:00 (79) Intake and Output 11/28/18 11/28/18 11/29/18 1515:00 23:00 07:00 IntakeIntake Total 150 ml 980 ml 660 ml OutputOutput Total 200 ml BalanceBalance 150 ml 980 ml 460 ml Exam She is status post a right below the knee amputation. Constitutional: alert, oriented, well developed Respiratory: clear to auscultation, normal air movement Cardiovascular: irregular rhythm Gastrointestinal: soft, non-tender Results Result Diagram: 11/28/18 0608 11/29/18 0624 Results 24hrs Laboratory Tests Test 11/29/18 06:24 Sodium Level 141 Potassium Level 4.4 Chloride Level 107 Carbon Dioxide Level 25 Anion Gap 9 Blood Urea Nitrogen 25 H Creatinine 0.57 Est Glomerular Filtrat Rate mL/min Glucose Level 105 Calcium Level 9.8 Medications Medication Current Medications Diphenhydramine HCl (Benadryl) 25 mg Q4H PRN PO ITCHING Last administered on 11/20/18at 00:13; Admin Dose 25 MG; Start 11/13/18 at 22:53 Rivaroxaban (Xarelto) 10 mg WITH DINNER PO Last administered on 11/29/18at 17:39; Admin Dose 10 MG; Start 11/13/18 at 22:53 Gabapentin (Neurontin) 300 mg TID PO Last administered on 11/29/18 12:09; Admin Dose 300 MG; Start 11/13/18 at 22:53 Cholecalciferol (Vitamin D) 2,000 unit DAILY PO Last administered on 11/29/18 09:10; Admin Dose 2,000 UNIT; Start 11/13/18 at 22:53 Fluticasone/ Vilanterol (Breo Ellipta 200-25 Mcg Inh) 1 inh DAILY INH Last administered on 11/29/18 09:07; Admin Dose 1 INH; Start 11/13/18 at 22:53 Bisacodyl (Dulcolax Supp) 10 mg DAILY PRN [place] CONSTIPATION Last administered on 11/15/18 22:12; Admin Dose 10 MG; Start 11/13/18 at 22:53 Ascorbic Acid (Vitamin C) 1,000 mg DAILY PO Last administered on 11/29/18 09:09; Admin Dose 1,000 MG; Start 11/13/18 at 22:53 Ondansetron HCl (Zofran Inj) 4 mg Q4H PRN IV NAUSEA AND/OR VOMITING; Start 11/13/18 at 23:18 Multivitamins Therapeutic (Theragran) 1 tab DAILY PO Last administered on 11/29/18 09:08; Admin Dose 1 TAB; Start 11/13/18 at 23:18 Levothyroxine Sodium (Synthroid) 125 mcg BEFORE BREAKFAST PO Last administered on 11/29/18 06:17; Admin Dose 125 MCG; Start 11/13/18 at 23:18 Magnesium Oxide (Mag-Ox 400) 400 mg DAILY PO Last administered on 11/29/18 09:10; Admin Dose 400 MG; Start 11/13/18 at 23:18 Montelukast Sodium (Singulair) 10 mg QHS PO Last administered on 11/28/18 20:20; Admin Dose 10 MG; Start 11/13/18 at 23:18 Pantoprazole (Protonix Tab) 40 mg DAILY@06 PO Last administered on 11/29/18 06:17; Admin Dose 40 MG; Start 11/13/18 at 23:18 Nystatin (Nystatin Powder) 1 applic BID TOP Last administered on 11/29/18 09:10; Admin Dose 1 APPLIC; Start 11/13/18 at 23:18 Miscellaneous Information (Pending Santyl Order For Wound Care) This patient carter... PRN PRN XX NOTE; Start 11/14/18 at 00:30 Acetaminophen (Tylenol Tab) 650 mg Q6H PRN PO MILD PAIN(1-3)OR ELEVATED TEMP Last administered on 11/27/18 08:40; Admin Dose 650 MG; Start 11/15/18 at 02:00 Acetaminophen/ Hydrocodone Bitart ([place] (5/325)) 1 tab Q4H PRN PO PAIN LEVEL 7-10 Last administered on 11/26/18 08:47; Admin Dose 1 TAB; Start 11/16/18 at 13:00 Morphine Sulfate (morphine) 9 mg Q2H PRN PO SEVERE PAIN LEVEL 7-10; Start 11/18/18 at 15:30 Baclofen (Lioresal) 10 mg TID PRN PO muscle spasm Last administered on 11/29/18at 01:13; Admin Dose 10 MG; Start 11/21/18 at 13:00 Docusate Sodium (Colace) 200 mg DAILY PRN PO CONSTIPATION; Start 11/24/18 at 08:00 Phenol (Cepastat Lozenge) 1 lozenge Q1H PRN [place] SORE THROAT Last administered on 11/29/18 09:08; Admin Dose 1 LOZENGE; Start 11/24/18 at 08:00 Polyethylene Glycol (Miralax) 17 gm DAILY PRN GTB CONSTIPATION; Start 11/24/18 at 09:30 Senna (Senokot) 1 tab DAILY PRN PO CONSTIPATION; Start 11/24/18 at 09:30 Amlodipine Besylate (Norvasc) 2.5 mg BID PO Last administered on 11/29/18 09:09; Admin Dose 2.5 MG; Start 11/28/18 at 21:00 OZIEL ELI MD Nov 29, 2018 19:25
[2018-11-29 20:00] VITALS: BP 113/68; PULSE 69; RESP 18
[2018-11-29] MEDS: MONTELUKAST 10 MG TAB PO SCH (21:42)
[2018-11-30 02:00] VITALS: BP 124/62; PULSE 74; RESP 18
[2018-11-30] MEDS: PANTOPRAZOLE (EC) 40 MG TAB PO SCH (06:44)
[2018-11-30] MEDS: LEVOTHYROXINE 125 MCG TAB PO SCH (06:44)
[2018-11-30 07:00] VITALS: BP 122/68; PULSE 65; RESP 18
[2018-11-30] MEDS: NYSTATIN 30 GM POWDER BTL TOP SCH ×2 (09:00→21:00)
[2018-11-30] MEDS: CHOLECALCIFEROL 2,000 UNIT CAP PO SCH (09:08)
[2018-11-30] MEDS: AMLODIPINE 2.5 MG TAB PO SCH ×2 (09:08→21:08)
[2018-11-30] MEDS: MAGNESIUM OXIDE 400 MG TAB PO SCH (09:08)
[2018-11-30] MEDS: GABAPENTIN 300 MG CAP PO SCH ×3 (09:08→21:06)
[2018-11-30] MEDS: ASCORBIC ACID 500 MG TAB PO SCH (09:09)
[2018-11-30] MEDS: MULTIVITAMINS THERAPEUTIC TAB PO SCH (09:09)
[2018-11-30] MEDS: FLUTICASONE/VILANTEROL 200-25 INH DEVICE INH SCH (09:12)
--- NOTE | 2018-11-30 11:58 | PN ---
Date/Time of Note Date/Time of Note DATE: 11/30/18 TIME: 11:58 Subjective Doing well Objective Vital Signs Date Temp Pulse Resp B/P (MAP) Pulse Ox O2 O2 Flow FiO2 Time Delivery Rate 11/30/18 98.0 65 18 122/68 100 Room Air 07:00 (86) Intake and Output 11/29/18 11/29/18 11/30/18 1515:00 23:00 07:00 IntakeIntake Total 200 ml 1280 ml 800 ml BalanceBalance 200 ml 1280 ml 800 ml Exam pulm-cta sba transfer Results/Medications Result Diagram: 11/28/18 0608 11/29/18 0624 Medications Current Medications Diphenhydramine HCl (Benadryl) 25 mg Q4H PRN PO ITCHING Last administered on 11/20/18 00:13; Admin Dose 25 MG; Start 11/13/18 at 22:53 Rivaroxaban (Xarelto) 10 mg WITH DINNER PO Last administered on 11/29/18 17:39; Admin Dose 10 MG; Start 11/13/18 at 22:53 Gabapentin (Neurontin) 300 mg TID PO Last administered on 11/30/18 09:08; Admin Dose 300 MG; Start 11/13/18 at 22:53 Cholecalciferol (Vitamin D) 2,000 unit DAILY PO Last administered on 11/30/18 09:08; Admin Dose 2,000 UNIT; Start 11/13/18 at 22:53 Fluticasone/ Vilanterol (Breo Ellipta 200-25 Mcg Inh) 1 inh DAILY INH Last administered on 11/30/18 09:12; Admin Dose 1 INH; Start 11/13/18 at 22:53 Bisacodyl (Dulcolax Supp) 10 mg DAILY PRN [place] CONSTIPATION Last administered on 11/15/18 22:12; Admin Dose 10 MG; Start 11/13/18 at 22:53 Ascorbic Acid (Vitamin C) 1,000 mg DAILY PO Last administered on 11/30/18 09:09; Admin Dose 1,000 MG; Start 11/13/18 at 22:53 Ondansetron HCl (Zofran Inj) 4 mg Q4H PRN IV NAUSEA AND/OR VOMITING; Start 11/13/18 at 23:18 Multivitamins Therapeutic (Theragran) 1 tab DAILY PO Last administered on 11/30/18 09:09; Admin Dose 1 TAB; Start 11/13/18 at 23:18 Levothyroxine Sodium (Synthroid) 125 mcg BEFORE BREAKFAST PO Last administered on 11/30/18 06:44; Admin Dose 125 MCG; Start 11/13/18 at 23:18 Magnesium Oxide (Mag-Ox 400) 400 mg DAILY PO Last administered on 11/30/18 09:08; Admin Dose 400 MG; Start 11/13/18 at 23:18 Montelukast Sodium (Singulair) 10 mg QHS PO Last administered on 11/29/18 21:42; Admin Dose 10 MG; Start 11/13/18 at 23:18 Pantoprazole (Protonix Tab) 40 mg DAILY@06 PO Last administered on 11/30/18 06:44; Admin Dose 40 MG; Start 11/13/18 at 23:18 Nystatin (Nystatin Powder) 1 applic BID TOP Last administered on 11/29/18 09:10; Admin Dose 1 APPLIC; Start 11/13/18 at 23:18 Miscellaneous Information (Pending [facility] Order For Wound Care) This patient carter... PRN PRN XX NOTE; Start 11/14/18 at 00:30 Acetaminophen (Tylenol Tab) 650 mg Q6H PRN PO MILD PAIN(1-3)OR ELEVATED TEMP Last administered on 11/27/18 08:40; Admin Dose 650 MG; Start 11/15/18 at 02:00 Acetaminophen/ Hydrocodone Bitart ([place] (5/325)) 1 tab Q4H PRN PO PAIN LEVEL 7-10 Last administered on 11/26/18 08:47; Admin Dose 1 TAB; Start 11/16/18 at 13:00 Morphine Sulfate (morphine) 9 mg Q2H PRN PO SEVERE PAIN LEVEL 7-10; Start 11/18/18 at 15:30 Baclofen (Lioresal) 10 mg TID PRN PO muscle spasm Last administered on 11/29/18 01:13; Admin Dose 10 MG; Start 11/21/18 at 13:00 Docusate Sodium (Colace) 200 mg DAILY PRN PO CONSTIPATION; Start 11/24/18 at 08:00 Phenol (Cepastat Lozenge) 1 lozenge Q1H PRN [place] SORE THROAT Last administered on 11/29/18at 09:08; Admin Dose 1 LOZENGE; Start 11/24/18 at 08:00 Polyethylene Glycol (Miralax) 17 gm DAILY PRN GTB CONSTIPATION; Start 11/24/18 at 09:30 Senna (Senokot) 1 tab DAILY PRN PO CONSTIPATION; Start 11/24/18 at 09:30 Amlodipine Besylate (Norvasc) 2.5 mg BID PO Last administered on 11/30/18at 09:08; Admin Dose 2.5 MG; Start 11/28/18 at 21:00 Assessment/Plan Additional Assessment/Plan Rehab- 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 Continue rehab program Chronic atrial fibrillation. Gastroesophageal reflux disease. COPD. Acute and neuropathic pain- improved Hypothyroidism. NISHI MOLINA MD Nov 30, 2018 11:58
--- NOTE | 2018-11-30 12:20 | PN ---
Date/Time of Note Date/Time of Note DATE: 11/30/18 TIME: 12:20 Assessment/Plan Lines/Catheters IV Catheter Type (from Nrsg): Mid Line Donis in Place (from Nrsg): No Assessment/Plan Chief Complaint/Hosp Course -Right LE atherosclerosis, osteomyelitis, nonhealing chronic ulcer & Charcot: S/P Right BKA-with musculocutaneous flap -LLE atherosclerosis: no current ulcers . will continue with our vascular surveillance -Pain control -PT/OT OOB to chair and FWB of the LLE, RLE with ambushield and fall precautions -Patient is at risk for possible wound dehiscence/infection given her extended (4years) of recurrent infections of the lower leg. Recommend close observation and further rehab to avoid any falls and or wound complications -Incentive spirometer -Patient can shower, no need to cover the incision -DVT ppxin the postoperative period -Changed dressing with Betadine paint to staple line, gauze, kerlex and attila wrap followed by sewing machine bobbin winder. To be changed daily -Keep RLE elevate on two pillows at rest Subjective 24 Hr Interval Summary Constitutional: no complaints Exam/Review of Systems Vital Signs Vitals Vital Signs Date Temp Pulse Resp B/P (MAP) Pulse Ox O2 O2 Flow FiO2 Time Delivery Rate 11/30/18 98.0 65 18 122/68 100 Room Air 07:00 (86) Intake and Output 11/29/18 11/29/18 11/30/18 1515:00 23:00 07:00 IntakeIntake Total 200 ml 1280 ml 800 ml BalanceBalance 200 ml 1280 ml 800 ml Results Result Diagram: 11/28/18 0608 11/29/18 0624 SAE BETH MD Nov 30, 2018 12:20
[2018-11-30 14:00] VITALS: BP 118/73; PULSE 97; RESP 18
[2018-11-30] MEDS: RIVAROXABAN 10 MG TABLET PO SCH (18:29)
--- NOTE | 2018-11-30 18:37 | CONS ---
Assessment/Plan Assessment/Plan Hospital Course (Demo Recall) 1. She is post op a R below the knee amputation and is doing well with physical therapy . Recommend that she continue current medication and treatment regimen. She is having stephanie removed from the R leg stump . 2. Her VS are stable 3. Afib in controlled rate . . Consultation Date/Type/Reason Admit Date/Time Nov 13, 2018 at 21:15 Initial Consult Date Type of Consult Medicine Requesting Provider: NISHI MOLINA MD Date/Time of Note DATE: 11/30/18 TIME: 18:34 24 HR Interval Summary Free Text/Dictation Karla is doing well . No new problems . She is having the stephanie removed from her R leg . Constitutional: no complaints, improved Exam/Review of Systems Exam Vitals Vital Signs Date Temp Pulse Resp B/P (MAP) Pulse Ox O2 O2 Flow FiO2 Time Delivery Rate 11/30/18 97.4 97 18 118/73 100 Room Air 14:00 (88) Intake and Output 11/29/18 11/29/18 11/30/18 1515:00 23:00 07:00 IntakeIntake Total 200 ml 1280 ml 800 ml BalanceBalance 200 ml 1280 ml 800 ml Exam S/P R BKA Constitutional: alert, oriented, well developed Respiratory: clear to auscultation, normal air movement Cardiovascular: regular rate and rhythm, nl pulses Gastrointestinal: soft, non-tender Results Result Diagram: 11/28/18 0608 11/29/18 0624 Medications Medication Current Medications Diphenhydramine HCl (Benadryl) 25 mg Q4H PRN PO ITCHING Last administered on 11/20/18at 00:13; Admin Dose 25 MG; Start 11/13/18 at 22:53 Rivaroxaban (Xarelto) 10 mg WITH DINNER PO Last administered on 11/30/18at 18:29; Admin Dose 10 MG; Start 11/13/18 at 22:53 Gabapentin (Neurontin) 300 mg TID PO Last administered on 11/30/18at 14:15; Admin Dose 300 MG; Start 11/13/18 at 22:53 Cholecalciferol (Vitamin D) 2,000 unit DAILY PO Last administered on 11/30/18at 09:08; Admin Dose 2,000 UNIT; Start 11/13/18 at 22:53 Fluticasone/ Vilanterol (Breo Ellipta 200-25 Mcg Inh) 1 inh DAILY INH Last ad ministered on 11/30/18 09:12; Admin Dose 1 INH; Start 11/13/18 at 22:53 Bisacodyl (Dulcolax Supp) 10 mg DAILY PRN [place] CONSTIPATION Last administered on 11/15/18 22:12; Admin Dose 10 MG; Start 11/13/18 at 22:53 Ascorbic Acid (Vitamin C) 1,000 mg DAILY PO Last administered on 11/30/18 09:09; Admin Dose 1,000 MG; Start 11/13/18 at 22:53 Ondansetron HCl (Zofran Inj) 4 mg Q4H PRN IV NAUSEA AND/OR VOMITING; Start 11/13/18 at 23:18 Multivitamins Therapeutic (Theragran) 1 tab DAILY PO Last administered on 11/30/18 09:09; Admin Dose 1 TAB; Start 11/13/18 at 23:18 Levothyroxine Sodium (Synthroid) 125 mcg BEFORE BREAKFAST PO Last administered on 11/30/18 06:44; Admin Dose 125 MCG; Start 11/13/18 at 23:18 Magnesium Oxide (Mag-Ox 400) 400 mg DAILY PO Last administered on 11/30/18 09:08; Admin Dose 400 MG; Start 11/13/18 at 23:18 Montelukast Sodium (Singulair) 10 mg QHS PO Last administered on 11/29/18 21:42; Admin Dose 10 MG; Start 11/13/18 at 23:18 Pantoprazole (Protonix Tab) 40 mg DAILY@06 PO Last administered on 11/30/18 06:44; Admin Dose 40 MG; Start 11/13/18 at 23:18 Nystatin (Nystatin Powder) 1 applic BID TOP Last administered on 11/29/18 09:10; Admin Dose 1 APPLIC; Start 11/13/18 at 23:18 Miscellaneous Information (Pending Santyl Order For Wound Care) This patient carter... PRN PRN XX NOTE; Start 11/14/18 at 00:30 Acetaminophen (Tylenol Tab) 650 mg Q6H PRN PO MILD PAIN(1-3)OR ELEVATED TEMP Last administered on 11/27/18 08:40; Admin Dose 650 MG; Start 11/15/18 at 02:00 Acetaminophen/ Hydrocodone Bitart ([place] (5/325)) 1 tab Q4H PRN PO PAIN LEVEL 7-10 Last administered on 11/26/18at 08:47; Admin Dose 1 TAB; Start 11/16/18 at 13:00 Morphine Sulfate (morphine) 9 mg Q2H PRN PO SEVERE PAIN LEVEL 7-10; Start 11/18/18 at 15:30 Baclofen (Lioresal) 10 mg TID PRN PO muscle spasm Last administered on 11/29/18at 01:13; Admin Dose 10 MG; Start 11/21/18 at 13:00 Docusate Sodium (Colace) 200 mg DAILY PRN PO CONSTIPATION; Start 11/24/18 at 08:00 Phenol (Cepastat Lozenge) 1 lozenge Q1H PRN [place] SORE THROAT Last administered on 11/29/18 09:08; Admin Dose 1 LOZENGE; Start 11/24/18 at 08:00 Polyethylene Glycol (Miralax) 17 gm DAILY PRN GTB CONSTIPATION; Start 11/24/18 at 09:30 Senna (Senokot) 1 tab DAILY PRN PO CONSTIPATION; Start 11/24/18 at 09:30 Amlodipine Besylate (Norvasc) 2.5 mg BID PO Last administered on 11/30/18at 09:08; Admin Dose 2.5 MG; Start 11/28/18 at 21:00 OZIEL ELI MD Nov 30, 2018 18:37
[2018-11-30 19:46] VITALS: BP 112/65; PULSE 87; RESP 18
[2018-11-30] MEDS: MONTELUKAST 10 MG TAB PO SCH (21:07)
[2018-11-30] MEDS: BACLOFEN 10 MG TAB PO PRN (22:59)
[2018-12-01 02:00] VITALS: BP 116/68; PULSE 79; RESP 18
[2018-12-01] MEDS: LEVOTHYROXINE 125 MCG TAB PO SCH (06:29)
[2018-12-01] MEDS: PANTOPRAZOLE (EC) 40 MG TAB PO SCH (06:29)
[2018-12-01 07:30] VITALS: BP 148/71; PULSE 90; RESP 20
[2018-12-01] MEDS: FLUTICASONE/VILANTEROL 200-25 INH DEVICE INH SCH (08:50)
[2018-12-01] MEDS: HYDROCODONE/APAP (5/325) TAB PO PRN ×2 (08:50→23:07)
[2018-12-01] MEDS: AMLODIPINE 2.5 MG TAB PO SCH ×2 (08:51→20:31)
[2018-12-01] MEDS: MULTIVITAMINS THERAPEUTIC TAB PO SCH (08:51)
[2018-12-01] MEDS: MAGNESIUM OXIDE 400 MG TAB PO SCH (08:51)
[2018-12-01] MEDS: CHOLECALCIFEROL 2,000 UNIT CAP PO SCH (08:51)
[2018-12-01] MEDS: ASCORBIC ACID 500 MG TAB PO SCH (08:51)
[2018-12-01] MEDS: GABAPENTIN 300 MG CAP PO SCH ×3 (08:51→20:29)
[2018-12-01] MEDS: NYSTATIN 30 GM POWDER BTL TOP SCH ×2 (08:52→21:00)
--- NOTE | 2018-12-01 13:36 | PN ---
Date/Time of Note Date/Time of Note DATE: 12/01/18 TIME: 13:36 Subjective Looking forward to discharge Objective Vital Signs Date Temp Pulse Resp B/P (MAP) Pulse Ox O2 O2 Flow FiO2 Time Delivery Rate 12/01/18 98.1 90 20 148/71 97 Room Air 07:30 (96) Intake and Output 11/30/18 11/30/18 12/01/18 1515:00 23:00 07:00 IntakeIntake Total 1200 ml 150 ml OutputOutput Total 800 ml BalanceBalance 400 ml 150 ml Exam pulm-cta s transfer Results/Medications Result Diagram: 11/28/18 0608 11/29/18 0624 Medications Current Medications Diphenhydramine HCl (Benadryl) 25 mg Q4H PRN PO ITCHING Last administered on 11/20/18 00:13; Admin Dose 25 MG; Start 11/13/18 at 22:53 Rivaroxaban (Xarelto) 10 mg WITH DINNER PO Last administered on 11/30/18 18:29; Admin Dose 10 MG; Start 11/13/18 at 22:53 Gabapentin (Neurontin) 300 mg TID PO Last administered on 12/01/18 12:08; Admin Dose 300 MG; Start 11/13/18 at 22:53 Cholecalciferol (Vitamin D) 2,000 unit DAILY PO Last administered on 12/01/18 08:51; Admin Dose 2,000 UNIT; Start 11/13/18 at 22:53 Fluticasone/ Vilanterol (Breo Ellipta 200-25 Mcg Inh) 1 inh DAILY INH Last administered on 12/01/18 08:50; Admin Dose 1 INH; Start 11/13/18 at 22:53 Bisacodyl (Dulcolax Supp) 10 mg DAILY PRN [place] CONSTIPATION Last administered on 11/15/18 22:12; Admin Dose 10 MG; Start 11/13/18 at 22:53 Ascorbic Acid (Vitamin C) 1,000 mg DAILY PO Last administered on 12/01/18 08:51; Admin Dose 1,000 MG; Start 11/13/18 at 22:53 Ondansetron HCl (Zofran Inj) 4 mg Q4H PRN IV NAUSEA AND/OR VOMITING; Start 11/13/18 at 23:18 Multivitamins Therapeutic (Theragran) 1 tab DAILY PO Last administered on 12/01/18 08:51; Admin Dose 1 TAB; Start 11/13/18 at 23:18 Levothyroxine Sodium (Synthroid) 125 mcg BEFORE BREAKFAST PO Last administered on 12/01/18 06:29; Admin Dose 125 MCG; Start 11/13/18 at 23:18 Magnesium Oxide (Mag-Ox 400) 400 mg DAILY PO Last administered on 12/01/18 08:51; Admin Dose 400 MG; Start 11/13/18 at 23:18 Montelukast Sodium (Singulair) 10 mg QHS PO Last administered on 11/30/18 21:07; Admin Dose 10 MG; Start 11/13/18 at 23:18 Pantoprazole (Protonix Tab) 40 mg DAILY@06 PO Last administered on 12/01/18 06:29; Admin Dose 40 MG; Start 11/13/18 at 23:18 Nystatin (Nystatin Powder) 1 applic BID TOP Last administered on 11/29/18 09:10; Admin Dose 1 APPLIC; Start 11/13/18 at 23:18 Miscellaneous Information (Pending [facility] Order For Wound Care) This patient carter... PRN PRN XX NOTE; Start 11/14/18 at 00:30 Acetaminophen (Tylenol Tab) 650 mg Q6H PRN PO MILD PAIN(1-3)OR ELEVATED TEMP Last administered on 11/27/18 08:40; Admin Dose 650 MG; Start 11/15/18 at 02:00 Acetaminophen/ Hydrocodone Bitart ([place] (5/325)) 1 tab Q4H PRN PO PAIN LEVEL 7-10 Last administered on 12/01/18 08:50; Admin Dose 1 TAB; Start 11/16/18 at 13:00 Baclofen (Lioresal) 10 mg TID PRN PO muscle spasm Last administered on 11/30/18 22:59; Admin Dose 10 MG; Start 11/21/18 at 13:00 Docusate Sodium (Colace) 200 mg DAILY PRN PO CONSTIPATION; Start 11/24/18 at 08:00 Phenol (Cepastat Lozenge) 1 lozenge Q1H PRN [place] SORE THROAT Last administered on 11/29/18 09:08; Admin Dose 1 LOZENGE; Start 11/24/18 at 08:00 Polyethylene Glycol (Miralax) 17 gm DAILY PRN GTB CONSTIPATION; Start 11/24/18 at 09:30 Senna (Senokot) 1 tab DAILY PRN PO CONSTIPATION; Start 11/24/18 at 09:30 Amlodipine Besylate (Norvasc) 2.5 mg BID PO Last administered on 12/01/18at 08:51; Admin Dose 2.5 MG; Start 11/28/18 at 21:00 Assessment/Plan Additional Assessment/Plan Rehab- 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 Anticipate home tomorrow Chronic atrial fibrillation. Gastroesophageal reflux disease. COPD. Acute and neuropathic pain- improved Hypothyroidism. NISHI MOLINA MD Dec 01, 2018 13:36
[2018-12-01 14:00] VITALS: BP 117/70; PULSE 90; RESP 20
--- NOTE | 2018-12-01 14:13 | CONS ---
Assessment/Plan Assessment/Plan Hospital Course (Demo Recall) 1. She is post op a R below the knee amputation and is doing well with physical therapy . Recommend that she continue current medication and treatment regimen. She had the stephanie removed from the R leg stump . He is going to be discharged tomorrow. She will resume her routine medication at home. 2. Her VS are stable 3. Afib in controlled rate . . Consultation Date/Type/Reason Admit Date/Time Nov 13, 2018 at 21:15 Initial Consult Date Type of Consult Medicine Requesting Provider: NISHI MOLINA MD Date/Time of Note DATE: 12/01/18 TIME: 14:11 24 HR Interval Summary Free Text/Dictation Karla is being seen in medical follow-up. She has the cast and stephanie off of her right leg. She is participating in physical therapy and doing well. Constitutional: no complaints, improved Exam/Review of Systems Exam Vitals Vital Signs Date Temp Pulse Resp B/P (MAP) Pulse Ox O2 O2 Flow FiO2 Time Delivery Rate 12/01/18 98.1 90 20 148/71 97 Room Air 07:30 (96) Intake and Output 11/30/18 11/30/18 12/01/18 1414:59 22:59 06:59 IntakeIntake Total 1200 ml 150 ml OutputOutput Total 800 ml BalanceBalance 400 ml 150 ml Exam Status post right below the knee amputation. Constitutional: alert, oriented, well developed Respiratory: clear to auscultation, normal air movement Cardiovascular: irregular rhythm Gastrointestinal: soft, non-tender Results Result Diagram: 11/28/18 0608 11/29/18 0624 Medications Medication Current Medications Diphenhydramine HCl (Benadryl) 25 mg Q4H PRN PO ITCHING Last administered on 11/20/18at 00:13; Admin Dose 25 MG; Start 11/13/18 at 22:53 Rivaroxaban (Xarelto) 10 mg WITH DINNER PO Last administered on 11/30/18at 18: 29; Admin Dose 10 MG; Start 11/13/18 at 22:53 Gabapentin (Neurontin) 300 mg TID PO Last administered on 12/01/18at 12:08; Admin Dose 300 MG; Start 11/13/18 at 22:53 Cholecalciferol (Vitamin D) 2,000 unit DAILY PO Last administered on 12/01/18 08:51; Admin Dose 2,000 UNIT; Start 11/13/18 at 22:53 Fluticasone/ Vilanterol (Breo Ellipta 200-25 Mcg Inh) 1 inh DAILY INH Last administered on 12/01/18 08:50; Admin Dose 1 INH; Start 11/13/18 at 22:53 Bisacodyl (Dulcolax Supp) 10 mg DAILY PRN [place] CONSTIPATION Last administered on 11/15/18 22:12; Admin Dose 10 MG; Start 11/13/18 at 22:53 Ascorbic Acid (Vitamin C) 1,000 mg DAILY PO Last administered on 12/01/18 08:51; Admin Dose 1,000 MG; Start 11/13/18 at 22:53 Ondansetron HCl (Zofran Inj) 4 mg Q4H PRN IV NAUSEA AND/OR VOMITING; Start 11/13/18 at 23:18 Multivitamins Therapeutic (Theragran) 1 tab DAILY PO Last administered on 12/01/18 08:51; Admin Dose 1 TAB; Start 11/13/18 at 23:18 Levothyroxine Sodium (Synthroid) 125 mcg BEFORE BREAKFAST PO Last administered on 12/01/18 06:29; Admin Dose 125 MCG; Start 11/13/18 at 23:18 Magnesium Oxide (Mag-Ox 400) 400 mg DAILY PO Last administered on 12/01/18 08:51; Admin Dose 400 MG; Start 11/13/18 at 23:18 Montelukast Sodium (Singulair) 10 mg QHS PO Last administered on 11/30/18 21:07; Admin Dose 10 MG; Start 11/13/18 at 23:18 Pantoprazole (Protonix Tab) 40 mg DAILY@06 PO Last administered on 12/01/18 06:29; Admin Dose 40 MG; Start 11/13/18 at 23:18 Nystatin (Nystatin Powder) 1 applic BID TOP Last administered on 11/29/18 09:10; Admin Dose 1 APPLIC; Start 11/13/18 at 23:18 Miscellaneous Information (Pending Santyl Order For Wound Care) This patient carter... PRN PRN XX NOTE; Start 11/14/18 at 00:30 Acetaminophen (Tylenol Tab) 650 mg Q6H PRN PO MILD PAIN(1-3)OR ELEVATED TEMP Last administered on 11/27/18 08:40; Admin Dose 650 MG; Start 11/15/18 at 02:00 Acetaminophen/ Hydrocodone Bitart ([place] (5/325)) 1 tab Q4H PRN PO PAIN LEVEL 7-10 Last administered on 12/01/18 08:50; Admin Dose 1 TAB; Start 11/16/18 at 13:00 Baclofen (Lioresal) 10 mg TID PRN PO muscle spasm Last administered on 11/30/18 22:59; Admin Dose 10 MG; Start 11/21/18 at 13:00 Docusate Sodium (Colace) 200 mg DAILY PRN PO CONSTIPATION; Start 11/24/18 at 08:00 Phenol (Cepastat Lozenge) 1 lozenge Q1H PRN [place] SORE THROAT Last administered on 11/29/18 09:08; Admin Dose 1 LOZENGE; Start 11/24/18 at 08:00 Polyethylene Glycol (Miralax) 17 gm DAILY PRN GTB CONSTIPATION; Start 11/24/18 at 09:30 Senna (Senokot) 1 tab DAILY PRN PO CONSTIPATION; Start 11/24/18 at 09:30 Amlodipine Besylate (Norvasc) 2.5 mg BID PO Last administered on 12/01/18 08:51; Admin Dose 2.5 MG; Start 11/28/18 at 21:00 OZIEL ELI MD Dec 01, 2018 14:13
[2018-12-01] MEDS: RIVAROXABAN 10 MG TABLET PO SCH (17:40)
[2018-12-01 19:31] VITALS: BP 132/65; PULSE 85; RESP 18
[2018-12-01] MEDS: MONTELUKAST 10 MG TAB PO SCH (20:29)
[2018-12-01] MEDS: BACLOFEN 10 MG TAB PO PRN (21:43)
[2018-12-02 01:56] VITALS: BP 122/68; PULSE 88; RESP 18
[2018-12-02] MEDS: LEVOTHYROXINE 125 MCG TAB PO SCH (06:22)
[2018-12-02] MEDS: PANTOPRAZOLE (EC) 40 MG TAB PO SCH (06:22)
[2018-12-02 07:00] VITALS: BP 141/73; PULSE 83; RESP 17
--- NOTE | 2018-12-02 08:54 | DS ---
Date/Time of Note Date/Time of Note DATE: 12/02/18 TIME: 08:52 Discharge Summary Admission/Discharge Info Admit Date/Time Nov 13, 2018 at 21:15 Discharge Date/Time Discharge Diagnosis 1. Right below the knee amputation due to nonhealing ulcer along with osteomye litis. 2. Toxic metabolic encephalopathy- resolved 2. Chronic atrial fibrillation. 3. Gastroesophageal reflux disease. 4. COPD. 5. Acute and neuropathic pain. 6. Hypothyroidism. 7. Improvements in self-care, mobility and cognition. Patient Condition: Good Hospital Course The patient was admitted for comprehensive interdisciplinary rehabilitation and made steady functional gains from a Mod/Max level to a S/DE level for self care tasks and mobility including wheelchair mobility over 150 feet. Patient is being discharged home with the recommendation of home health PT, OT and RN follow up. The DC meds are per the medication reconciliation sheet. The discharge equipment recommendations include: FWW, BSC, shower chair and wheelchair. The patient will follow up with PMD and Surgeons upon DC. Home Meds Reported Medications Albuterol Sulfate* (Ventolin HFA*) 18 Gm Hfa.aer.ad, 2 PUFF INHALATION Q6H, #1 INHALER 11/07/18 Diphenoxylate Hcl-Atropine* (Lomotil*) 5 Ml Soln, 5 ML GTB Q6H PRN for DIARRHEA, ML 11/07/18 Albuterol Sulfate* (Albuterol Sulfate* Liq) 2 Mg/5 Ml Syrup, 2 MG PO TID, #240 ML 11/07/18 Acetaminophen with Codeine (Acetaminophen-Cod #3 Tablet) 1 Each Tablet, 1 TAB PO Q6H, #7 TAB 11/07/18 Pregabalin* (Lyrica*) 75 Mg Capsule, 75 MG PO DAILY, CAP 11/07/18 Fluticasone/Vilanterol (Breo Ellipta 200-25 Mcg INH) 1 Each Blst.w.dev, 1 PUFF INHALATION DAILY, #1 INHALER 11/07/18 Ferrous Sulfate* (Ferrous Sulfate*) 325 Mg Tabec, 65 MG PO DAILY, TAB 11/07/18 Magnesium Oxide* (Magnesium Oxide*) 400 Mg Tablet, 400 MG PO DAILY, TAB 11/07/18 Cholecalciferol* (Vitamin D3*) 1,000 Unit Tablet, 2000 UNIT PO DAILY, TAB 11/07/18 Montelukast Sodium* (Singulair*) 10 Mg Tablet, 10 MG PO QHS, #30 TAB 11/07/18 Aspirin* (Aspirin* Chew) 81 Mg Tab.chew, 81 MG PO DAILY, TAB.CHEW 11/07/18 Omeprazole* (Omeprazole*) 20 Mg Capsule.dr, 20 MG PO DAILY, #30 CAP 11/07/18 Amlodipine Besylate* (Norvasc*) 10 Mg Tablet, 10 MG PO DAILY, TAB 11/07/18 Levothyroxine Sodium* (Levothyroxine Sodium*) 125 Mcg Tablet, 125 MCG PO BEFORE BREAKFAST, #30 TAB 11/07/18 Losartan Potassium* (Cozaar*) 25 Mg Tablet, 25 MG PO DAILY, #30 TAB 11/07/18 Primary Care Provider Not On Staff Doctor NISHI MOLINA MD Dec 02, 2018 08:54
[2018-12-02] MEDS: NYSTATIN 30 GM POWDER BTL TOP SCH (09:00)
[2018-12-02] MEDS: FLUTICASONE/VILANTEROL 200-25 INH DEVICE INH SCH (09:07)
[2018-12-02] MEDS: AMLODIPINE 2.5 MG TAB PO SCH (09:08)
[2018-12-02] MEDS: MAGNESIUM OXIDE 400 MG TAB PO SCH (09:08)
[2018-12-02] MEDS: CHOLECALCIFEROL 2,000 UNIT CAP PO SCH (09:08)
[2018-12-02] MEDS: GABAPENTIN 300 MG CAP PO SCH (09:08)
[2018-12-02] MEDS: MULTIVITAMINS THERAPEUTIC TAB PO SCH (09:09)
[2018-12-02] MEDS: ASCORBIC ACID 500 MG TAB PO SCH (09:09)
== END 2018-12-02 11:08 | disposition home health service (06) | DRG 561 ==
LOC: VRC 21:15
PROVIDERS: ADMIT Physical Medicine & Rehabilitation; ATTEND Internal Medicine
PROC: F07Z5ZZ Bed Mobility Treatment (ICD-10-PCS; principal; 2018-11-14)
PROC: F07Z4ZZ Wheelchair Mobility Treatment (ICD-10-PCS; 2018-11-14)
PROC: F08Z2ZZ Grooming/Personal Hygiene Treatment (ICD-10-PCS; 2018-11-14)
PROC: F08Z1ZZ Dressing Techniques Treatment (ICD-10-PCS; 2018-11-14)
PROC: F08Z0ZZ Bathing/Showering Techniques Treatment (ICD-10-PCS; 2018-11-14)
DX: Z47.81 Encounter for orthopedic aftercare following surgical amputation (principal); J44.9 Chronic obstructive pulmonary disease, unspecified; R41.0 Disorientation, unspecified; G47.30 Sleep apnea, unspecified; I48.2 Chronic atrial fibrillation; K21.9 Gastro-esophageal reflux disease without esophagitis; G62.9 Polyneuropathy, unspecified; E03.9 Hypothyroidism, unspecified; F06.31 Mood disorder due to known physiological condition with depressive features; R82.71 Bacteriuria; Z89.511 Acquired absence of right leg below knee; I70.202 Unspecified atherosclerosis of native arteries of extremities, left leg
CPT/HCPCS: 80048; 80053; 81001; 81003; 82565; 83735; 84100; 84132; 84520; 85025; 87081; 87086; 92610; 97110; 97112; 97116; 97163; 97166; 97530; 97535; 97542